=== PATIENT | male | born 1950 | race Caucasian/White ===

== ENCOUNTER 2019-09-07 10:42 | Emergency (ER) | payer OTHER, MEDICARE ==
[~2019-09-07] VITALS: Ht 175.3 cm; Wt 77.1 kg
--- OUTSIDE RECORDS SUMMARY | ~2019-09-07 | XMS | Encounter Summary ---
Demographics + + + | Address | [address] | | | [place] [address] | + + + | Home Phone | | + + + | Preferred Language | Unknown | + + + | Marital Status | Single | + + + | Bahai Affiliation | Unknown | + + + | Race | Unknown | + + + | Ethnic Group | Unknown | + + + Author + + + | Author | [facility] | | | and [facility] | + + + | Organization | [facility] | | | and [place] | + + + | Address | Unknown | + + + | Phone | Unavailable | + + + Support + + +---------+ + | Name | Relationship | Address | Phone | + + +---------+ + | Angela Austin | ECON | Unknown | | + + +---------+ + | Linda Mayberry | ECON | Unknown | | + + +---------+ + Care Team Providers + +------+ + | Care Curing Supervisor Name | Role | Phone | + +------+ + | Love Prabhakar DO | PCP | | + +------+ + Reason for Referral Diagnostic/Screening (Routine) +--------+--------+ + + + + | Status | Reason | Specialty | Diagnoses / | Referred By | Referred To | | | | | Procedures | Contact | Contact | +--------+--------+ + + + + | Closed | | Radiology | Diagnoses | Brandy | [facility] Echo | | | | | | Zaida M, | [facility] [place] | | | | | Palpitations | PA-C [address] | | | | | SOB | [address] | [address] | | | | | (shortness | [address] | [place] | | | | | of breath) | [place] | [address] | | | | | Procedures | [address] | Phone: | | | | | ECHO | Phone: | [phone] | | | | | Complete | [phone] | Fax: | | | | | | Fax: | [phone] | | | | | | [phone] | | +--------+--------+ + + + + Reason for Visit Diagnostic/Screening (Routine) +--------+--------+ + + + + | Status | Reason | Specialty | Diagnoses / | Referred By | Referred To | | | | | Procedures | Contact | Contact | +--------+--------+ + + + + | Closed | | Radiology | Diagnoses | Brandy, | [facility] | | | | | | Zaida M, | [facility] [place] | | | | | Palpitations | PA[address]C [address] | | | | | SOB | [address] | [address] | | | | | (shortness | [address] | [place] | | | | | of breath) | [place], [place] | [address] | | | | | Procedures | [id number] | Phone: | | | | | ECHO | Phone: | [phone] | | | | | Complete | [phone] | Fax: | | | | | | Fax: | [phone] | | | | | | [phone] | | +--------+--------+ + + + + Encounter Details +--------+ + + + + | Date | Type | Department | Care Team | Description | +--------+ + + + + | 08/09/ | Hospital | [facility] | Zaida Nava, | Palpitations; SOB | | 2017 | Encounter | [facility] | PA-C [address] | (shortness of | | | | [facility] | [address] | breath) | | | [facility] | [place] [address] | | | | | [address] | [phone] | | | | | [place] | | | | | | [address] | | | | | | [phone] | | | +--------+ + + + + Social History + + + +--------+------+ | Tobacco Use | Types | Packs/Day | Years | Date | | | | | Used | | + + + +--------+------+ | Current Every Day | Cigarettes | 0.5 | 40 | | | Smoker | | | | | + + + +--------+------+ + +---+---+---+ | Smokeless Tobacco: | | | | | Never Used | | | | + +---+---+---+ + + | Comments: smokes anywhere from a half to a full pack a day | + + + + +---------+ + | Alcohol Use | Drinks/Week | oz/Week | Comments | + + +---------+ + | Yes | 0 Standard drinks | 0.0 | 1 glass of white | | | or equivalent | | wine after work | + + +---------+ + + + + | Sex Assigned at | Date Recorded | | | | + + + | Not on file | | + + + + + + + | Job Start Date | Occupation | Industry | + + + + | Not on file | Not on file | Not on file | + + + + + + + + | Travel History | Travel Start | Travel End | + + + + + + | No recent travel history available. | + + documented as of this encounter Medications at Time of Discharge + + + +---------+ + + | Medication | Sig | Dispensed | Refills | Start | End Date | | | | | | Date | | + + + +---------+ + + | aspirin 81 mg EC | Take 81 mg by mouth | | 0 | | | | tablet | Daily. | | | | | + + + +---------+ + + | atorvaSTATin | Take 1 tablet by | 90 | 3 | 07/22/20 | | | (LIPITOR) 80 MG | mouth nightly. | tablet | | 16 | | | tablet | | | | | | + + + +---------+ + + | nitroglycerin | Place 1 tablet under | 25 | 1 | 07/22/20 | | | (NITROSTAT) 0.4 mg | the tongue every 5 | tablet | | 16 | | | SL | minutes as needed | | | | | | tabletIndications: | for Chest pain. | | | | | | Chest pain, | | | | | | | unspecified type, | | | | | | | CAD in [place] artery | | | | | | + + + +---------+ + + | | Take 1 tablet by | | 0 | | | | oxyCODONE-acetaminop | mouth every 4 hours | | | | | | hen (PERCOCET) 5-325 | as needed for Pain. | | | | | | mg per tablet | | | | | | + + + +---------+ + + | metoprolol | Take 1 tablet by | 30 | 11 | 07/31/20 | | | succinate (TOPROL | mouth nightly. | tablet | | 17 | 8 | | XL) 25 mg 24 hr | | | | | | | tablet | | | | | | + + + +---------+ + + documented as of this encounter Plan of Treatment Not on filedocumented as of this encounter Procedures + +--------+ + + + | Procedure Name | Priori | Date/Time | Associated Diagnosis | Comments | | | ty | | | | + +--------+ + + + | ECHO COMPLETE | Routin | 08/09/2017 | Palpitations SOB | Results for this | | | e | 12:14 PM | (shortness of | procedure are in the | | | | PST | breath) | results section. | + +--------+ + + + | LVEF VALUE | Routin | 08/09/2017 | | Results for this | | | e | | | procedure are in the | | | | | | results section. | + +--------+ + + + documented in this encounter Results ECHO Complete (08/09/2017 12:14 PM PST) + + | Specimen | + + | | + + + +--------- ------+ | Narrative | Performe d At | + +--------- ------+ | | [facility] | | | | | Adult | | | Echo | | | | | | Report Name: RODRIGO MAYBERRY Study | | | Date: 08/09/2017MRN: [id number] Patient Location: | | | [place]OB[place] 1950 Age: 66 yrs | | | Gender: MaleHeight: 68 in Weight: 176 lb | | | BSA: 1.9 m2BP: 120/78 mmHg HR: 61 | | | Rhythm: Sinus rhythmHistory: Hypertension, | | | HyperlipidemiaReason For Study: Palpitations, Shortness of Breath; AUC | | | - 1 INTERPRETATION SUMMARY:A complete two-dimensional transthoracic | | | echocardiogram was performed (2D,M-mode, Doppler and color flow | | | Doppler). Image quality was fair. 1. Normal LV cavity size and | | | borderline concentric hypertrophy. Normalsystolic function with EF | | | 70%.2. Minimal diastolic dysfunction.3. Normal RV. Normal atria, small | | | IVC. Normal aorta and pericardium.4. Normal valves. Mild tricuspid | | | regurgitation. Upper normal PA pressureestimated peak 31 mmHg. No | | | obvious cardiac issue for the shortness of breath. Consider | | | pulmonaryissues. The diastolic dysfunction is only very mild.No | | | structural issues to explain palpitations. Left Ventricle:The left | | | ventricle is normal in size. There is borderline concentric | | | leftventricular hypertrophy. Left ventricular systolic function is | | | normal. Thevisually estimated LV ejection fraction is 70%. The | | | transmitral Dopplerflow pattern is suggestive of age-appropriate, | | | impaired LV relaxation -Stage I. No regional wall motion abnormalities | | | are noted. Right Ventricle:The right ventricle is normal size. The | | | right ventricular systolicfunction is normal. TAPSE was measured at | | | 2.57 cm. (Normal value >1.8 cm). Atria:The left atrial size is normal. | | | The Left atrial index is 25.3 ml/m2.(normal 16-34; mild = 35-41; mod | | | = 42-48; severe >48). Right atrial sizeis normal. The IVC dimension is | | | 0.83 cm. No obvious septal defect is seenwith color Doppler. Mitral | | | Valve:The mitral valve appears normal in structure and function. There | | | is nomitral regurgitation noted. Tricuspid Valve:The tricuspid valve | | | appears normal in structure and function. There ismild tricuspid | | | regurgitation. Estimated PA pressure is 31 mmHg. Aortic Valve:The | | | aortic valve is trileaflet. The aortic valve opens well. No | | | aorticinsufficiency is present. Pulmonic Valve:The pulmonic valve is | | | not well visualized. There is no pulmonic valvularinsufficiency. Great | | | Vessels:The aortic root is normal size. Visualized portions of the | | | aorta appeargrossly normal. The pulmonary artery is grossly normal in | | | appearance. Pericardium/Pleural:There is no pericardial effusion. No | | | pleural effusions are seen. MMode/2D Measurements & CalculationsIVSd: | | | 1.2 cm LVIDd: 4.2 cmIVSs: 1.6 cm | | | LVPWd: 1.1 cm | | | LVPWs: 1.5 cm Ao root diam: 3.0 cm | | | asc Aorta Diam: 3.3 cmACS: 2.3 cmLA dimension: 3.2 | | | cmLVOT diam: 2.0 cm EDV(MOD-sp4): 75.0 ml | | | ESV(MOD-sp4): | | | 24.0 ml | | | EF(MOD-sp4): 68.0 %EDV(MOD-sp2): 71.0 ml | | | SV(MOD-sp4): 51.0 ml Doppler Measurements & CalculationsMV A dur: 0.15 | | | sec MV dec time: 0.28 secMV E max | | | south: 57.9 cm/secMV A max south: 69.9 cm/secMV E/A: 0.83LV IVRT: 0.08 | | | secAo V2 max: 180.7 cm/sec LV V1 max P.2 | | | mmHgAo max P.1 mmHg LV V1 mean PG: | | | 3.8 mmHgAo mean P.8 mmHg LV V1 max: | | | 143.1 cm/secAo V2 VTI: 33.0 cm LV V1 | | | VTI: 27.1 cmAVA(I,D): 2.5 cm2 CRISS(V,D): 2.4 cm2SV(LVOT): 83.0 ml | | | TR max south: 258.0 cm/sec | | | TR max P.6 mmHgPulm Sys | | | South: 74.4 cm/secPulm Portillo South: 45.2 cm/secPulm A Revs South: 38.1 | | | cm/secPulm A Revs Dur: 0.12 sec Interpreting Physician: Elbert Olmos | | | MD Adeleelectronically signed on 08/10/2017 08:57 AMOrdering | | | Physician: ZAIDA NAVAReferring Physician: BRANDY | | | ZAIDAEchocardiographer: Yaneth [id number]: | | | | | |MMode/2D Measurements & Calculations | | |IVSd: 1.2 cm LVIDd: 4.2 cm | | |IVSs: 1.6 cm LVPWd: 1.1 cm | | | LVPWs: 1.5 cm | | | | | |Ao root diam: 3.0 cm asc Aorta Diam: 3.3 cm | | |ACS: 2.3 cm | | |LA dimension: 3.2 cm | | |LVOT diam: 2.0 cm EDV(MOD-sp4): 75.0 ml | | | ESV(MOD-sp4): 24.0 ml | | | EF(MOD-sp4): 68.0 % | | |EDV(MOD-sp2): 71.0 ml SV(MOD-sp4): 51.0 ml | | | | | |Doppler Measurements & Calculations | | |MV A dur: 0.15 sec MV dec time: 0.28 sec | | |MV E max south: 57.9 cm/sec | | |MV A max south: 69.9 cm/sec | | |MV E/A: 0.83 | | |LV IVRT: 0.08 sec | | |Ao V2 max: 180.7 cm/sec LV V1 max P.2 mmHg | | |Ao max P.1 mmHg LV V1 mean P.8 mmHg | | |Ao mean P.8 mmHg LV V1 max: 143.1 cm/sec | | |Ao V2 VTI: 33.0 cm LV V1 VTI: 27.1 cm | | |CRISS(I,D): 2.5 cm2 | | | | | |CRISS(V,D): 2.4 cm2 | | |SV(LVOT): 83.0 ml TR max south: 258.0 cm/sec | | | TR max P.6 mmHg | | |Pulm Sys South: 74.4 cm/sec | | |Pulm Portillo South: 45.2 cm/sec | | |Pulm A Revs South: 38.1 cm/sec | | |Pulm A Revs Dur: 0.12 sec | | | | | |Interpreting Physician: Elbert Angulo MD | | |electronically signed on 08/10/2017 08:57 AM | | |Ordering Physician: ZAIDA NAVA | | |Referring Physician: ZAIDA NAVA | | |Experimental Mechanic Spacecraft: Yaneth Sepulveda | | |[id number]: | | | | | + +--------- ------+ + + | Procedure Note | + + | Gaurav, Rad Results In - 08/10/2017 8:58 AM PST | | Adult | | Echo | | Report | | | | Name: RODRIGO MAYBERRY Study Date: 08/09/2017 | | Patient Location: [facility] | | : 1950 Age: 66 yrs Gender: Male | | Height: 68 in Weight: 176 lb BSA: 1.9 m2 | | BP: 120/78 mmHg HR: 61 Rhythm: Sinus rhythm | | History: Hypertension, Hyperlipidemia | | Reason For Study: Palpitations, Shortness of Breath; AUC - 1 | | | | INTERPRETATION SUMMARY: | | A complete two-dimensional transthoracic echocardiogram was performed (2D, | | M-mode, Doppler and color flow Doppler). Image quality was fair. | | | | 1. Normal LV cavity size and borderline concentric hypertrophy. Normal | | systolic function with EF 70%. | | 2. Minimal diastolic dysfunction. | | 3. Normal RV. Normal atria, small IVC. Normal aorta and pericardium. | | 4. Normal valves. Mild tricuspid regurgitation. Upper normal PA pressure | | estimated peak 31 mmHg. | | | | No obvious cardiac issue for the shortness of breath. Consider pulmonary | | issues. The diastolic dysfunction is only very mild. | | No structural issues to explain palpitations. | | | | Left Ventricle: | | The left ventricle is normal in size. There is borderline concentric left | | ventricular hypertrophy. Left ventricular systolic function is normal. The | | visually estimated LV ejection fraction is 70%. The transmitral Doppler | | flow pattern is suggestive of age-appropriate, impaired LV relaxation - | | Stage I. No regional wall motion abnormalities are noted. | | | | Right Ventricle: | | The right ventricle is normal size. The right ventricular systolic | | function is normal. TAPSE was measured at 2.57 cm. (Normal value >1.8 cm). | | | | Atria: | | The left atrial size is normal. The Left atrial index is 25.3 ml/m2. | | (normal 16-34; mild = 35-41; mod = 42-48; severe >48). Right atrial size | | is normal. The IVC dimension is 0.83 cm. No obvious septal defect is seen | | with color Doppler. | | | | Mitral Valve: | | The mitral valve appears normal in structure and function. There is no | | mitral regurgitation noted. | | | | Tricuspid Valve: | | The tricuspid valve appears normal in structure and function. There is | | mild tricuspid regurgitation. Estimated PA pressure is 31 mmHg. | | | | Aortic Valve: | | The aortic valve is trileaflet. The aortic valve opens well. No aortic | | insufficiency is present. | | | | Pulmonic Valve: | | The pulmonic valve is not well visualized. There is no pulmonic valvular | | insufficiency. | | | | Great Vessels: | | The aortic root is normal size. Visualized portions of the aorta appear | | grossly normal. The pulmonary artery is grossly normal in appearance. | | | | Pericardium/Pleural: | | There is no pericardial effusion. No pleural effusions are seen. | | | | MMode/2D Measurements & Calculations | | IVSd: 1.2 cm LVIDd: 4.2 cm | | IVSs: 1.6 cm LVPWd: 1.1 cm | | LVPWs: 1.5 cm | | | | Ao root diam: 3.0 cm asc Aorta Diam: 3.3 cm | | ACS: 2.3 cm | | LA dimension: 3.2 cm | | LVOT diam: 2.0 cm EDV(MOD-sp4): 75.0 ml | | ESV(MOD-sp4): 24.0 ml | | EF(MOD-sp4): 68.0 % | | EDV(MOD-sp2): 71.0 ml SV(MOD-sp4): 51.0 ml | | | | Doppler Measurements & Calculations | | MV A dur: 0.15 sec MV dec time: 0.28 sec | | MV E max south: 57.9 cm/sec | | MV A max south: 69.9 cm/sec | | MV E/A: 0.83 | | LV IVRT: 0.08 sec | | Ao V2 max: 180.7 cm/sec LV V1 max P.2 mmHg | | Ao max P.1 mmHg LV V1 mean P.8 mmHg | | Ao mean P.8 mmHg LV V1 max: 143.1 cm/sec | | Ao V2 VTI: 33.0 cm LV V1 VTI: 27.1 cm | | CRISS(I,D): 2.5 cm2 | | | | CRISS(V,D): 2.4 cm2 | | SV(LVOT): 83.0 ml TR max south: 258.0 cm/sec | | TR max P.6 mmHg | | Pulm Sys South: 74.4 cm/sec | | Pulm Portillo South: 45.2 cm/sec | | Pulm A Revs South: 38.1 cm/sec | | Pulm A Revs Dur: 0.12 sec | | | | Interpreting Physician: Elbert Angulo MD | | electronically signed on 08/10/2017 08:57 AM | | Ordering Physician: ZAIDA NAVA | | Referring Physician: ZAIDA NAVA | | Experimental Mechanic Spacecraft: Yaneth Sepulveda | | [id number]: | + + + +---------+ + + | Performing | Address | City/State/Zipcode | Phone Number | | Organization | | | | + +---------+ + + | [facility] | | | | + +---------+ + + LVEF VALUE (08/09/2017) + +-------+ + + + | Component | Value | Ref Range | Performed | Pathologist | | | | | At | Signature | + +-------+ + + + | LVEF-TTE | 70 | % | | | | TRANSTHORAC | | | | | | IC ECHO | | | | | + +-------+ + + + documented in this encounter Visit Diagnoses + + | Diagnosis | + + | Palpitations | + + | SOB (shortness of breath) Shortness of breath | + + documented in this encounter"
--- OUTSIDE RECORDS SUMMARY | ~2019-09-07 | XMS | Encounter Summary ---
Demographics + + + | Address | [address] | | | [place] [address] | + + + | Home Phone | | + + + | Preferred Language | Unknown | + + + | Marital Status | Single | + + + | Holiness Affiliation | Unknown | + + + | Race | Unknown | + + + | Ethnic Group | Unknown | + + + Author + + + | Author | [facility] | | [facility] and [facility] | + + + | Organization | [facility] | | | and [...] Team Providers + +------+ + | Care Machine Accountant Name | Role | Phone | + +------+ + PCP | Unavailable | + +------+ + Encounter Details +--------+ + + + + | Date | Type | Department | Care Team | Description | +--------+ + + + + | 10/17/ | Hospital | [facility] | Daljit Bro | | | 2013 | Encounter | HOSPITAL RESPIRATORY | [address] | | | | [address] | [address] | [place], [place] | | | | | [place], [place] | [address] | | | | | [address] | [phone] | | | | | [phone] | | | +--------+ + + + [...]
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
--- OUTSIDE RECORDS SUMMARY | ~2019-09-07 | XMS | Encounter Summary ---
Demographics + + + | Address | [address] | | | [place] [address] | + + + | Home Phone | | + + + | Preferred Language | Unknown | + + + | Marital Status | Single | + + + | Judaism Affiliation | Unknown | + + + | Race | Unknown | + + + | Ethnic Group | Unknown | + + + Author + + + | Author | [facility] | | | and [facility] | + + + | Organization | [facility] | | | and [place] | + + + | Address | Unknown | + + + | Phone | Unavailable | + + + Support + + +---------+ + | Name | Relationship | Address | Phone | + + +---------+ + | Angela Autsin | ECON | Unknown | | + + +---------+ + | Linda [place] | ECON | Unknown | | + + +---------+ + Care Team Providers + +------+ + | Care Tread Booker Name | Role | Phone | + +------+ + PCP | Unavailable | + +------+ + Encounter Details +--------+ + + + + | Date | Type | Department | Care Team | Description | +--------+ + + + + | 04/19/ | Orders Only | [facility] GENERIC IP | de Daljit Schwarz | | | 2013 | | CONVERSION | [address] | | | | | [address] | [address] | [place], [place] | | | | | [place], [place] | [address] | | | | | [address] | [phone] | | | | | [phone] | | | +--------+ + + + [...] | + +--------+ + + + | TISSUE EXAM | Routin | 04/19/2014 | | Results for this | | | e | 2:11 PM | | procedure are in the | | | | PDT | | results section. | + +--------+ + + + | CULTURE, STOOL | Routin | 04/19/2014 | | Results for this | | | e | 11:07 AM | | procedure are in the | | | | PDT | | results section. | + +--------+ + + + documented in this encounter Results TISSUE EXAM (04/19/2014 2:11 PM PDT) + + + + + + | Component | Value | Ref Range | Performed | Pathologist | | | | | At | Signature | + + + + + + | Previous | See Scanned Path Report | | EXTERNAL | | | Biopsy | | | LAB | | + + + + + + + + | Specimen | + + | | + + + +---------+ + + | Performing | Address | City/State/Zipcode | Phone Number | | Organization | | | | + +---------+ + + | EXTERNAL LAB | | | | + +---------+ + + Culture, Stool (04/19/2014 11:07 AM PDT) + + + + + + | Component | Value | Ref Range | Performed | Pathologist | | | | | At | Signature | + + + + + + | CLOTEST | NegativeComment: Narcisa | Negative - | EXTERNAL | | | | Test 3hr | | LAB | | + + + + + + | CLOTEST | NegativeComment: Narcisa | Negative - | EXTERNAL | | | | Test 24 hr | | LAB | | + + + + + + + + | Specimen | + + | | + + + +---------+ + + | Performing | Address | City/State/Zipcode | Phone Number | | Organization | | | | + +---------+ + + | EXTERNAL LAB | | | | + +---------+ + + documented in this encounter Visit Diagnoses Not on filedocumented in this encounter"
--- OUTSIDE RECORDS SUMMARY | ~2019-09-07 | XMS | Encounter Summary ---
Demographics + + + | Address | [address] | | | [place] [address] | + + + | Home Phone | | + + + | Preferred Language | Unknown | + + + | Marital Status | Single | + + + | Religion Affiliation | Unknown | + + + | Race | Unknown | + + + | Ethnic Group | Unknown | + + + Author + + + | Author | [facility] | | | and [facility] | + + + | Organization | [facility] | | | [...] Team Providers + +------+ + | Care Turf Grower Name | Role | Phone | + +------+ + PCP | Unavailable | + +------+ + Encounter Details +--------+ + + + + | Date | Type | Department | Care Team | Description | +--------+ + + + + | 01/06/ | Orders Only | [facility] GENERIC IP | de Daljit Schwarz | | | 2013 | | CONVERSION | [address] | | | | | [address] | | | | [address] | [place], [place] | | | | | [place], [place] | [address] | | | | | [address] | [phone] | | | | | [phone] | | | +--------+ + + + [...] | + +--------+ + + + | LIPID PANEL | Routin | 01/06/2014 | | Results for this | | | e | 8:25 AM | | procedure are in the | | | | PDT | | results section. | + +--------+ + + + | CBC W/AUTO | Routin | 01/06/2014 | | Results for this | | DIFFERENTIAL | e | 8:25 AM | | procedure are in the | | | | PDT | | results section. | + +--------+ + + + | COMPREHENSIVE | Routin | 01/06/2014 | | Results for this | | METABOLIC PANEL | e | 8:25 AM | | procedure are in the | | | | PDT | | results section. | + +--------+ + + + documented in this encounter Results Lipid Panel (01/06/2014 8:25 AM PDT) + + + + + + | Component | Value | Ref Range | Performed | Pathologist | | | | | At | Signature | + + + + + + | Cholesterol | 103 | 0 - 200 mg/dL | EXTERNAL | | | | | | LAB | | + + + + + + | HDL | 41 | 40 - 60 mg/dL | EXTERNAL | | | | | | LAB | | + + + + + + | LDL, | 55Comment: "LDL | 0 - 130 mg/dL | EXTERNAL | | | Calculated | reference range | | LAB | | + + + + + + | VLDL | 7 | - | EXTERNAL | | | | | | LAB | | + + + + + + | Triglycerid | 37 | 30 - 200 mg/dL | EXTERNAL | | | es | | | LAB | | + + + + + + | Chol/HDL | 2.5Comment: According to | - | EXTERNAL | | | Ratio | the [place] [employer] | | LAB | | | | Association, the goal is | | | | | | to keep your | | | | | | cholesterol ratio 5-to-1 | | | | | | or lower. An optimum | | | | | | ratio is 3.5-to-1. A | | | | | | higher ratio indicates a | | | | | | higher risk of heart | | | | | | disease; a lower ratio | | | | | | indicates a lower risk. | | | | + + + + + + + + | Specimen | + + | | + + + + + | Narrative | Performed At | + + + | Optimal <100 mg/dL Near optimal 100-129 mg/dL Borderline 130 - 159 | EXTERNAL LAB | | mg/dL High 160-189 mg/dL Very high >190 mg/dL" | | + + + + +---------+ + + | Performing | Address | City/State/Zipcode | Phone Number | | Organization | | | | + +---------+ + + | EXTERNAL LAB | | | | + +---------+ + + Comprehensive Metabolic Panel (01/06/2014 8:25 AM PDT) + + + + + + | Component | Value | Ref Range | Performed | Pathologist | | | | | At | Signature | + + + + + + | Albumin | 3.7 | 3.0 - 4.5 g/dL | EXTERNAL | | | | | | LAB | | + + + + + + | Creatinine | 0.82 | 0.70 - 1.40 | EXTERNAL | | | | | mg/dL | LAB | | + + + + + + | Total | 7.5 | 6.6 - 8.5 g/dL | EXTERNAL | | | Protein | | | LAB | | + + + + + + | Calcium | 9.0 | 8.3 - 10.0 | EXTERNAL | | | | | mg/dL | LAB | | + + + + + + | K | 4.0 | 3.3 - 4.9 | EXTERNAL | | | | | mmol/L | LAB | | + + + + + + | Na | 135 | 134 - 144 | EXTERNAL | | | | | mmol/L | LAB | | + + + + + + | Cl | 102 | 95 - 108 mmol/L | EXTERNAL | | | | | | LAB | | + + + + + + | CO2 | 25.6 | 23.0 - 34.0 | EXTERNAL | | | | | mmol/L | LAB | | + + + + + + | BUN | 25 | 5 - 26 mg/dL | EXTERNAL | | | | | | LAB | | + + + + + + | ALT | 28 | 18 - 63 U/L | EXTERNAL | | | | | | LAB | | + + + + + + | AST | 12 (L) | 16 - 38 U/L | EXTERNAL | | | | | | LAB | | + + + + + + | Bilirubin | 0.50 | 0.00 - 1.00 | EXTERNAL | | | Total | | mg/dL | LAB | | + + + + + + | Alkaline | 82 | 50 - 136 U/L | EXTERNAL | | | Phosphatase | | | LAB | | + + + + + + | Glucose | 103 | 70 - 110 mg/dL | EXTERNAL | | | | | | LAB | | + + + + + + | Albumin/Kaylah | 1.0 | 1.0 - 2.5 - | EXTERNAL | | | bulin Ratio | | | LAB | | + + + + + + | Anion Gap | 7.4 | 7.0 - 16.0 | EXTERNAL | | | | | mmol/L | LAB | | + + + + + + | BUN/Creatin | 30.5 (H) | 7.0 - 24.0 | EXTERNAL | | | ine Ratio | | mg/dL | LAB | | + + + + + + | Globulin | 3.8 (H) | 1.5 - 3.5 g/dL | EXTERNAL | | | | | | LAB | | + + + + + + | GFR | 70.64 | - | EXTERNAL | | | ESTIMATE | Comment: | | LAB | | | (REF) | GFR Female | | | | | | "Units = mL/min/1.73m2 | | | | | | | | | | + + + + + + | GFR | 95.20 | - | EXTERNAL | | | ESTIMATE | Comment: | | LAB | | | (REF) | GFR Male | | | | | | "Units = mL/min/1.73m2 | | | | | | | | | | + + + + + + | Osmolality, | 275 | 275 - 295 - | EXTERNAL | | | Serum | | | LAB | | + + + + + + + + | Specimen | + + | | + + + + + | Narrative | Performed At | + + + | To estimate the GFR for Americans, multiply the result | EXTERNAL LAB | | provided by 1.21 Normal: Equal | | | to or greater than 60 mL/min/1.73m2. Chronic Kidney | | | Disease: Less than 60 mL/min/1.73m2, if found over a 3 month period. | | | Kidney Failure: Less than 15 mL/min/1.73m2. GFR | | | calculation is not valid for patients under age 18 years. For | | | patients over age 70 years please interpret results with caution as | | | results have not been validated for this calculation method." To | | | estimate the GFR for Americans, multiply the result provided | | | by 1.21 Normal: Equal to or | | | greater than 60 mL/min/1.73m2. Chronic Kidney Disease: Less | | | than 60 mL/min/1.73m2, if found over a 3 month period. | | | Kidney Failure: Less than 15 mL/min/1.73 m2. GFR | | | calculation is not valid for patients under age 18 years. For | | | patients over age 70 years please interpret results with caution as | | | results have not been validated for this calculation method." | | + + + + +---------+ + + | Performing | Address | City/State/Zipcode | Phone Number | | Organization | | | | + +---------+ + + | EXTERNAL LAB | | | | + +---------+ + + CBC w/ Auto Differential (01/06/2014 8:25 AM PDT) + + + + + + | Component | Value | Ref Range | Performed | Pathologist | | | | | At | Signature | + + + + + + | RBC | 4.98 | 4.50 - 6.00 | EXTERNAL | | | | | MIL/uL | LAB | | + + + + + + | WBC | 8.7 | 4.5 - 11.0 K/uL | EXTERNAL | | | | | | LAB | | + + + + + + | Hematocrit | 43.9 | 39.0 - 51.9 % | EXTERNAL | | | | | | LAB | | + + + + + + | Hemoglobin | 15.2 | 13.1 - 17.4 | EXTERNAL | | | | | g/dL | LAB | | + + + + + + | Platelet | 216 | 140 - 440 K/uL | EXTERNAL | | | Count | | | LAB | | + + + + + + | Absolute | 0.09 | 0.00 - 0.20 | EXTERNAL | | | Basophils | | K/uL | LAB | | + + + + + + | % Basophils | 1.1 | 0 - 3 % | EXTERNAL | | | | | | LAB | | + + + + + + | % | 3.6 | 0.0 - 7.0 % | EXTERNAL | | | Eosinophils | | | LAB | | + + + + + + | Absolute | 0.31 | 0.00 - 2.50 | EXTERNAL | | | Eosinophils | | K/uL | LAB | | + + + + + + | Absolute | 2.31 | 0.60 - 3.40 | EXTERNAL | | | Lymphocytes | | K/uL | LAB | | + + + + + + | % | 26.6 | 10.0 - 50.0 % | EXTERNAL | | | Lymphocytes | | | LAB | | + + + + + + | Absolute | 0.66 | 0.00 - 4.00 | EXTERNAL | | | Monocytes | | K/uL | LAB | | + + + + + + | % Monocytes | 7.6 | 0.0 - 12.0 % | EXTERNAL | | | | | | LAB | | + + + + + + | Absolute | 5.32 | 1.67 - 8.80 | EXTERNAL | | | Neutrophils | | K/uL | LAB | | + + + + + + | % | 61.2 | 37 - 80 % | EXTERNAL | | | Neutrophils | | | LAB | | + + + + + + | MCH | 30.5 | 26.0 - 32.0 pg | EXTERNAL | | | | | | LAB | | + + + + + + | MCHC | 34.6 | 31.0 - 36.0 | EXTERNAL | | | | | g/dL | LAB | | + + + + + + | MCV | 88 | 75 - 95 fL | EXTERNAL | | | | | | LAB | | + + + + + + | RDW-CV | 11.9 (L) | 11.6 - 14.8 % | EXTERNAL | | | | | | LAB | | + + + + + + | SLIDE | No | | EXTERNAL | | | REVIEWED | | | LAB | | + + + + + + | Manual | No | | EXTERNAL | | | Diff? | | | LAB | | + [...] Visit Diagnoses Not on filedocumented in this encounter
--- OUTSIDE RECORDS SUMMARY | ~2019-09-07 | XMS | Encounter Summary ---
Demographics + + + | Address | [address] | | | [place] [address] | + + + | Home Phone | | + + + | Preferred Language | Unknown | + + + | Marital Status | Single | + + + | Mandaen Affiliation | Unknown | + + + | Race | Unknown | + + + | Ethnic Group | Unknown | + + + Author + + + | Author | [facility] | | | and [facility] | + + + | Organization | [facility] | | | and [...] Team Providers + +------+ + | Care Athletics Director Name | Role | Phone | + +------+ + | Love Prabhakar DO | PCP | | + +------+ + Reason for Visit +---------+ + | Reason | Comments | +---------+ + | Results | Echocardiogram | +---------+ + Encounter Details +--------+ + + + + | Date | Type | Department | Care Team | Description | +--------+ + + + + | 08/13/ | Telephone | [facility] [place] | Tiny Anand | Results | | 2017 | | Cardiology [facility] | [place] | [place] | | | | [address] | | | | | | [address] [place] | | | | | | [address] | | | | | | [phone] | | | +--------+ + + + [...] as of this encounter Plan of Treatment + +------+--------+ + + | Name | Type | Priori | Associated Diagnoses | Order Schedule | | | | ty | | | + +------+--------+ + + | Pulmonary function | PFT | CHRISTIANE | Shortness of | Expected: 08/13/2017 | | test | | | breath | (Approximate), | | | | | | Expires: 08/13/2018 | + +------+--------+ + + documented as of this encounter Visit Diagnoses + + | Diagnosis | + + | Shortness of breath - Primary | + + documented in this encounter"
--- OUTSIDE RECORDS SUMMARY | ~2019-09-07 | XMS | Encounter Summary ---
Demographics + + + | Address | [address] | | | [place] [address] | + + + | Home Phone | | + + + | Preferred Language | Unknown | + + + | Marital Status | Single | + + + | Caodaism Affiliation | Unknown | + + + | Race | Unknown | + + + | Ethnic Group | Unknown | + + + Author + + + | Author | [facility] | | | and [facility] | + + + | Organization [...] Team Providers + +------+ + | Care Solar Design Engineer Name | Role | Phone | + +------+ + PCP | Unavailable | + +------+ + Encounter Details +--------+ + + + + | Date | Type | Department | Care Team | Description | +--------+ + + + + | 10/20/ | Orders Only | [facility] GENERIC IP | de Daljit Schwarz | | | 2013 | | CONVERSION | [address] | | | | | [address] | | | | | [address] | [place], [place] | | | | | [place], [place] | [address] | | | | | [address] | [phone] | | | | | [phone] | | | +--------+ + + + [...] | + +--------+ + + + | BASIC METABOLIC | Routin | 10/20/2013 | | Results for this | | PANEL | e | 8:46 AM | | procedure are in the | | | | PST | | results section. | + +--------+ + + + documented in this encounter Results Basic Metabolic Panel (10/20/2013 8:46 AM PST) + + + + + + | Component | Value | Ref Range | Performed | Pathologist | | | | | At | Signature | + + + + + + | GFR | 77.11 | - | EXTERNAL | | | ESTIMATE | Comment: | | LAB | | | (REF) | GFR Female | | | | | | "Units = mL/min/1.73m2 | | | | | | | | | | + + + + + + | GFR | 103.93 | - | EXTERNAL | | | ESTIMATE | Comment: | | LAB | | | (REF) | GFR Male | | | | | | "Units = mL/min/1.73m2 | | | | | | | | | | + + + + + + | Osmolality, | 282 | 275 - 295 - | EXTERNAL | | | Serum | | | LAB | | + + + + + + | Creatinine | 0.76 | 0.70 - 1.40 | EXTERNAL | | | | | mg/dL | LAB | | + + + + + + | Calcium | 9.2 | 8.3 - 10.0 | EXTERNAL | | | | | mg/dL | LAB | | + + + + + + | BUN | 25 | 5 - 26 mg/dL | EXTERNAL | | | | | | LAB | | + + + + + + | Glucose | 96 | 70 - 110 mg/dL | EXTERNAL | | | | | | LAB | | + + + + + + | BUN/Creatin | 32.9 (H) | 7.0 - 24.0 | EXTERNAL | | | ine Ratio | | mg/dL | LAB | | + + + + + + | K | 4.1 | 3.3 - 4.9 | EXTERNAL | | | | | mmol/L | LAB | | + + + + + + | Na | 139 | 134 - 144 | EXTERNAL | | | | | mmol/L | LAB | | + + + + + + | Cl | 104 | 95 - 108 mmol/L | EXTERNAL | | | | | | LAB | | + + + + + + | CO2 | 26.0 | 23.0 - 34.0 | EXTERNAL | | | | | mmol/L | LAB | | + + + + + + | Anion Gap | 9.0 | 7.0 - 16.0 | EXTERNAL | [...]
--- OUTSIDE RECORDS SUMMARY | ~2019-09-07 | XMS | Clinical Summary ---
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 | | | | | | [...] we did obtain records | | from [facility] and his coronary angiogram there showed only [...] + + + + | 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 | + + + + + | Overview: Coronary angiogram 2013 in [facility] - mild to | | moderate diffuse [...] | + + + + + | Hepatitis C | | | | | Screening | 2 | | | + + + + + | Colorectal Cancer | | | | | Screening | 2 | | | | (Colonoscopy) | | | | + + + + + | Vaccine: Zoster (1 | | | | | of 2) | 2 | | | + + + + + | Adult Annual | | | | | Wellness Visit | 6 | | | + + + + + | AAA Screening | | | | | | 7 | | | + + + + + | Vaccine: | | | | | Pneumococcal 65+ (1 | 7 | | | | of 2 - PCV13) | | | | + + + + + | Vaccine: Influenza | | | | | (#1) | 9 | | | + + + + [...] +--------+ +---------+--------+ | MEDICARE | MEDICA | [id number] | 09/09/19 | [phone] | | Medica | | | RE | | 17-Pre | 5 | | re | | | PART A | | sent | | | | | | AND B | | | | | | + +--------+ +--------+ +---------+--------+ | [employer] | [employer] | [id number] | | | | Indemn | | [...] Person | Self | [birth year] | [address] | | | al/Fam | | [phone] | [phone] | [place] [address] | | | yessica | | | 1 (Home) | | + +--------+ +--------+ + + Advance Directives + + + + + | Type | Date Recorded | Patient | Explanation | | | | Creative Writing English Professor | | + + + + + | Power of | | | | | Angiography Technologist | | | | + + + [...]
--- OUTSIDE RECORDS SUMMARY | ~2019-09-07 | XMS | Encounter Summary ---
Demographics + + + | Address | [address] | | | [place] [address] | + + + | Home Phone | | + + + | Preferred Language | Unknown | + + + | Marital Status | Single | + + + | Pentecostal Affiliation | Unknown | + + + | Race | Unknown | + + + | Ethnic Group | Unknown | + + + Author + + + | Author | [facility] | | | and [facility] | + + + | Organization | [facility] | | | and [...] Team Providers + +------+ + | Care Wood Flooring Specialist Name | Role | Phone | + +------+ + PCP | Unavailable | + +------+ + Encounter Details +--------+ + + + + | Date | Type | Department | Care Team | Description | +--------+ + + + + | 04/03/ | Hospital | [facility] | Obdulia Bucio | | | 2013 | Encounter | HOSPITAL EMERGENCY | [address] | | | | | [place] [address] | | | [address] [place], [place] | [place] [address] | | | | | [address] | [phone] | | | | | [phone] | | | +--------+ + + + [...]
--- OUTSIDE RECORDS SUMMARY | ~2019-09-07 | XMS | Encounter Summary ---
Demographics + + + | Address | [address] | | | [place] [address] | + + + | Home Phone | | + + + | Preferred Language | Unknown | + + + | Marital Status | Single | + + + | Quaker Affiliation | Unknown | + + + | Race | Unknown | + + + | Ethnic Group | Unknown | + + + Author + + + | Author | [facility] | | | and [facility] | + + + | Organization | [...] Team Providers + +------+ + | Care Outside Cutter Name | Role | Phone | + +------+ + PCP | Unavailable | + +------+ + Encounter Details +--------+ + + + + | Date | Type | Department | Care Team | Description | +--------+ + + + + | 05/13/ | Hospital | [facility] | Daljit Bro | | | 2012 | Encounter | HOSPITAL EMERGENCY | [address] | | | | | [place] [address] | | | | | [address] [place], [place] | [place], [place] | | | | | [address] | [address] | | | | | [phone] | [phone] | | | | | | | [...]
--- OUTSIDE RECORDS SUMMARY | ~2019-09-07 | XMS | Encounter Summary ---
Demographics + + + | Address | [address] | | | [place] [address] | + + + | Home Phone | | + + + | Preferred Language | Unknown | + + + | Marital Status | Single | + + + | Roman Catholic Affiliation | Unknown | + + + | Race | Unknown | + + + | Ethnic Group | Unknown | + + + Author + + + | Author | [facility] | | | and [facility] | + + + | Organization [...] Team Providers + +------+ + | Care Supervisor Plastering Name | Role | Phone | + +------+ + PCP | Unavailable | + +------+ + Encounter Details +--------+ + + + + | Date | Type | Department | Care Team | Description | +--------+ + + + + | 04/19/ | Hospital | [facility] | Daljit Bro | | | 2013 | Encounter | [facility] [place] | [address] | | | | | [address] | [address] | | | | | [place], [place] | [place], [place] | | | | | [address] | [address] | | | | | [phone] | | | | | | | [...]
--- OUTSIDE RECORDS SUMMARY | ~2019-09-07 | XMS | Encounter Summary ---
Demographics + + + | Address | [address] | | | [place] [address] | + + + | Home Phone | | + + + | Preferred Language | Unknown | + + + | Marital Status | Single | + + + | Pentecostalism Affiliation | Unknown | + + + | Race | Unknown | + + + | Ethnic Group | Unknown | + + + Author + + + | Author | [facility] | | | and [facility] | + + + | Organization | [facility] | | [...] Team Providers + +------+ + | Care Ampoule Sealer Name | Role | Phone | + +------+ + PCP | Unavailable | + +------+ + Encounter Details +--------+ + + + + | Date | Type | Department | Care Team | Description | +--------+ + + + + | 10/20/ | Hospital | [facility] | Daljit Bro | | | 2013 | Encounter | HOSPITAL LABORATORY | [address] | | | | | [address] | [address] | | | | | [place], [place] | [place], [place] | | | | | [address] | [address] | | | | | [phone] | [phone] | | | | | | | [...]
--- OUTSIDE RECORDS SUMMARY | ~2019-09-07 | XMS | Encounter Summary ---
Demographics + + + | Address | [address] | | | [place] [address] | + + + | Home Phone | | + + + | Preferred Language | Unknown | + + + | Marital Status | Single | + + + | Buddhism Affiliation | Unknown | + + + | Race | Unknown | + + + | Ethnic Group | Unknown | + + + Author + + + | Author | [facility] | | | and [facility] | + + + | Organization | [facility] | | | and [...] Team Providers + +------+ + | Care Textile Designs Sales Representative Name | Role | Phone | + +------+ + PCP | Unavailable | + +------+ + Encounter Details +--------+ + + + + | Date | Type | Department | Care Team | Description | +--------+ + + + + | 12/06/ | Hospital | [facility] | Shana Colon | | | 2013 | Encounter | HOSPITAL EMERGENCY | [address] | | | | | [place] [address] [place] | | | | | [address] [place], [place] | [place] [address] | | | | | [address] | [phone] | | | | | [phone] | | | +--------+ + + + [...]
--- OUTSIDE RECORDS SUMMARY | ~2019-09-07 | XMS | Encounter Summary ---
Demographics + + + | Address | [address] | | | [place] [address] | + + + | Home Phone | | + + + | Preferred Language | Unknown | + + + | Marital Status | Single | + + + | Restoration Affiliation | Unknown | + + + | Race | Unknown | + + + | Ethnic Group | Unknown | + + + Author + + + | Author | [facility] | | | and [facility] | + + + | Organization | [facility] | | | [...] Team Providers + +------+ + | Care Manager Branch Name | Role | Phone | + +------+ + | Unknown, Doctor | PCP | | + +------+ + Reason for Visit Auth/Cert +--------+--------+ + + + + | Status | Reason | Specialty | Diagnoses / | Referred By | Referred To | | | | | Procedures | Contact | Contact | +--------+--------+ + + + + | | | | Diagnoses | | | | | | | Chest pain, | | [facility] | | | | | unspecified | | Gail Cordero MD | | | | | type | | [address] | | | | | Procedures | | [address] | | | | | [address] | | [address], | | | | | PLACE/CORON | | [place] | | | | | ANGIO, IMG | | Phone: | | | | | SUPER/INTERP | | [phone] | | | | | ,W LEFT | | Fax: | | | | | HEART | | [phone] | | | | | VENTRICULOGR | | | | | | | APHY | | | +--------+--------+ + + + + Encounter Details +--------+ + + + + | Date | Type | Department | Care Team | Description | +--------+ + + + + | 07/20/ | Hospital | [facility] | Vlad Vasquez, | ACS (acute coronary | | 2016 - | Encounter | [facility] | [address] | syndrome) (HCC) | | | | CARDIAC TELEMETRY | [address] [place], | (Primary Dx); Chest | | 07/22/ | | [address] | [place] [address] | pain, unspecified | | 2016 | | [place] | [phone] | type; Bradycardia; | | | | [address] | | CAD in enterprise | | | | [phone] | Gail Suazo | artery; Essential | | | | | MD [address] | hypertension; | | | | | [address] | Hyperlipidemia LDL | | | | | [place] [address] | goal <70; Tobacco | | | | | [phone] | use; Apical variant | | | | | | hypertrophic | | | | | | cardiomyopathy (HCC) | +--------+ + + + + Social [...] | | | + +---+---+---+ + + +---------+ + | Alcohol Use | Drinks/Week | oz/Week | Comments | + + +---------+ + | Yes | 0 Standard drinks | 0.0 | 1 glass of white | | | or equivalent | | wine a week - or | | | | | less | + + +---------+ + + + [...] + + + | Blood Pressure | 122/76 | 07/22/2016 11:45 AM | | | | | PST | | + + + + + | Pulse | 58 | 07/22/2016 11:45 AM | | | [...] + + + + | Weight | 77.4 kg (170 lb 10.2 | 07/20/2016 5:27 PM | | | | oz) | PST | | + + + + + | Height | 172.7 cm (5' 8") | 07/20/2016 4:00 PM | | | | | PST | | + + + + + | Body Mass Index | 25.95 | 07/20/2016 4:00 PM | | | | | PST | | + + + + + documented in this encounter Discharge Summaries Gail Suazo MD - 07/22/2016 11:44 AM PSTFormatting of this note might be differe nt from the original. PATIENT NAME: Rodrigo Mayberry : 1950: AGE: 65 y.o. ADMISSION DATE: 07/20/2016 DISCHARGE DATE: 07/22/2016 DATE OF SERVICE: 07/22/2016 PRIMARY CARE: Doctor Sheree Suazo MD DISCHARGE SUMMARY Principal Hospital Problem/Admission Diagnoses: ACS (acute coronary syndrome) Discharge Diagnoses: * ACS (acute coronary syndrome) Assessment & Plan Presumptive diagnosis of CAD and acute coronary syndrome. Patient gave history of plain bal loon angioplasty of vessel in the past. However we did obtain records from [facility] and his c oronary angiogram there showed only mild atherosclerotic plaque. Coronary angiogram done here from right radial approach showed minimal (20%) luminal irregu larities and normal LV EDP of 10 mm Hg and normal EF. Risk reduction for his minor CAD is recommended including tobacco cessation, statin, regula r exercise and good blood pressure control. Would boost statin to 80 mg a day of atorvastat in if tolerated. Abnormal EKG Assessment & Plan Reported T inversion with CP but all EKG here are benign. He specifically has not had the giant anterolateral T inversions usually seen at baseline in apical hypertrophic cardiomyopa thy. Tobacco use Assessment & Plan Ongoing tobacco abuse which is a major risk factor for not only cardiovascular events but l nitin disease and cancer. Smoking cessation is recommended. Today (07/21) he states that he was successful quitting for 14 years in the past and is now ready to "go cold turkey" - decl ined nicotine patch. Hyperlipidemia LDL goal <70 Assessment & Plan The patient was previously on atorvastatin-at 20 mg a day. We will place on high-dose ator vastatin since he does appear to be having an acute coronary syndrome. Fasting lipids are p ending. I have ordered them twice - reordered them today. Essential hypertension Assessment & Plan The patient is reportedly on metoprolol with initial blood pressure and pulmonary 160/100. Added JAYESH-I as bradycardia limits further titration of BB. 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 Bradycardia Assessment & Plan Asymptomatic but is limiting titration of BB. Will monitor. Apical variant hypertrophic cardiomyopathy Assessment & Plan Both his echo and coronary angiogram suggest apical HCM. The EKG does not meet criteria how ever and he has no CHF or VT. Discussed possible familial syndrome with patient and follow up recommended. Hospital Course: The patient was admitted pain free on NTG and heparin drips from outside hospital, ruled ou t for CO, had normal EKG and only occasional symptomatic PVCs on the monitor. He had coronary angiography by Dr. Vlad Vasquez that showed minor 20% luminal irregularitie s, apical cavity obliteration , norrmal LV EF and EDP of 10 mm Hg. Echo also was suggestive of mild concentric LVH that was more pronounce in the apex. Possible apical HCM was discussed with patient. Follow up and phenotypic screening of sibl ings with echo was also recommended. We think that his chest pain may be due to some endocar dial compression from LVH. Would not repeat coronary angiogram or admit for chest pain alvin lar to this again if low risk EKG and enzymes are noted. Follow-Up: Gail Suazo MD [address] [place] [id number] In 2 months Mild CAD and thickened heart muscle - follow up in our [facility]. Disposition: Home/Self Care Condition at Discharge: Stable Discharge Medications New Medications Details lisinopril 5 mg tablet Take 1 tablet by mouth Daily. aka: PRINIVIL, ZESTRIL nitroglycerin 0.[address] 1 tablet under the tongue every 5 minutes as needed for Chest pain. aka: NITROSTAT Changed Medications Details atorvaSTATin 80 MG tablet Take 1 tablet by mouth nightly. What changed: - medication strength - how much to take aka: LIPITOR Unchanged Medications Details aspirin 81 mg EC tablet Take 81 mg by mouth Daily. metoprolol tartrate 50 mg tablet Take 25 mg by mouth 2 times daily. aka: LOPRESSOR Procedures In Hospital: Transthoracic Echocardiogram: INTERPRETATION SUMMARY: A complete two-dimensional transthoracic echocardiogram was performed (2D, M-mode, Doppler and color flow Doppler). 1. No regional wall motion abnormalities. There is apical hypertrophy that is concentric bu t relatively spares the basal segments. Question apical variant hypertrophic cardiomyopathy versus mildly atypical hypertensive remodeling. No apical crypts seen. LV EF is at least 65% . 2. Preserved right ventricular systolic function. 3. No significant valve dysfunction. 4. No pericardial effusion 5. No findings of pulmonary hypertension. 6. Normal proximal great vessels. Coronary angiogram: CONCLUSIONS: 1. Hyperdynamic LV systolic function with near cavity obliteration of the distal two thirds of the left ventricle. (*LVEDP was only 10 mm Hg - no CHF) 2. Relatively minimal coronary artery disease present with minor luminal irregularities of less than 20% CLINICAL IMPRESSION AND RECOMMENDATIONS Continued medical therapy advised. An echocardiogram will be obtained to better evaluate left ventricular function and exclude a hypertrophic cardiomyopathy. Discharge Exam: Vital Signs: Temp: 37.3 C (99.1 F) BP: 130/80 mmHg Pulse: 63 Resp: 16 SpO2: 96 % Last Wt. Before discharge: Weight: 77.4 kg (170 lb 10.2 oz) Wt. Admission: Weight: 77.4 kg (170 lb 10.2 oz) GENERAL: Pleasant, in no apparent distress NECK: Supple. No JVD CHEST: Good inspiratory effort with no crackles, rhonchi, or wheezes. CARDIAC: Normal S1 and S2. No murmur, rubs or gallops. ABDOMEN: Soft, non-tender, non distended with normal, active bowel sounds. EXTREMITIES: No clubbing, cyanosis, or edema. PULSES: Right: femoral 2+ DP 2+, PT 2+ Left: femoral 2+ DP 2+, PT 2+ NEUROLOGIC: Non-focal. SKIN: No rashes or skin breakdown. TELE: SR with occasional PVC Labs: Recent Labs 07/21/16 0026 07/20/16 1915 07/20/16 1602 WBC 8.8 -- -- HGB 13.4 -- -- HCT 39.8 -- -- NA 139 -- -- K 3.9 -- -- CL 106 -- -- CO2 23 -- -- BUN 15 -- -- CREA 0.80 -- -- GLU 88 -- -- CALCIUM 8.6 -- -- INR -- 1.1 -- CK -- -- 41* TROPONIN <0.01 -- 0.01 Lab Results Component Value Date CHOL 103 01/06/2014 LDL 55 01/06/2014 HDL 41 01/06/2014 TRIG 37 01/06/2014 AVS Discharge Instructions: Discharge Instructions Your diagnoses include: 1. Atherosclerosis (mild) of your coronary arteries. Recommend: Stop smoking, take your cholesterol medication and take a baby aspirin (enteric coated 81 mg a day). Regular exercise of about 150 minutes in a week does also decrease ri sk. 2. Possible apical hypertrophic cardiomyopathy. This diagnosis is suspected but not compl etely confirmed. You have mildly more thickening of heart muscle at the tip. This can be d ue to a genetic problem. Right now however your rhythm is stable, the heart pumping functio n is normal and you are not in any heart failure, so you have a good prognosis. Recommendation: Follow up with cardiology. Continue your beta stephie. Good blood pressur e control can slow the rate of heart muscle thickening. A cardiac MRI or follow up echocar diograms should be done as an outpatient. Our panel saw operator should call you in the next week to set up a 2 month follow up at our [place] outreach clinic. This clinic is held on the first floor of the [facility]. Please establish care with a primary care provider We require that you have a primary care physician. In order to optimize the time we have w ith you, we ask that you focus on your cardiovascular questions or concerns during your visi t with us. Our practice does not routinely prescribe non-cardiac medications. Please establish care with a primary care provider We require that you have a primary care physician. In order to optimize the time we have w ith you, we ask that you focus on your cardiovascular questions or concerns during your visi t with us. Our practice does not routinely prescribe non-cardiac medications nor are we abl e to address primary care concerns including referral to non-cardiac subspecialists. Resources you may find helpful for primary care: [facility] - [address], [place] [address] [facility] - [address] [place] [address] Thank you for allowing [facility] to participate in your health care. El ectronically signed by: Gail Suazo MD 07/22/2016 11:22 If patient has any further questions or concerns prior to above, instructed to call our off ice. Time spent on discharge planning:greater than 30 minutes because there was time in face to face counseling of patient about apical HCM and familial risks. Signed by: Gail Suazo MD 07/22/2016, 11:44 Portions of this chart were created with [employer] voice recognition software. Occasional wro ng-word or "sound-alike" substitutions may have occurred due to the inherent limitations of voice recognition software. Please read the chart carefully and recognize, using context, w here those substitutions have occurred. [facility] Main Office - [address], [address] [place], [place] [address] Office: Medical Records [facility] [place] [address] Main: Physician referral and transfer line: Physician referral fax line: Medical Records phone: Medical Records fax: documented in t his encounter Discharge Instructions Instructions Gail Suazo MD - 07/22/2016Your diagnoses include: 1. Atherosclerosis (mild) of your coronary arteries. Recommend: Stop smoking, take your cholesterol medication and take a baby aspirin (enteric coated 81 mg a day). Regular exercise of about 150 minutes in a week does also decrease ri sk. 2. Possible apical hypertrophic cardiomyopathy. This diagnosis is suspected but not compl etely confirmed. You have mildly more thickening of heart muscle at the tip. This can be d ue to a genetic problem. Right now however your rhythm is stable, the heart pumping functio n is normal and you are not in any heart failure, so you have a good prognosis. Recommendation: Follow up with cardiology. Continue your beta stephie. Good blood pressur e control can slow the rate of heart muscle thickening. A cardiac MRI or follow up echocar diograms should be done as an outpatient. Our panel saw operator should call you in the next week to set up a 2 month follow up at our [place] outreach clinic. This clinic is held on the first floor of the [facility]. Please establish care with a primary care provider We require that you have a primary care physician. In order to optimize the time we have w ith you, we ask that you focus on your cardiovascular questions or concerns during your visi t with us. Our practice does not routinely prescribe non-cardiac medications. Please establish care with a primary care provider We require that you have a primary care physician. In order to optimize the time we have w ith you, we ask that you focus on your cardiovascular questions or concerns during your visi t with us. Our practice does not routinely prescribe non-cardiac medications nor are we abl e to address primary care concerns including referral to non-cardiac subspecialists. Resources you may find helpful for primary care: [facility] - [address], [place] [address] [facility] - [address], [place] [address] Thank you for allowing [facility] to participate in your health care. 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 | tablet | | 16 | 7 | | 5 mg | | | | | | | tabletIndications: | | | | | | | Essential | | | | | | | hypertension, CAD in | | | | | | | enterprise artery | | | | | | + + + +---------+ + + | metoprolol | Take 25 mg by mouth | | 0 | | | | tartrate (LOPRESSOR) | 2 times daily. | | | | 7 | | 50 mg tablet | | | | | | + + + +---------+ + + documented as of this encounter Progress Notes Jazzy Middleton RN - 07/21/2016 2:53 PM PSTHC done through r wrist, minimal coronary arter y disease. No intervention necessary, continued med treatment. Start to release pressure wrist band. Advise not to use r hand. Elevate r hand on pillow.E lectronically signed by Jazzy Middleton RN at 07/21/2016 2:56 PM PSTGail Suazo M D - 07/21/2016 7:10 AM PST [facility] PATIENT NAME: Rodrigo Mayberry : 1950: AGE: 65 y.o. ADMISSION DATE: 07/20/2016 PRIMARY CARE: Doctor Unknown Gail Suazo MD DAILY CARDIOLOGY PROGRESS NOTE [facility] DATE OF SERVICE: 07/21/2016 LOCATION OF SERVICE TODAY: [facility] TIME SPENT INCLUDING DIRECT PATIENT CARE, DISCUSSION WITH OTHER PROVIDERS, COORDINATION OF CARE AND PATIENT EDUCATION: 20-25 MINUTES CURRENT ASSESSMENT AND PLAN * ACS (acute coronary syndrome) Assessment & Plan Dynamic T inversions reported in [place] in the setting of typical chest pain. I reviewed E KGS however and do not see any changes. Atherosclerotic risk factors noted include tobacco abuse, age, hypertension, male sex and dyslipidemia. His charlie-Nitin risk is extremely high. Workup options could include s tress perfusion study versus coronary angiography. Abnormal EKG Assessment & Plan T inversions with CP noted. No ST elevation. Tobacco use Assessment & Plan Ongoing tobacco abuse which is a major risk factor for not only cardiovascular events but l nitin disease and cancer. Smoking cessation is recommended. Today (07/21) he states that he was successful quitting for 14 years in the past and is now ready to "go cold turkey" - decl ined nicotine patch. Hyperlipidemia LDL goal <70 Assessment & Plan The patient was previously on atorvastatin-at 20 mg a day. We will place on high-dose ator vastatin since he does appear to be having an acute coronary syndrome. Fasting lipids are p ending. Essential hypertension Assessment & Plan The patient is reportedly on metoprolol with initial blood pressure and pulmonary 160/100. Added JAYESH-I as bradycardia limits further titration of BB. 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 Smoking cessation and medical therapy were recommended. He did not have a POBA despite his report to me of "a balloon but they couldn't put in a stent." Today he is asking about CABG versus PCI. Discussed indications for these. We discussed how important it is to consistently take the antiplatelet therapy after any st ent, including risks of fatal stent thrombosis. Patient is to contact our office before di scontinuing the antiplatelet therapy including prescription medication and aspirin. He indic ates that he will comply with DAPT if he gets a stent without interruption. Bradycardia Assessment & Plan Limiting titration of BB. Will monitor. OVERALL PLAN SUMMARY: 1. Coronary angiogram and PCI to be done from radial approach by Dr. Vasquez. I emphasized n eed to comply without interruption with DAPT if stent is done. 2. Nicotine patch to be offered. 3. I added JAYESH-I and increased statin. 4. Will check ambulatory HR before discharge. We are continuing what is reported to be his home BB dose so I suspect he will do fine with it. SUBJECTIVE: The patient reports no chest pain or dyspnea overnight. Has thought about it a nd now is ready to quit smoking - "cold turkey - like I did it before." No bleeding, GI or symptoms. Review of systems x 8 done today: ID: no fever or chlls. Constitutional: Weight change as below. No weakness. No diaphores is. PULMONARY: No dark sputum or hemoptysis. GI: no nausea. No emesis, melena or abdomin al pain. : Making urine ok NEUROLOGIC: No vision loss or or other focal deficits to s uggest TIA CARDIOVASCULAR: As noted above SKIN: No new rashes or ulcers. 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 Bradycardia SCHEDULED MEDS: aspirin 81 mg Oral Daily atorvaSTATin 80 mg Oral Nightly lisinopril 5 mg Oral Daily metoprolol tartrate 25 mg Oral BID nicotine 1 patch Transdermal Daily pantoprazole 40 mg Oral QAM AC IV INFUSIONS: heparin infusion 1,150 Units/hr (07/20/161948) TELEMETRY AND EKGS: SB - benign LAST ECHO: Pending this am MOST RECENT RADIOGRAPHIC STUDIES OF INTEREST: Had negative CXR in [place] prior to transfe r LABS Recent Results (from the past 24 hour(s)) Troponin I Collection Time: 07/20/16 16:02 Result Value Ref Range Troponin I 0.01 0.00 - 0.06 ng/mL CK Total Collection Time: 07/20/16 16:02 Result Value Ref Range CK TOTAL 41 (L) 55 - 400 U/L Hepatic Function Panel Collection Time: 07/20/16 16:02 Result Value Ref Range Total protein 6.5 6.1 - 7.8 g/dL ALBUMIN 3.6 3.3 - 4.8 g/dL BILIRUBIN TOTAL 0.7 0.2 - 1.1 mg/dL BILIRUBIN DIRECT 0.1 0.0 - 0.4 mg/dL ALK PHOS 49 35 - 115 U/L AST 20 10 - 45 U/L ALT 22 10 - 65 U/L PTT Collection Time: 07/20/16 19:15 Result Value Ref Range aPTT, Patient 55 (H) 26 - 36 sec aPTT, Pop Mean 31 sec Protime INR Collection Time: 07/20/16 19:15 Result Value Ref Range PROTIME 14.0 12.0 - 14.2 sec INR 1.1 0.9 - 1.1 Urinalysis with Microscopic with Culture if Indicated Collection Time: 07/20/16 22:33 Result Value Ref Range COLOR Light Yellow CLARITY Clear GLUCOSE UA Negative Negative mg/dL BILIRUBIN UA Negative Negative KETONES UA Negative Negative mg/dL Specific [place] 1.014 1.001 - 1.030 PH UA 6.0 5.0 - 7.5 PROTEIN UA Negative Negative mg/dL UROBILINOGEN UA 2.0 (H) <2.0 mg/dL NITRITE UA Negative Negative BLOOD UA Negative Negative LEUKOCYTES ESTERASE UA Negative Negative WBC UA <1 <6 /hpf RBC UA 1 <3 /hpf BACTERIA UA None seen /hpf SQUAMOUS EPITHELIAL UA Not clinically significant. /lpf MUCUS UA Present (A) None seen /lpf Culture Indicated Culture not indicated Culture not indicated Troponin I Collection Time: 07/21/16 0:26 Result Value Ref Range Troponin I <0.01 0.00 - 0.06 ng/mL PTT Collection Time: 07/21/16 0:26 Result Value Ref Range aPTT, Patient 84 (H) 26 - 36 sec aPTT, Pop Mean 31 sec Basic Metabolic Panel Collection Time: 07/21/16 0:26 Result Value Ref Range NA 139 135 - 145 mmol/L K 3.9 3.5 - 5.0 mmol/L CL 106 99 - 109 mmol/L CO2 23 21 - 28 mmol/L GLUCOSE 88 65 - 99 mg/dL BUN 15 8 - 25 mg/dL Creatinine, Serum/Plasma 0.80 0.70 - 1.30 mg/dL CALCIUM 8.6 8.5 - 10.2 mg/dL ANION GAP 10 5 - 16 mmol/L Estimated GFR >60 >60 ml/min/1.73m2 CBC no Differential Collection Time: 07/21/16 0:26 Result Value Ref Range WBC 8.8 3.8 - 11.0 K/uL RBC 4.45 4.20 - 5.70 M/uL Hgb 13.4 13.2 - 17.0 g/dL Hct 39.8 39.0 - 50.0 % MCV 89.4 80.0 - 100.0 fL MCH 30.2 27.0 - 34.0 pg MCHC 33.8 32.0 - 35.5 g/dL RDW-CV 13.2 11.0 - 15.5 % Platelet Count 192 150 - 400 K/uL OBJECTIVE LATEST VITALS: BP 111/69 mmHg | Pulse 53 | Temp(Src) 36.7 C (98 F) (Temporal) | Resp 1 4 | Ht 1.727 m (5' 8") | Wt 77.4 kg (170 lb 10.2 oz) | BMI 25.95 kg/m2 | SpO2 97% I/O s (this shift): Vital sign ranges for last 24hrs: Input and output for last 24hrs: Temp: [36.3 C (97.4 F)-37.2 C (98.9 F)] 36.7 C (98 F) Pulse: [53-57] 53 Resp: [14-18] 14 BP: (108-141)/(69-84) 111/69 mmHg SpO2 Av % Min: 96 % Max: 98 % 07/19 190 - 07/21 0700 In: 482 [P.O.:240; I.V.:242] Out: 300 [Urine:300] Body mass index is 25.95 kg/(m^2).; Body surface area is 1.93 meters squared. PHYSICAL EXAM Admit Weight: Weight: 77.4 kg (170 lb 10.2 oz) Current weight: Weight: 77.4 kg (170 lb 10.2 oz) GENERAL: alert and cheerful. HEENT: The oropharynx and conjunctivae are clear. Mucous membranes moist. EEOMI. NECK: Supple. Trachea on midline. No thyromegaly grossly. JVP is not visibly elevated CHEST: CTA No use of accessory muscles. CARDIAC: Rhythm is regular. No lifts/heaves. PMI is normal. Normal S1 and S2. Murmurs: No murmur noted ABDOMEN: Soft, non-tender, nondistended with normal, active bowel sounds. Normal abdominal pulsation without bruit. EXTREMITIES: No clubbing or cyanosis. There is no edema. no varicosities or cords noted . PULSES: 2+ radial and DP NEUROLOGIC: Non-focal. Alert, oriented with fluent speech, symmetric face, EOMI, [place]. SKIN: No rashes or skin breakdown. MUSCULOSKELETAL: No red or hot joints. Sternum is stable. Signed by: Gail Suazo MD 07/21/2016, 7:26 Thank you for allowing [facility] to participate in your patient's [place] care. Electronically signed by: Gail Suazo MD 07/21/2016 7:26 Patient Care Team: Doctor Unknown as PCP - General [facility] Main Office - [address], [address] [place], [place] [address] Office: Medical Records [facility] [place] [address] Main: Physician referral and transfer line: Physician referral fax line: Medical Records phone: Medical Records fax: Angela Toth RN - 07/20/2016 4:45 PM PSTHeparin IV bolus given @ [facility] & Heparin IV gtt initiated there also. PTT & INR not done; no results found in transfer paperwork or on the [place] site. documented in this encounter Plan of Treatment Not on filedocumented as of this encounter Procedures + +--------+ + + + | Procedure Name | Priori | Date/Time | Associated Diagnosis | Comments | | | ty | | | | + +--------+ + + + | CV LV | Routin | 07/21/2016 | Chest pain, | Results for this | | | e | 1:50 PM | unspecified type | procedure are in the | | | | PST | | results section. | + +--------+ + + + | CV COR ANGIO | Routin | 07/21/2016 | Chest pain, | Results for this | | | e | 1:50 PM | unspecified type | procedure are in the | | | | PST | | results section. | + +--------+ + + + | CV LHC | Routin | 07/21/2016 | Chest pain, | Results for this | | | e | 1:50 PM | unspecified type | procedure are in the | | | | PST | | results section. | + +--------+ + + + | LVEF VALUE | Routin | 07/21/2016 | | Results for this | | | e | 1:40 PM | | procedure are in the | | | | PST | | results section. | + +--------+ + + + | ECHO COMPLETE | Routin | 07/21/2016 | | Results for this | | | e | 10:00 AM | | procedure are in the | | | | PST | | results section. | + +--------+ + + + | PTT | Timed | 07/21/2016 | | Results for this | | | | 7:40 AM | | procedure are in the | | | | PST | | results section. | + +--------+ + + + | TROPONIN I | Routin | 07/21/2016 | | Results for this | | | e | 12:26 AM | | procedure are in the | | | | PST | | results section. | + +--------+ + + + | PTT | Timed | 07/21/2016 | | Results for this | | | | 12:26 AM | | procedure are in the | | | | PST | | results section. | + +--------+ + + + | CBC NO DIFFERENTIAL | Routin | 07/21/2016 | | Results for this | | | e | 12:26 AM | | procedure are in the | | | | PST | | results section. | + +--------+ + + + | BASIC METABOLIC | Routin | 07/21/2016 | | Results for this | | PANEL | e | 12:26 AM | | procedure are in the | | | | PST | | results section. | + +--------+ + + + | LVEF VALUE | Routin | 07/21/2016 | | Results for this | | | e | | | procedure are in the | | | | | | results section. | + +--------+ + + + | URINALYSIS WITH | Routin | 07/20/2016 | | Results for this | | MICROSCOPIC WITH | e | 10:33 PM | | procedure are in the | | CULTURE IF INDICATED | | PST | | results section. | + +--------+ + + + | PTT | Timed | 07/20/2016 | | Results for this | | | | 7:15 PM | | procedure are in the | | | | PST | | results section. | + +--------+ + + + | PROTIME INR | Timed | 07/20/2016 | | Results for this | | | | 7:15 PM | | procedure are in the | | | | PST | | results section. | + +--------+ + + + | ECG 12 LEAD | Routin | 07/20/2016 | | Results for this | | | e | 4:28 PM | | procedure are in the | | | | PST | | results section. | + +--------+ + + + | TROPONIN I | Routin | 07/20/2016 | | Results for this | | | e | 4:02 PM | | procedure are in the | | | | PST | | results section. | + +--------+ + + + | CK TOTAL | STAT | 07/20/2016 | | Results for this | | | | 4:02 PM | | procedure are in the | | | | PST | | results section. | + +--------+ + + + | HEPATIC FUNCTION | Routin | 07/20/2016 | | Results for this | | PANEL | e | 4:02 PM | | procedure are in the | | | | PST | | results section. | + +--------+ + + + | LABS - EXTERNAL SCAN | | 07/20/2016 | | Results for this | | | | 12:00 AM | | procedure are in the | | | | PST | | results section. | + +--------+ + + + | ECG - EXTERNAL SCAN | | 07/20/2016 | | Results for this | | | | 12:00 AM | | procedure are in the | | | | PST | | results section. | + +--------+ + + + documented in this encounter Results CV CARDIAC PROCEDURE (07/21/2016 1:50 PM PST) + + | Specimen | + + | | + + + + + | Narrative | Performed At | + + + | Vlad Vasquez MD 07/21/2016 14:00 [facility] | | | [facility] LEFT CARDIAC CATHETERIZATION REPORT | | | PATIENT NAME: Rodrigo Mayberry DATE OF : 1950 | | | DATE OF PROCEDURE: 07/21/2016 | | | | | | PRIMARY CARE | | | PROVIDER: Doctor Unknown ENGRAVED ROLLER INSPECTOR: Dr. Vlad Vasquez, | | | , [facility], [facility] PRE-PROCEDURE DIAGNOSIS: chest pain, known | | | coronary disease, suspected acute coronary syndrome POST-PROCEDURE | | | DIAGNOSIS: relatively mild coronary disease, hyperdynamic LV | | | function PROCEDURES PERFORMED: 1. Left Heart | | | Catheterization for pressures 2. Coronary Angiography 3. Left | | | Venticulography DESCRIPTION OF PROCEDURE: Informed consent was | | | obtained from the patient, and a time-out was performed to verify | | | the patient's identification and planned procedure. Please refer | | | to the computer log entry form for precise details. The patient's | | | right radial artery was sterilely prepped. Arterial access was | | | achieved with 6 Kosovan micropuncture kit. Note that the patient | | | had somewhat abnormal radial artery anatomy with a low bifurcation | | | of the brachial artery that required some finesse to negotiate. | | | Patient was then given intravenous heparin as well as | | | intra-arterial nitroglycerin through the sheath. A 5 Kosovan | | | multipurpose catheter was advanced to the descending aorta over a | | | Fall wire. This catheter was used to perform right coronary | | | angiography as well as a left ventriculogram. A pullback across | | | the valve was used to assess if there was a gradient across the | | | aortic valve. Left coronary angiography was performed with 5 Kosovan | | | JL 3.5 catheter. The wrist band occluder device was utilized | | | to achieve successful hemostasis of the radial artery. There were | | | no immediate complications. Estimated blood loss was less than 10 | | | cc. FINDINGS: Hemodynamics: Left ventricular end-diastolic | | | pressure (LVEDP) was approximately 10 mm Hg. There was no | | | gradient across the aortic valve. Left Ventriculography: | | | Demonstrated hyperdynamic LV systolic function with near cavity | | | obliteration of the distal two thirds of the left ventricle. | | | Estimated EF 75 | | | | | | 80 percent. Left main coronary artery: Normal Left anterior | | | descending coronary artery: Relatively mild luminal irregularities | | | of less than 20%. There was a relatively minor myocardial bridge | | | of the mid LAD. Circumflex coronary artery: Minimal luminal | | | regularities of less than 20% Right coronary artery: Moderate | | | size dominant vessel again with minor luminal regularities | | | CONCLUSIONS: 1. Hyperdynamic LV systolic function with near cavity | | | obliteration of the distal two thirds of the left ventricle. 2. | | | Relatively minimal coronary artery disease present with minor | | | luminal irregularities of less than 20% CLINICAL IMPRESSION AND | | | RECOMMENDATIONS Continued medical therapy advised. An | | | echocardiogram will be obtained to better evaluate left ventricular | | | function and exclude a hypertrophic cardiomyopathy. Vlad Gutierres | | | MD Pedro, [facility], [facility] | | | DATE/TIME: 07/21/2016 13:57 07/21/2016 13:57 Portions of this | | | chart were created with [employer] voice recognition software. | | | Occasional wrong-word or | | | | | | sound-alike | | | substitutions may have occurred due to the inherent limitations of | | | voice recognition software. Please read the chart carefully and | | | recognize, using context, where these substitutions have occurred | | + + + LVEF VALUE (07/21/2016 1:40 PM PST) + +-------+ + + + | Component | Value | Ref Range | Performed | Pathologist | | | | | At | Signature | + +-------+ + + + | LVEF-LVGRAM | 70 | | | | | CARDIAC | | | | | | CATH | | | | | + +-------+ + + + ECHO Complete (07/21/2016 10:00 AM PST) + + | Specimen | + + | | + + + +--------- -----+ | Narrative | Performe d At | + +--------- -----+ | | | | | | | Adult Echo | | | Report Name: | | | RODRIGO MAYBERRY Date: 07/21/2016MRN: [id number] | | | Patient Location: [facility]DOB: 1950 | | | Age: 65 yrs Gender: MaleHeight: 68 in | | | Weight: 170 lb BSA: 1.9 m2 | | | HR: 48 | | | Rhythm: Sinus bradycardicHistory: CAD, HTN, Tobacco | | | useReason For Study: acute coronary syndrome, auc 1 INTERPRETATION | | | SUMMARY:A complete two-dimensional transthoracic echocardiogram was | | | performed (2D,M-mode, Doppler and color flow Doppler).1. No regional | | | wall motion abnormalities. There is apical hypertrophy thatis | | | concentric but relatively spares the basal segments. Question | | | apicalvariant hypertrophic cardiomyopathy versus mildly atypical | | | hypertensiveremodeling. No apical crypts seen. LV EF is at least | | | 65%.2. Preserved right ventricular systolic function.3. No significant | | | valve dysfunction.4. No pericardial effusion5. No findings of | | | pulmonary hypertension.6. Normal proximal great vessels. Left | | | Ventricle:The left ventricle is normal in size. There is no thrombus. | | | There is mildconcentric left ventricular hypertrophy. Left ventricular | | | systolicfunction is normal. The estimated ejection fraction is 69%. | | | The visuallyestimated LV ejection fraction is 65-70%. The transmitral | | | Doppler flowpattern is suggestive of impaired LV relaxation. No | | | regional wall motionabnormalities are noted. Right Ventricle:The right | | | ventricle is moderately dilated. RVIDd = 4.9 cm. The rightventricular | | | systolic function is normal. TAPSE was measured at 3.1 cm.(Normal | | | value >1.8 cm). Atria:The left atrium is mildly dilated. The Left | | | atrial index is 40 ml/m2.(normal 16-34; mild = 35-41; mod = 42-48; | | | severe >48). The Left atrialarea is' 24' cm2. The right atrium is | | | mildly dilated. Right atrial area is' 18' cm2. No obvious septal | | | defect is seen with color Doppler. Mitral Valve:The mitral valve | | | appears normal in structure and function. No significantmitral valve | | | stenosis. There is trace mitral regurgitation. Tricuspid Valve:The | | | tricuspid valve appears normal in structure and function. There is | | | notricuspid stenosis. There is mild tricuspid regurgitation. Estimated | | | PApressure is 25 mmHg. Aortic Valve:The aortic valve appears normal | | | in structure and function. Nohemodynamically significant valvular | | | aortic stenosis. No aorticinsufficiency is present. Pulmonic Valve:The | | | pulmonic valve was partially visualized and appears grossly normal | | | instructure and function. There is no pulmonic valvular stenosis. | | | Tracepulmonic valvular regurgitation. Great Vessels:The aortic root is | | | normal size. Visualized portions of the aorta appeargrossly normal. | | | The aortic arch was not well visualized. The mainpulmonary artery is | | | not well visualized. Pericardium/Pleural:There is no pericardial | | | effusion. No pleural effusions are seen. MMode/2D Measurements & | | | CalculationsRVDd: 4.8 cm LVIDd: | | | 4.4 cmIVSd: 1.1 cm LVIDs: 2.7 | | | cmIVSs: 1.4 cm LVPWd: 1.0 cm | | | LVPWs: 1.5 cm | | | FS: 38.2 % Ao root diam: 3.8 | | | cm LA | | | dimension: 3.4 cmasc Aorta Diam: 3.5 cm LVOT | | | diam: 2.1 cm Doppler Measurements & CalculationsMV A dur: 0.13 sec | | | MV dec time: 0.18 secMV E max south: 67.1 | | | cm/secMV A max south: 72.9 cm/secMV E/A: 0.92Ao V2 max: 157.2 cm/sec | | | LV V1 max P.2 mmHgAo max P.9 mmHg | | | LV V1 mean P.6 mmHgAo mean P.3 mmHg | | | LV V1 max: 113.5 cm/secAo V2 VTI: 36.2 | | | cm LV V1 VTI: 25.4 cmAVA(I,D): 2.4 | | | cm2 CRISS(V,D): 2.5 cm2SV(LVOT): 86.6 ml | | | PA V2 max: 86.3 cm/sec | | | PA max P.0 mmHgTR max south: 225.6 cm/sec | | | RAP systole: 5.0 mmHgTR max P.4 mmHgRVSP(TR): | | | 25.4 mmHgPulm Sys South: 52.4 cm/secPulm Portillo South: 45.9 cm/secPulm A | | | Revs South: 22.8 cm/secPulm A Revs Dur: 0.14 sec Interpreting Physician: | | | Gail Suazo MDelectronically signed on 07/22/2016 09:12 | | | AMOrdering Physician: GAIL SUAZOEchocardiographer: Vikash | | | [id number]: | | |There is no pericardial effusion. No pleural effusions are seen. | | | | | |MMode/2D Measurements & Calculations | | |RVDd: 4.8 cm LVIDd: 4.4 cm | | |IVSd: 1.1 cm LVIDs: 2.7 cm | | |IVSs: 1.4 cm LVPWd: 1.0 cm | | | LVPWs: 1.5 cm | | | | | |FS: 38.2 % Ao root diam: 3.8 cm | | | LA dimension: 3.4 cm | | |asc Aorta Diam: 3.5 cm LVOT diam: 2.1 cm | | | | | |Doppler Measurements & Calculations | | |MV A dur: 0.13 sec MV dec time: 0.18 sec | | |MV E max south: 67.1 cm/sec | | |MV A max south: 72.9 cm/sec | | |MV E/A: 0.92 | | |Ao V2 max: 157.2 cm/sec LV V1 max P.2 mmHg | | |Ao max P.9 mmHg LV V1 mean P.6 mmHg | | |Ao mean P.3 mmHg LV V1 max: 113.5 cm/sec | | |Ao V2 VTI: 36.2 cm LV V1 VTI: 25.4 cm | | |CRISS(I,D): 2.4 cm2 | | | | | |CRISS(V,D): 2.5 cm2 | | |SV(LVOT): 86.6 ml PA V2 max: 86.3 cm/sec | | | PA max P.0 mmHg | | |TR max south: 225.6 cm/sec RAP systole: 5.0 mmHg | | |TR max P.4 mmHg | | |RVSP(TR): 25.4 mmHg | | |Pulm Sys South: 52.4 cm/sec | | |Pulm Portillo South: 45.9 cm/sec | | |Pulm A Revs South: 22.8 cm/sec | | |Pulm A Revs Dur: 0.14 sec | | | | | |Interpreting Physician: Gail Suazo MD | | |electronically signed on 07/22/2016 09:12 AM | | |Ordering Physician: GAIL SUAZO | | |Drawing Frame Tender: Vikash Perez | | |[id number]: | | | | | + +--------- -----+ + + | Procedure Note | + + | Danilo Nolasco Results In - 07/22/2016 9:13 AM PST | | Adult Echo | | Report | | | | Name: RODRIGO MAYBERRY Date: 07/21/2016 | | Patient Location: [place] [address] | | : 1950 Age: 65 yrs Gender: Male | | Height: 68 in Weight: 170 lb BSA: 1.9 m2 | | HR: 48 Rhythm: Sinus hedy | | cardic | | History: CAD, HTN, Tobacco use | | Reason For Study: acute coronary syndrome, auc 1 | | | | INTERPRETATION SUMMARY: | | A complete two-dimensional transthoracic echocardiogram was performed (2D, | | M-mode, Doppler and color flow Doppler). | | 1. No regional wall motion abnormalities. There is apical hypertrophy that | | is concentric but relatively spares the basal segments. Question apical | | variant hypertrophic cardiomyopathy versus mildly atypical hypertensive | | remodeling. No apical crypts seen. LV EF is at least 65%. | | 2. Preserved right ventricular systolic function. | | 3. No significant valve dysfunction. | | 4. No pericardial effusion | | 5. No findings of pulmonary hypertension. | | 6. Normal proximal great vessels. | | | | Left Ventricle: | | The left ventricle is normal in size. There is no thrombus. There is mild | | concentric left ventricular hypertrophy. Left ventricular systolic | | function is normal. The estimated ejection fraction is 69%. The visually | | estimated LV ejection fraction is 65-70%. The transmitral Doppler flow | | pattern is suggestive of impaired LV relaxation. No regional wall motion | | abnormalities are noted. | | | | Right Ventricle: | | The right ventricle is moderately dilated. RVIDd = 4.9 cm. The right | | ventricular systolic function is normal. TAPSE was measured at 3.1 cm. | | (Normal value >1.8 cm). | | | | Atria: | | The left atrium is mildly dilated. The Left atrial index is 40 ml/m2. | | (normal 16-34; mild = 35-41; mod = 42-48; severe >48). The Left atrial | | area is' 24' cm2. The right atrium is mildly dilated. Right atrial area is | | ' 18' cm2. No obvious septal defect is seen with color Doppler. | | | | Mitral Valve: | | The mitral valve appears normal in structure and function. No significant | | mitral valve stenosis. There is trace mitral regurgitation. | | | | Tricuspid Valve: | | The tricuspid valve appears normal in structure and function. There is no | | tricuspid stenosis. There is mild tricuspid regurgitation. Estimated PA | | pressure is 25 mmHg. | | | | Aortic Valve: | | The aortic valve appears normal in structure and function. No | | hemodynamically significant valvular aortic stenosis. No aortic | | insufficiency is present. | | | | Pulmonic Valve: | | The pulmonic valve was partially visualized and appears grossly normal in | | structure and function. There is no pulmonic valvular stenosis. Trace | | pulmonic valvular regurgitation. | | | | Great Vessels: | | The aortic root is normal size. Visualized portions of the aorta appear | | grossly normal. The aortic arch was not well visualized. The main | | pulmonary artery is not well visualized. | | | | Pericardium/Pleural: | | There is no pericardial effusion. No pleural effusions are seen. | | | | MMode/2D Measurements & Calculations | | RVDd: 4.8 cm LVIDd: 4.4 cm | | IVSd: 1.1 cm LVIDs: 2.7 cm | | IVSs: 1.4 cm LVPWd: 1.0 cm | | LVPWs: 1.5 cm | | | | FS: 38.2 % Ao root diam: 3.8 cm | | LA dimension: 3.4 cm | | asc Aorta Diam: 3.5 cm LVOT diam: 2.1 cm | | | | Doppler Measurements & Calculations | | MV A dur: 0.13 sec MV dec time: 0.18 sec | | MV E max south: 67.1 cm/sec | | MV A max south: 72.9 cm/sec | | MV E/A: 0.92 | | Ao V2 max: 157.2 cm/sec LV V1 max P.2 mmHg | | Ao max P.9 mmHg LV V1 mean P.6 mmHg | | Ao mean P.3 mmHg LV V1 max: 113.5 cm/sec | | Ao V2 VTI: 36.2 cm LV V1 VTI: 25.4 cm | | CRISS(I,D): 2.4 cm2 | | | | CRISS(V,D): 2.5 cm2 | | SV(LVOT): 86.6 ml PA V2 max: 86.3 cm/sec | | PA max P.0 mmHg | | TR max south: 225.6 cm/sec RAP systole: 5.0 mmHg | | TR max P.4 mmHg | | RVSP(TR): 25.4 mmHg | | Pulm Sys South: 52.4 cm/sec | | Pulm Portillo South: 45.9 cm/sec | | Pulm A Revs South: 22.8 cm/sec | | Pulm A Revs Dur: 0.14 sec | | | | Interpreting Physician: Gail Suazo MD | | electronically signed on 07/22/2016 09:12 AM | | Ordering Physician: GAIL SUAZO | | Drawing Frame Tender: Vikash Perez | | [id number]: | + + PTT (07/21/2016 7:40 AM PST) + + + + + + | Component | Value | Ref Range | Performed | Pathologist | | | | | At | Signature | + + + + + + | aPTT, | 83 (H)Comment: Deep | 26 - 36 sec | [facility] | | | Patient | venous thrombosis or | | [facility] | | | | pulmonary embolism | | HEART | | | | therapeutic heparin | | MEDICAL | | | | levels of 0.3 to 0.7 | | CENTER | | | | Units/mL anti FactorXa | | LABORATORY | | | | levels usually | | | | | | correspond to an aPTT of | | | | | | 65 to 99 seconds. Acute | | | | | | cardiac syndrom | | | | | | therapeutic range based | | | | | | on heparin levels of 0.2 | | | | | | to 0.5 usually | | | | | | correspond to an aPTT of | | | | | | 57 to 76 | | | | | | seconds.Pediatric | | | | | | guidelines suggested | | | | | | heparin levels of 0.35 | | | | | | to 0.7 usually | | | | | | correspond to an aPTT of | | | | | | 69 to 99 seconds. | | | | + + + + + + | aPTT, Pop | 31 | sec | [facility] | | | Mean | | | [facility] | | | | | | HEART | | | | | | MEDICAL | | | | | | CENTER | | | | | | LABORATORY | | + + + + + + + + | Specimen | + + | Blood specimen | | (specimen) | + + + + + + + | Performing | Address | City/State/Zipcode | Phone Number | | Organization | | | | + + + + + | [facility] | [address] | [place] [address] | | | [facility] | | | | | LABORATORY | | | | + + + + + CBC no Differential (07/21/2016 12:26 AM PST) + +-------+ + + + | Component | Value | Ref Range | Performed | Pathologist | | | | | At | Signature | + +-------+ + + + | WBC | 8.8 | 3.8 - 11.0 K/uL | [facility] | | | | | | [facility] | | | | | | [facility] | | | | | | MEDICAL | | | | | | CENTER | | | | | | LABORATORY | | + +-------+ + + + | RBC | 4.45 | 4.20 - 5.70 | [facility] | | | | | M/uL | [facility] | | | | | | HE[facility] | | | | | | MEDICAL | | | | | | CENTER | | | | | | LABORATORY | | + +-------+ + + + | Hemoglobin | 13.4 | 13.2 - 17.0 | [facility] | | | | | g/dL | [facility] | | | | | | HE[facility] | | | | | | MEDICAL | | | | | | CENTER | | | | | | LABORATORY | | + +-------+ + + + | Hematocrit | 39.8 | 39.0 - 50.0 % | [facility] | | | | | | [facility] | | | | | | [facility] | | | | | | MEDICAL | | | | | | CENTER | | | | | | LABORATORY | | + +-------+ + + + | MCV | 89.4 | 80.0 - 100.0 fL | [facility] | | | | | | [facility] | | | | | | [facility] | | | | | | MEDICAL | | | | | | CENTER | | | | | | LABORATORY | | + +-------+ + + + | MCH | 30.2 | 27.0 - 34.0 pg | [facility] | | | | | | [facility] | | | | | | [facility] | | | | | | MEDICAL | | | | | | CENTER | | | | | | LABORATORY | | + +-------+ + + + | MCHC | 33.8 | 32.0 - 35.5 | [facility] | | | | | g/dL | [facility] | | | | | | HE[facility] | | | | | | MEDICAL | | | | | | CENTER | | | | | | LABORATORY | | + +-------+ + + + | RDW-CV | 13.2 | 11.0 - 15.5 % | [facility] | | | | | | [facility] | | | | | | [facility] | | | | | | MEDICAL | | | | | | CENTER | | | | | | LABORATORY | | + +-------+ + + + | Platelet | 192 | 150 - 400 K/uL | [facility] | | | Count | | | [facility] | | | | | | HE[facility] | | | | | | MEDICAL | | | | | | CENTER | | | | | | LABORATORY | | + +-------+ + + + + + | Specimen | + + | Blood specimen | | (specimen) | + + + + + + + | Performing | Address | City/State/Zipcode | Phone Number | | Organization | | | | + + + + + | [facility] | [phone] | [place] [address] | | | [facility] | | | | | LABORATORY | | | | + + + + + Basic Metabolic Panel (07/21/2016 12:26 AM PST) + + + + + + | Component | Value | Ref Range | Performed | Pathologist | | | | | At | Signature | + + + + + + | Na | 139 | 135 - 145 | [facility] | | | | | mmol/L | [facility] | | | | | | HE[facility] | | | | | | MEDICAL | | | | | | CENTER | | | | | | LABORATORY | | + + + + + + | K | 3.9 | 3.5 - 5.0 | [facility] | | | | | mmol/L | [facility] | | | | | | HE[facility] | | | | | | MEDICAL | | | | | | CENTER | | | | | | LABORATORY | | + + + + + + | Cl | 106 | 99 - 109 mmol/L | [facility] | | | | | | [facility] | | | | | | HE[facility] | | | | | | MEDICAL | | | | | | CENTER | | | | | | LABORATORY | | + + + + + + | CO2 | 23 | 21 - 28 mmol/L | [facility] | | | | | | [facility] | | | | | | HE[facility] | | | | | | MEDICAL | | | | | | CENTER | | | | | | LABORATORY | | + + + + + + | Glucose | 88Comment: Swazi | 65 - 99 mg/dL | [facility] | | | | Diabetes Association | | [facility] | | | | diagnostic categories | | HEART | | | | for non adults: | | MEDICAL | | | | Impaired fasting | | CENTER | | | | glucose 100 to 125 | | LABORATORY | | | | mg/dL. A fasting | | | | | | glucose result of 126 | | | | | | mg/dL or greater | | | | | | indicates diabetes if | | | | | | the abnormality is | | | | | | confirmed on a | | | | | | subsequent day. A | | | | | | random glucose result of | | | | | | greater than 200 mg/dL | | | | | | indicates diabetes if | | | | | | the abnormality is | | | | | | confirmed on a | | | | | | subsequent day. | | | | + + + + + + | BUN | 15 | 8 - 25 mg/dL | [facility] | | | | | | [facility] | | | | | | HE[facility] | | | | | | MEDICAL | | | | | | CENTER | | | | | | LABORATORY | | + + + + + + | Creatinine | 0.80Comment: IDMS | 0.70 - 1.30 | [facility] | | | | traceable creatinine | mg/dL | [facility] | | | | | | HEART | | | | | | MEDICAL | | | | | | CENTER | | | | | | LABORATORY | | + + + + + + | Calcium | 8.6 | 8.5 - 10.2 | [facility] | | | | | mg/dL | [facility] | | | | | | HE[facility] | | | | | | MEDICAL | | | | | | CENTER | | | | | | LABORATORY | | + + + + + + | Anion Gap | 10 | 5 - 16 mmol/L | [facility] | | | | | | [facility] | | | | | | HE[facility] | | | | | | MEDICAL | | | | | | CENTER | | | | | | LABORATORY | | + + + + + + | Estimated | >60Comment: GFR <60: | >60 | [facility] | | | GFR | Chronic kidney disease, | ml/min/1.73m2 | [facility] | | | | if found over a 3 month | | HEART | | | | period.GFR <15: Kidney | | MEDICAL | | | | failure.For | | CENTER | | | | Americans, multiply the | | LABORATORY | | | | calculated GFR by 1.210 | | | | + + + + + + + + | Specimen | + + | Blood specimen | | (specimen) | + + + + + + + | Performing | Address | City/State/Zipcode | Phone Number | | Organization | | | | + + + + + | [facility] | [phone] | [place] [address] | | | [facility] | | | | | LABORATORY | | | | + + + + + PTT (07/21/2016 12:26 AM PST) + + + + + + | Component | Value | Ref Range | Performed | Pathologist | | | | | At | Signature | + + + + + + | aPTT, | 84 (H)Comment: Deep | 26 - 36 sec | [facility] | | | Patient | venous thrombosis or | | [facility] | | | | pulmonary embolism | | HEART | | | | therapeutic heparin | | MEDICAL | | | | levels of 0.3 to 0.7 | | CENTER | | | | Units/mL anti FactorXa | | LABORATORY | | | | levels usually | | | | | | correspond to an aPTT of | | | | | | 65 to 99 seconds. Acute | | | | | | cardiac syndrom | | | | | | therapeutic range based | | | | | | on heparin levels of 0.2 | | | | | | to 0.5 usually | | | | | | correspond to an aPTT of | | | | | | 57 to 76 | | | | | | seconds.Pediatric | | | | | | guidelines suggested | | | | | | heparin levels of 0.35 | | | | | | to 0.7 usually | | | | | | correspond to an aPTT of | | | | | | 69 to 99 seconds. | | | | + + + + + + | aPTT, Pop | 31 | sec | [facility] | | [facility] | | [facility] | [facility] | | [facility] | | | | | | [facility] | | | | | | [facility]ENTER | | | | | | LABORATORY | | + + + + + + + + | Specimen | + + | Blood specimen | | (specimen) | + + + + + + + | Performing | Address | City/State/Zipcode | Phone Number | | Organization | | | | + + + + + | [facility] | [address] | [place] [address] | | | [facility] | | | | | LAB[facility]ATORY | | | | + + + + + Troponin I (07/21/2016 12:26 AM PST) + +-------+ + + + | Component | Value | Ref Range | Performed | Pathologist | | | | | At | Signature | + +-------+ + + + | Troponin I | <0.01 | 0.00 - 0.06 | [facility] | | | | | ng/mL | [facility] | | | | | | [facility] | | | | | | [facility] | | | | | | [facility]ENTER | | | | | | LABORATORY | | + +-------+ + + + + + | Specimen | + + | Blood specimen | | (specimen) | + + + + + + + | Performing | Address | City/State/Zipcode | Phone Number | | Organization | | | | + + + + + | [facility] | [address] | [place] [address] | | | [facility] | | | | | LABORATORY | | | | + + + + + LVEF VALUE (07/21/2016) + +-------+ + + + | Component | Value | Ref Range | Performed | Pathologist | | | | | At | Signature | + +-------+ + + + | LVEF-TTE | 70 | | | | | TRANSTHORAC | | | | | | IC ECHO | | | | | + +-------+ + + + Urinalysis with Microscopic with Culture if Indicated (07/20/2016 10:33 PM PST) + + + + + + | Component | Value | Ref Range | Performed | Pathologist | | | | | At | Signature | + + + + + + | Color | Light Yellow | | [facility] | [facility] | [facility] | [facility] | | | | | | [facility] | | | | | | [facility]ENTER | | | | | | LABORATORY | | + + + + + + | Clarity | Clear | | [facility] | [facility] | | [facility] | [facility] | | | | | | [facility] | | | | | | [facility] | | | | | | LABORATORY | | + + + + + + | Glucose, | Negative | Negative mg/dL | [facility] | | | Urine | | | [facility] | | | | | | HE[facility] | | | | | | MEDICAL | | | | | | CENTER | | | | | | LABORATORY | | + + + + + + | Bilirubin, | Negative | Negative | [facility] | | | Urine | | | [facility] | | | | | | [facility] | | | | | | MED[facility] | | | | | | CENTER | | | | | | LABORATORY | | + + + + + + | Ketones, | Negative | Negative mg/dL | [facility] | | | Urine | | | [facility] | | | | | | [facility] | | | | | | MEDICAL | | | | | | CENTER | | | | | | LABORATORY | | + + + + + + | Specific | 1.014 | 1.001 - 1.030 | [facility] | | | [place] | | | [facility] | | | | | | [facility] | | | | | | MED[facility] | | | | | | CENTER | | | | | | LABORATORY | | + + + + + + | pH, Urine | 6.0 | 5.0 - 7.5 | [facility] | | | | | | [facility] | | | | | | [facility] | | | | | | MEDICAL | | | | | | CENTER | | | | | | LABORATORY | | + + + + + + | Protein, | Negative | Negative mg/dL | [facility] | | | Urine | | | [facility] | | | | | | HE[facility] | | | | | | MEDICAL | | | | | | CENTER | | | | | | LABORATORY | | + + + + + + | Urobilinoge | 2.0 (H) | <2.0 mg/dL | [facility] | | | n, Urine | | | [facility] | | | | | | HE[facility] | | | | | | MEDICAL | | | | | | CENTER | | | | | | LABORATORY | | + + + + + + | Nitrite, | Negative | Negative | [facility] | | | Urine | | | [facility] | | | | | | [facility] | | | | | | MEDICAL | | | | | | CENTER | | | | | | LABORATORY | | + + + + + + | Blood, | Negative | Negative | [facility] | | | Urine | | | [facility] | | | | | | [facility] | | | | | | MEDICAL | | | | | | CENTER | | | | | | LABORATORY | | + + + + + + | Leukocyte | Negative | Negative | [facility] | | | Esterase, | | | [facility] | | | Urine | | | HEART | | | | | | MEDICAL | | | | | | CENTER | | | | | | LABORATORY | | + + + + + + | WBC UA | <1 | <6 /hpf | [facility] | | | | | | [facility] | | | | | | [facility] | | | | | | [facility] | | | | | | CENTER | | | | | | LABORATORY | | + + + + + + | RBC UA | 1 | <3 /hpf | [facility] | | | | | | [facility] | | | | | | [facility] | | | | | | MEDICAL | | | | | | CENTER | | | | | | LABORATORY | | + + + + + + | BACTERIA UA | None seen | /hpf | [facility] | | | | | | [facility] | | | | | | [facility] | | | | | | MEDICAL | | | | | | CENTER | | | | | | LABORATORY | | + + + + + + | SQUAMOUS | Not clinically | /lpf | [facility] | | | EPITHELIAL | significant.Comment: | | [facility] | | | UA | Healthy individuals show | | HEART | | | | up to FEW squamous | | MEDICAL | | | | epithelial cells in the | | CENTER | | | | urine, depending on | | LABORATORY | | | | collection method. | | | | + + + + + + | MUCUS UA | Present (A) | None seen /lpf | [facility] | | | | | | [facility] | | | | | | [facility] | | | | | | MEDICAL | | | | | | CENTER | | | | | | LABORATORY | | + + + + + + | Culture | Culture not indicated | Culture not | [facility] | | | Indicated | | indicated | [facility] | | | | | | HEART | | | | | | MEDICAL | | | | | | CENTER | | | | | | LABORATORY | | + + + + + + + + | Specimen | + + | Urine specimen | | (specimen) | + + + + + + + | Performing | Address | City/State/Zipcode | Phone Number | | Organization | | | | + + + + + | [facility] | [address] | [place] [address] | | | [facility] | | | | | LABORATORY | | | | + + + + + Protime INR (07/20/2016 7:15 PM PST) + + + + + + | Component | Value | Ref Range | Performed | Pathologist | | | | | At | Signature | + + + + + + | Prothrombin | 14.0 | 12.0 - 14.2 sec | [facility] | | | Time | | | [facility] | | | | | | HEART | | | | | | MEDICAL | | | | | | CENTER | | | | | | LABORATORY | | + + + + + + | INR | 1.1Comment: Usual oral | 0.9 - 1.1 | [facility] | | | | anticoagulant range: 2.0 | | [facility] | | | | to 3.0 High level | | HEART | | | | oral anticoagulant | | MEDICAL | | | | range: 2.5 to 3.5 | | CENTER | | | | | | LABORATORY | | + + + + + + + + | Specimen | + + | Blood specimen | | (specimen) | + + + + + + + | Performing | Address | City/State/Zipcode | Phone Number | | Organization | | | | + + + + + | [facility] | [address] | [place] [address] | | | [facility] | | | | | LABORATORY | | | | + + + + + PTT (07/20/2016 7:15 PM PST) + + + + + + | Component | Value | Ref Range | Performed | Pathologist | | | | | At | Signature | + + + + + + | aPTT, | 55 (H)Comment: Deep | 26 - 36 sec | [facility] | | | Patient | venous thrombosis or | | [facility] | | | | pulmonary embolism | | HEART | | | | therapeutic heparin | | MEDICAL | | | | levels of 0.3 to 0.7 | | CENTER | | | | Units/mL anti FactorXa | | LABORATORY | | | | levels usually | | | | | | correspond to an aPTT of | | | | | | 65 to 99 seconds. Acute | | | | | | cardiac syndrom | | | | | | therapeutic range based | | | | | | on heparin levels of 0.2 | | | | | | to 0.5 usually | | | | | | correspond to an aPTT of | | | | | | 57 to 76 | | | | | | seconds.Pediatric | | | | | | guidelines suggested | | | | | | heparin levels of 0.35 | | | | | | to 0.7 usually | | | | | | correspond to an aPTT of | | | | | | 69 to 99 seconds. | | | | + + + + + + | aPTT, Pop | 31 | sec | [facility] | | | Mean | | | [facility] | | | | | | [facility] | | | | | | MEDICAL | | | | | | CENTER | | | | | | LABORATORY | | + + + + + + + + | Specimen | + + | Blood specimen | | (specimen) | + + + + + + + | Performing | Address | City/State/Zipcode | Phone Number | | Organization | | | | + + + + + | [facility] | [address] | [place] [address] | | | [facility] | | | | | LABORATORY | | | | + + + + + ECG 12 lead (07/20/2016 4:28 PM PST) + + | Specimen | + + | | + + + + + | Narrative | Performed At | + + + | HEART RATE:48 | [facility] | | bpmRR Interval:1250 msAtrial Rate:48 msP-R Interval:160 msP | [facility] | | Duration:164 msP Horizontal [place]:19 degP Front [place]:47 degQ Onset:512 | | | msQRSD Interval:94 msQT Interval:436 msQTcB:390 msQTcF:405 msQRS | | | Horizontal [place]:5 degQRS [place]:54 degI-40 Horizontal [place]:47 degI-40 | | | Front [place]:42 degT-40 Horizontal [place]:-24 degT-40 Front [place]:51 degT | | | Horizontal [place]:47 degT Wave [place]:54 degS-T Horizontal [place]:90 degS-T | | | Front [place]:-43 degSeverity:- OTHERWISE NORMAL ECG -INTERP:SINUS | | | BRADYCARDIAElectronically signed by: , 07-20-2016 21:27:53 | | |QT Interval:436 ms | | |QTcB:390 ms | | |QTcF:405 ms | | |QRS Horizontal [place]:5 deg | | |QRS [place]:54 deg | | |I-40 Horizontal [place]:47 deg | | |I-40 Front [place]:42 deg | | |T-40 Horizontal [place]:-24 deg | | |T-40 Front [place]:51 deg | | |T Horizontal [place]:47 deg | | |T Wave [place]:54 deg | | |S-T Horizontal [place]:90 deg | | |S-T Front [place]:-43 deg | | |Severity:- OTHERWISE NORMAL ECG - | | |INTERP:SINUS BRADYCARDIA | | |Electronically signed by: , 07-20-2016 21:27:53 | | + + + + + + + + | Performing | Address | City/State/Zipcode | Phone Number | | Organization | | | | + + + + + | [facility] | [address] | [place] [address] | [phone] | + + + + + Hepatic Function Panel (07/20/2016 4:02 PM PST) + +-------+ + + + | Component | Value | Ref Range | Performed | Pathologist | | | | | At | Signature | + +-------+ + + + | Total | 6.5 | 6.1 - 7.8 g/dL | [facility] | | | Protein | | | [facility] | | | | | | HE[facility] | | | | | | MEDICAL | | | | | | CENTER | | | | | | LABORATORY | | + +-------+ + + + | Albumin | 3.6 | 3.3 - 4.8 g/dL | [facility] | | | | | | [facility] | | | | | | [facility] | | | | | | MEDICAL | | | | | | CENTER | | | | | | LABORATORY | | + +-------+ + + + | Bilirubin | 0.7 | 0.2 - 1.1 mg/dL | [facility] | | | Total | | | [facility] | | | | | | HEART | | | | | | MEDICAL | | | | | | CENTER | | | | | | LABORATORY | | + +-------+ + + + | Bilirubin | 0.1 | 0.0 - 0.4 mg/dL | [facility] | | | Direct | | | [facility] | | | | | | HEART | | | | | | MEDICAL | | | | | | CENTER | | | | | | LABORATORY | | + +-------+ + + + | Alkaline | 49 | 35 - 115 U/L | [facility] | | | Phosphatase | | | [facility] | | | | | | HEART | | | | | | MEDICAL | | | | | | CENTER | | | | | | LABORATORY | | + +-------+ + + + | AST | 20 | 10 - 45 U/L | [facility] | | | | | | [facility] | | | | | | [facility] | | | | | | MEDICAL | | | | | | CENTER | | | | | | LABORATORY | | + +-------+ + + + | ALT | 22 | 10 - 65 U/L | [facility] | | | | | | [facility] | | | | | | [facility] | | | | | | MEDICAL | | | | | | CENTER | | | | | | LABORATORY | | + +-------+ + + + + + | Specimen | + + | Blood specimen | | (specimen) | + + + + + + + | Performing | Address | City/State/Zipcode | Phone Number | | Organization | | | | + + + + + | [facility] | [address] | [place] [address] | | | [facility] | | | | | LABORATORY | | | | + + + + + CK Total (07/20/2016 4:02 PM PST) + +--------+ + + + | Component | Value | Ref Range | Performed | Pathologist | | | | | At | Signature | + +--------+ + + + | CK TOTAL | 41 (L) | 55 - 400 U/L | [facility] | | | | [facility] | | | | | [facility] | | | | | | [facility] | | | | | | CENTER | | | | | | LABORATORY | | + +--------+ + + + + + | Specimen | + + | Blood specimen | | (specimen) | + + + + + + + | Performing | Address | City/State/Zipcode | Phone Number | | Organization | | | | + + + + + | [facility] | [address] | [place] [address] | | | [facility] | | | | | LABORATORY | | | | + + + + + Troponin I (07/20/2016 4:02 PM PST) + +-------+ + + + | Component | Value | Ref Range | Performed | Pathologist | | | | | At | Signature | + +-------+ + + + | Troponin I | 0.01 | 0.00 - 0.06 | [facility] | | | | | ng/mL | [facility] | | | | | | HE[facility] | | | | | | MEDICAL | | | | | | CENTER | | | | | | LABORATORY | | + +-------+ + + + + + | Specimen | + + | Blood specimen | | (specimen) | + + + + + + + | Performing | Address | City/State/Zipcode | Phone Number | | Organization | | | | + + + + + | [facility] | [address] | [place] [address] | | | [facility] | | | | | LABORATORY | | | | + + + + + LABS - EXTERNAL SCAN (07/20/2016 12:00 AM PST) + + + | Narrative | Performed At | + + + | Ordered by an | | | unspecified provider. | | + + + ECG - EXTERNAL SCAN (07/20/2016 12:00 AM PST) + + + | Narrative | Performed At | + + + | Ordered by an | | | unspecified provider. | | + + + documented in this encounter Visit Diagnoses + + | Diagnosis | + + | ACS (acute coronary syndrome) (HCC) - Primary Intermediate coronary syndrome | + + | Chest pain, unspecified type | + + | Bradycardia Other specified cardiac dysrhythmias | + + | CAD in enterprise artery Coronary atherosclerosis of enterprise coronary artery | + + | Essential hypertension Unspecified essential hypertension | + + | Hyperlipidemia LDL goal <70 Other and unspecified hyperlipidemia | + + | Tobacco use Tobacco use disorder | + + | Apical variant hypertrophic cardiomyopathy (HCC) Other primary cardiomyopathies | + + | Abnormal EKG Nonspecific abnormal electrocardiogram (ECG) (EKG) | + + | Tobacco abuse counseling Counseling on substance use and abuse | + + documented in this encounter Administered Medications + +--------+ +--------+------+------+ | Medication Order | MAR | Action | Dose | Rate | Site | | | Action | Date | | | | + +--------+ +--------+------+------+ | acetaminophen (TYLENOL) tablet | Given | 07/21/20 | 650 mg | | | | 650 mg 650 mg, Oral, EVERY 4 | | 16 2:34 | | | | | HOURS PRN, Pain, or fever >= 38.3 | | PM PST | | | | | C (101.5 F), Starting Fri | | | | | | | 07/20/16 at 1554 | | | | | | + +--------+ +--------+------+------+ +---+---+ | | | +---+---+ + +-------+ +-------+---+---+ | aspirin chewable tablet 81 mg | Given | 07/22/20 | 81 mg | | | | 81 mg, Oral, DAILY, First dose on | | 16 8:57 | | | | | 07/21/16 at 0900, Notify | | AM PST | | | | | provider if unable to tolerate, | | | | | | + +-------+ +-------+---+---+ +-------+ +-------+---+---+ | Given | 07/21/20 | 81 mg | | | | | 16 8:05 | | | | | | AM PST | | | | +-------+ +-------+---+---+ +---+---+ | | | +---+---+ + +-------+ +-------+---+---+ | atorvaSTATin (LIPITOR) tablet | Given | 07/20/20 | 80 mg | | | | 80 mg 80 mg, Oral, NIGHTLY, | | 16 8:59 | | | | | First dose on 07/20/16 at | | PM PST | | | | | 2100 | | | | | | + +-------+ +-------+---+---+ +---+---+ | | | +---+---+ + + + + + +---+ | heparin in half-normal saline | Rate/Dos | 07/21/20 | 950 | 19 mL/hr | | | 50 units/mL infusion 0-3,000 | e Change | 16 9:33 | Units/hr | | | | Units/hr (0-60 mL/hr), at 0-60 | | AM PST | | | | | mL/hr, Intravenous, TITRATED, | | | | | | | Starting 07/20/16 at 1615, | | | | | | | CARDIAC DOSE HEPARIN PROTOCOL | | | | | | | INITIAL heparin infusion dose | | | | | | | Patient actual weight not | | | | | | | available. (12 units/kg/hr, | | | | | | | initial rate max 1,000 units/hr). | | | | | | | Draw APTT from an IV site other | | | | | | | than heparin IV site 6 hours | | | | | | | after starting a heparin | | | | | | | infusion. Do not stop or adjust | | | | | | | heparin therapy during the first | | | | | | | 12 hours after thrombolytic | | | | | | | therapy. Call MD for aPTT > 130 | | | | | | | seconds. PTT Nomogram for | | | | | | | ADJUSTING heparin APTT < 45 | | | | | | | seconds: Bolus Patient actual | | | | | | | weight not available. (30 | | | | | | | units/kg. Max 2,000 units) & | | | | | | | increase rate by Patient actual | | | | | | | weight not available. (4 | | | | | | | units/kg/hr) Repeat APTT 6 hr | | | | | | | after change APTT 45-56 seconds: | | | | | | | Increase rate by Patient | | | | | | | actual weight not available. (2 | | | | | | | units/kg/hr) Repeat APTT 6 hr | | | | | | | after change APTT 57-76 seconds | | | | | | | (GOAL RANGE): No bolus or rate | | | | | | | change. Repeat APTT 6 hours | | | | | | | then QAM. APTT 77-86 seconds: | | | | | | | Decrease rate by Patient actual | | | | | | | weight not available. (1 | | | | | | | unit/kg/hr) Repeat APTT 6 hr | | | | | | | after change APTT 87-98 seconds: | | | | | | | Stop infusion 30 minutes & | | | | | | | decrease rate by Patient actual | | | | | | | weight not available. (2 | | | | | | | units/kg/hr) Repeat APTT 6 hr | | | | | | | from the time infusion | | | | | | | stopped. APTT > 98 seconds: | | | | | | | Stop infusion 60 minutes & | | | | | | | decrease rate by Patient actual | | | | | | | weight not available. (3 | | | | | | | units/kg/hr) Repeat APTT 6 hr | | | | | | | from the time infusion | | | | | | | stopped. Use actual body weight | | | | | | | to calculate dose Round infusion | | | | | | | dose to nearest 50 units/hr. | | | | | | | Round bolus dose to nearest 100 | | | | | | | units., | | | | | | + + + + + +---+ +---------+ + + +---+ | New Bag | 07/20/20 | 1,150 | 23 mL/hr | | | | 16 7:49 | Units/hr | | | | | PM PST | | | | +---------+ + + +---+ +---+---+ | | | +---+---+ + +-------+ +------+---+---+ | lisinopril (PRINIVIL, ZESTRIL) | Given | 07/22/20 | 5 mg | | | | tablet 5 mg 5 mg, Oral, DAILY, | | 16 8:58 | | | | | First dose on Sat07/20/16 at | | AM PST | | | | | 1745 | | | | | | + +-------+ +------+---+---+ +-------+ +------+---+---+ | Given | 07/21/20 | 5 mg | | | | | 16 9:41 | | | | | | AM PST | | | | +-------+ +------+---+---+ | Given | 07/20/20 | 5 mg | | | | | 16 6:41 | | | | | | PM PST | | | | +-------+ +------+---+---+ +---+---+ | | | +---+---+ + +-------+ +-------+---+---+ | metoprolol tartrate (LOPRESSOR) | Given | 07/22/20 | 25 mg | | | | tablet 25 mg 25 mg, Oral, 2 | | 16 8:57 | | | | | TIMES DAILY, First dose on Sat | | AM PST | | | | | 07/20/16 at 2100, Hold for | | | | | | | SBP<100 or HR<50, | | | | | | + +-------+ +-------+---+---+ +-------+ +-------+---+---+ | Given | 07/20/20 | 25 mg | | | | | 16 8:59 | | | | | | PM PST | | | | +-------+ +-------+---+---+ +---+---+ | | | +---+---+ + +---------+ +---------+---+ + | nicotine (NICODERM) 14 mg/24 hr | Patch | 07/22/20 | 1 patch | | Arm-Left | | 1 patch 1 patch, Transdermal, | Applied | 16 8:59 | | | Upper | | DAILY, First dose on 07/21/16 | | AM PST | | | | | at 0900 | | | | | | + +---------+ +---------+---+ + +---+---+ | | | +---+---+ + +-------+ +-------+---+---+ | pantoprazole (PROTONIX) DR | Given | 07/22/20 | 40 mg | | | | tablet 40 mg 40 mg, Oral, DAILY | | 16 8:57 | | | | | BEFORE BREAKFAST, First dose on | | AM PST | | | | | 07/20/16 at 1745, Do not cut | | | | | | | or crush., | | | | | | + +-------+ +-------+---+---+ +-------+ +-------+---+---+ | Given | 07/21/20 | 40 mg | | | | | 16 6:25 | | | | | | AM PST | | | | +-------+ +-------+---+---+ | Given | 07/20/20 | 40 mg | | | | | 16 6:41 | | | | | | PM PST | | | | +-------+ +-------+---+---+ +---+---+ | | | +---+---+ + +---------+ +---------+-------+---+ | sodium chloride 0.9% (NS) bolus | New Bag | 07/21/20 | 250 mLs | 125 | | | 250 mL 250 mL, Intravenous, | | 16 1:30 | | mL/hr | | | Administer over 2 Hours, ONCE, | | PM PST | | | | | 07/21/16 at 1430, For 1 dose, | | | | | | | Post-op/Phase II | | | | | | + +---------+ +---------+-------+---+ +---+---+ | | | +---+---+ documented in this encounter
--- OUTSIDE RECORDS SUMMARY | ~2019-09-07 | XMS | Encounter Summary ---
Demographics + + + | Address | [address] | | | [place] [address] | + + + | Home Phone [...] [facility] | + + + | Organization [...] Team Providers + +------+ + | Care Emt/Paramedic Name | Role | Phone | + [...] | | | [address] | [place], [place] | | | | | [place] | [address] | | | | | [address] | [phone] | | | | | [phone] | | | +--------+ + + + [...]
--- OUTSIDE RECORDS SUMMARY | ~2019-09-07 | XMS | Encounter Summary ---
Demographics + + + | Address | [address] | | | [place] [address] | + + + | Home Phone | | + + + | Preferred Language | Unknown | + + + | Marital Status | Single | + + + | Presybeterian Affiliation | Unknown | + + + | Race | Unknown | + + + | Ethnic Group | Unknown | + + + Author + + + | Author | [facility] | | | and [facility] | + + + | Organization | [facility] | | | [...] Team Providers + +------+ + | Care Pest Control Supervisor Name | Role | Phone | + +------+ + PCP | Unavailable | + +------+ + Encounter Details +--------+ + + + + | Date | Type | Department | Care Team | Description | +--------+ + + + + | 04/03/ | Orders Only | [facility] | Obdulia Bucio | | | 2013 | | [facility] | [address] | | | | | [place] [facility] [address] | | | | | [address] | [place] [address] | | | | | [address] [place], [place] | [phone] | | | | | [address] | | | | | | [phone] | | | +--------+ + + + [...] + + + | TROPONIN I | Timed | 04/03/2014 | | Results for this | | | | 7:49 PM | | procedure are in the | | | | PDT | | results section. | + +--------+ + + + | CBC W/AUTO | STAT | 04/03/2014 | | Results for this | | DIFFERENTIAL | | 3:08 PM | | procedure are in the | | | | PDT | | results section. | + +--------+ + + + | TROPONIN I | STAT | 04/03/2014 | | Results for this | | | | 3:08 PM | | procedure are in the | | | | PDT | | results section. | + +--------+ + + + | COMPREHENSIVE | STAT | 04/03/2014 | | Results for this | | METABOLIC PANEL | | 3:08 PM | | procedure are in the | | | | PDT | | results section. | + +--------+ + + + documented in this encounter Results Troponin I (04/03/2014 7:49 PM PDT) + + + + + + | Component | Value | Ref Range | Performed | Pathologist | | | | | At | Signature | + + + + + + | Troponin I | 0.00Comment: "0.1-0.5 | 0.00 - 0.09 | EXTERNAL | | | | Borderline - In patients | ng/mL | LAB | | | | with unstable angina or | | | | | | non-Q-wave myocardial | | | | | | infarction, troponin | | | | | | levels above 0.1 ng/mL | | | | | | within the first 24 | | | | | | hours are at higher risk | | | | | | of or SD at 48 | | | | | | hours and 14 days than | | | | | | patients whose cardiac | | | | | | troponin-I levels were | | | | | | below 0.1 ng/mL. | | | | | | Evaluate patient results | | | | | | by looking for a rise | | | | | | and fall in troponin-I | | | | | | levels over time. | | | | + + + + + + + + | Specimen | + + | | + + + + + | Narrative | Performed At | + + + | >0.5 Consistent with acute myocardial infarction (AMI)" | EXTERNAL LAB | + + + + +---------+ + + | Performing | Address | City/State/Zipcode | Phone Number | | Organization | | | | + +---------+ + + | EXTERNAL LAB | | | | + +---------+ + + Troponin I (04/03/2014 3:08 PM PDT) + + + + + + | Component | Value | Ref Range | Performed | Pathologist | | | | | At | Signature | + + + + + + | Troponin I | 0.00Comment: "0.1-0.5 | 0.00 - 0.09 | EXTERNAL | | | | Borderline - In patients | ng/mL | LAB | | | | with unstable angina or | | | | | | non-Q-wave myocardial | | | | | | infarction, troponin | | | | | | levels above 0.1 ng/mL | | | | | | within the first 24 | | | | | | hours are at higher risk | | | | | | of or SD at 48 | | | | | | hours and 14 days than | | | | | | patients whose cardiac | | | | | | troponin-I levels were | | | | | | below 0.1 ng/mL. | | | | | | Evaluate patient results | | | | | | by looking for a rise | | | | | | and fall in troponin-I | | | | | | levels over time. | | | | + + + + + + + + | Specimen | + + | | + + + + + | Narrative | Performed At | + + + | >0.5 Consistent with acute myocardial infarction (AMI)" | EXTERNAL LAB | + + + + +---------+ + + | Performing | Address | City/State/Zipcode | Phone Number | | Organization | | | | + +---------+ + + | EXTERNAL LAB | | | | + +---------+ + + Comprehensive Metabolic Panel (04/03/2014 3:08 PM PDT) + + + + + + | Component | Value | Ref Range | Performed | Pathologist | | | | | At | Signature | + + + + + + | Albumin | 3.9 | 3.0 - 4.5 g/dL | EXTERNAL | | | | | | LAB | | + + + + + + | Creatinine | 0.84 | 0.70 - 1.40 | EXTERNAL | | | | | mg/dL | LAB | | + + + + + + | Total | 7.7 | 6.6 - 8.5 g/dL | EXTERNAL | | | Protein | | | LAB | | + + + + + + | Calcium | 9.3 | 8.3 - 10.0 | EXTERNAL | | | | | mg/dL | LAB | | + + + + + + | K | 3.6 | 3.3 - 4.9 | EXTERNAL | [...] + + + + | CO2 | 25.1 | 23.0 - 34.0 | EXTERNAL | | | | | mmol/L | LAB | | + + + + + + | BUN | 17 | 5 - 26 mg/dL | EXTERNAL | | | | | | LAB | | + + + + + + | ALT | 19 | 18 - 63 U/L | EXTERNAL | | | | | | LAB | | + + + + + + | AST | 13 (L) | 16 - 38 U/L | EXTERNAL | | | | | | LAB | | + + + + + + | Bilirubin | 0.80 | 0.00 - 1.00 | EXTERNAL | | | Total | | mg/dL | LAB | | + + + + + + | Alkaline | 67 | 50 - 136 U/L | EXTERNAL | | | Phosphatase | | | LAB | | + + + + + + | Glucose | 86 | 70 - 110 mg/dL | EXTERNAL | | | | | | LAB | | + + + + + + | Albumin/Kaylah | 1.0 | 1.0 - 2.5 - | EXTERNAL | | | bulin Ratio | | | LAB | | + + + + + + | Anion Gap | 9.9 | 7.0 - 16.0 | EXTERNAL | | | | | mmol/L | LAB | | + + + + + + | BUN/Creatin | 20.2 | 7.0 - 24.0 | EXTERNAL | | | ine Ratio | | mg/dL | LAB | | + + + + + + | Globulin | 3.8 (H) | 1.5 - 3.5 g/dL | EXTERNAL | | | | | | LAB | | + + + + + + | GFR | 68.70 | - | EXTERNAL | | | ESTIMATE | Comment: | | LAB | | | (REF) | GFR Female | | | | | | "Units = mL/min/1.73m2 | | | | | | | | | | + + + + + + | GFR | 92.59 | - | EXTERNAL | | | ESTIMATE | Comment: | | LAB | | | (REF) | GFR Male | | | | | | "Units = mL/min/1.73m2 | | | | | | | | | | + + + + + + | Osmolality, | 278 | 275 - 295 - | EXTERNAL [...] + + | Performing | Address | City/State[facility] | Phone Number | | Organization | | | | + +---------+ + + | EXTERNAL LAB | | | | + +---------+ + + CBC w/ Auto Differential (04/03/2014 3:08 PM PDT) + + + + + + | Component | Value | Ref Range | Performed | Pathologist | | | | | At | Signature | + + + + + + | RBC | 5.25 | 4.50 - 6.00 | EXTERNAL | | | | | MIL/uL | LAB | | + + + + + + | WBC | 8.3 | 4.5 - 11.0 K/uL | EXTERNAL | | | | | | LAB | | + + + + + + | Hematocrit | 43.5 | 39.0 - 51.9 % | EXTERNAL | | | | | | LAB | | + + + + + + | Hemoglobin | 15.6 | 13.1 - 17.4 | EXTERNAL | | | | | g/dL | LAB | | + + + + + + | Platelet | 233 | 140 - 440 K/uL | EXTERNAL | | | Count | | | LAB | | + + + + + + | Absolute | 0.10 | 0.00 - 0.20 | EXTERNAL | | | Basophils | | K/uL | LAB | | + + + + + + | % Basophils | 1.2 | 0 - 3 % | EXTERNAL | | | | | | LAB | | + + + + + + | % | 2.4 | 0.0 - 7.0 % | EXTERNAL | | | Eosinophils | | | LAB | | + + + + + + | Absolute | 0.20 | 0.00 - 2.50 | EXTERNAL | | | Eosinophils | | K/uL | LAB | | + + + + + + | Absolute | 2.43 | 0.60 - 3.40 | EXTERNAL | | | Lymphocytes | | K/uL | LAB | | + + + + + + | % | 29.2 | 10.0 - 50.0 % | EXTERNAL | | | Lymphocytes | | | LAB | | + + + + + + | Absolute | 0.51 | 0.00 - 4.00 | EXTERNAL | | | Monocytes | | K/uL | LAB | | + + + + + + | % Monocytes | 6.1 | 0.0 - 12.0 % | EXTERNAL | | | | | | LAB | | + + + + + + | Absolute | 5.10 | 1.67 - 8.80 | EXTERNAL | | | Neutrophils | | K/uL | LAB | | + + + + + + | % | 61.1 | 37 - 80 % | EXTERNAL | | | Neutrophils | | | LAB | | + + + + + + | MCH | 29.8 | 26.0 - 32.0 pg | EXTERNAL | | | | | | LAB | | + + + + + + | MCHC | 35.9 | 31.0 - 36.0 | EXTERNAL | | | | | g/dL | LAB | | + + + + + + | MCV | 83 | 75 - 95 fL | EXTERNAL | | | | | | LAB | | + + + + + + | RDW-CV | 11.1 (L) | 11.6 - 14.8 % | [...]
--- OUTSIDE RECORDS SUMMARY | ~2019-09-07 | XMS | Clinical Summary ---
Demographics + + + | Address | [address] | | | [place] [address] | + + + | Home Phone | | + + + | Preferred Language | Unknown | + + + | Marital Status | Single | + + + | Yarsanism Affiliation | Unknown | + + + | Race | Unknown | + + + | Ethnic Group | Unknown | + + + Author + + + | Author | [facility] | | | and [facility] | + + + | Organization | [facility] | | | [...] Team Providers + +------+ + | Care Clinical Exercise Physiologist Name | Role | Phone | + [...] | | | | | CAD in tejon artery | | | | | | [...] we did obtain records | | from [facility] and his coronary angiogram there showed [...] + + + + | CAD in [place] artery | 07/20/2016 | + + + + + | Overview: Coronary angiogram 2013 in [facility] - mild to | | moderate [...] +--------+ +---------+--------+ | MEDICARE | MEDICA | [id number] | 09/09/19 | [phone] | | Medica | | | RE | | 17-Pre | 5 | | re | | | PART A | | sent | | | | | | AND B | | | | | | + +--------+ +--------+ +---------+--------+ | [employer] | [employer] | [id number] | | | | Indemn | | [...] | | al/Fam | | 1951 | [phone] | [place] [address] | | | yessica | | | 1 (Home) | | + +--------+ +--------+ + + Advance Directives + + + + + | Type | Date Recorded | Patient | Explanation | | | | Tractor Technician | | + + + + + | Power of | | | | | Magazine Feeder | | | | + + + [...]
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
--- OUTSIDE RECORDS SUMMARY | ~2019-09-07 | XMS | Encounter Summary ---
Demographics + + + | Address | [address] | | | [place] [address] | + + + | Home Phone [...] + + + | Author | [facility] | | | and [facility] | + + + | Organization | [facility] | | | and [place] | + + + | Address | Unknown | + + + | Phone | Unavailable | + + + Support + + +---------+ + | Name | Relationship | Address | Phone | + + +---------+ + | Angela Austin | ECON | Unknown | | + + +---------+ + | Linad Mayberry | ECON | Unknown | | + + +---------+ + Care Team Providers + +------+ + | Care Transformer Repairer Name | Role | Phone | + [...] Other; Testing | | 2017 | | [facility] | Gail Cordero MD [address] | | | | | [address] | [address] | | | | | [address] [place] | [address] [place] | | | | | [address] | [id number] | | | | | [phone] | | | +--------+ + + + [...]
--- OUTSIDE RECORDS SUMMARY | ~2019-09-07 | XMS | Encounter Summary ---
Demographics + + + | Address | [address] | | | [place] [address] | + + + | Home Phone [...] + + + | Author | [facility] | | | and [facility] | + + + | Organization | [facility] | | | [...] Team Providers + +------+ + | Care Brazer Furnace Name | Role | Phone | + [...] | | | [address] | [place], [place] | | | | | [place], [place] | [address] | | | | | [address] | [phone] | | | | | [phone] | | | +--------+ + + + [...]
--- OUTSIDE RECORDS SUMMARY | ~2019-09-07 | XMS | Encounter Summary ---
Demographics + + + | Address | [address] | | | [place] [address] | + + + | Home Phone | | + + + | Preferred Language | Unknown | + + + | Marital Status | Single | + + + | Zoroastrianism Affiliation | Unknown | + + + | Race | Unknown | + + + | Ethnic Group | Unknown | + + + Author + + + | Author | [facility] | | | and [facility] | + + + | Organization | [facility] | | | and [...] Team Providers + +------+ + | Care Scientific Publications Editor Name | Role | Phone | + +------+ + PCP | Unavailable | + +------+ + Encounter Details +--------+ + + + + | Date | Type | Department | Care Team | Description | +--------+ + + + + | 12/14/ | Hospital | [facility] | Conversion | Chest pain, | | 2013 - | Encounter | [facility]ENTER | Transaction, | unspecified | | | | CLINICAL DECISION | Provider Unknown | | | 12/15/ | | [address] [facility] | [phone] | | | 2013 | | [place], [place] | | | | | | [address] | Faheem Davila MD | | | | | [phone] | [address] | | | | | | [place] [address] | | | | | | [phone] | | | | | | | [...] 12/15/1315 Date of Service: 12/15/1311 Status: Signed Printing Film Stripper: Lilia Thomson RN (Registered Nurse) Discharge instructions given VSS pt left via ambulatory with nephew. Pt incision site is CD I TR band send home with instructions if site starts to ooze or bleed. No questions at this time [facility] [place] if any questions or concerns encouraged to call us and f/u with Dr. Davila. Thank you Cole JOEL onver barak Transaction, Provider Unknown - 12/14/2013 7:24 PM PDT Nurse Progress Note by Angelita Mjeia RN at 12/14/131923 Author: Angelita Mejia RN Service: (none) Author Type: Registered Nurse Filed: 12/14/131924 Date of Service: 12/14/131923 Status: Signed Printing Film Stripper: Angelita Mejia RN (Registered Nurse) Report given [...] | | | | by THADDEUS HAYES ([id number]) on | | | | | | 12/14/2013 7:38:31 PM | | | | + + + + + + + + | Specimen | + + | | + + + + + | Narrative | Performed At | + + + | Historically converted procedure from [facility] Epic environment | EXTERNAL LAB | [...] | | | Patient | performed at [facility];[address] | | LAB | | | | [address];[place] | | | | | | [address] | | | | + + + [...] | | | | | performed at [facility];[address] | | | | | | [address] [facility];[place], [place] | | | | | | [address] | | | | + + + [...] EXTERNAL | | | | performed at [facility];[address] | | LAB | | | | [address];[place] | | | | | | [address] | | | | + + + + + + | RED CELL | 4.39Comment: Testing | 4.20 - 5.70 | EXTERNAL | | | COUNT | performed at [facility];[address] | M/uL | LAB | | | | [address];[place] | | | | | | [address] | | | | + + + + + + | Hgb | 13.2Comment: Testing | 13.2 - 17.0 | EXTERNAL | | | | performed at [facility];888 | g/dL | LAB | | | | [address];[place] | | | | | | [address] | | | | + + + + + + | Hematocrit, | 39.2Comment: Testing | 39.0 - 50.0 % | EXTERNAL | | | POC | performed at [facility];[address] | | LAB | | | | [address];[place] | | | | | | [address] | | | | + + + + + + | MCV | 89.3Comment: Testing | 80.0 - 100.0 fl | EXTERNAL | | | | performed at [facility];[address] | | LAB | | | | [address];[place] | | | | | | [address] | | | | + + + + + + | MCH | 30.2Comment: Testing | 27.0 - 34.0 pg | EXTERNAL | | | | performed at [facility];[address] | | LAB | | | | [address];[place] | | | | | | [address] | | | | + + + + + + | MCHC | 33.8Comment: Testing | 32.0 - 35.5 | EXTERNAL | | | | performed at [facility];888 | g/dL | LAB | | | | [address];[place] | | | | | | [address] | | | | + + + + + + | RDW-CV | 40.3Comment: Testing | 37 - 53 fl | EXTERNAL | | | | performed at [facility];[address] | | LAB | | | | [address];[place] | | | | | | [address] | | | | + + + + + + | Platelet | 256Comment: Testing | 150 - 400 K/uL | EXTERNAL | | | Count | performed at [facility];[address] | | LAB | | | Plasma | [address];[place] | | | | | | [address] | | | | + + + + + + | MPV | 7.1Comment: Testing | fl | EXTERNAL | | | | performed at [facility];[address] | | LAB | | | | [address];[place] | | | | | | [address] | | | | + + + + + + | Differentia | AUTOMATEDComment: | | EXTERNAL | | | l Type | Testing performed at | | LAB | | | | [facility];[address];[place] [address] | | | | + + + + + + | % Segmented | 59.1Comment: Testing | % | EXTERNAL | | | | performed at [facility];[address] | | LAB | | | Neutrophils | [address];[place] | | | | | | [address] | | | | + + + + + + | % | 30.1Comment: Testing | % | EXTERNAL | | | Lymphocytes | performed at [facility];[address] | | LAB | | | | [address];[place] | | | | | | [address] | | | | + + + + + + | % Monocytes | 6.6Comment: Testing | % | EXTERNAL | | | | performed at [facility];[address] | | LAB | | | | [address];[place] | | | | | | [address] | | | | + + + + + + | % | 3.8Comment: Testing | % | EXTERNAL | | | Eosinophils | performed at [facility];[address] | | LAB | | | | [address];[place] | | | | | | [address] | | | | + + + + + + | % Basophils | 0.4Comment: Testing | % | EXTERNAL | | | | performed at [facility];[address] | | LAB | | | | [address];[place] | | | | | | [address] | | | | + + + + + + | Absolute | 5.4Comment: Testing | 1.9 - 7.4 K/uL | EXTERNAL | | | Segmented | performed at [facility];[address] | | LAB | | | Neutrophils | [address];[place] | | | | | | [address] | | | | + + + + + + | Absolute | 2.7Comment: Testing | 1.0 - 3.9 K/uL | EXTERNAL | | | Lymphocytes | performed at [facility];[address] | | LAB | | | | [address];[place] | | | | | | [address] | | | | + + + + + + | Absolute | 0.6Comment: Testing | 0 - 0.8 K/uL | EXTERNAL | | | Monocytes | performed at [facility];[address] | | LAB | | | | [address];[place] | | | | | | [address] | | | | + + + + + + | Absolute | 0.3Comment: Testing | 0 - 0.5 K/uL | EXTERNAL | | | Eosinophils | performed at [facility];[address] | | LAB | | | | [address];[place] | | | | | | [address] | | | | + + + + + + | Absolute | 0.0Comment: Testing | 0 - 0.1 K/uL | EXTERNAL | | | Basophils | performed at [facility];[address] | | LAB | | | | [address];[place], [place] | | | | | | [address] | | | | + + + [...] EXTERNAL | | | | performed at [facility];888 | mmol/L | LAB | | | | [address];[place] | | | | | | [address] | | | | + + + + + + | K | 4.3Comment: Testing | 3.5 - 4.9 | EXTERNAL | | | | performed at [facility];888 | mmol/L | LAB | | | | [address];[place] | | | | | | [address] | | | | + + + + + + | Cl | 107Comment: Testing | 99 - 109 mmol/L | EXTERNAL | | | | performed at [facility];[address] | | LAB | | | | [address];[place] | | | | | | [address] | | | | + + + + + + | CO2 | 26Comment: Testing | 23 - 32 mmol/L | EXTERNAL | | | | performed at [facility];[address] | | LAB | | | | [address];[place] | | | | | | [address] | | | | + + + + + + | Anion Gap | 11Comment: Testing | 5 - 20 mmol/L | EXTERNAL | | | | performed at [facility];[address] | | LAB | | | | [address];[place] | | | | | | [address] | | | | + + + + + + | Glucose, | 85Comment: Testing | 65 - 99 mg/dL | EXTERNAL | | | Fasting | performed at [facility];[address] | | LAB | | | | [address];[place] | | | | | | [address] | | | | + + + + + + | BUN | 16Comment: Testing | 8 - 25 mg/dL | EXTERNAL | | | | performed at [facility];[address] | | LAB | | | | [address];[place] | | | | | | [address] | | | | + + + + + + | Creatinine | 0.81Comment: Testing | 0.70 - 1.30 | EXTERNAL | | | | performed at [facility];888 | mg/dL | LAB | | | | [address];[place] | | | | | | [address] | | | | + + + + + + | BUN/Creatin | 20Comment: Testing | | EXTERNAL | | | ine Ratio | performed at [facility];[address] | | LAB | | | | [address];[place] | | | | | | [address] | | | | + + + + + + | Calcium | 9.1Comment: Testing | 8.5 - 10.2 | EXTERNAL | | | | performed at [facility];888 | mg/dL | LAB | | | | [address];[place], [place] | | | | | | [address] | | | | + + + [...] | | | | | | at [facility];[address] [facility] | | | | | | [address]vd;[place] [address] | | | | + + + [...]
--- OUTSIDE RECORDS SUMMARY | ~2019-09-07 | XMS | Encounter Summary ---
Demographics + + + | Address | [address] | | | [place] [address] | + + + | Home Phone | | + + + | Preferred Language | Unknown | + + + | Marital Status | Single | + + + | Mormonism Affiliation | Unknown | + + + | Race | Unknown | + + + | Ethnic Group | Unknown | + + + Author + + + | Author | [facility] | | | and [facility] | + + + | Organization | [facility] | | | [...] Team Providers + +------+ + | Care Corrections Nurse Name | Role | Phone | + +------+ + PCP | Unavailable | + +------+ + Encounter Details +--------+ + + + + | Date | Type | Department | Care Team | Description | +--------+ + + + + | 01/06/ | Hospital | [facility] | Daljit Bro | | | 2013 | Encounter | HOSPITAL LABORATORY | [address] | | | | | [address] | [address] | | | | | [place], [place] | [place], [place] | | | | | [address] | [address] | | | | | [phone] | [phone] | | | | | | | [...]
--- OUTSIDE RECORDS SUMMARY | ~2019-09-07 | XMS | Encounter Summary ---
Demographics + + + | Address | [address] | | | [place] [address] | + + + | Home Phone [...] [facility] | | | [facility] | + + + | Organization | [...] Team Providers + +------+ + | Care Electrical Lineman Name | Role | Phone | + +------+ + PCP | Unavailable | + +------+ + Encounter Details +--------+ + + + + | Date | Type | Department | Care Team | Description | +--------+ + + + + | 10/02/ | Hospital | [facility] | Leonel Arechiga MD | | | 2015 | Encounter | HOSPITAL EMERGENCY | | | | | | CENTER [address] [place] [address] | | | | | | [facility] [place], [place] | | | | | | [address] | | | | | | [phone] | | | +--------+ + + + [...]
--- OUTSIDE RECORDS SUMMARY | ~2019-09-07 | XMS | Encounter Summary ---
Demographics + + + | Address | [address] | | | [place] [address] | + + + | Home Phone | | + + + | Preferred Language | Unknown | + + + | Marital Status | Single | + + + | Taoism Affiliation | Unknown | + + + | Race | Unknown | + + + | Ethnic Group | Unknown | + + + Author + + + | Author | [facility] | | | and [facility] | + + + | Organization | [facility] | | | and [...] Team Providers + +------+ + | Care Bicycle Service Technician Name | Role | Phone | [...] | | | [address] | [place], [place] | | | | | [place], [place] | [address] | | | | | [address] | [phone] | | | | | [phone] | | | +--------+ + + + [...]
--- OUTSIDE RECORDS SUMMARY | ~2019-09-07 | XMS | Encounter Summary ---
Demographics + + + | Address | [address] | | | [place] [address] | + + + | Home Phone [...] Team Providers + +------+ + | Care Commissary Helper Name | Role | Phone | [...] | | | [address] | [place], [place] | | | | | [place], [place] | [address] | | | | | [address] | [phone] | | | | | [phone] | | | +--------+ + + + [...]
--- OUTSIDE RECORDS SUMMARY | ~2019-09-07 | XMS | Encounter Summary ---
Demographics + + + | Address | [address] | | | [place] [address] | + + + | Home Phone | | + + + | Preferred Language | Unknown | + + + | Marital Status | Single | + + + | Taoist Affiliation | Unknown | + + + | Race | Unknown | + + + | Ethnic Group | Unknown | + + + Author + + + | Author | [facility] | | | and [facility] | + + + | Organization | [facility] | | | and [...] Team Providers + +------+ + | Care Tubing Drier Name | Role | Phone | + +------+ + PCP | Unavailable | + +------+ + Encounter Details +--------+ + + + + | Date | Type | Department | Care Team | Description | +--------+ + + + + | 12/14/ | Hospital | [facility] | Conversion | Chest pain, | | 2013 - | Encounter | MEDICAL CENTER | Transaction, | unspecified | | | | CLINICAL DECISION | Provider Unknown | | | 12/15/ | | [address] [facility] | [phone] | | | 2013 | | [place], [place] | | | | | | [address] | Faheem Davila MD | | | | | [phone] | [address] | | | | | | [place] [address] | | | | | | [phone] | | | | | | | [...] 12/15/1315 Date of Service: 12/15/1311 Status: Signed Shear Helper: Lilia Thomson RN (Registered Nurse) Discharge instructions given VSS pt left via ambulatory with nephew. Pt incision site is CD I TR band send home with instructions if site starts to ooze or bleed. No questions at this time [facility] [place] if any questions or concerns encouraged to call us and f/u with Dr. Davila. Thank you Cole JOEL onver barak Transaction, Provider Unknown - 12/14/2013 7:24 PM PDT Nurse Progress Note by Angelita Mejia RN at 12/14/131923 Author: Angelita Mejia RN Service: (none) Author Type: Registered Nurse Filed: 12/14/131924 Date of Service: 12/14/131923 Status: Signed Shear Helper: Angelita Mejia RN (Registered Nurse) Report given [...] | | | | by THADDEUS HAYES ([id number]) on | | | | | | 12/14/2013 7:38:31 PM | | | | + + + + + + + + | Specimen | + + | | + + + + + | Narrative | Performed At | + + + | Historically converted procedure from [facility] Epic environment | EXTERNAL LAB | [...] | | | Patient | performed at [facility];[address] | | LAB | | | | [address];[place] | | | | | | [address] | | | | + + + [...] | | | | | performed at [facility];[address] | | | | | | [address] [facility];[place], [place] | | | | | | [address] | | | | + + + [...] EXTERNAL | | | | performed at [facility];[address] | | LAB | | | | [address];[place] | | | | | | [address] | | | | + + + + + + | RED CELL | 4.39Comment: Testing | 4.20 - 5.70 | EXTERNAL | | | COUNT | performed at [facility];[address] | M/uL | LAB | | | | [address];[place] | | | | | | [address] | | | | + + + + + + | Hgb | 13.2Comment: Testing | 13.2 - 17.0 | EXTERNAL | | | | performed at [facility];888 | g/dL | LAB | | | | [address];[place] | | | | | | [address] | | | | + + + + + + | Hematocrit, | 39.2Comment: Testing | 39.0 - 50.0 % | EXTERNAL | | | POC | performed at [facility];[address] | | LAB | | | | [address];[place] | | | | | | [address] | | | | + + + + + + | MCV | 89.3Comment: Testing | 80.0 - 100.0 fl | EXTERNAL | | | | performed at [facility];[address] | | LAB | | | | [address];[place] | | | | | | [address] | | | | + + + + + + | MCH | 30.2Comment: Testing | 27.0 - 34.0 pg | EXTERNAL | | | | performed at [facility];[address] | | LAB | | | | [address];[place] | | | | | | [address] | | | | + + + + + + | MCHC | 33.8Comment: Testing | 32.0 - 35.5 | EXTERNAL | | | | performed at [facility];888 | g/dL | LAB | | | | [address];[place] | | | | | | [address] | | | | + + + + + + | RDW-CV | 40.3Comment: Testing | 37 - 53 fl | EXTERNAL | | | | performed at [facility];[address] | | LAB | | | | [address];[place] | | | | | | [address] | | | | + + + + + + | Platelet | 256Comment: Testing | 150 - 400 K/uL | EXTERNAL | | | Count | performed at [facility];[address] | | LAB | | | Plasma | [address];[place] | | | | | | [address] | | | | + + + + + + | MPV | 7.1Comment: Testing | fl | EXTERNAL | | | | performed at [facility];[address] | | LAB | | | | [address];[place] | | | | | | [address] | | | | + + + + + + | Differentia | AUTOMATEDComment: | | EXTERNAL | | | l Type | Testing performed at | | LAB | | | | [facility];[address];[place] [address] | | | | + + + + + + | % Segmented | 59.1Comment: Testing | % | EXTERNAL | | | | performed at [facility];[address] | | LAB | | | Neutrophils | [address];[place] | | | | | | [address] | | | | + + + + + + | % | 30.1Comment: Testing | % | EXTERNAL | | | Lymphocytes | performed at [facility];[address] | | LAB | | | | [address];[place] | | | | | | [address] | | | | + + + + + + | % Monocytes | 6.6Comment: Testing | % | EXTERNAL | | | | performed at [facility];[address] | | LAB | | | | [address];[place] | | | | | | [address] | | | | + + + + + + | % | 3.8Comment: Testing | % | EXTERNAL | | | Eosinophils | performed at [facility];[address] | | LAB | | | | [address];[place] | | | | | | [address] | | | | + + + + + + | % Basophils | 0.4Comment: Testing | % | EXTERNAL | | | | performed at [facility];[address] | | LAB | | | | [address];[place] | | | | | | [address] | | | | + + + + + + | Absolute | 5.4Comment: Testing | 1.9 - 7.4 K/uL | EXTERNAL | | | Segmented | performed at [facility];[address] | | LAB | | | Neutrophils | [address];[place] | | | | | | [address] | | | | + + + + + + | Absolute | 2.7Comment: Testing | 1.0 - 3.9 K/uL | EXTERNAL | | | Lymphocytes | performed at [facility];[address] | | LAB | | | | [address];[place] | | | | | | [address] | | | | + + + + + + | Absolute | 0.6Comment: Testing | 0 - 0.8 K/uL | EXTERNAL | | | Monocytes | performed at [facility];[address] | | LAB | | | | [address];[place] | | | | | | [address] | | | | + + + + + + | Absolute | 0.3Comment: Testing | 0 - 0.5 K/uL | EXTERNAL | | | Eosinophils | performed at [facility];[address] | | LAB | | | | [address];[place] | | | | | | [address] | | | | + + + + + + | Absolute | 0.0Comment: Testing | 0 - 0.1 K/uL | EXTERNAL | | | Basophils | performed at [facility];[address] | | LAB | | | | [address];[place], [place] | | | | | | [address] | | | | + + + [...] EXTERNAL | | | | performed at [facility];888 | mmol/L | LAB | | | | [address];[place] | | | | | | [address] | | | | + + + + + + | K | 4.3Comment: Testing | 3.5 - 4.9 | EXTERNAL | | | | performed at [facility];[address] | mmol/L | LAB | | | | [address];[place] | | | | | | [address] | | | | + + + + + + | Cl | 107Comment: Testing | 99 - 109 mmol/L | EXTERNAL | | | | performed at [facility];[address] | | LAB | | | | [address];[place] | | | | | | [address] | | | | + + + + + + | CO2 | 26Comment: Testing | 23 - 32 mmol/L | EXTERNAL | | | | performed at [facility];[address] | | LAB | | | | [address];[place] | | | | | | [address] | | | | + + + + + + | Anion Gap | 11Comment: Testing | 5 - 20 mmol/L | EXTERNAL | | | | performed at [facility];[address] | | LAB | | | | [address];[place] | | | | | | [address] | | | | + + + + + + | Glucose, | 85Comment: Testing | 65 - 99 mg/dL | EXTERNAL | | | Fasting | performed at [facility];[address] | | LAB | | | | [address];[place] | | | | | | [address] | | | | + + + + + + | BUN | 16Comment: Testing | 8 - 25 mg/dL | EXTERNAL | | | | performed at [facility];[address] | | LAB | | | | [address];[place] | | | | | | [address] | | | | + + + + + + | Creatinine | 0.81Comment: Testing | 0.70 - 1.30 | EXTERNAL | | | | performed at [facility];888 | mg/dL | LAB | | | | [address];[place] | | | | | | [address] | | | | + + + + + + | BUN/Creatin | 20Comment: Testing | | EXTERNAL | | | ine Ratio | performed at [facility] | | LAB | | | | [address];[place] | | | | | | [address] | | | | + + + + + + | Calcium | 9.1Comment: Testing | 8.5 - 10.2 | EXTERNAL | | | | performed at [facility];[address] | mg/dL | LAB | | | | [address];[place], [place] | | | | | | [address] | | | | + + + [...] | | | | | | at [facility] [facility] | | | | | | [address]vd;[place] [address] | | | | + + + [...]
--- OUTSIDE RECORDS SUMMARY | ~2019-09-07 | XMS | Encounter Summary ---
Demographics + + + | Address | [address] | | | [place] [address] | + + + | Home Phone | | + + + | Preferred Language | Unknown | + + + | Marital Status | Single | + + + | Alevism Affiliation | Unknown | + + + | Race | Unknown | + + + | Ethnic Group | Unknown | + + + Author + + + | Author | [facility] | | | and [facility] | + + + | Organization | [facility] | | | [...] Team Providers + +------+ + | Care Nuclear Scientist Name | Role | Phone | + +------+ + PCP | Unavailable | + +------+ + Encounter Details +--------+ + + + + | Date | Type | Department | Care Team | Description | +--------+ + + + + | 10/02/ | Hospital | [facility] | Leonel Arechiga MD | | | 2015 | Encounter | [facility] | | | | | | CENTER [address] [place] [address] | | | | | | [facility] [place], [place] | | | | | | [address] | | | | | | [phone] | | | +--------+ + + + [...]
--- OUTSIDE RECORDS SUMMARY | ~2019-09-07 | XMS | Encounter Summary ---
Demographics + + + | Address | [address] | | | [place] [address] | + + + | Home Phone | | + + + | Preferred Language | Unknown | + + + | Marital Status | Single | + + + | Confucianist Affiliation | Unknown | + + + | Race | Unknown | + + + | Ethnic Group | Unknown | + + + Author + + + | Author | [facility] | | | and [facility] | + + + | Organization | [facility] | | | [...] Team Providers + +------+ + | Care Laboratory Assistant Name | Role | Phone | + +------+ + PCP | Unavailable | + +------+ + Encounter Details +--------+ + + + + | Date | Type | Department | Care Team | Description | +--------+ + + + + | 10/17/ | Hospital | [facility] | Daljit Bro | | | 2013 | Encounter | HOSPITAL RESPIRATORY | [address] | | | | | [address] | | | | | [address] | [place], [place] | | | | | [place], [place] | [address] | | | | | [address] | [phone] | | | | | [phone] | | | +--------+ + + + [...]
--- OUTSIDE RECORDS SUMMARY | ~2019-09-07 | XMS | Encounter Summary ---
Demographics + + + | Address | [address] | | | [place] [address] | + + + | Home Phone | | + + + | Preferred Language | Unknown | + + + | Marital Status | Single | + + + | Methodist Affiliation | Unknown | + + + | Race | Unknown | + + + | Ethnic Group | Unknown | + + + Author + + + | Author | [facility] | | | and [facility] | + + + | Organization | [facility] | | | [...] Team Providers + +------+ + | Care Framing Mill Operator Helper Name | Role | Phone | + +------+ + PCP | Unavailable | + +------+ + Encounter Details +--------+ + + + + | Date | Type | Department | Care Team | Description | +--------+ + + + + | 04/03/ | Orders Only | [facility] | Obdulia Bucio | | | 2013 | | HOSPITAL [facility] | [address] | | | | | [place] [facility] | [address] | | | | | [address] | [place] [address] | | | | | [address] [place], [place] | [phone] | | | | | [address] | | | | | | [phone] | | | +--------+ + + + [...] | | | | | of or ID at 48 | | | | | [...] | | | | | of or ID at 48 | | | | | [...] + + | Performing | Address | City/State[facility] | Phone Number | | Organization [...]
--- OUTSIDE RECORDS SUMMARY | ~2019-09-07 | XMS | Encounter Summary ---
Demographics + + + | Address | [address] | | | [place] [address] | + + + | Home Phone | | + + + | Preferred Language | Unknown | + + + | Marital Status | Single | + + + | Yazidism Affiliation | Unknown | + + + [...] Team Providers + +------+ + | Care Generator Rebuilder Name | Role | Phone | + +------+ + PCP | Unavailable | + +------+ + Encounter Details +--------+ + + + + | Date | Type | Department | Care Team | Description | +--------+ + + + + | 05/13/ | Hospital | [facility] | Daljit Bro | | | 2012 | Encounter | HOSPITAL EMERGENCY | [address] | | | | | [address] | | | | | [address] [place] | [place] | | | | | [address] | [address] | | | | | [phone] | [phone] | | | | | | | [...]
--- OUTSIDE RECORDS SUMMARY | ~2019-09-07 | XMS | Encounter Summary ---
Demographics + + + | Address | [address] | | | [place] [address] | + + + | Home Phone | | + + + | Preferred Language | Unknown | + + + | Marital Status | Single | + + + | Episcopalian Affiliation | Unknown | + + + | Race | Unknown | + + + | Ethnic Group | Unknown | + + + Author + + + | Author | [facility] | | | and [facility] | + + + | [...] Team Providers + +------+ + | Care Die Keeper Name | Role | Phone | + [...] | of breath) | [place] | [address] | | | | | Procedures | [address] | Phone: | | | | | ECHO | Phone: | [phone] | | | | | Complete | [phone] | Fax: | | | | | | Fax: | [phone] | | | | | | [phone] | | +--------+--------+ + + + + [...] | | | | of breath) | [place] | [address] | | | | | Procedures | [address] | Phone: | | | | | ECHO | Phone: | [phone] | | | | | Complete | [phone] | Fax: | | | | | | Fax: | [phone] | | | | | | [phone] | | +--------+--------+ + + + + Encounter Details +--------+ + + + + | Date | Type | Department | Care Team | Description | +--------+ + + + + | 08/09/ | Hospital | [facility] | Zaida Nava, | Palpitations; SOB | | 2017 | Encounter | HEART CARDIOVASCULAR | PA-C [address] | (shortness of | | | | IM[facility]ENTER | [address] | breath) | | | [facility] | [place] [address] | | | | | [address] | [phone] | | | | | [place] | | | | | | [address] | | | | | | [phone] | | | +--------+ + + + [...] | | | | | CAD in [place] artery | | | | | | [...] MAYBERRY Study | | | Date: 08/09/2017MRN: [id number] Patient Location: | | | DowntownDOB: 1950 [...] Physician: BRANDY | | | ZAIDAEchocardiographer: Yaneth [id number]: | | | | | |MMode/2D Measurements [...] | |Referring Physician: ZAIDA NAVA | | |Access Registrar: Yaneth Sepulveda | | |[id number]: | | | | | + +--------- ------+ + + | Procedure Note | + + | Gaurav, Rad Results In - 08/10/2017 8:58 AM PST | | Adult | | Echo | | Report | | | | Name: RODRIGO MAYBERRY Study Date: 08/09/2017 | | Patient Location: [facility] | | : 1950 Age: 66 yrs [...] | Referring Physician: ZAIDA NAVA | | Access Registrar: Yaneth Sepulveda | | [id number]: | + + + +---------+ + + [...]
--- OUTSIDE RECORDS SUMMARY | ~2019-09-07 | XMS | Encounter Summary ---
Demographics + + + | Address | [address] | | | [place] [address] | + + + | Home Phone [...] [facility] | | | and [facility] | + + + [...] Team Providers + +------+ + | Care Packager Hand Name | Role | Phone | + [...] [place] | | | | | | [address] | | | | | | [phone] | | | +--------+ + + + [...]
--- OUTSIDE RECORDS SUMMARY | ~2019-09-07 | XMS | Encounter Summary ---
Demographics + + + | Address | [address] | | | [place] [address] | + + + | Home Phone [...] [facility] | | [facility] and [facility] | + + + | Organization [...] Team Providers + +------+ + | Care Acoustical Tile Drill Press Operator Name | Role | Phone | [...] [address]VE [address] | | | | | [place] CATH | | [address] [place], | | | | | PLACE/CORON | | ID | | | | | ANGIO, IMG | | Phone: | | | | | SUPER/INTERP | | [phone] | | | | | ,W LEFT | | Fax: | | | | | HEART | | [phone] | | | | | VENTRICULOGR | [...] | | [address] | [place] [address] | pain, unspecified | | 2016 | | [place] | [phone] | type; Bradycardia; | | | | [address] | | CAD in tribe | | | | [phone] | Gail Suazo | artery; Essential | | | | | [address] | hypertension; | | | | | [address] | Hyperlipidemia LDL | | | | | [place] [address] | goal <70; Tobacco | | | | | [phone] | use; Apical variant | | | [...] we did obtain records from [facility] and his c oronary angiogram there [...] limits further titration of BB. 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 Disposition: Home/Self Care Condition at [...] should be done as an outpatient. Our production planner scheduler should call you in the next week to set up a 2 month follow up at our [place] outreach clinic. This clinic is held on the first floor of the [facility]. Please establish care with a primary [...] for primary care: [facility] - [address], [place] [address] [facility] - [address] [place] [address] Thank you for allowing [facility] to participate in your health care. [...] Portions of this chart were created with GITR voice recognition software. Occasional wro ng-word or "sound-alike" substitutions may have occurred due to the inherent limitations of voice recognition software. Please read the chart carefully and recognize, using context, w here those substitutions have occurred. [facility] Main Office - [address], [address] [place], [place] [address] Office: Medical Records [facility] [place] [address] Main: Physician referral and transfer line: Physician [...] should be done as an outpatient. Our production planner scheduler should call you in the next week to set up a 2 month follow up at our [place] outreach clinic. This clinic is held on the first floor of the [facility]. Please establish care with a primary [...] primary care: [facility] - [address], [place] [address] [facility] - [address], [place] [address] Thank you for allowing [facility] to participate in your health [...] | | | | | CAD in tribe artery | | | | | | [...] | | | | | | | tribe artery | | | | | | [...] M D - 07/21/2016 7:10 AM PST [facility] PATIENT NAME: Rodrigo Mayberry : 1950: AGE: 65 y.o. ADMISSION DATE: 07/20/2016 PRIMARY CARE: Doctor Unknown Gail Suazo MD DAILY CARDIOLOGY PROGRESS NOTE [facility] [place] CARDIOLOGY DATE OF SERVICE: 07/21/2016 LOCATION OF SERVICE TODAY: [facility] TIME SPENT INCLUDING DIRECT PATIENT CARE, [...] limits further titration of BB. CAD in tribe artery Assessment & Plan Coronary angiogram in [facility] in 2013 noted diffuse although nonocclusive [...] LDL goal <70 Essential hypertension CAD in tribe artery Bradycardia SCHEDULED MEDS: aspirin 81 mg [...] STUDIES OF INTEREST: Had negative CXR in [place] prior to transfe r LABS Recent Results [...] Negative KETONES UA Negative Negative mg/dL Specific [place] 1.014 1.001 - 1.030 PH UA 6.0 [...] MD 07/21/2016, 7:26 Thank you for allowing [facility]. Electronically signed by: Gail Suazo MD 07/21/2016 7:26 Patient Care Team: Doctor Unknown as PCP - General [facility] Main Office - [address], [address] [place], [place] [address] Office: Medical Records [facility] [place] [address] Main: Physician referral and transfer line: Physician referral fax line: Medical Records phone: Medical Records fax: Angela Toth RN - 07/20/2016 4:45 PM PSTHeparin IV bol[facility] gtt [facility] there also. PTT & INR not done; no results found in transfer paperwork or on the nitro site. documented in this encounter Plan of [...] + | Vlad Vasquez MD 07/21/2016 14:00 [facility] | | | [facility] LEFT CARDIAC CATHETERIZATION REPORT | | | PATIENT NAME: Rodrigo Mayberry DATE OF : 1950 | | | DATE OF PROCEDURE: 07/21/2016 | | | | | | PRIMARY CARE | | | PROVIDER: Doctor Unknown EAR NOSE THROAT PHYSICIAN: Dr. Vlad Vasquez, | | | , [facility], [facility] PRE-PROCEDURE DIAGNOSIS: chest pain, known | [...] was | | | achieved with 6 Guamanian micropuncture kit. Note that the patient | | | had somewhat abnormal radial artery anatomy with a low bifurcation | | | of the brachial artery that required some finesse to negotiate. | | | Patient was then given intravenous heparin as well as | | | intra-arterial nitroglycerin through the sheath. A 5 Guamanian | | | multipurpose catheter was advanced [...] Left coronary angiography was performed with 5 Guamanian | | | JL 3.5 catheter. The [...] Vlad Gutierres | | | MD Pedro, [facility], [facility] | | | DATE/TIME: 07/21/2016 13:57 07/21/2016 13:57 Portions of this | | | chart were created with GITR voice recognition software. | | | Occasional [...] | | | RODRIGO MAYBERRY Date: 07/21/2016MRN: [id number] | | | Patient Location: [facility]DOB: 1950 | | | Age: [...] Physician: GAIL SUAZOEchocardiographer: Vikash | | | [id number]: | | |There is no pericardial effusion. [...] | |Ordering Physician: GAIL SUAZO | | |Bath Mixer: Vikash Perez | | |[id number]: | | | | | + +--------- -----+ + + | Procedure Note | + + | Danilo Nolasco Results In - 07/22/2016 9:13 AM PST | | Adult Echo | | Report | | | | Name: RODRIGO MAYBERRY Date: 07/21/2016 | | Patient Location: [place] [address] | | : 1950 Age: 65 yrs [...] CRISS(I,D): 2.4 cm2 | | | | CIRSS(V,D): 2.5 cm2 | | SV(LVOT): 86.6 ml [...] | Ordering Physician: GAIL SUAZO | | Bath Mixer: Vikash Perez | | [id number]: | + + PTT (07/21/2016 7:40 AM [...] + + | [facility] | [address] | [place] [address] | | | [facility] | [...] + + | CHARLES AMEZQUITA | [address] | [place] [address] | | | [facility] | | | | | [...] + + + | Glucose | 88Comment: Guatemalan | 65 - 99 mg/dL | [facility] [...] + + | CHARLES AME[facility]QU[facility] | [address] | [place] [address] | | | [facility] | | | | | [...] + + | [facility] | [address] | [place] [address] | | | [facility] | [...] + + | CHARLES AMEZQUITA | [address] | [place] [address] | | | [facility] | | | | | [...] - 1.030 | [facility] | | | [place] | | | [facility] | | | [...] + + | [facility] | [address] | [place] [address] | | | HEART [facility] | | | | | [...] + + | [facility] | [address] | [place] [address] | | | [facility] | | | | | LABORATORY [...] + + | [facility] | [address] | [place] [address] | | | [facility] | [...] | TRACEMASTER | | Duration:164 msP Horizontal [place]:19 degP Front [place]:47 degQ Onset:512 | | | msQRSD Interval:94 msQT Interval:436 msQTcB:390 msQTcF:405 msQRS | | | Horizontal [place]:5 degQRS [place]:54 degI-40 Horizontal [place]:47 degI-40 | | | Front [place]:42 degT-40 Horizontal [place]:-24 degT-40 Front [place]:51 degT | | | Horizontal [place]:47 degT Wave [place]:54 degS-T Horizontal [place]:90 degS-T | | | Front [place]:-43 degSeverity:- OTHERWISE NORMAL ECG -INTERP:SINUS | | | BRADYCARDIAElectronically signed by: , 07-20-2016 21:27:53 | | |QT Interval:436 ms | | |QTcB:390 ms | | |QTcF:405 ms | | |QRS Horizontal [place]:5 deg | | |QRS [place]:54 deg | | |I-40 Horizontal [place]:47 deg | | |I-40 Front [place]:42 deg | | |T-40 Horizontal [place]:-24 deg | | |T-40 Front [place]:51 deg | | |T Horizontal [place]:47 deg | | |T Wave [place]:54 deg | | |S-T Horizontal [place]:90 deg | | |S-T Front [place]:-43 deg | | |Severity:- OTHERWISE NORMAL ECG - | | |INTERP:SINUS BRADYCARDIA | | |Electronically signed by: , 07-20-2016 21:27:53 | | + + + + + + + + | Performing | Address | City/State/Zipcode | Phone Number | | Organization | | | | + + + + + | [facility] | [address] | [place] [address] | [phone] | + + + + + Hepatic [...] + + | [facility] | [address] | [place] [address] | | | [facility] | [...] + | [facility] | [address] | [place] [address] | | | [facility] | | | | | LABORATORY [...] + + | CHARLES AMEZQUITA | [address] | [place] [address] | | | [facility] | | | | | [...] dysrhythmias | + + | CAD in tribe artery Coronary atherosclerosis of tribe coronary artery | + + | Essential [...]
--- OUTSIDE RECORDS SUMMARY | ~2019-09-07 | XMS | Encounter Summary ---
Demographics + + + | Address | [address] | | | [place] [address] | + + + | Home Phone | | + + + | Preferred Language | Unknown | + + + | Marital Status | Single | + + + | Rastafari Affiliation | Unknown | + + + | Race | Unknown | + + + | Ethnic Group | Unknown | + + + Author + + + | Author | [facility] | | | and [facility] | + + + | Organization | [facility] | | | and [...] Team Providers + +------+ + | Care Security Installer Name | Role | Phone | + +------+ + | Love Prabhakar DO | PCP | | + +------+ + Encounter Details +--------+ + + + + | Date | Type | Department | Care Team | Description | +--------+ + + + + | 12/14/ | Orders Only | [facility] | Faheem Davila, | | | 2014 | | CARDIOLOGY LUZ | [address] | | | | | [address] | [place] [address] | | | | | [place], [place] | [phone] | | | | | [address] | | | | | | [phone] | | | +--------+ + + + [...] seen by | | | his primary suction plate roller hand, Dr. Davila. The patient was referred for [...] accessed using | | | angiocatheter. A 6-Ivorian sheath was placed in the right radial [...] radial artery | | | occlusion. A 5-Ivorian JR-4 catheter was used for selective engagement | | | of the right coronary system and angiographic views were obtained. | | | Subsequently 5-Ivorian JL-4 catheter was used for selective engagement | | | of the left coronary system and angiographic views were obtained. A | | | 5-Ivorian angled pigtail catheter was used for ventriculogram [...] was seen by his primary | | suction plate roller hand, Dr. Davila. The patient was referred for [...] radial artery was accessed using angiocatheter. A 6-Ivorian sheath was | | placed in the [...] the radial | | artery occlusion. A 5-Ivorian JR-4 catheter was used for selective | | engagement of the right coronary system and angiographic views were | | obtained. Subsequently 5-Ivorian JL-4 catheter was used for selective | | engagement of the left coronary system and angiographic views were | | obtained. A 5-Ivorian angled pigtail catheter was used for ventriculogram [...]
--- OUTSIDE RECORDS SUMMARY | ~2019-09-07 | XMS | Encounter Summary ---
Demographics + + + | Address | [address] | | | [place] [address] | + + + | Home Phone | | + + + | Preferred Language | Unknown | + + + | Marital Status | Single | + + + | Protestant Affiliation | Unknown | + + + | Race | Unknown | + + + | Ethnic Group | Unknown | + + + Author + + + | Author | [facility] | | [facility] and [facility] | + + + | Organization | [facility] | | | [...] Team Providers + +------+ + | Care Car Park Attendant Name | Role | Phone | + [...] [place] | | | | | | [address] | | | | | | [phone] | | | +--------+ + + + [...]
--- OUTSIDE RECORDS SUMMARY | ~2019-09-07 | XMS | Encounter Summary ---
Demographics + + + | Address | [address] | | | [place] [address] | + + + | Home Phone | | + + + | Preferred Language | Unknown | + + + | Marital Status | Single | + + + | Zoroastrianism Affiliation | Unknown | + + + | Race | Unknown | + + + | Ethnic Group | Unknown | + + + Author + + + | Author | [facility] | | | and [facility] | + + + | Organization | [facility] | | | and [...] Team Providers + +------+ + | Care Health Care Liaison Name | Role | Phone | + +------+ + PCP | Unavailable | + +------+ + Encounter Details +--------+ + + + + | Date | Type | Department | Care Team | Description | +--------+ + + + + | 01/06/ | Hospital | [facility] | Daljit Bro | | | 2013 | Encounter | HOSPITAL LABORATORY | [address] | | | | | [address] | [address] | | | | | [place], [place] | [place], [place] | | | | | [address] | [address] | | | | | [phone] | [phone] | | | | | | | [...]
--- OUTSIDE RECORDS SUMMARY | ~2019-09-07 | XMS | Encounter Summary ---
Demographics + + + | Address | [address] | | | [place] [address] | + + + | Home Phone | | + + + | Preferred Language | Unknown | + + + | Marital Status | Single | + + + | Church Affiliation | Unknown | + + + | Race | Unknown | + + + | Ethnic Group | Unknown | + + + Author + + + | Author | [facility] | | | and [facility] | + + + | Organization | [facility] | | | [...] Team Providers + +------+ + | Care Hat Forming Machine Feeder Name | Role | Phone | + +------+ + PCP | Unavailable | + +------+ + Encounter Details +--------+ + + + + | Date | Type | Department | Care Team | Description | +--------+ + + + + | 10/02/ | Orders Only | [facility] | Leonel Arechiga MD | | | 2014 | | [facility] | | | | | | PRIMARY CARE [address] | | | | | [address] [place] [place] | | | | | | [address] | | | | | | [phone] | | | +--------+ + + + [...] | | | | | of or [place] at 48 | | | | | [...] | | | | | of or [place] at 48 | | | | | [...] + + + + | RBC | 5.22 | 4.50 - 6.00 | EXTERNAL | | | | | MIL/uL | LAB | | + + + + + + | WBC | 9.1 | 4.5 - 11.0 K/uL [...]
--- OUTSIDE RECORDS SUMMARY | ~2019-09-07 | XMS | Encounter Summary ---
Demographics + + + | Address | [address] | | | [place] [address] | + + + | Home Phone [...] [facility] | | | and [facility] | + + + | Organization | [...] Team Providers + +------+ + | Care Sole Leveler Name | Role | Phone | + [...] [address] | | | | | [place], [place] | [place] | | | | | [address] | [address] | | | | | [phone] | [phone] | | | | | | | [...]
--- OUTSIDE RECORDS SUMMARY | ~2019-09-07 | XMS | Encounter Summary ---
Demographics + + + | Address | [address] | | | [place] [address] | + + + | Home Phone [...] + + + | Author | [facility] | | | and [facility] | + + + | Organization | [facility] | | [...] Team Providers + +------+ + | Care Measuring Clerk Name | Role | Phone | [...] | | 2017 | | [facility] | Gail Cordero MD [address] | | | | | [address] | [address] | | | | | [address] [place] | [address] [place] | | | | | [address] | [id number] | | | | | [phone] | | | +--------+ + + + [...]
--- OUTSIDE RECORDS SUMMARY | ~2019-09-07 | XMS | Encounter Summary ---
Demographics + + + | Address | [address] | | | [place] [address] | + + + | Home Phone | | + + + | Preferred Language | Unknown | + + + | Marital Status | Single | + + + | Spiritism Affiliation | Unknown | + + + | Race | Unknown | + + + | Ethnic Group | Unknown | + + + Author + + + | Author | [facility] | | | and [facility] | + + + | [...] Team Providers + +------+ + | Care Residential Real Estate Appraiser Name | Role | Phone | + [...] [place] | | | | | | [address] | | | | | | [phone] | | | +--------+ + + + [...]
--- OUTSIDE RECORDS SUMMARY | ~2019-09-07 | XMS | Encounter Summary ---
Demographics + + + | Address | [address] | | | [place] [address] | + + + | Home Phone [...] [facility] | | [facility] and [facility] | + + + | Organization [...] Team Providers + +------+ + | Care Tourism Radio Presenter Name | Role | Phone | + +------+ + | Love Prabhakar DO | PCP | | + +------+ + Encounter Details +--------+ + + + + | Date | Type | Department | Care Team | Description | +--------+ + + + + | 12/14/ | Orders Only | [facility] | Faheem Davila, | | | 2014 | | CARDIOLOGY LUZ | [address] | | | | | [address] | [place] [address] | | | | | [place], [place] | [phone] | | | | | [address] | | | | | | [phone] | | | +--------+ + + + [...] seen by | | | his primary material requirements planning manager, Dr. Davila. The patient was referred for [...] accessed using | | | angiocatheter. A 6-Indian sheath was placed in the right radial [...] radial artery | | | occlusion. A 5-Indian JR-4 catheter was used for selective engagement | | | of the right coronary system and angiographic views were obtained. | | | Subsequently 5-Indian JL-4 catheter was used for selective engagement | | | of the left coronary system and angiographic views were obtained. A | | | 5-Indian angled pigtail catheter was used for ventriculogram [...] was seen by his primary | | material requirements planning manager, Dr. Davila. The patient was referred for [...] radial artery was accessed using angiocatheter. A 6-Indian sheath was | | placed in the [...] the radial | | artery occlusion. A 5-Indian JR-4 catheter was used for selective | | engagement of the right coronary system and angiographic views were | | obtained. Subsequently 5-Indian JL-4 catheter was used for selective | | engagement of the left coronary system and angiographic views were | | obtained. A 5-Indian angled pigtail catheter was used for ventriculogram [...]
--- OUTSIDE RECORDS SUMMARY | ~2019-09-07 | XMS | Encounter Summary ---
Demographics + + + | Address | [address] | | | [place] [address] | + + + | Home Phone | | + + + | Preferred Language | Unknown | + + + | Marital Status | Single | + + + | Cheondoism Affiliation | Unknown | + + + | Race | Unknown | + + + | Ethnic Group | Unknown | + + + Author + + + | Author | [facility] | | | and [facility] | + + + | Organization | [facility] | | | [...] Team Providers + +------+ + | Care Trainer Name | Role | Phone | + [...] Results | | 2017 | | Cardiology Ericrichie | MARYCRUZ Cordero | ([facility]) | | | | [address] | | | | | | [address] [place] | | | | | | [address] | | | | | | [phone] | | | +--------+ + + + [...]
--- OUTSIDE RECORDS SUMMARY | ~2019-09-07 | XMS | Encounter Summary ---
Demographics + + + | Address | [address] | | | [place] [address] | + + + | Home Phone | | + + + | Preferred Language | Unknown | + + + | Marital Status | Single | + + + | Jewish Affiliation | Unknown | + + + | Race | Unknown | + + + | Ethnic Group | Unknown | + + + Author + + + | Author | [facility] | | | and [facility] | + + + | Organization | [facility] | [...] Team Providers + +------+ + | Care Pizza Chef Name | Role | Phone | + [...] [place] | | | | | | [address] | | | | | | [phone] | | | +--------+ + + + [...]
--- OUTSIDE RECORDS SUMMARY | ~2019-09-07 | XMS | CONTINUITY OF CARE DOCUMENT ---
Demographics + + + | Address | [address] | | | [place] [address] | + + + | Home Phone | | + + + | Preferred Language | Unknown | + + + | Marital Status | Unknown | + + + | Rastafarian Affiliation | Unknown | + + + | Race | White | + + + | Ethnic Group | Unknown | + + + Author + + + | Organization | Unknown | + + + | Address | [address] | | | [place] [address] | + + + | Phone | Unavailable | + + + PROBLEMS + +--------+ + +-------+ | Condition | Status | Date | Provider | Notes | + +--------+ + +-------+ | CHEST PAIN | active | | Estela Shankar | | + +--------+ + +-------+ | Angina | active | | Estela Shankar | | + +--------+ + +-------+ | 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 | | | Brenc | | + +--------+ + +-------+ | Unspecified | active | | Balbina Phillip | | | injury of right | | | | | | elbow, initial | | | | | | encounter | | | | | + +--------+ + +-------+ ENCOUNTERS + + + + + + | Date | Type | Provider | Location | Encounter | | | | | | Diagnosis | + + + + + + | - | Ambulatory | Dafne Rosales | [facility] | [facility]AN[facility] | | | Encounter | Emerita Leos | Medicine | | | | | E Emerita | | | | | | [facility] | | | + + + + + + | - | Ambulatory | Gary Olmos | [facility] | UNK | | | Encounter | [facility] | Medicine | | | | | [facility] | | | + + + + + + | - | Ambulatory | Dafne Rosales | [facility] | UNK | | | Encounter | Emerita eLos | Medicine | | | | | E Emerita | | | | | | [facility] | | | + + + + + + | - | Ambulatory | Gary Olmos | [facility] | UNK | | | Encounter | [facility] | Medicine | | | | | [facility] | | | + + + + + + | - | Ambulatory | Bipin Carrero | [facility] | UNK | | | Encounter | [facility] | Center | | + + + + + + | - | Ambulatory | Bipin Carrero | [facility] | UNK | | | Encounter | [facility] | Center | | + + + + + + | - | Ambulatory | Bipin Carrero | [facility] | UNK | | | Encounter | Estela Shankar | Center | | | | | Estela Shankar | | | | | | Zohaib Laguerre, | | | | | | EMPLOYMENT SPECIALIST | | | + + + + + + | - | Ambulatory | Bipin Carrero | [facility] | AnginaCHEST | | | Encounter | Estela Shankar | Regional | PAIN | | | | Estela Shankar | Hospital OP | | | | | Zohaib Laguerre, | | | | | | EMPLOYMENT SPECIALIST | | | + + + + + + | - | Ambulatory | [facility] | UNK | | | Encounter | Emerita Leos | Medicine | | | | | E Emerita | | | | | | [facility] | | | + + + + + + | - | Ambulatory | Fax Status | [facility] | UNK | | | Encounter | [facility] | Medicine | | + + + + + + | - | Ambulatory | Fax Status | [facility] | UNK | | | Encounter | [facility] | Medicine | | + + + + + + | - | Ambulatory | Fax Status | [facility] | UNK | | | Encounter | [facility] | Medicine | | + + + + + + | - | Ambulatory | Dafne E | [facility] | UNK | | | Encounter | Emerita Leos | Medicine | | | | | Connie Omalley | | | | | | Lorna Meneses | | | | | | Solitario | | | + + + + + + | - | Ambulatory | Dafne E | [facility] | UNK | | | Encounter | Emerita Leos | Medicine | | | | | E Brenc | | | | | | [facility] | | | + + + + + + | - | Ambulatory | Dafne Rosales | [facility] | UNK | | | Encounter | Emerita Leos | Medicine | | | | | E Brenc | | | | | | [facility] | | | + + + + + + | - | Ambulatory | Sherry Moreau | [facility] | UNK | | | Encounter | | Medicine | | + + + + + + | - | Ambulatory | Dafne E | [facility] | UNK | | | Encounter | Emerita Leos | Medicine | | | | | E Emerita Olmos | | | | | | Martik | | | + + + + + + | - | Ambulatory | Gary J | [facility] | UNK | | | Encounter | Britton | Medicine | | | | | LinkLog[facility] | | | + + + + + + | - | Ambulatory | Dafne E | [facility] | UNK | | | Encounter | Emertia Leos | Medicine | | | | | E Emerita | | | + + + + + + | - | Ambulatory | Dafne E | [facility] | UNK | | | Encounter | Emerita Leos | Medicine | | | | | E Emerita Omalley | | | | | | Lorna Meneses | | | | | | Solitario | | | + + + + + + | - | Ambulatory | Hong | [facility] | UNK | | | Encounter | Dontrell | Medicine | | | | | LinkLogic | | | + + + + + + | - | Ambulatory | Dafne E | [facility] | UNK | | | Encounter | Emerita Leos | Medicine | | | | | E Emerita Omalley | | | | | | Lorna Olmos | | | | | | Martik | | | + + + + + + | - | Ambulatory | Dafne Rosales | [facility] | UNK | | | Encounter | Emerita Leos | Medicine | | | | | E Emerita | | | | | | LinkLogic | | | + + + + + + | - | Ambulatory | Dafne E | [facility] | UNK | | | Encounter | Emerita Lagunaistine | Medicine | | | | | E Emerita Clay | | | | | | Eric | | | + + + + + + | - | Ambulatory | Dafne E | [facility] | UNK | | | Encounter | Emerita Leos | Medicine | | | | | E Emerita | | | | | | LinkLogic | | | + + + + + + | - | Ambulatory | Lauren Krause | [facility] | UNK | | | Encounter | | Medicine | | + + + + + + | - | Ambulatory | Desktop | [facility] | UNK | | | Encounter | Referrals | Medicine | | | | | Lauren Krause | | | | | | Daxa | | | | | | Gino | | | + + + + + + | - | Ambulatory | Dafne E | [facility] | UNK | | | Encounter | Emerita Leos | Medicine | | | | | E Emerita | | | | | | LinkLogic | | | + + + + + + | - | Ambulatory | Antonio Coleman | [facility] | UNK | | | Encounter | Dontrell | Medicine | | | | | LinkLogic | | | + + + + + + | - | Ambulatory | Dafne E | [facility] | Ulnar nerve | | | Encounter | Emerita Leos | Medicine | syndrome | | | | E Emerita Mohan | | | | | | A Kalie Meneses | | | | | | Solitario | | | + + + + + + | - | Ambulatory | Hong | [facility] | UNK | | | Encounter | Horstkamp | Medicine | | | | | LinkLogic | | | + + + + + + | - | Ambulatory | Antonio Coleman | [facility] | Unspecified | | | Encounter | Dontrell Fajardomy | Medicine | injury of right | | | | Amarilis Freitas LPN | | elbow, initial | | | | Balbina Fisher | | encounter | | | | Balbina Fisher | | | + + + + + + | - | Ambulatory | Gary Olmos | [facility] | UNK | | | Encounter | Jarquin | Medicine | | | | | LinkLogic | | | + + + + + + | - | Ambulatory | Gary Olmos | [facility] | UNK | | | Encounter | Jarquin | Medicine | | | | | LinkLogic | | | + + + + + + VITAL SIGNS No Information Available Allergies No Known Allergy Information REASON FOR REFERRAL No Information Available RESULTS No Information Available HISTORY OF IMMUNIZATIONS No Information Available Medications No Known Medication Information SOCIAL HISTORY + + + + + | Date | Observation | Value | Provider | + + + + + | | social history | reviewed - no | Zaira Jerez | | | reviewed E&M | changes required | | + + + + + | | social history E&M | Used to work in a | Zaira Jerez | | | | [place] | | | | | is pending | | | | | following an injury | | + + + + + | " | social history | reviewed - no | Zaira Jerez | | | reviewed E&M | changes required | | + + + + + | | social history | reviewed - no | Zaira Jerez | | | reviewed E&M | changes required | | + + + + + | | social history E&M | 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 | Balbina Fisher | + + + + + FUNCTIONAL STATUS No Information Available MENTAL STATUS No Information Available MEDICAL EQUIPMENT No Information Available FAMILY HISTORY No Information Available INSURANCE PROVIDERS + + + + | Payer name | Policy type / Coverage type | Covered constitution party ID | + + + + | [place] | [id number] | + + + + ADVANCE DIRECTIVES No Information Available TREATMENT PLAN + + + | Date | Name | + + + | - | | + + + | - | ulnar nerve syndrome | + + + | | Interpretation Treadmill OR Stress Echo | + + + | | Supervision Treadmill OR Stress Echo | + + + | | Pharmacological Stress MPI | + + + | | Echo Complete Read | + + + | | Interpretation Treadmill OR Stress Echo | + + + | | Supervision Treadmill OR Stress Echo | + + + | | Pharmacological Stress MPI | + + + | | Echo Complete Read | + + + | | Misc service | + + + | | Ofc Vst, Est [address] | + + + | | Misc service | + + + | | Ofc Vst, *New* [id number] | + + + HISTORY OF PROCEDURES + + + + + + | Procedure Date | Procedure Name | Provider | Procedure Notes | Status | + + + + + + | | Interpretation | Bipin Carrero | | completed | | | Treadmill OR | | | | | | Stress Echo | | | | + + + + + + | | Supervision | Bipin Carrero | | completed | | | Treadmill OR | | | | | | Stress Echo | | | | + + + + + + | | Pharmacological | Bipin Carrero | | completed | | | Stress MPI | | | | + + + + + + | | Echo Complete | Bipin Carreor | | completed | | | Read | | | | + + + + + + GOALS No Information Available HEALTH CONCERNS No Information Available
--- OUTSIDE RECORDS SUMMARY | ~2019-09-07 | XMS | Encounter Summary ---
Demographics + + + | Address | [address] | | | [place] [address] | + + + | Home Phone | | + + + | Preferred Language | Unknown | + + + | Marital Status | Single | + + + | Evangelical Affiliation | Unknown | + + + | Race | Unknown | + + + | Ethnic Group | Unknown | + + + Author + + + | Author | [facility] | | [facility] | + + + | Organization | [facility] | | [...] Team Providers + +------+ + | Care Starch Treating Assistant Name | Role | Phone | + +------+ + PCP | Unavailable | + +------+ + Encounter Details +--------+ + + + + | Date | Type | Department | Care Team | Description | +--------+ + + + + | 12/06/ | Hospital | [facility] | Shana Colon | | | 2013 | Encounter | HOSPITAL EMERGENCY | MD [address] | | | | | [place] [address] | [address] [place], | | | | | [address] [place], [place] | [place] [address] | | | | | [address] | [phone] | | | | | [phone] | | | +--------+ + + + [...]
--- OUTSIDE RECORDS SUMMARY | ~2019-09-07 | XMS | Encounter Summary ---
Demographics + + + | Address | [address] | | | [place] [address] | + + + | Home Phone | | + + + | Preferred Language | Unknown | + + + | Marital Status | Single | + + + | Tenriism Affiliation | Unknown | + + + | Race | Unknown | + + + | Ethnic Group | Unknown | + + + Author + + + | Author | [facility] | | | and [facility] | + + + | Organization | [facility] | | | and [place] | + + + | Address | Unknown | + + + | Phone | Unavailable | + + + Support + + +---------+ + | Name | Relationship | Address | Phone | + + +---------+ + | Angela Austin | ECON | Unknown | | + + +---------+ + | Lnida Mayberry | ECON | Unknown | | + + +---------+ + Care Team Providers + +------+ + | Care Director Of Special Education Name | Role | Phone | + [...] [address] | | | | | [place] CATH | | [address] [place], | | | | | [address]ACE/CORON | | [place] | | | | | ANGIO, IMG | | Phone: | | | | | SUPER/INTERP | | [phone] | | | | | ,W LEFT | | Fax: | | | | | HEART | | [phone] | | | | | VENTRICULOGR | [...] | HEART MED CTR CV | [address] | | | | | INTRA OP [address] | [address] [place], | | | | | [place], [place] | [place] | | | | | [address] | [phone] | | | | | [phone] | | | +--------+---------+ + + + [...] past. However we did obtain records from [facility] and his c oronary angiogram [...] limits further titration of BB. CAD in elim ira artery Assessment & Plan Minor CAD as [...] coronary angiogram or admit for chest pain alvni lar to this again if low risk EKG and enzymes are noted. Follow-Up: Gail Suazo MD [address] [place] [address] [facility] [id number] In 2 months Mild CAD and thickened heart muscle - follow up in our [facility] clinic. Disposition: Home/Self Care Condition at Discharge: [...] should be done as an outpatient. Our machine marker should call you in the next week to set up a 2 month follow up at our [place] outreach clinic. This clinic is held on the first floor of the [facility]. Please establish care with a primary care [...] you may find helpful for primary care: [facility] - [address], [place] [address] [facility] - [address], [place] [address] Thank you for allowing [facility] to participate in your health care. [...] Portions of this chart were created with BrandBacker voice recognition software. Occasional wro ng-word or "sound-alike" substitutions may have occurred due to the inherent limitations of voice recognition software. Please read the chart carefully and recognize, using context, w here those substitutions have occurred. [facility] Main Office - [address], [address] [place], [place] [address] Office: Medical Records [facility] [place] [address] Main: Physician referral and transfer line: Physician [...] should be done as an outpatient. Our machine marker should call you in the next week to set up a 2 month follow up at our [place] outreach clinic. This clinic is held on the first floor of the [facility]. Please establish care with a primary care [...] you may find helpful for primary care: [facility] - [address], [place] [address] [facility] - [address], [place] [address] Thank you for allowing [facility] to participate in your [...] | | | | | CAD in elim ira artery | | | | | | [...] | | | | | | | elim ira artery | | | | | | [...] limits further titration of BB. 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 Electronically signed by: Gail Suazo MD 07/21/2016 7:26 Patient Care Team: Doctor Unknown as PCP - General [facility] Main Office - [address], [address] [place], [place] [address] Office: Medical Records [facility] [place] [address] Main: Physician referral and transfer line: Physician referral fax line: Medical Records phone: Medical Records fax: Angela Toth RN - 07/20/2016 4:45 PM PSTHeparin IV bolus given [facility] IV gtt initiated there also. PTT & INR not done; no results found in transfer paperwork or [place]. documented in this encounter Plan of [...] + | Vlad Vasquez MD 07/21/2016 14:00 [facility] | | | [facility] LEFT CARDIAC CATHETERIZATION REPORT | | | PATIENT NAME: Rodrigo Mayberry DATE OF : 1950 | | | DATE OF PROCEDURE: 07/21/2016 | | | | | | PRIMARY CARE | | | PROVIDER: Doctor Unknown ELECTRIC MOTOR REPAIRER: Dr. Vlad Vasquez, | | | , [facility] PRE-PROCEDURE DIAGNOSIS: chest pain, [...] was | | | achieved with 6 Honduran micropuncture kit. Note that the patient | | | had somewhat abnormal radial artery anatomy with a low bifurcation | | | of the brachial artery that required some finesse to negotiate. | | | Patient was then given intravenous heparin as well as | | | intra-arterial nitroglycerin through the sheath. A 5 Honduran | | | multipurpose catheter was advanced [...] Left coronary angiography was performed with 5 Honduran | | | JL 3.5 catheter. The [...] Gutierres | | | MD Pedro, FACC, [facility] | | | DATE/TIME: 07/21/2016 13:57 07/21/2016 13:57 Portions of this | | | chart were created with BrandBacker voice recognition software. | | | Occasional [...] | | | RODRIGO MAYBERRY Date: 07/21/2016MRN: [id number] | | | Patient Location[facility]DOB: 1950 | | | Age: 65 [...] Physician: GAIL SUAZOEchocardiographer: Vikash | | | [id number]: | | |There is no pericardial effusion. [...] | |Ordering Physician: GAIL SUAZO | | |Prosthodontist/Educator: Vikash Perez | | |[id number]: | | | | | + +--------- -----+ + + | Procedure Note | + + | Gaurav, Rad Results In - 07/22/2016 9:13 AM PST | | Adult Echo | | Report | | | | Name: RODRIGO MAYBERRY Date: 07/21/2016 | | Patient Location: [place] [address] | | : 1950 Age: 65 yrs [...] | Ordering Physician: GAIL SUAZO | | Prosthodontist/Educator: Vikash Perez | | [id number]: | + + PTT (07/21/2016 7:40 AM [...] | + + + + + | VINCECHERYL AMEZQU[facility] | [address] | [place] [address] | | | [facility] | | | | | LABORATORY | [...] + + + + + | OMAIRAE MARVINED | [address] | [place] [address] | | | [facility] | | | | | LABORATORY | [...] + + + | Glucose | 88Comment: Cape Verdean | 65 - 99 mg/dL | [facility] [...] + + | CHARLES AMEZQU[facility] | [address] | [place] [address] | | | [facility] | | | | | LABORATORY | [...] | + + + + + | VINCECHERYL AMEZQUITA | [address] | [place] [address] | | | [facility] | | | | | [...] + + | [facility] | [address] | [place] [address] | | | [facility] | [...] - 1.030 | [facility] | | | [place] | | | [facility] | | | [...] + + | CHARLES AMEZQUITA | [address] | [place] [address] | | | [facility] | | | | | LABORATORY | [...] | + + + + + | VINCECHERYL AMEZQUITA | [address] | [place] [address] | | | [facility] | | | | | LABORATORY | [...] + + | CHARLES AMEZQUITA | [address] | [place] [address] | | | [facility] | | | | | LABORATORY | [...] | TRACEMASTER | | Duration:164 msP Horizontal [place]:19 degP Front [place]:47 degQ Onset:512 | | | msQRSD Interval:94 msQT Interval:436 msQTcB:390 msQTcF:405 msQRS | | | Horizontal [place]:5 degQRS [place]:54 degI-40 Horizontal [place]:47 degI-40 | | | Front [place]:42 degT-40 Horizontal [place]:-24 degT-40 Front [place]:51 degT | | | Horizontal [place]:47 degT Wave [place]:54 degS-T Horizontal [place]:90 degS-T | | | Front [place]:-43 degSeverity:- OTHERWISE NORMAL ECG -INTERP:SINUS | | | BRADYCARDIAElectronically signed by: , 07-20-2016 21:27:53 | | |QT Interval:436 ms | | |QTcB:390 ms | | |QTcF:405 ms | | |QRS Horizontal [place]:5 deg | | |QRS [place]:54 deg | | |I-40 Horizontal [place]:47 deg | | |I-40 Front [place]:42 deg | | |T-40 Horizontal [place]:-24 deg | | |T-40 Front [place]:51 deg | | |T Horizontal [place]:47 deg | | |T Wave [place]:54 deg | | |S-T Horizontal [place]:90 deg | | |S-T Front [place]:-43 deg | | |Severity:- OTHERWISE NORMAL ECG - | | |INTERP:SINUS BRADYCARDIA | | |Electronically signed by: , 07-20-2016 21:27:53 | | + + + + + + + + | Performing | Address | City/State/Zipcode | Phone Number | | Organization | | | | + + + + + | ANASTASIYA VALLE | [address] | [place] [address] | [phone] | + + + + + Hepatic [...] + | CHARLES AMEZQUITA | [address] | [place] [address] | | | [facility] | | | | | LABORATORY | [...] + + | [facility] | [address] | [place] [address] | | | [facility] | [...] + + | CHARLES AMEZQUITA | [address] | [place] [address] | | | [facility] | | | | | LABORATORY | [...] mg | | | | injection ONCE BRIAN, Starting Sat | | 16 1:38 | [...]
--- OUTSIDE RECORDS SUMMARY | ~2019-09-07 | XMS | Encounter Summary ---
Demographics + + + | Address | [address] | | | [place] [address] | + + + | Home Phone | | + + + | Preferred Language | Unknown | + + + | Marital Status | Single | + + + | Hinduism Affiliation | Unknown | + + + | Race | Unknown | + + + | Ethnic Group | Unknown | + + + Author + + + | Author | [facility] | | | and [facility] | + + + | Organization | [facility] | | | [...] Team Providers + +------+ + | Care Helicopter Engineer Name | Role | Phone | + +------+ + PCP | Unavailable | + +------+ + Encounter Details +--------+ + + + + | Date | Type | Department | Care Team | Description | +--------+ + + + + | 10/02/ | Orders Only | [facility] | Leonel Arechiga MD | | | 2014 | | [facility] | | | | | | PRIMARY CARE [address] | | | | | [address] | | | | | | [address] | | | | | | [phone] | | | +--------+ + + + [...] | | | | | of or [place] at 48 | | | | | [...] | | | | | of [place] 49 | | | | | [...]
--- OUTSIDE RECORDS SUMMARY | ~2019-09-07 | XMS | Encounter Summary ---
Demographics + + + | Address | [address] | | | [place] [address] | + + + | Home Phone [...] [facility] | | | and [facility] | + + + | Organization [...] Team Providers + +------+ + | Care Custodian Name | Role | Phone | + +------+ + PCP | Unavailable | + +------+ + Encounter Details +--------+ + + + + | Date | Type | Department | Care Team | Description | +--------+ + + + + | 04/03/ | Hospital | [facility] | Obdulia Bucio | | | 2013 | Encounter | HOSPITAL EMERGENCY | [address] | | | | | [address] [place], [place] | [place] [address] | | | | | [address] | [phone] | | | | | [phone] | | | +--------+ + + + [...]
--- OUTSIDE RECORDS SUMMARY | ~2019-09-07 | XMS | Encounter Summary ---
Demographics + + + | Address | [address] | | | [place] [address] | + + + | Home Phone | | + + + | Preferred Language | Unknown | + + + | Marital Status | Single | + + + | Tenriism Affiliation | Unknown | + + + | Race | Unknown | + + + | Ethnic Group | Unknown | + + + Author + + + | Author | [facility] | | | and [facility] | + + + | Organization | [facility] | | [...] Team Providers + +------+ + | Care Retoucher Name | Role | Phone | + [...] | | | [address] | [place], [place] | | | | | [place], [place] | [address] | | | | | [address] | [phone] | | | | | [phone] | | | +--------+ + + + [...] EXTERNAL | | | Ratio | [facility] | | LAB | | | [...]
--- OUTSIDE RECORDS SUMMARY | ~2019-09-07 | XMS | Encounter Summary ---
Demographics + + + | Address | [address] | | | [place] [address] | + + + | Home Phone [...] [facility] | | | and [facility] | + + + | Organization | [...] Team Providers + +------+ + | Care Physiotherapist'S Assistant Name | Role | Phone | + +------+ + PCP | Unavailable | + +------+ + Encounter Details +--------+ + + + + | Date | Type | Department | Care Team | Description | +--------+ + + + + | 10/20/ | Hospital | [facility] | Daljit Bro | | | 2013 | Encounter | HOSPITAL LABORATORY | [address] | | | | | [address] | [address] | | | | | [place], [place] | [place], [place] | | | | | [address] | [address] | | | | | [phone] | [phone] | | | | | | | [...]
--- OUTSIDE RECORDS SUMMARY | ~2019-09-07 | XMS | Encounter Summary ---
Demographics + + + | Address | [address] | | | [place] [address] | + + + | Home Phone [...] | Author | [facility] | | | and [facility] | + + + | Organization | [facility] | | | and [...] Providers + +------+ + | Care Supervisor Winter Name | Role | Phone | + [...] | | [place] [facility] | | [address] [place], | | | | | PLACE/CORON | | [place] | | | | | ANGIO, IMG | | Phone: | | | | | SUPER/INTERP | | [phone] | | | | | ,W LEFT | | Fax: | | | | | HEART | | [phone] | | | | | VENTRICULOGR | [...] | [facility] CV | [address] | | | | | INTRA [address] | [address] [place], | | | | | [address] [place], [place] | [place] | | | | | [address] | [phone] | | | | | [phone] | | | +--------+---------+ + + + [...] past. However we did obtain records from [facility] and his c oronary angiogram there showed [...] limits further titration of BB. 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 clinic. Disposition: Home/Self Care Condition at [...] should be done as an outpatient. Our museum service scheduler should call you in the next week to set up a 2 month follow up at our [place] outreach clinic. This clinic is held on the first floor of the [facility]. Please establish care with a primary [...] you may find helpful for primary care: [facility] - [address], [place] [address] [facility] - [address], [place] [address] Thank you for allowing [facility] to participate in your health care. [...] Portions of this chart were created with [employer] voice recognition software. Occasional wro ng-word or "sound-alike" substitutions may have occurred due to the inherent limitations of voice recognition software. Please read the chart carefully and recognize, using context, w here those substitutions have occurred. [facility] Main Office - [address], [address] [place], [place] [address] Office: Medical Records [facility] [place] [address] Main: Physician referral and transfer line: Physician [...] should be done as an outpatient. Our museum service scheduler should call you in the next week to set up a 2 month follow up at our [place] outreach clinic. This clinic is held on the first floor of the [facility]. Please establish care with a primary [...] you may find helpful for primary care: [facility] - [address], [place] [address] [facility] - [address], [place] [address] Thank you for allowing 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 PATIENT NAME: Rodrigo Mayberry : 1950: AGE: 65 y.o. ADMISSION DATE: 07/20/2016 PRIMARY CARE: Doctor Unknown Gail Suazo MD DAILY CARDIOLOGY PROGRESS NOTE [facility] DATE OF SERVICE: 07/21/2016 LOCATION OF SERVICE TODAY: [facility] TIME SPENT INCLUDING DIRECT PATIENT CARE, [...] limits further titration of BB. 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 to participate [facility]. Electronically signed by: Gail Suazo MD 07/21/2016 7:26 Patient Care Team: Doctor Unknown as PCP - General [facility] Main Office - [address], [address] [place], [place] [address] Office: Medical Records [facility] [place] [address] Main: Physician referral and transfer line: Physician referral fax line: Medical Records phone: Medical Records fax: Angela Toth RN - 07/20/2016 4:45 PM PSTHeparin IV bolus given @ [facility] & Heparin IV gtt initiated there also. PTT & INR not done; no results found in transfer paperwork or on the [place] site. documented in this encounter Plan of [...] + | Vlad Vasquez MD 07/21/2016 14:00 [facility] | | | [facility] LEFT CARDIAC CATHETERIZATION REPORT | | | PATIENT NAME: Rodrigo Mayberry DATE OF : 1950 | | | DATE OF PROCEDURE: 07/21/2016 | | | | | | PRIMARY CARE | | | PROVIDER: Doctor Unknown [place] PILOT: Dr. Vlad Vasquez, | | | , [facility] PRE-PROCEDURE DIAGNOSIS: chest pain, known | [...] was | | | achieved with 6 Cymro micropuncture kit. Note that the patient | | | had somewhat abnormal radial artery anatomy with a low bifurcation | | | of the brachial artery that required some finesse to negotiate. | | | Patient was then given intravenous heparin as well as | | | intra-arterial nitroglycerin through the sheath. A 5 Cymro | | | multipurpose catheter was advanced [...] Left coronary angiography was performed with 5 Cymro | | | JL 3.5 catheter. The [...] Gutierres | | | MD Pedro, FACC, [facility] | | | DATE/TIME: 07/21/2016 13:57 07/21/2016 13:57 Portions of this | | | chart were created with [employer] voice recognition software. | | | Occasional [...] | | | RODRIGO MAYBERRY Date: 07/21/2016MRN: [id number] | | | Patient Location: [facility]DOB: 1950 | | | [...] Physician: GAIL SUAZOEchocardiographer: Vikash | | | [id number]: | | |There is no pericardial effusion. [...] | |Ordering Physician: GAIL SUAZO | | |[employer] Associate: Vikash Perez | | |[id number]: | | | | | + +--------- -----+ + + | Procedure Note | + + | Gaurav, Rad Results In - 07/22/2016 9:13 AM PST | | Adult Echo | | Report | | | | Name: RODRIGO MAYBERRY Date: 07/21/2016 | | Patient Location: [place] [address] | | : 1950 Age: 65 yrs [...] | Ordering Physician: GAIL SUAZO | | Prep[employer] Associate: Vikash Perez | | [id number]: | + + PTT (07/21/2016 7:40 AM [...] + + | [facility] | [address] | [place] [address] | | | [facility] | | | | | LABORATORY [...] [address] | [place] [address] | | | [facility] | | | | | LABORATORY [...] + + + | Glucose | 88Comment: Lao | 65 - 99 mg/dL | [facility] [...] + + | [facility] | [address] | [place] [address] | | | [facility] | | | | | LABORATORY [...] + | VINCE[facility]ERYL [facility] | [address] | [place] [address] | | | [facility] | | | | [...] + + | [facility] | [address] | [place] [address] | | | [facility] | [...] - 1.030 | [facility] | | | [place] | | | [facility] | | | [...] + + | [facility] | [address] | [place] [address] | | | [facility] | | | | | LABORATORY [...] + | V[facility]ERY[facility] AME[facility] | [address] | [place] [address] | | | [facility] | | | | | LABORATORY [...] + + | CHARLES AMEZQU[facility] | [address] | [place] [address] | | | [facility] | | | | | LABORATORY [...] | TRACEMASTER | | Duration:164 msP Horizontal [place]:19 degP Front [place]:47 degQ Onset:512 | | | msQRSD Interval:94 msQT Interval:436 msQTcB:390 msQTcF:405 msQRS | | | Horizontal [place]:5 degQRS [place]:54 degI-40 Horizontal [place]:47 degI-40 | | | Front [place]:42 degT-40 Horizontal [place]:-24 degT-40 Front [place]:51 degT | | | Horizontal [place]:47 degT Wave [place]:54 degS-T Horizontal [place]:90 degS-T | | | Front [place]:-43 degSeverity:- OTHERWISE NORMAL ECG -INTERP:SINUS | | | BRADYCARDIAElectronically signed by: , 07-20-2016 21:27:53 | | |QT Interval:436 ms | | |QTcB:390 ms | | |QTcF:405 ms | | |QRS Horizontal [place]:5 deg | | |QRS [place]:54 deg | | |I-40 Horizontal [place]:47 deg | | |I-40 Front [place]:42 deg | | |T-40 Horizontal [place]:-24 deg | | |T-40 Front [place]:51 deg | | |T Horizontal [place]:47 deg | | |T Wave [place]:54 deg | | |S-T Horizontal [place]:90 deg | | |S-T Front [place]:-43 deg | | |Severity:- OTHERWISE NORMAL ECG - | | |INTERP:SINUS BRADYCARDIA | | |Electronically signed by: , 07-20-2016 21:27:53 | | + + + + + + + + | Performing | Address | City/State/Zipcode | Phone Number | | Organization | | | | + + + + + | [facility] | [address] | [place] [address] | [phone] | + + + + + Hepatic [...] | [facility]LES [facility] | [address] | [place] [address] | | | [facility] | | | | | LABORATORY [...] + + | [facility] | [address] | [place] [address] | | | [facility] | [...] + + | CHARLES AMEZQU[facility] | [address] | [place] [address] | | | [facility] | | | | | LABORATORY [...]
[2019-09-07] MEDS ORDERED: NITROGLYCERIN0.4 MG SL (10:54)
[2019-09-07] MEDS ORDERED: VENTOLIN HFA18 GM INH ×2 (10:55→11:15)
== END 2019-09-07 11:21 | disposition home or self-care (01) ==
LOC: ED 10:42
DX: M54.5 Low back pain (principal); J44.9 Chronic obstructive pulmonary disease, unspecified; Z76.0 Encounter for issue of repeat prescription; F17.200 Nicotine dependence, unspecified, uncomplicated; Z79.899 Other long term (current) drug therapy; Z79.51 Long term (current) use of inhaled steroids
CPT/HCPCS: 99283

== ENCOUNTER 2020-01-18 13:54 | Emergency (ER) | payer MEDICARE, OTHER ==
[~2020-01-18] VITALS: Ht 175.3 cm; Wt 77.1 kg
--- OUTSIDE RECORDS SUMMARY | ~2020-01-18 | XMS | Encounter Summary ---
Demographics + + + | Address | [address] | | | [place] [address] | + + + | Home Phone | | + + + | Preferred Language | Unknown | + + + | Marital Status | Single | + + + | Orthodox Affiliation | Unknown | + + + | Race | Unknown | + + + | Ethnic Group | Unknown | + + + Author + + + | Author | [facility] | | | and [facility] | + + + | Organization | [facility] | | | and [...] Team Providers + +------+ + | Care Museum Curator Name | Role | Phone | + +------+ + PCP | Unavailable | + +------+ + Encounter Details +--------+ + + + + | Date | Type | Department | Care Team | Description | +--------+ + + + + | 10/17/ | Hospital | [facility] | Daljit Bro | | | 2013 | Encounter | HOSPITAL RESPIRATORY | [address] | | | | | [address] | | | [address] | [place], [place] | | | | | [place], [place] | [address] | | | | | [address] | [phone] | | | | | [phone] | | | +--------+ + + + + Social History + +-------+ +--------+------+ | Tobacco Use | Types | Packs/Day | Years | Date | | | | | Used | | + +-------+ +--------+------+ | Never Assessed | | | | | + +-------+ +--------+------+ + + + | Sex Assigned at [...] Not on filedocumented as of this encounter Visit Diagnoses Not on filedocumented in this encounter"
--- OUTSIDE RECORDS SUMMARY | ~2020-01-18 | XMS | Clinical Summary ---
Demographics + + + | Address | [address] | | | [place] [address] | + + + | Home Phone | | + + + | Preferred Language | Unknown | + + + | Marital Status | Single | + + + | Scientologist Affiliation | Unknown | + + + | Race | Unknown | + + + | Ethnic Group | Unknown | + + + Author + + + | Author | [facility] | | | and [facility] | + + + | Organization | [facility] | | | [...] Team Providers + +------+ + | Care Pantograph Machine Set Up Operator Name | Role | Phone | + +------+ + | Love Prabhakar DO | PCP | | + +------+ + Allergies No Known Allergies Medications + + + +---------+------+------+-------+ | Medication | Sig | Dispensed | Refills | Star | End | Statu | | | | | | t | Date | s | | | | | | Date | | | + + + +---------+------+------+-------+ | aspirin 81 mg EC | Take 81 mg by mouth | | 0 | | | Activ | | tablet | Daily. | | | | | e | + + + +---------+------+------+-------+ | atorvaSTATin | Take 1 tablet by | 90 | 3 | 07/10 | | Activ | | (LIPITOR) 80 MG | mouth nightly. | tablet | | 3/20 | | e | | tablet | | | | 16 | | | + + + +---------+------+------+-------+ | nitroglycerin | Place 1 tablet under | 25 | 1 | 11/1 | | Activ | | (NITROSTAT) 0.4 mg | the tongue every 5 | tablet | | 3/20 | | e | | SL | minutes as needed | | | 16 | | | | tabletIndications: | for Chest pain. | | | | | | | Chest pain, | | | | | | | | unspecified type, | | | | | | | | CAD in [place] artery | | | | | | | + + + +---------+------+------+-------+ | | Take 1 tablet by | | 0 | | | Activ | | oxyCODONE-acetaminop | mouth every 4 hours | | | | | e | | hen (PERCOCET) 5-325 | as needed for Pain. | | | | | | | mg per tablet | | | | | | | + + + +---------+------+------+-------+ Active Problems + + + | Problem | Noted Date | + + + | Palpitations | 07/31/2017 | + + + + + | Last Assessment & Plan: Patient has been having episodic | | palpitations.He feels like his heart is beating hard but not | | rapidly.We discussed taking his beta stephie therapy on a regular | | basis which would help with his palpitations.We'll change the | | metoprolol tartrate to metoprolol XL, this may help with his | | compliance.He also has complaints of shortness of breath, plan to | | repeat echocardiogram. | + + + + + | Apical variant hypertrophic cardiomyopathy | 07/22/2016 | + + + + + | Last Assessment & Plan: Both his echo and coronary angiogram | | suggest apical HCM. The EKG does not meet criteria however and he | | has no CHF or VT. Discussed possible familial syndrome with | | patient and follow up recommended. | + + + + + | Tobacco abuse counseling | 07/22/2016 | + + + | ACS (acute coronary syndrome) | 07/20/2016 | + + + + + | Last Assessment & Plan: Presumptive diagnosis of CAD and | | acute coronary syndrome. Patient gave history of plain balloon | | angioplasty of vessel in the past. However we did obtain records | | from [facility] and his coronary angiogram there showed only mild | | atherosclerotic plaque. Coronary angiogram done here from right | | radial approach showed minimal (20%) luminal irregularities and | | normal LV EDP of 10 mm Hg and normal EF. Risk reduction for his | | minor CAD is recommended including tobacco cessation, statin, | | regular exercise and good blood pressure control. Would boost | | statin to 80 mg a day of atorvastatin if tolerated. | + + + + + | Abnormal EKG | 07/20/2016 | + + + + + | Last Assessment & Plan: Reported T inversion with CP but all | | EKG here are benign. He specifically has not had the giant | | anterolateral T inversions usually seen at baseline in apical | | hypertrophic cardiomyopathy. | + + + + + | CAD in [place] artery | 07/20/2016 | + + + + + | Overview: Coronary angiogram 2013 in [facility] - mild to | | moderate diffuse CAD . Medically treated. Last Assessment & | | Plan: Coronary angiogram on 07/21/16: Showed minimal (20%) | | luminal irregularities and normal LVEDP of 10 mmHg and normal | | EFWe had a lengthy discussion regarding risk reduction for his | | minor coronary artery disease which includes tobacco cessation, | | medication compliance with his statin, good blood pressure | | control and regular exercise.Twelve-lead EKG obtained a shows | | patient be in normal sinus rhythm with a heart rate of 66 bpm, | | normal axis.Patient has been compliant on taking his aspirin | | daily.He occasionally takes his metoprolol tartrate, and that's | | usually at bedtime. He is not take his statin on a regular | | basis.He agrees to taking his beta stephie therapy which will | | help with his palpitations and blood pressures. I am changing | | his metoprolol tartrate to extended release for hopefully | | improved medication compliance.Smoking cessation strongly | | recommendedObtain a new echocardiogram for palpitations and | | shortness of breath | + + + + + | Bradycardia | 07/20/2016 | + + + + + | Last Assessment & Plan: Asymptomatic but is limiting | | titration of BB. Will monitor. | + + + + + | Gastroesophageal reflux disease | 04/19/2014 | + + + + + | Overview: Overview: Noted on 04/19/2014 EGD. PPI started. | | Path show reflux esophagitis. Also mild, chronic, inactive | | gastritis. | + + + + + | Degeneration of intervertebral disc of cervical region | 06/05/2013 | + + + + + | Overview: Overview: 04/2013 MRI showed C3-4 with mild, L>R | | neuroforaminal narrowing secondary to an esteophyte/disc complex, | | C4-5 posterior osteophyte indenting the ventral thecal sac L>R, | | C5-6 disc/osteophyte complex mildly narrowing the spinal canal | | bilaterally, C6-7 disc/osteophyte complex moderately narrowing | | the canal R>L | + + + + + | Dysthymia | 06/05/2013 | + + + + + | Overview: Overview: He has been on sertraline, bupropion, | | venlafaxine, mirtazapine, and citalopram in the past, all with | | little benefit. | + + + + + | Liver mass | 06/05/2013 | + + + + + | Overview: Overview: 07/2012 CT showed a nonenhancing lesion | | that was likely a calcified hematoma. | + + + + + | Polysubstance abuse | 06/05/2013 | + + + + + | Overview: Overview: History of heroin, meth, alcohol, and | | marijuana abuse. Marijuana use is current and others are past. | + + + + + | Posttraumatic stress disorder | 06/05/2013 | + + + | Disorder of rotator cuff | 05/29/2013 | + + + + + | Overview: Overview: Focal tear of supraspinatus and a | | possible SLAP tear on MRI from 11/24/2012 | + + + + + | Injury of ulnar nerve | 05/29/2013 | + + + | Tobacco use | | + + + + + | Last Assessment & Plan: He has decreased his smoking to | | approximately one half pack per dayStrongly encouraged to stop | | smoking completely | + + + +---+ | Hyperlipidemia LDL goal <70 | | + +---+ + + | Last Assessment & Plan: The patient was previously on | | atorvastatin-at 20 mg a day. We will place on high-dose | | atorvastatin since he does appear to be having an acute coronary | | syndrome. Fasting lipids are pending. I have ordered them twice | | - reordered them today. | + + + +---+ | Essential hypertension | | + +---+ + + | Last Assessment & Plan: Encouraged to keep his blood | | pressures under good controlChange metoprolol to tartrate to | | metoprolol extended release | + + Family History + + +------+ + | Medical History | Relation | Name | Comments | + + +------+ + | Coronary artery | Father | | Multiple relatives on father's side have | | disease | | | CAD | + + +------+ + | Diabetes | Sister | | | + + +------+ + | Aneurysm | Neg Hx | | | + + +------+ + + +------+ + + | Relation | Name | Status | Comments | + +------+ + + | Brother | | Alive | | + +------+ + + | Brother | | Alive | | + +------+ + + | Father | | | | + +------+ + + | Mother | | | | + +------+ + + | Sister | | Alive | | + +------+ + + | Sister | | Alive | | + +------+ + + | Sister | | Alive | | + +------+ + + | Sister | | Alive | | + +------+ + + Social History + + + [...] recent travel history available. | + + Last Filed Vital Signs + + + [...] + + + + | Temperature | 37.2 C (99 F) | 07/22/2016 11:45 AM | | | | | PST | | + + + + + | Respiratory Rate | 16 | 07/22/2016 11:45 AM | | | | | PST | | + + + + + | Oxygen Saturation | 96% | 07/22/2016 11:45 AM | | | | | PST [...] | | + + + + + Plan of Treatment + + + + + | Health Maintenance | Due Date | Last Done | Comments | + + + + + | Vaccine: Zoster (1 | | | | | of 2) | 2 | | | + + + + + | Vaccine: | | | | | Pneumococcal 65+ (1 | 7 | | | | of 2 - PCV13) | | | | + + + + + | Vaccine: Influenza | | | | | (Season Ended) | 0 | | | + + + + + | Vaccine: | | 12/31/2013 | | | Dtap/Tdap/Td (2 - | 4 | | | | Td) | | | | + + + + + Results Not on filefrom Last 3 Months Insurance + +--------+ +--------+ +---------+--------+ | Payer | Benefi | Subscriber | Effect | Phone | Address | Type | | | t Plan | ID | sukhwinder | | | | | | / | | Dates | | | | | | Group | | | | | | + +--------+ +--------+ +---------+--------+ | MEDICARE | MEDICA | [id number] | 09/09/19 | [phone] | | Medica | | | RE | | 17-Pre | 5 | | re | | | PART A | | sent | | | | | | AND B | | | | | | + +--------+ +--------+ +---------+--------+ | [employer] | [employer] | [id number] | | | | Indemn | | | NS | | 016-Pr | | | ity | | | ADMIN | | esent | | | | | | SPOKAN | | | | | | | | E | | | | | | + +--------+ +--------+ +---------+--------+ + +--------+ +--------+ + + | Guarantor Name | Accoun | Relation to | Date | Phone | Billing Address | | | t Type | Patient | of | | | | | | | | | | + +--------+ +--------+ + + | Rodrigo Mayberry | Person | Self | [birth year] | [address] | | | al/Fam | | 1951 | [phone] | [place] [address] | | | yessica | | | 1 (Home) | | + +--------+ +--------+ + + Advance Directives + + + + + | Type | Date Recorded | Patient | Explanation | | | | Smudger | | + + + + + | Power of | | | | | Wine Sales Representative | | | | + + + + + | Advance | 07/22/2016 | | | | Directive | 10:33 AM | | | + + + + + + + + + + | Code Status | Date | Date | Comments | | | Activated | Inactivated | | + + + + + | Full Code | 07/20/2016 | 07/22/2016 | | | | 3:54 PM | 4:37 PM | | + + + + +
--- OUTSIDE RECORDS SUMMARY | ~2020-01-18 | XMS | Encounter Summary ---
Demographics + + + | Address | [address] | | | [place] [address] | + + + | Home Phone | | + + + | Preferred Language | Unknown | + + + | Marital Status | Single | + + + | Oriental Orthodox Affiliation | Unknown | + + + | Race | Unknown | + + + | Ethnic Group | Unknown | + + + Author + + + | Author | [facility] | | | and [facility] | + + + | Organization | [facility] | | | and [...] Team Providers + +------+ + | Care Aluminum Siding Mechanic Name | Role | Phone | + +------+ + | Love Prabhakar DO | PCP | | + +------+ + Encounter Details +--------+ + + + + | Date | Type | Department | Care Team | Description | +--------+ + + + + | 12/14/ | Orders Only | [facility] | Faheem Davila, | | | 2014 | | CARDIOLOGY [facility] | [address] | | | | | [address] | [place] [address] | | | | | [place], [place] | [phone] | | | | | [address] | | | | | | [phone] | | | +--------+ + + + [...] | + +--------+ + + + | CV CARDIAC PROCEDURE | Routin | 12/14/2013 | | Results for this | | | e | 4:14 PM | | procedure are in the | | | | PDT | | results section. | + +--------+ + + + documented in this encounter Results CV CARDIAC PROCEDURE (12/14/2013 4:14 PM PDT) + + | Specimen | + + | | + + + + + | Narrative | Performed At | + + + | | | | | | | PROCEDURES PERFORMED 1. Conscious sedation. 2. Right radial artery | | | access. 3. Left heart catheterization. 4. Selective left and right | | | coronary artery angiogram. 5. Left ventriculogram. INDICATIONS | | | Exertional chest pain and shortness of breath. Positive stress test. | | | This is a 63-year-old male with long history of smoking and history | | | of arrhythmia, who had been having exertional shortness of breath | | | and chest pain. The patient was evaluated with treadmill exercise | | | stress test which as positive for ischemia. The patient was seen by | | | his primary stereoptic projection topographer, Dr. Davila. The patient was referred for left | | | heart catheterization, coronary angiogram with the possibly of | | | percutaneous intervention. The procedure, risks, benefits and | | | alternatives were discussed with the patient. He agreed to proceed. | | | TECHNIQUE The patient was brought to the cardiac catheterization | | | lab in nonsedated, fasting state. After informed consent was | | | obtained, the patient was prepped and draped in the usual sterile | | | condition. Lidocaine 2% was used for anesthesia of the skin overlying | | | the right radial artery. The right radial artery was accessed using | | | angiocatheter. A 6-Puerto Rican sheath was placed in the right radial | | | artery without difficulty. The patient was noted to have severe spasm | | | in his radial artery with a bunch in the wire and catheters. The | | | patient received multiple doses of intraarterial cocktail containing | | | verapamil and nitroglycerin. The patient was given 5000 units of | | | heparin following sheath placement to prevent the radial artery | | | occlusion. A 5-[place]ican JR-4 catheter was used for selective engagement | | | of the right coronary system and angiographic views were obtained. | | | Subsequently 5-[place] JL-4 catheter was used for selective engagement | | | of the left coronary system and angiographic views were obtained. A | | | 5-[place] angled pigtail catheter was used for ventriculogram that | | | shows imaging in the right anterior oblique view. All catheters and | | | wires were removed. TR band was applied and the right radial sheath | | | was removed. Hemostasis was obtained. The patient tolerated the | | | procedure without complications. TOTAL CONTRAST 56 mL Isovue | | | ESTIMATED BLOOD LOSS Less than 50 mL RESULTS HEMODYNAMICS 1. | | | Left ventricular systolic pressure 115. 2. Left ventricular end | | | diastolic pressure 23. 3. On pullback, aortic pressure 109/57. 4. | | | There was no significant gradient on pullback. 5. There is elevated | | | left ventricular end diastolic pressure suggesting diastolic | | | dysfunction. CORONARY ANATOMY 1. Left main coronary artery | | | bifurcates and gives rise to left anterior descending artery and left | | | circumflex artery. The left main coronary artery is free of disease. | | | 2. Left anterior descending artery is a type 3 vessel that gives | | | rise to a small first diagonal branch and then a larger second | | | diagonal branch. The left anterior descending artery, mid portion, | | | immediately after the take off the second diagonal branch had mild | | | disease in the range of 30%. The large second diagonal branch itself | | | has a moderate disease in the range of 50% at the ostium. Also noted | | | in the left anterior descending there are areas of tortuosity and | | | possible myocardial bridging in the mid portion. There is also | | | somewhat sluggish flow in the left anterior descending artery that | | | suggests endothelial dysfunction. 3. Left circumflex artery is a | | | small nondominant vessel. It gives rise to large marginal branch and | | | then becomes a small vessel. The large marginal branch has focal 20% | | | to 30% lesion in the mid portion. 4. The right coronary artery is | | | the dominant vessel, giving rise to the posterior descending and | | | posterolateral arteries distally. There is a long segment in the mid | | | right coronary artery of moderate disease in the range of 30% to 40%. | | | LEFT VENTRICULOGRAM Hyperdynamic systolic function with | | | estimated ejection fraction 70%. Normal wall motion. IMPRESSION | | | 1. Multivessel mild to moderate coronary artery disease. 2. Normal | | | left ventricular ejection fraction. 3. Possible endothelial | | | dysfunction. 4. Elevated left ventricular end diastolic pressure, | | | possible diastolic dysfunction. PLAN 1. Medical therapy for | | | coronary artery disease, aspirin, beta stephie, statin. 2. Risk | | | factor modification. 3. Discussed with the patient the importance of | | | quitting smoking. The patient states he is determined to quit. 4. | | | The patient is anticipating rotator cuff surgery. It will be okay to | | | proceed as anticipated surgery without the cardiac workup and with | | | continuation of beta stephie and statin projecting a heart rate of | | | around 60 perioperatively. Read by NEGRITO STREET MD | | | 12/14/2013 04:26 P | | + + + + + | Procedure Note | + + | Danilo Nolasco Conversion - 05/01/2019 10:12 AM PDT | | | | PROCEDURES PERFORMED | | 1. Conscious sedation. | | 2. Right radial artery access. | | 3. Left heart catheterization. | | 4. Selective left and right coronary artery angiogram. | | 5. Left ventriculogram. | | | | INDICATIONS | | Exertional chest pain and shortness of breath. Positive stress test. | | | | This is a 63-year-old male with long history of smoking and history of | | arrhythmia, who had been having exertional shortness of breath and chest | | pain. The patient was evaluated with treadmill exercise stress test which | | as positive for ischemia. The patient was seen by his primary | | stereoptic projection topographer, Dr. Davila. The patient was referred for left heart | | catheterization, coronary angiogram with the possibly of percutaneous | | intervention. | | | | The procedure, risks, benefits and alternatives were discussed with the | | patient. He agreed to proceed. | | | | TECHNIQUE | | The patient was brought to the cardiac catheterization lab in nonsedated, | | fasting state. After informed consent was obtained, the patient was | | prepped and draped in the usual sterile condition. Lidocaine 2% was used | | for anesthesia of the skin overlying the right radial artery. The right | | radial artery was accessed using angiocatheter. A 6-Puerto Rican sheath was | | placed in the right radial artery without difficulty. The patient was | | noted to have severe spasm in his radial artery with a bunch in the wire | | and catheters. The patient received multiple doses of intraarterial | | cocktail containing verapamil and nitroglycerin. The patient was given | | 5000 units of heparin following sheath placement to prevent the radial | | artery occlusion. A 5-Pu[place] Rican JR-4 catheter was used for selective | | engagement of the right coronary system and angiographic views were | | obtained. Subsequently 5-[place] JL-4 catheter was used for selective | | engagement of the left coronary system and angiographic views were | | obtained. A 5-[place] Rican angled pigtail catheter was used for ventriculogram | | that shows imaging in the right anterior oblique view. All catheters and | | wires were removed. TR band was applied and the right radial sheath was | | removed. Hemostasis was obtained. The patient tolerated the procedure | | without complications. | | | | TOTAL CONTRAST | | 56 mL Isovue | | | | ESTIMATED BLOOD LOSS | | Less than 50 mL | | | | RESULTS | | HEMODYNAMICS | | 1. Left ventricular systolic pressure 115. | | 2. Left ventricular end diastolic pressure 23. | | 3. On pullback, aortic pressure 109/57. | | 4. There was no significant gradient on pullback. | | 5. There is elevated left ventricular end diastolic pressure suggesting | | diastolic dysfunction. | | | | CORONARY ANATOMY | | 1. Left main coronary artery bifurcates and gives rise to left anterior | | descending artery and left circumflex artery. The left main coronary | | artery is free of disease. | | 2. Left anterior descending artery is a type 3 vessel that gives rise to a | | small first diagonal branch and then a larger second diagonal branch. | | The left anterior descending artery, mid portion, immediately after the | | take off the second diagonal branch had mild disease in the range of | | 30%. The large second diagonal branch itself has a moderate disease in | | the range of 50% at the ostium. Also noted in the left anterior | | descending there are areas of tortuosity and possible myocardial | | bridging in the mid portion. There is also somewhat sluggish flow in | | the left anterior descending artery that suggests endothelial | | dysfunction. | | 3. Left circumflex artery is a small nondominant vessel. It gives rise to | | large marginal branch and then becomes a small vessel. The | | large marginal branch has focal 20% to 30% lesion in the mid | | portion. | | 4. The right coronary artery is the dominant vessel, giving rise to the | | posterior descending and posterolateral arteries distally. There is a | | long segment in the mid right coronary artery of moderate disease in | | the range of 30% to 40%. | | | | LEFT VENTRICULOGRAM | | Hyperdynamic systolic function with estimated ejection fraction 70%. | | Normal wall motion. | | | | IMPRESSION | | 1. Multivessel mild to moderate coronary artery disease. | | 2. Normal left ventricular ejection fraction. | | 3. Possible endothelial dysfunction. | | 4. Elevated left ventricular end diastolic pressure, possible diastolic | | dysfunction. | | | | PLAN | | 1. Medical therapy for coronary artery disease, aspirin, beta stephie, | | statin. | | 2. Risk factor modification. | | 3. Discussed with the patient the importance of quitting smoking. The | | patient states he is determined to quit. | | 4. The patient is anticipating rotator cuff surgery. It will be okay to | | proceed as anticipated surgery without the cardiac workup and with | | continuation of beta stephie and statin projecting a heart rate of | | around 60 perioperatively. | | | | | | Read by NEGRITO STREET MD 12/14/2013 04:26 P | | | | | + + documented in this encounter Visit Diagnoses Not on filedocumented in this encounter"
--- OUTSIDE RECORDS SUMMARY | ~2020-01-18 | XMS | Encounter Summary ---
Demographics + + + | Address | [address] | | | [place] [address] | + + + | Home Phone | | + + + | Preferred Language | Unknown | + + + | Marital Status | Single | + + + | Pentecostal Affiliation | Unknown | + + + | Race | Unknown | + + + | Ethnic Group | Unknown | + + + Author + + + | Author | [facility] | | | and [facility] | + + + | Organization | [facility] | | | [...] Team Providers + +------+ + | Care Managed Care Nurse Name | Role | Phone | + +------+ + PCP | Unavailable | + +------+ + Encounter Details +--------+ + + + + | Date | Type | Department | Care Team | Description | +--------+ + + + + | 05/13/ | Hospital | [facility] | Daljit Bro | | | 2012 | Encounter | H[facility] | [address] | | | | | [place] [address] [place], [place] | [place], [place] | | | | | [address] | [phone] | | | | | [phone] | [phone] | | | | | | | | +--------+ + + + [...]
--- OUTSIDE RECORDS SUMMARY | ~2020-01-18 | XMS | Clinical Summary ---
Demographics + + + | Address | [address] | | | [place] [address] | + + + | Home Phone | | + + + | Preferred Language | Unknown | + + + | Marital Status | Single | + + + | Jew Affiliation | Unknown | + + + | Race | Unknown | + + + | Ethnic Group | Unknown | + + + Author + + + | Author | [facility] | | | and [facility] | + + + | Organization | [facility] | | | [...] Team Providers + +------+ + | Care Information And Data Architect Analyst Name | Role | Phone | + [...] | | | | | CAD in quinault artery | | | | | | [...] we did obtain records | | from [facility] and his coronary angiogram there showed only [...] + + + + | CAD in quinault artery | 07/20/2016 | + + + + + | Overview: Coronary angiogram 2013 in [facility] - mild to | | moderate diffuse [...] +--------+ +---------+--------+ | MEDICARE | MEDICA | [id number] | 09/09/19 | [phone] | | Medica | | | RE | | 17-Pre | 5 | | re | | | PART A | | sent | | | | | | AND B | | | | | | + +--------+ +--------+ +---------+--------+ | [employer] | VETER[place] | [id number] | | | | Indemn | | [...] | 1951 | [id number] | [place] [address] | | | yessica | | | 1 (Home) | | + +--------+ +--------+ + + Advance Directives + + + + + | Type | Date Recorded | Patient | Explanation | | | | Electrical Designer Drafter | | + + + + + | Power of | | | | | Body Recall Instructor | | | | + + + [...]
--- OUTSIDE RECORDS SUMMARY | ~2020-01-18 | XMS | Encounter Summary ---
Demographics + + + | Address | [address] | | | [place] [address] | + + + | Home Phone | | + + + | Preferred Language | Unknown | + + + | Marital Status | Single | + + + | Mormonism Affiliation | Unknown | + + + | Race | Unknown | + + + | Ethnic Group | Unknown | + + + Author + + + | Author | [facility] | | | and [facility] | + + + | Organization | [facility] | | | [...] Team Providers + +------+ + | Care Business Unit Director Name | Role | Phone | + +------+ + | Love Prabhakar DO | PCP | | + +------+ + Reason for Visit +---------+ + | Reason | Comments | +---------+ + | Results | echo | +---------+ + Encounter Details +--------+ + + + + | Date | Type | Department | Care Team | Description | +--------+ + + + + | 08/12/ | Telephone | [facility] [place] | MarizaShellyaruna Mendez, | Results (echo) | | 2017 | | [facility] [place] | RN | | | | | [address] | | | | | | [address] [place] | | | | | | [address] | | | | | | [phone] | | | +--------+ + + + [...]
--- OUTSIDE RECORDS SUMMARY | ~2020-01-18 | XMS | Encounter Summary ---
Demographics + + + | Address | [address] | | | [place] [address] | + + + | Home Phone | | + + + | Preferred Language | Unknown | + + + | Marital Status | Single | + + + | Advent Affiliation | Unknown | + + + | Race | Unknown | + + + | Ethnic Group | Unknown | + + + Author + + + | Author | [facility] | | | and [facility] | + + + | Organization | [facility] | | [...] Team Providers + +------+ + | Care Asphalt Spreader Name | Role | Phone | + [...] [place] | | | | | | [address] | | | | | | [phone] | | | +--------+ + + + [...]
--- OUTSIDE RECORDS SUMMARY | ~2020-01-18 | XMS | Encounter Summary ---
Demographics + + + | Address | [address] | | | [place] [address] | + + + | Home Phone | | + + + | Preferred Language | Unknown | + + + | Marital Status | Single | + + + | Moravian Affiliation | Unknown | + + + | Race | Unknown | + + + | Ethnic Group | Unknown | + + + Author + + + | Author | [facility] | | | and [facility] | + + + | Organization | [...] Team Providers + +------+ + | Care Registered Associate Name | Role | Phone | + +------+ + | Love Prabhakar DO | PCP | | + +------+ + Reason for Visit +---------+ + | Reason | Comments | +---------+ + | Other | | +---------+ + | Testing | | +---------+ + Encounter Details +--------+ + + + + | Date | Type | Department | Care Team | Description | +--------+ + + + + | 08/29/ | Telephone | [facility] | Magalys, | Other; Testing | | 2017 | | [facility] | Gail Cordero MD [address] | | | | | [address] | [address] | | | | | [address] [place] | [address] [place] | | | | | [address] | [id number] | | | | | [phone] | | | +--------+ + + + [...]
--- OUTSIDE RECORDS SUMMARY | ~2020-01-18 | XMS | Encounter Summary ---
Demographics + + + | Address | [address] | | | [place] [address] | + + + | Home Phone | | + + + | Preferred Language | Unknown | + + + | Marital Status | Single | + + + | Adventism Affiliation | Unknown | + + + | Race | Unknown | + + + | Ethnic Group | Unknown | + + + Author + + + | Author | [facility] | | | and [facility] | + + + | Organization | [facility] | | | [...] Team Providers + +------+ + | Care Black Mill Operator Name | Role | Phone | + +------+ + PCP | Unavailable | + +------+ + Encounter Details +--------+ + + + + | Date | Type | Department | Care Team | Description | +--------+ + + + + | 10/20/ | Hospital | [facility] | Daljit Bro | | | 2013 | Encounter | H[facility]PITAL [facility] | [address] | | | | | [address] | [address] | | | | | [place], [place] | [place] | | | | | [address] | [address] | | | | | [phone] | [phone] | | | | | | | [...]
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
--- OUTSIDE RECORDS SUMMARY | ~2020-01-18 | XMS | Encounter Summary ---
Demographics + + + | Address | [address] | | | [place] [address] | + + + | Home Phone [...] [facility] | | | and [facility] | + + + | Organization [...] Team Providers + +------+ + | Care Tube And Rod Straightener Name | Role | Phone | + +------+ + PCP | Unavailable | + +------+ + Encounter Details +--------+ + + + + | Date | Type | Department | Care Team | Description | +--------+ + + + + | 04/19/ | Hospital | [facility] | Conversion | | | 2013 | Encounter | HOSPITAL PATHOLOGY | Transaction, | | | | | [address] | Provider Unknown | | | | | [place] | | | | | | [address] | | | | | | [phone] | | | +--------+ + + + [...]
--- OUTSIDE RECORDS SUMMARY | ~2020-01-18 | XMS | Encounter Summary ---
Demographics + + + | Address | [address] | | | [place] [address] | + + + | Home Phone | | + + + | Preferred Language | Unknown | + + + | Marital Status | Single | + + + | Buddhist Affiliation | Unknown | + + + | Race | Unknown | + + + | Ethnic Group | Unknown | + + + Author + + + | Author | [facility] | | | and [facility] | + + + | Organization | [facility] | | | [...] Team Providers + +------+ + | Care Furniture Sander Name | Role | Phone | + [...] Other; Testing | | 2017 | | [facility] | Gail Cordero MD [address] | | | | | [address] | [address] | | | | | [address] [place] | [address] [place] | | | | | [address] | [id number] | | | | | [phone] | | | +--------+ + + + [...]
--- OUTSIDE RECORDS SUMMARY | ~2020-01-18 | XMS | Encounter Summary ---
Demographics + + + | Address | [address] | | | [place] [address] | + + + | Home Phone | | + + + | Preferred Language | Unknown | + + + | Marital Status | Single | + + + | Jainism Affiliation | Unknown | + + + | Race | Unknown | + + + | Ethnic Group | Unknown | + + + Author + + + | Author | [facility] | | | [facility] | + + + | Organization [...] Team Providers + +------+ + | Care Bargeman Name | Role | Phone | + +------+ + PCP | Unavailable | + +------+ + Encounter Details +--------+ + + + + | Date | Type | Department | Care Team | Description | +--------+ + + + + | 12/14/ | Hospital | [facility] | Conversion | Chest pain, | | 2013 - | Encounter | [facility] | Transaction, | unspecified | | | | CLINICAL DECISION | Provider Unknown | | | 12/15/ | | [address] [facility] | [phone] | | | 2013 | | [place], [place] | | | | | | [address] | Faheem Davila MD | | | | | [phone] | [address] | | | | | | [place] [address] | | | | | | [phone] | | | | | | | [...] documented as of this encounter Progress Notes Conversion Transaction, Provider Unknown - 12/15/2013 12:12 AM PDTFormatting of this note m ight be different from the original. Progress Notes by Lilia Thomson RN at 12/15/1311 Author: Lilia Thomson RN Service: (none) Author Type: Registered Nurse Filed: 12/15/1315 Date of Service: 12/15/1311 Status: Signed Hand Reamer: Lilia Thomson RN (Registered Nurse) Discharge instructions given VSS pt left via ambulatory with nephew. Pt incision site is CD I TR band send home with instructions if site starts to ooze or bleed. No questions at this time [facility] [place] if any questions or concerns encouraged to call us and f/u with Dr. Davila. Thank you Cole JOEL onver barak Transaction, Provider Unknown - 12/14/2013 7:24 PM PDT Nurse Progress Note by Angelita Mejia RN at 12/14/131923 Author: Angelita Mejia RN Service: (none) Author Type: Registered Nurse Filed: 12/14/131924 Date of Service: 12/14/131923 Status: Signed Hand Reamer: Angelita Mejia RN (Registered Nurse) Report given to Stephanie JOEL docume nted in this encounter Plan of Treatment Not on filedocumented as of this encounter Procedures + +--------+ + + + | Procedure Name | Priori | Date/Time | Associated Diagnosis | Comments | | | ty | | | | + +--------+ + + + | ECG 12 LEAD | Routin | 12/14/2013 | | Results for this | | | e | 4:36 PM | | procedure are in the | | | | PDT | | results section. | + +--------+ + + + | EXTERNAL LAB: CBC | Routin | 12/14/2013 | | Results for this | | | e | 11:50 AM | | procedure are in the | | | | PDT | | results section. | + +--------+ + + + | PTT | Routin | 12/14/2013 | | Results for this | | | e | 11:50 AM | | procedure are in the | | | | PDT | | results section. | + +--------+ + + + | PROTIME INR | Routin | 12/14/2013 | | Results for this | | | e | 11:50 AM | | procedure are in the | | | | PDT | | results section. | + +--------+ + + + | BASIC METABOLIC | Routin | 12/14/2013 | | Results for this | | PANEL | e | 11:50 AM | | procedure are in the | | | | PDT | | results section. | + +--------+ + + + documented in this encounter Results ECG 12 lead (12/14/2013 4:36 PM PDT) + + + + + + | Component | Value | Ref Range | Performed | Pathologist | | | | | At | Signature | + + + + + + | DIAGNOSIS: | Sinus | | EXTERNAL | | | | bradycardiaOtherwise | | LAB | | | | normal ECGNo previous | | | | | | ECGs availableConfirmed | | | | | | by THADDEUS HAYES ([id number]) on | | | | | | 12/14/2013 7:38:31 PM | | | | + + + + + + + + | Specimen | + + | | + + + + + | Narrative | Performed At | + + + | Historically converted procedure from [facility] Epic environment | EXTERNAL LAB | + + + + +---------+ + + | Performing | Address | City/State/Zipcode | Phone Number | | Organization | | | | + +---------+ + + | EXTERNAL LAB | | | | + +---------+ + + PTT (12/14/2013 11:50 AM PDT) + + + + + + | Component | Value | Ref Range | Performed | Pathologist | | | | | At | Signature | + + + + + + | aPTT, | 24Comment: Testing | 23 - 32 seconds | EXTERNAL | | | Patient | performed at [facility];[address] | | LAB | | | | [address];[place] | | | | | | [address] | | | | + + + + + + + + | Specimen | + + | Blood specimen | | (specimen) | + + + +---------+ + + | Performing | Address | City/State/Zipcode | Phone Number | | Organization | | | | + +---------+ + + | EXTERNAL LAB | | | | + +---------+ + + Protime INR (12/14/2013 11:50 AM PDT) + + + + + + | Component | Value | Ref Range | Performed | Pathologist | | | | | At | Signature | + + + + + + | INR | 1.0Comment: REFERENCE | | EXTERNAL | | | | RANGE:0.9 - 1.2 | | LAB | | | | NON-ANTICOAGULATED2.0 | | | | | | - 3.0 ALL OTHER | | | | | | THERAPEUTIC | | | | | | INDICATIONS2.5 - 3.5 | | | | | | MECHANICAL HEART VALVES, | | | | | | RECURRENT OR SYSTEMIC | | | | | | EMBOLISMTesting | | | | | | performed at [facility];[address] | | | | | | [facility];[place], [place] | | | | | | [address] | | | | + + + + + + + + | Specimen | + + | Blood specimen | | (specimen) | + + + +---------+ + + | Performing | Address | City/State/Zipcode | Phone Number | | Organization | | | | + +---------+ + + | EXTERNAL LAB | | | | + +---------+ + + External Lab: CBC (12/14/2013 11:50 AM PDT) + + + + + + | Component | Value | Ref Range | Performed | Pathologist | | | | | At | Signature | + + + + + + | WBC | 9.1Comment: Testing | 3.8 - 11.0 K/uL | EXTERNAL | | | | performed at [facility];[address] | | LAB | | | | [address];[place] | | | | | | [address] | | | | + + + + + + | Red Blood | 4.39Comment: Testing | 4.20 - 5.70 | EXTERNAL | | | Cells | performed at [facility];[address] | M/uL | LAB | | | Counted | [address];[place] | | | | | | [address] | | | | + + + + + + | Hemoglobin | 13.2Comment: Testing | 13.2 - 17.0 | EXTERNAL | | | | performed at [facility];[address] | g/dL | LAB | | | | [address];[place] | | | | | | [address] | | | | + + + + + + | Hematocrit, | 39.2Comment: Testing | 39.0 - 50.0 % | EXTERNAL | | | POC | performed at [facility];[address] | | LAB | | | | [address];[place] | | | | | | [address] | | | | + + + + + + | MCV | 89.3Comment: Testing | 80.0 - 100.0 fl | EXTERNAL | | | | performed at [facility];[address] | | LAB | | | | [address];[place] | | | | | | [address] | | | | + + + + + + | MCH | 30.2Comment: Testing | 27.0 - 34.0 pg | EXTERNAL | | | | performed at [facility];[address] | | LAB | | | | [address];[place] | | | | | | [address] | | | | + + + + + + | MCHC | 33.8Comment: Testing | 32.0 - 35.5 | EXTERNAL | | | | performed at [facility];[address] | g/dL | LAB | | | | [address];[place] | | | | | | [address] | | | | + + + + + + | RDW-CV | 40.3Comment: Testing | 37 - 53 fl | EXTERNAL | | | | performed at [facility];[address] | | LAB | | | | [address];[place] | | | | | | [address] | | | | + + + + + + | Platelet | 256Comment: Testing | 150 - 400 K/uL | EXTERNAL | | | Count | performed at [facility];[address] | | LAB | | | Plasma | [address];[place] | | | | | | [address] | | | | + + + + + + | MPV | 7.1Comment: Testing | fl | EXTERNAL | | | | performed at [facility];[address] | | LAB | | | | [address];[place] | | | | | | [address] | | | | + + + + + + | Differentia | AUTOMATEDComment: | | EXTERNAL | | | l Type | Testing performed at | | LAB | | | | [facility];[address];[place] [address] | | | | + + + + + + | % Segmented | 59.1Comment: Testing | % | EXTERNAL | | | | performed at [facility];[address] | | LAB | | | Neutrophils | [address];[place] | | | | | | [address] | | | | + + + + + + | % | 30.1Comment: Testing | % | EXTERNAL | | | Lymphocytes | performed at [facility];[address] | | LAB | | | | [address];[place] | | | | | | [address] | | | | + + + + + + | % Monocytes | 6.6Comment: Testing | % | EXTERNAL | | | | performed at [facility];[address] | | LAB | | | | [address];[place] | | | | | | [address] | | | | + + + + + + | % | 3.8Comment: Testing | % | EXTERNAL | | | Eosinophils | performed at [facility];[address] | | LAB | | | | [address];[place] | | | | | | [address] | | | | + + + + + + | % Basophils | 0.4Comment: Testing | % | EXTERNAL | | | | performed at [facility];[address] | | LAB | | | | [address];[place] | | | | | | [address] | | | | + + + + + + | Absolute | 5.4Comment: Testing | 1.9 - 7.4 K/uL | EXTERNAL | | | Segmented | performed at [facility];[address] | | LAB | | | Neutrophils | [address];[place] | | | | | | [address] | | | | + + + + + + | Absolute | 2.7Comment: Testing | 1.0 - 3.9 K/uL | EXTERNAL | | | Lymphocytes | performed at [facility];[address] | | LAB | | | | [address];[place] | | | | | | [address] | | | | + + + + + + | Absolute | 0.6Comment: Testing | 0 - 0.8 K/uL | EXTERNAL | | | Monocytes | performed at [facility];[address] | | LAB | | | | [address];[place] | | | | | | [address] | | | | + + + + + + | Absolute | 0.3Comment: Testing | 0 - 0.5 K/uL | EXTERNAL | | | Eosinophils | performed at [facility];[address] | | LAB | | | | [address];[place] | | | | | | [address] | | | | + + + + + + | Absolute | 0.0Comment: Testing | 0 - 0.1 K/uL | EXTERNAL | | | Basophils | performed at [facility];[address] | | LAB | | | | [address];[place], [place] | | | | | | [address] | | | | + + + + + + + + | Specimen | + + | Blood specimen | | (specimen) | + + + +---------+ + + | Performing | Address | City/State/Zipcode | Phone Number | | Organization | | | | + +---------+ + + | EXTERNAL LAB | | | | + +---------+ + + Basic Metabolic Panel (12/14/2013 11:50 AM PDT) + + + + + + | Component | Value | Ref Range | Performed | Pathologist | | | | | At | Signature | + + + + + + | Na | 139Comment: Testing | 135 - 143 | EXTERNAL | | | | performed at [facility];[address] | mmol/L | LAB | | | | [address];[place] | | | | | | [address] | | | | + + + + + + | K | 4.3Comment: Testing | 3.5 - 4.9 | EXTERNAL | | | | performed at [facility];[address] | mmol/L | LAB | | | | [address];[place] | | | | | | [address] | | | | + + + + + + | Cl | 107Comment: Testing | 99 - 109 mmol/L | EXTERNAL | | | | performed at [facility];[address] | | LAB | | | | [address];[place] | | | | | | [address] | | | | + + + + + + | CO2 | 26Comment: Testing | 23 - 32 mmol/L | EXTERNAL | | | | performed at [facility];[address] | | LAB | | | | [address];[place] | | | | | | [address] | | | | + + + + + + | Anion Gap | 11Comment: Testing | 5 - 20 mmol/L | EXTERNAL | | | | performed at [facility];[address] | | LAB | | | | [address];[place] | | | | | | [address] | | | | + + + + + + | Glucose, | 85Comment: Testing | 65 - 99 mg/dL | EXTERNAL | | | Fasting | performed at [facility];[address] | | LAB | | | | [address];[place] | | | | | | [address] | | | | + + + + + + | BUN | 16Comment: Testing | 8 - 25 mg/dL | EXTERNAL | | | | performed at [facility];[address] | | LAB | | | | [address];[place] | | | | | | [address] | | | | + + + + + + | Creatinine | 0.81Comment: Testing | 0.70 - 1.30 | EXTERNAL | | | | performed at [facility];[address] | mg/dL | LAB | | | | [address];[place] | | | | | | [address] | | | | + + + + + + | BUN/Creatin | 20Comment: Testing | | EXTERNAL | | | ine Ratio | performed at [facility];[address] | | LAB | | | | [address];[place] | | | | | | [address] | | | | + + + + + + | Calcium | 9.1Comment: Testing | 8.5 - 10.2 | EXTERNAL | | | | performed at [facility];[address] | mg/dL | LAB | | | | [address];[place], [place] | | | | | | [address] | | | | + + + + + + | Estimated | >60Comment: GFR <60: | mL/min/1.73m2 | EXTERNAL | | | GFR | CHRONIC KIDNEY DISEASE, | | LAB | | | | IF FOUND OVER A 3 MONTH | | | | | | PERIOD.GFR <15: KIDNEY | | | | | | FAILURE.FOR | | | | | | AMERICANS, MULTIPLY THE | | | | | | CALCULATED GFR BY | | | | | | 1.210.Testing performed | | | | | | at [facility];[address] [facility] | | | | | [address];[place] [address] | | | | + + + + + + + + | Specimen | + + | Blood specimen | | (specimen) | + + + +---------+ + + | Performing | Address | City/State/Zipcode | Phone Number | | Organization | | | | + +---------+ + + | EXTERNAL LAB | | | | + +---------+ + + documented in this encounter Visit Diagnoses + + | Diagnosis | + + | Chest pain, unspecified | + + documented in this encounter"
--- OUTSIDE RECORDS SUMMARY | ~2020-01-18 | XMS | Encounter Summary ---
Demographics + + + | Address | [address] | | | [place] [address] | + + + | Home Phone [...] + + + | Author | [facility] | | [facility] | + + + | Organization | [facility] | | [...] Team Providers + +------+ + | Care Last Repairer Helper Name | Role | Phone | + +------+ + PCP | Unavailable | + +------+ + Encounter Details +--------+ + + + + | Date | Type | Department | Care Team | Description | +--------+ + + + + | 10/17/ | Hospital | [facility] | Daljit Bro | | | 2013 | Encounter | HOSPITAL RESPIRATORY | [address] | | | [address] | | | | [address] | [place], [place] | | | | | [place], [place] | [address] | | | | | [address] | [phone] | | | | | [phone] | | | +--------+ + + + [...]
--- OUTSIDE RECORDS SUMMARY | ~2020-01-18 | XMS | Encounter Summary ---
Demographics + + + | Address | [address] | | | [place] [address] | + + + | Home Phone | | + + + | Preferred Language | Unknown | + + + | Marital Status | Single | + + + | Mormonism Affiliation | Unknown | + + + | Race | Unknown | + + + | Ethnic Group | Unknown | + + + Author + + + | Author | [facility] | | | and [facility] | + + + | Organization | [facility] | | | and [place] | + + + | Address | Unknown | + + + | Phone | Unavailable | + + + Support + + +---------+ + | Name | Relationship | Address | Phone | + + +---------+ + | Anglea Austin | ECON | Unknown | | + + +---------+ + | Linda Mayberry | ECON | Unknown | | + + +---------+ + Care Team Providers + +------+ + | Care Auriculotherapist Name | Role | Phone | + [...] | | | [address] | [place], [place] | | | | | [place], [place] | [address] | | | | | [address] | [phone] | | | | | [phone] | | | +--------+ + + + [...] + + + + + + | Clotest | NegativeComment: Narcisa | Negative - | EXTERNAL | | | ([facility]), | Test 3hr | | LAB | | | Qualitative | | | | | + + + + + + | Clotest | NegativeComment: Narcisa | Negative - | EXTERNAL | | | ([facility]), | Test 24 hr | | LAB | | | Qualitative | | | | | + + [...]
--- OUTSIDE RECORDS SUMMARY | ~2020-01-18 | XMS | Encounter Summary ---
Demographics + + + | Address | [address] | | | [place] [address] | + + + | Home Phone [...] Author | [facility] | | | and [facility] | + + + | Organization [...] Team Providers + +------+ + | Care Executive Marketing Assistant Name | Role | Phone | + [...] [address] | | | | | [place] | | [address] [place], | | | | | PLACE/CORON | | [place] | | | | | ANGIO, IMG | | Phone: | | | | | SUPER/INTERP | | [phone] | | | | | ,W LEFT | | Fax: | | | | | HEART | | [phone] | | | | | VENTRICULOGR | [...] | | [address] | [place] [address] | pain, unspecified | | 2016 | | [place] | [phone] | type; Bradycardia; | | | | [address] | | CAD in [place] | | | | [phone] | Gail Suazo | artery; Essential | | | | | MD [address] | hypertension; | | | | | [address] | Hyperlipidemia LDL | | | | | [place] [address] | goal <70; Tobacco | | | | | [phone] | use; Apical variant | | | [...] past. However we did obtain records from [facility] and his c oronary angiogram there showed [...] limits further titration of BB. CAD in [place] artery Assessment & Plan Minor CAD as [...] from outside hospital, ruled ou t for PA, had normal EKG and only occasional symptomatic [...] MD [address] [place] [address] [place] [id number] In 2 months Mild CAD and thickened heart muscle - follow up in our [facility] clinic. Disposition: Home/Self Care Condition at Discharge: [...] should be done as an outpatient. Our trim sawyer should call you in the next week to set up a 2 month follow up at our [place] outreach clinic. This clinic is held on the first floor of the [facility]. Please establish care with a primary care [...] you may find helpful for primary care: [facility] - [address], [place] [address] [facility] - [address] [place] [address] Thank you for allowing [facility] to participate in your health care. El [...] Portions of this chart were created with [employer] voice recognition software. Occasional wro ng-word or "sound-alike" substitutions may have occurred due to the inherent limitations of voice recognition software. Please read the chart carefully and recognize, using context, w here those substitutions have occurred. [facility] Main Office - [address], [address] [place], [place] [address] Office: Medical Records [facility] [place] [address] Main: Physician referral and transfer line: Physician [...] should be done as an outpatient. Our trim sawyer should call you in the next week to set up a 2 month follow up at our [place] outreach clinic. This clinic is held on the first floor of the [facility]. Please establish care with a primary care [...] you may find helpful for primary care: [facility] - [address], [place] [address] [facility] - [address], [place] [address] Thank you for allowing [facility] to participate in your health [...] | | | | | CAD in [place] artery | | | | | | [...] | | | | | | | [place] artery | | | | | | [...] M D - 07/21/2016 7:10 AM PST [facility] PATIENT NAME: Rodrigo Mayberry : 1950: AGE: 65 y.o. ADMISSION DATE: 07/20/2016 PRIMARY CARE: Doctor Unknown Gail Suazo MD DAILY CARDIOLOGY PROGRESS NOTE [facility] CARDIOLOGY DATE OF SERVICE: 07/21/2016 LOCATION OF SERVICE TODAY: [facility] TIME SPENT INCLUDING DIRECT PATIENT CARE, DISCUSSION [...] limits further titration of BB. CAD in [place] artery Assessment & Plan Coronary angiogram in [facility] in 2013 noted diffuse although nonocclusive CAD [...] LDL goal <70 Essential hypertension CAD in [place] artery Bradycardia SCHEDULED MEDS: aspirin 81 mg [...] STUDIES OF INTEREST: Had negative CXR in [place] prior to transfe r LABS Recent Results [...] Negative KETONES UA Negative Negative mg/dL Specific [place] 1.014 1.001 - 1.030 PH UA 6.0 [...] MD 07/21/2016, 7:26 Thank you for allowing [facility] to participate in your [facility]'s [facility] care. Electronically signed by: Gail Suazo MD 07/21/2016 7:26 Patient Care Team: Doctor Unknown as PCP - General [facility] Main Office - [address], [address] [place], [place] [address] Office: Medical Records [facility] [place] [address] Main: Physician referral and transfer line: Physician referral fax line: Medical Records phone: Medical Records fax: Angela Toth RN - 07/20/2016 4:45 PM PSTHeparin IV bolus given @ [facility] & Heparin IV gtt initiated there also. PTT & INR not done; no results found in transfer paperwork or on the [facility] site. documented in this encounter Plan of [...] + | Vlad Vasquez MD 07/21/2016 14:00 [facility] | | | [facility] LEFT CARDIAC CATHETERIZATION REPORT | | | PATIENT NAME: Rodrigo Mayberry DATE OF : 1950 | | | DATE OF PROCEDURE: 07/21/2016 | | | | | | PRIMARY CARE | | | PROVIDER: Doctor Unknown SUPERVISOR CIGAR MAKING MACHINE: Dr. Vlad Vasquez, | | | , [facility], [facility] PRE-PROCEDURE DIAGNOSIS: chest pain, known [...] was | | | achieved with 6 Prydeinig micropuncture kit. Note that the patient | | | had somewhat abnormal radial artery anatomy with a low bifurcation | | | of the brachial artery that required some finesse to negotiate. | | | Patient was then given intravenous heparin as well as | | | intra-arterial nitroglycerin through the sheath. A 5 Prydeinig | | | multipurpose catheter was advanced [...] Left coronary angiography was performed with 5 Prydeinig | | | JL 3.5 catheter. The [...] Vlad Gutierres | | | MD Pedro, [facility], [facility] | | | DATE/TIME: 07/21/2016 13:57 07/21/2016 13:57 Portions of this | | | chart were created with [employer] voice recognition software. | | | Occasional [...] | | | RODRIGO MAYBERRY Date: 07/21/2016MRN: [id number] | | | Patient [facility]DOB: 1950 | | | Age: 65 [...] Physician: GAIL SUAZOEchocardiographer: Vikash | | | [id number]: | | |There is no pericardial effusion. [...] | |Ordering Physician: GAIL SUAZO | | |Director Data Processing: Vikash Perez | | |[id number]: | | | | | + +--------- -----+ + + | Procedure Note | + + | Danilo Nolasco Results In - 07/22/2016 9:13 AM PST | | Adult Echo | | Report | | | | Name: RODRIGO MAYBERRY Date: 07/21/2016 | | Patient Location: [place] [address] | | : 1950 Age: 65 yrs [...] | Ordering Physician: GAIL SUAZO | | Director Data Processing: Vikash Perez | | [id number]: | + + PTT (07/21/2016 7:40 AM [...] + + | [facility] | [address] | [place] [address] | | | [facility] | [...] + + + + + | [facility] | [address] | [place] [address] | | | [facility] | [...] + + + | Glucose | 88Comment: Mozambican | 65 - 99 mg/dL | [facility] [...] + + | [facility] | [address] | [place] [address] | | | [facility] | | | | [...] + | [facility] | [address] | [place] [address] | | | [facility] | [...] + + | [facility] | [address] | [place] [address] | | | [facility] | [...] - 1.030 | [facility] | | | [place] | | | [facility] | | | [...] + + | [facility] | [address] | [place] [address] | | | [facility] | [...] + | [facility] | [address] | [place] [address] | | | [facility] | | | | [...] + | [facility] | [address] | [place] [address] | | | [facility] | [...] | TRACEMASTER | | Duration:164 msP Horizontal [place]:19 degP Front [place]:47 degQ Onset:512 | | | msQRSD Interval:94 msQT Interval:436 msQTcB:390 msQTcF:405 msQRS | | | Horizontal [place]:5 degQRS [place]:54 degI-40 Horizontal [place]:47 degI-40 | | | Front [place]:42 degT-40 Horizontal [place]:-24 degT-40 Front [place]:51 degT | | | Horizontal [place]:47 degT Wave [place]:54 degS-T Horizontal [place]:90 degS-T | | | Front [place]:-43 degSeverity:- OTHERWISE NORMAL ECG -INTERP:SINUS | | | BRADYCARDIAElectronically signed by: , 07-20-2016 21:27:53 | | |QT Interval:436 ms | | |QTcB:390 ms | | |QTcF:405 ms | | |QRS Horizontal [place]:5 deg | | |QRS [place]:54 deg | | |I-40 Horizontal [place]:47 deg | | |I-40 Front [place]:42 deg | | |T-40 Horizontal [place]:-24 deg | | |T-40 Front [place]:51 deg | | |T Horizontal [place]:47 deg | | |T Wave [place]:54 deg | | |S-T Horizontal [place]:90 deg | | |S-T Front [place]:-43 deg | | |Severity:- OTHERWISE NORMAL ECG - | | |INTERP:SINUS BRADYCARDIA | | |Electronically signed by: , 07-20-2016 21:27:53 | | + + + + + + + + | Performing | Address | City/State/Zipcode | Phone Number | | Organization | | | | + + + + + | [facility] | [address] | [place] [address] | [phone] | + + + + + Hepatic [...] + | [facility] | [address] | [place] [address] | | | [facility] | [...] + + + + + | [facility] | [address] | [place] [address] | | | [facility] | | | | [...] + + | [facility] | [address] | [place] [address] | | | [facility] | [...] dysrhythmias | + + | CAD in [place] artery Coronary atherosclerosis of [place] coronary artery | + + | Essential [...] First dose on Sat07/20/16 at | | PM PST | | [...] | | TIMES DAILY, First dose on Fri | | AM PST | | | [...]
--- OUTSIDE RECORDS SUMMARY | ~2020-01-18 | XMS | Encounter Summary ---
Demographics + + + | Address | [address] | | | [place] [address] | + + + | Home Phone | | + + + | Preferred Language | Unknown | + + + | Marital Status | Single | + + + | Synagogue Affiliation | Unknown | + + + | Race | Unknown | + + + | Ethnic Group | Unknown | + + + Author + + + | Author | [facility] | | | and [facility] | + + + | Organization | [facility] | | | [...] Team Providers + +------+ + | Care Merchandise Handler Name | Role | Phone | + +------+ + | Love Prabhakar DO | PCP | | + +------+ + Encounter Details +--------+ + + + + | Date | Type | Department | Care Team | Description | +--------+ + + + + | 12/14/ | Orders Only | [facility] | Faheem Davila, | | | 2014 | | CARDIOLOGY [facility] | [address] | | | | | [address] | [place] [address] | | | | | [place], [place] | [phone] | | | | | [address] | | | | | | [phone] | | | +--------+ + + + [...] seen by | | | his primary camera engineer, Dr. Davila. The patient was referred for [...] accessed using | | | angiocatheter. 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 A 5-British JR-4 catheter was used for selective engagement | | | of the right coronary system and angiographic views were obtained. | | | Subsequently 5-British JL-4 catheter was used for selective engagement | | | of the left coronary system and angiographic views were obtained. A | | | 5-British angled pigtail catheter was used for ventriculogram [...] was seen by his primary | | camera engineer, Dr. Davila. The patient was referred for [...] radial artery was accessed using angiocatheter. A 6-British sheath was | | placed in the [...] the radial | | artery occlusion. A 5-British JR-4 catheter was used for selective | | engagement of the right coronary system and angiographic views were | | obtained. Subsequently 5-British JL-4 catheter was used for selective | | engagement of the left coronary system and angiographic views were | | obtained. A 5-British angled pigtail catheter was used for ventriculogram [...]
--- OUTSIDE RECORDS SUMMARY | ~2020-01-18 | XMS | Encounter Summary ---
Demographics + + + | Address | [address] | | | [place] [address] | + + + | Home Phone | | + + + | Preferred Language | Unknown | + + + | Marital Status | Single | + + + | Hoahaoism Affiliation | Unknown | + + + | Race | Unknown | + + + | Ethnic Group | Unknown | + + + Author + + + | Author | [facility] | | | [facility] | + + + | Organization | [facility] | | [...] Team Providers + +------+ + | Care Grinder Operator Surface Tool Name | Role | Phone | + [...] | | | type | | [address] | | | | | Procedures | | AVE [address] | | | | | [place] CATH | | [address] [place], | | | | | PLACE/CORON | | [place] | | | | | ANGIO, IMG | | Phone: | | | | | SUPER/INTERP | | [phone] | | | | | ,W LEFT | | Fax: | | | | | HEART | | [phone] | | | | | VENTRICULOGR | | | | | | | APHY | | | +--------+--------+ + + + + Encounter Details +--------+---------+ + + + | Date | Type | Department | Care Team | Description | +--------+---------+ + + + | 07/21/ | Surgery | [facility] | Vlad Vasquez, | CV LHC | | 2016 | | HEART MED CTR CV | [address] | | | | | INTRA OP [address] | [address] [place], | | | | | Ave [place], [place] | [place] | | | | | [address] | [phone] | | | | | [phone] | | | +--------+---------+ + + + Social History [...] However we did obtain records from [facility] and his c oronary angiogram there showed [...] limits further titration of BB. CAD in [place] artery Assessment & Plan Minor CAD as [...] from outside hospital, ruled ou t for MD, had normal EKG and only occasional symptomatic [...] MD [address] [place] [address] [facility] [id number] In 2 months Mild CAD and thickened heart muscle - [facility]. Disposition: Home/Self Care Condition at Discharge: [...] should be done as an outpatient. Our senior scheduler should call you in the next week to set up a 2 month follow up at our [place] outreach clinic. This clinic is held on the first floor of the [facility]. Please establish care with a [...] you may find helpful for primary care: [facility] - [address], [place] [address] [facility] - [address], [place] [address] Thank you for allowing [facility] to participate in your health care. El [...] Portions of this chart were created with [email or web address] voice recognition software. Occasional wro ng-word or "sound-alike" substitutions may have occurred due to the inherent limitations of voice recognition software. Please read the chart carefully and recognize, using context, w here those substitutions have occurred. [facility] Clinic Main Office - [address], [address] [place], [place] [address] Office: Medical Records [facility] [place] [address] Main: Physician referral and transfer line: Physician [...] should be done as an outpatient. Our senior scheduler should call you in the next week to set up a 2 month follow up at our [place] outreach clinic. This clinic is held on the first floor of the [facility]. Please establish care with a [...] you may find helpful for primary care: [facility] - [address] [facility] [address], [place] [address] [facility] - [address] [facility], [place] [address] Thank you for allowing [facility] to participate in your health [...] | | | | | CAD in [place] artery | | | | | | [...] | | | | | | | [place] artery | | | | | | [...] M D - 07/21/2016 7:[address] [facility] PATIENT NAME: Rodrigo Mayberry : 1950: AGE: 65 y.o. ADMISSION DATE: 07/20/2016 PRIMARY CARE: Doctor Unknown Gail Suazo MD DAILY CARDIOLOGY PROGRESS NOTE [facility] CARDIOLOGY DATE OF SERVICE: 07/21/2016 LOCATION OF SERVICE TODAY: [facility] TIME SPENT INCLUDING DIRECT PATIENT CARE, [...] limits further titration of BB. CAD in [place] artery Assessment & Plan Coronary angiogram in [facility] in 2013 noted diffuse although nonocclusive CAD [...] LDL goal <70 Essential hypertension CAD in [place] artery Bradycardia SCHEDULED MEDS: aspirin 81 mg [...] STUDIES OF INTEREST: Had negative CXR in [place] prior to transfe r LABS Recent Results [...] Negative KETONES UA Negative Negative mg/dL Specific [place] 1.014 1.001 - 1.030 PH UA 6.0 [...] MD 07/21/2016, 7:26 Thank you for allowing [facility] to participate in your patient's [facility] care. Electronically signed by: Gail Suazo MD 07/21/2016 7:26 Patient Care Team: Doctor Unknown as PCP - General [facility]iology [facility] Main Office - [address], [address] [place], [place] [address] Office: Medical Records [facility] [place] [address] Main: Physician referral and transfer line: Physician referral fax line: Medical Records phone: Medical Records fax: Angela Toth RN - 07/20/2016 4:45 PM PSTHeparin [facility]. PTT & INR not done; no results found in transfer paperwork or on the [place] site. documented in this encounter Plan of [...] + | Vlad Vasquez MD 07/21/2016 14:00 [facility] | | | [facility] LEFT CARDIAC CATHETERIZATION REPORT | | | PATIENT NAME: Rodrigo Mayberry DATE OF : 1950 | | | DATE OF PROCEDURE: 07/21/2016 | | | | | | PRIMARY CARE | | | PROVIDER: Doctor Unknown HEAD OF HOUSEKEEPING: Dr. Vlad Vasquez, | | | , [facility] PRE-PROCEDURE DIAGNOSIS: chest pain, known [...] was | | | achieved with 6 Puerto Rican micropuncture kit. Note that the patient | | | had somewhat abnormal radial artery anatomy with a low bifurcation | | | of the brachial artery that required some finesse to negotiate. | | | Patient was then given intravenous heparin as well as | | | intra-arterial nitroglycerin through the sheath. A 5 Puerto Rican | | | multipurpose catheter was advanced [...] Left coronary angiography was performed with 5 Puerto [place]ican | | | JL 3.5 catheter. The [...] Vlad Gutierres | | | MD Pedro, FACC, [facility] | | | DATE/TIME: 07/21/2016 13:57 07/21/2016 13:57 Portions of this | | | chart were created with [email or web address] voice recognition software. | | | Occasional [...] | | | RODRIGO MAYBERRY Date: 07/21/2016MRN: [id number] | | | Patient Location: [facility] 602DOB: 1950 | | | Age: 65 [...] Physician: GAIL SUAZOEchocardiographer: Vikash | | | [id number]: | | |There is no pericardial effusion. [...] | |Ordering Physician: GAIL SUAZO | | |Preventative Maintenance Technician: Vikash Perez | | |[id number]: | | | | | + +--------- -----+ + + | Procedure Note | + + | Gaurav, Rad Results In - 07/22/2016 9:13 AM PST | | Adult Echo | | Report | | | | Name: RODRIGO MAYBERRY Date: 07/21/2016 | | Patient Location: [place] [address] | | : 1950 Age: 65 yrs [...] | Ordering Physician: GAIL SUAZO | | Preventative Maintenance Technician: Vikash Perez | | [id number]: | + + PTT (07/21/2016 7:40 AM [...] + + | CHARLES AMEZQUITA | [address] | [place] [address] | | | [facility] | | | | | LABORATORY | [...] + | [facility] | [address] | [place] [address] | | | [facility] | | | | | LABORATORY | [...] + + + | Glucose | 88Comment: Palauan | 65 - 99 mg/dL | [facility] [...] + + + + + | VINCESANAZConnie BIA | [address] | [place] [address] | | | [facility] | | | | | LABORATORY | [...] + + | CHARLES AMEZQUITA | [address] | [place] [address] | | | [facility] | | | | | LABORATORY | [...] + + | [facility] | [address] | [place] [address] | | | [facility] | [...] - 1.030 | [facility] | | | [place] | | | [facility] | | | [...] + + | CHARLES AMEZQU[facility] | [address] | [place] [address] | | | [facility] | [...] + + | CHARLES AMEZQUITA | [address] | [place] [address] | | | [facility] | | | | | LABORATORY | [...] + | CHARLES AMEZQUITA | [address] | [place] [address] | | | [facility] | | | | [...] | TRACEMASTER | | Duration:164 msP Horizontal [place]:19 degP Front [place]:47 degQ Onset:512 | | | msQRSD Interval:94 msQT Interval:436 msQTcB:390 msQTcF:405 msQRS | | | Horizontal [place]:5 degQRS [place]:54 degI-40 Horizontal [place]:47 degI-40 | | | Front [place]:42 degT-40 Horizontal [place]:-24 degT-40 Front [place]:51 degT | | | Horizontal [place]:47 degT Wave [place]:54 degS-T Horizontal [place]:90 degS-T | | | Front [place]:-43 degSeverity:- OTHERWISE NORMAL ECG -INTERP:SINUS | | | BRADYCARDIAElectronically signed by: , 07-20-2016 21:27:53 | | |QT Interval:436 ms | | |QTcB:390 ms | | |QTcF:405 ms | | |QRS Horizontal [place]:5 deg | | |QRS [place]:54 deg | | |I-40 Horizontal [place]:47 deg | | |I-40 Front [place]:42 deg | | |T-40 Horizontal [place]:-24 deg | | |T-40 Front [place]:51 deg | | |T Horizontal [place]:47 deg | | |T Wave [place]:54 deg | | |S-T Horizontal [place]:90 deg | | |S-T Front [place]:-43 deg | | |Severity:- OTHERWISE NORMAL ECG - | | |INTERP:SINUS BRADYCARDIA | | |Electronically signed by: , 07-20-2016 21:27:53 | | + + + + + + + + | Performing | Address | City/State/Zipcode | Phone Number | | Organization | | | | + + + + + | A[facility]STASI[facility] TR[facility] | [address] | [place] [address] | [phone] | + + + + + Hepatic [...] + + + + + | CHARLES AMZEQUITA | [address] | [place] [address] | | | [facility] | | | | | LABORATORY | [...] + | [facility] | [address] | [place] [address] | | | [facility] | [...] + + | CHARLES AMEZQUITA | [address] | [place] [address] | | | [facility] | | | | | LABORATORY | [...] Chest pain, unspecified type | + + documented in this encounter Administered Medications + +--------+ +--------+------+------+ | Medication Order | MAR | Action | Dose | Rate | Site | | | Action | Date | | | | + +--------+ +--------+------+------+ | fentaNYL (PF) injection ONCE | Given | 07/21/20 | 50 mcg | | | | PRN, Starting 07/21/16 at | | 16 1:37 | | | | | 1258, Intra-op | | PM PST | | | | + +--------+ +--------+------+------+ +-------+ +--------+---+---+ | Given | 07/21/20 | 25 mcg | | | | | 16 1:09 | | | | | | PM PST | | | | +-------+ +--------+---+---+ | Given | 07/21/20 | 25 mcg | | | | | 16 1:06 | | | | | | PM PST | | | | +-------+ +--------+---+---+ +---+---+ | | | +---+---+ + +-------+ +--------+---+---+ | heparin 1,000 units/mL | Given | 07/21/20 | 5,000 | | | | injection ONCE PRN, Starting Sat | | 16 1:22 | Units | | | | 07/21/16 at 1322, Intra-op | | PM PST | | | | + +-------+ +--------+---+---+ +---+---+ | | | +---+---+ + +-------+ +--------+---+---+ | iohexol (OMNIPAQUE 350) 350 | Given | 07/21/20 | 90 mLs | | | | mg/mL injection ONCE PRN, | | 16 1:41 | | | | | Starting 07/21/16 at 1341, | | PM PST | | | | | Intra-op | | | | | | + +-------+ +--------+---+---+ +---+---+ | | | +---+---+ + +-------+ +------+---+---+ | lidocaine 1% injection ONCE | Given | 07/21/20 | 1 mL | | | | PRN, Starting 07/21/16 at | | 16 1:08 | | | | | 1308, Intra-op | | PM PST | | | | + +-------+ +------+---+---+ +---+---+ | | | +---+---+ + +-------+ +------+---+---+ | midazolam (VERSED) 1 mg/mL | Given | 07/21/20 | 1 mg | | | | injection ONCE PRN, Starting Sat | | 16 1:38 | | | | | 07/21/16 at 1258, Intra-op | | PM PST | | | | + +-------+ +------+---+---+ +-------+ +------+---+---+ | Given | 07/21/20 | 1 mg | | | | | 16 1:25 | | | | | | PM PST | | | | +-------+ +------+---+---+ | Given | 07/21/20 | 1 mg | | | | | 16 1:06 | | | | | | PM PST | | | | +-------+ +------+---+---+ +---+---+ | | | +---+---+ + +-------+ +---------+---+---+ | nitroglycerin 100 mcg/mL | Given | 07/21/20 | 200 mcg | | | | syringe ONCE PRN, Starting Sat | | 16 1:22 | | | | | 07/21/16 at 1322, Intra-op | | PM PST | | | | + +-------+ +---------+---+---+ +---+---+ | | | +---+---+ + +---------+ + + +---+ | sodium chloride 0.9% (NS) | New Bag | 07/21/20 | 50 mL/hr | 50 mL/hr | | | infusion CONTINUOUS PRN, | | 16 12:55 | | | | | Starting 07/21/16 at 1255, | | PM PST | | | | | Intra-op | | | | | | + +---------+ + + +---+ +---+---+ | | | +---+---+ documented in this encounter
--- OUTSIDE RECORDS SUMMARY | ~2020-01-18 | XMS | Encounter Summary ---
Demographics + + + | Address | [address] | | | [place] [address] | + + + | Home Phone | | + + + | Preferred Language | Unknown | + + + | Marital Status | Single | + + + | Gnosticism Affiliation | Unknown | + + + | Race | Unknown | + + + | Ethnic Group | Unknown | + + + Author + + + | Author | [facility] | | | and [facility] | + + + | Organization | [...] Team Providers + +------+ + | Care Molded Frames Assembler Name | Role | Phone | + [...] AVE SU[address] | | | | | [place] CATH | | [address] [place], | | | | | PLACE/CORON | | [place] | | | | | ANGIO, IMG | | Phone: | | | | | SUPER/INTERP | | [phone] | | | | | ,W LEFT | | Fax: | | | | | HEART | | [phone] | | | | | VENTRICULOGR | [...] | HEART MED CTR CV | [address] | | | | | INTRA OP [address] | [address] [place], | | | | | Ave [place], [place] | [place] | | | | | [address] | [phone] | | | | | [phone] | | | +--------+---------+ + + + [...] past. However we did obtain records from [facility] and his c oronary angiogram [...] limits further titration of BB. CAD in [place] artery Assessment & Plan Minor CAD as [...] from outside hospital, ruled ou t for ID, had normal EKG and only occasional symptomatic [...] MD [address] [place] [address] [facility] [id number] In 2 months Mild CAD and thickened heart muscle - follow up in our [facility] clinic. Disposition: Home/Self Care Condition at Discharge: [...] should be done as an outpatient. Our software tools engineer should call you in the next week to set up a 2 month follow up at our [place] outreach clinic. This clinic is held on the first floor of the [facility]. Please establish care with a primary [...] you may find helpful for primary care: [facility] - [address], [place] [address] [facility] - [address], [place] [address] Thank you for allowing [facility] to participate in your health [...] Portions of this chart were created with Solidagex voice recognition software. Occasional wro ng-word or "sound-alike" substitutions may have occurred due to the inherent limitations of voice recognition software. Please read the chart carefully and recognize, using context, w here those substitutions have occurred. [facility] Cardiology Clinic Main Office - [address], [address] [place], [place] [address] Office: Medical Records [facility] [place] [address] Main: Physician referral and transfer line: Physician [...] should be done as an outpatient. Our software tools engineer should call you in the next week to set up a 2 month follow up at our [place] outreach clinic. This clinic is held on the first floor of the [facility]. Please establish care with a primary [...] you may find helpful for primary care: [facility] - [address], [place] [address] [facility] - [address], [place] [address] Thank you for allowing [facility] to participate in your health [...] | | | | | CAD in [place] artery | | | | | | [...] | | | | | | | [place] artery | | | | | | [...] M D - 07/21/2016 7:10 AM PST [facility] PATIENT NAME: Rodrigo Mayberry : 1950: AGE: 65 y.o. ADMISSION DATE: 07/20/2016 PRIMARY CARE: Doctor Unknown Gail Suazo MD DAILY CARDIOLOGY PROGRESS NOTE [facility] CARDIOLOGY DATE OF SERVICE: 07/21/2016 LOCATION OF SERVICE TODAY: [facility] TIME SPENT INCLUDING DIRECT PATIENT CARE, DISCUSSION [...] limits further titration of BB. CAD in [place] artery Assessment & Plan Coronary angiogram in [facility] in 2013 noted diffuse although [...] LDL goal <70 Essential hypertension CAD in [place] artery Bradycardia SCHEDULED MEDS: aspirin 81 mg [...] STUDIES OF INTEREST: Had negative CXR in [place] prior to transfe r LABS Recent Results [...] Negative KETONES UA Negative Negative mg/dL Specific [place] 1.014 1.001 - 1.030 PH UA 6.0 [...] MD 07/21/2016, 7:26 Thank you for allowing [facility] to participate [facility]. Electronically signed by: Gail Suazo MD 07/21/2016 7:26 Patient Care Team: Doctor Unknown as PCP - General [facility] Main Office - [address], [address] [place], [place] [address] Office: Medical Records [facility] [place] [address] Main: Physician referral and transfer line: Physician referral fax line: Medical Records phone: Medical Records fax: Angela Toth RN - 07/20/2016 4:45 PM PSTHeparin IV bolus given @ [facility] & Heparin IV gtt initiated there also. PTT & INR not done; no results found in transfer paperwork or on the [place] site. documented in this encounter Plan of [...] + | Vlad Vasquez MD 07/21/2016 14:00 [facility] | | | [facility] LEFT CARDIAC CATHETERIZATION REPORT | | | PATIENT NAME: Rodrigo Mayberry DATE OF : 1950 | | | DATE OF PROCEDURE: 07/21/2016 | | | | | | PRIMARY CARE | | | PROVIDER: Doctor Unknown FIELD MARKETING REPRESENTATIVE: Dr. Vlad Vasquez, | | | , [facility], [facility] PRE-PROCEDURE DIAGNOSIS: chest pain, known | [...] was | | | achieved with 6 Maldivian micropuncture kit. Note that the patient | | | had somewhat abnormal radial artery anatomy with a low bifurcation | | | of the brachial artery that required some finesse to negotiate. | | | Patient was then given intravenous heparin as well as | | | intra-arterial nitroglycerin through the sheath. A 5 Maldivian | | | multipurpose catheter was advanced [...] Left coronary angiography was performed with 5 Maldivian | | | JL 3.5 catheter. The [...] | | | MD Pedro, FACC, [facility] | | | DATE/TIME: 07/21/2016 13:57 07/21/2016 13:57 Portions of this | | | chart were created with Solid[employer]x voice recognition software. | | | Occasional [...] | | | RODRIGO MAYBERRY Date: 07/21/2016MRN: [id number] | | | Patient Location: [facility] 602DOB: 1950 | | | Age: [...] Physician: GAIL SUAZOEchocardiographer: Vikash | | | [id number]: | | |There is no pericardial effusion. [...] | |Ordering Physician: GAIL SUAZO | | |Supervisor Electronics Testing: Vikash Perez | | |[id number]: | | | | | + +--------- -----+ + + | Procedure Note | + + | Gaurav, Rad Results In - 07/22/2016 9:13 AM PST | | Adult Echo | | Report | | | | Name: RODRIGO MAYBERRY Date: 07/21/2016 | | Patient Location: [place] [address] | | : 1950 Age: 65 yrs [...] | Ordering Physician: GAIL SUAZO | | Supervisor Electronics Testing: Vikash Perze | | [id number]: | + + PTT (07/21/2016 7:40 AM [...] + + | CHARLES AMEZQUITA | [address] | [place] [address] | | | [facility] | | | | | [...] [address] | [place] [address] | | | [facility] | | | | | [...] + + + | Glucose | 88Comment: Syrian | 65 - 99 mg/dL | [facility] [...] + + | VINCESANAZConnie BIA | [address] | [place] [address] | | | [facility] | | | | | [...] + + | CHARLES AMEZQUITA | [address] | [place] [address] | | | [facility] | | | | | [...] + + | [facility] | [address] | [place] [address] | | | [facility] | [...] - 1.030 | [facility] | | | [place] | | | SACRED | | | [...] + + | CHARLES AMEZQUITA | [address] | [place] [address] | | | [facility] | [...] + + | CHARLES AMEZQUITA | [address] | [place] [address] | | | [facility] | | | | | [...] + | CHARLES AMEZQUITA | [address] | [place] [address] | | | [facility] | | | | [...] | TRACEMASTER | | Duration:164 msP Horizontal [place]:19 degP Front [place]:47 degQ Onset:512 | | | msQRSD Interval:94 msQT Interval:436 msQTcB:390 msQTcF:405 msQRS | | | Horizontal [place]:5 degQRS [place]:54 degI-40 Horizontal [place]:47 degI-40 | | | Front [place]:42 degT-40 Horizontal [place]:-24 degT-40 Front [place]:51 degT | | | Horizontal [place]:47 degT Wave [place]:54 degS-T Horizontal [place]:90 degS-T | | | Front [place]:-43 degSeverity:- OTHERWISE NORMAL ECG -INTERP:SINUS | | | BRADYCARDIAElectronically signed by: , 07-20-2016 21:27:53 | | |QT Interval:436 ms | | |QTcB:390 ms | | |QTcF:405 ms | | |QRS Horizontal [place]:5 deg | | |QRS [place]:54 deg | | |I-40 Horizontal [place]:47 deg | | |I-40 Front [place]:42 deg | | |T-40 Horizontal [place]:-24 deg | | |T-40 Front [place]:51 deg | | |T Horizontal [place]:47 deg | | |T Wave [place]:54 deg | | |S-T Horizontal [place]:90 deg | | |S-T Front [place]:-43 deg | | |Severity:- OTHERWISE NORMAL ECG - | | |INTERP:SINUS BRADYCARDIA | | |Electronically signed by: , 07-20-2016 21:27:53 | | + + + + + + + + | Performing | Address | City/State/Zipcode | Phone Number | | Organization | | | | + + + + + | [facility]STASI[facility] TR[facility] | [address] | [place] [address] | [phone] | + + + + + Hepatic [...] + | CHARLES AMEZQUITA | [address] | [place] [address] | | | [facility] | | | | | [...] + | [facility] | [address] | [place] [address] | | | [facility] | [...] + + | CHARLES AMEZQUITA | [address] | [place] [address] | | | [facility] | | | | | [...]
--- OUTSIDE RECORDS SUMMARY | ~2020-01-18 | XMS | Encounter Summary ---
Demographics + + + | Address | [address] | | | [place] [address] | + + + | Home Phone [...] Team Providers + +------+ + | Care Telephone Quotation Clerk Name | Role | Phone | + +------+ + PCP | Unavailable | + +------+ + Encounter Details +--------+ + + + + | Date | Type | Department | Care Team | Description | +--------+ + + + + | 10/02/ | Hospital | [facility] | Leonel Arechiga MD | | | 2015 | Encounter | HOSPITAL EMERGENCY | | | | | | CENTER [address] [place] [address] | | | | | | [facility] [place], [place] | | | | | | [address] | | | | | | [phone] | | | +--------+ + + + [...]
--- OUTSIDE RECORDS SUMMARY | ~2020-01-18 | XMS | Encounter Summary ---
Demographics + + + | Address | [address] | | | [place] [address] | + + + | Home Phone | | + + + | Preferred Language | Unknown | + + + | Marital Status | Single | + + + | Rastafarian Affiliation | Unknown | + + + | Race | Unknown | + + + | Ethnic Group | Unknown | + + + Author + + + | Author | [facility] | | | and [facility] | + + + | [...] Team Providers + +------+ + | Care Animal Handler Name | Role | Phone | + +------+ + PCP | Unavailable | + +------+ + Encounter Details +--------+ + + + + | Date | Type | Department | Care Team | Description | +--------+ + + + + | 04/03/ | Hospital | [facility] | Obdulia Bucio | | | 2013 | Encounter | HOSPITAL EMERGENCY | [address] | | | | | [place] [address] | | | | [address] [place], [place] | [place] [address] | | | | | [address] | [phone] | | | | | [phone] | | | +--------+ + + + [...]
--- OUTSIDE RECORDS SUMMARY | ~2020-01-18 | XMS | Encounter Summary ---
Demographics + + + | Address | [address] | | | [place] [address] | + + + | Home Phone | | + + + | Preferred Language | Unknown | + + + | Marital Status | Single | + + + | Temple Affiliation | Unknown | + + + | Race | Unknown | + + + | Ethnic Group | Unknown | + + + Author + + + | Author | [facility] | | | and [facility] | + + + | Organization | [facility] | [...] Team Providers + +------+ + | Care Casing In Line Setter Name | Role | Phone | + [...] | | [place] CATH | | [address] [place], | | | | | PLACE/CORON | | [place] | | | | | ANGIO, IMG | | Phone: | | | | | SUPER/INTERP | | [phone] | | | | | ,W LEFT | | Fax: | | | | | HEART | | [phone] | | | | | VENTRICULOGR | [...] | | [address] | [place] [address] | pain, unspecified | | 2016 | | [place] | [phone] | type; Bradycardia; | | | | [address] | | CAD in [place] | | | | [phone] | Gail Suazo | artery; Essential | | | | | MD [address] | hypertension; | | | | | [address] | Hyperlipidemia LDL | | | | | [place] [address] | goal <70; Tobacco | | | | | [phone] | use; Apical variant | | | [...] past. However we did obtain records from [facility] and his c oronary angiogram there [...] limits further titration of BB. CAD in [place] artery Assessment & Plan Minor CAD as [...] from outside hospital, ruled ou t for [place], had normal EKG and only occasional symptomatic [...] MD [address] [place] [id number] In 2 months Mild CAD and thickened heart muscle - follow up in our [facility] clinic. Disposition: Home/Self Care Condition at [...] should be done as an outpatient. Our form maker should call you in the next week to set up a 2 month follow up at our [place] outreach clinic. This clinic is held on the first floor of the [facility]. Please establish care with a primary care [...] you may find helpful for primary care: [facility] - [address], [place] [address] [facility] - [address] [place] [address] Thank you for allowing [facility] to participate in your health care. El [...] Portions of this chart were created with [employer] voice recognition software. Occasional wro ng-word or "sound-alike" substitutions may have occurred due to the inherent limitations of voice recognition software. Please read the chart carefully and recognize, using context, w here those substitutions have occurred. [facility] Cardiology Clinic Main Office - [address], [address] [place], [place] [address] Office: Medical Records [facility] [place] [address] Main: Physician referral and transfer line: Physician [...] should be done as an outpatient. Our form maker should call you in the next week to set up a 2 month follow up at our [place] outreach clinic. This clinic is held on the first floor of the [facility]. Please establish care with a primary care [...] you may find helpful for primary care: [facility] - [address], [place] [address] [facility] - [address], [place] [address] Thank you for allowing [facility] | | | | | CAD in [place] artery | | | | | | [...] | | | | | | | [place] artery | | | | | | [...] M D - 07/21/2016 7:10 AM PST [facility] PATIENT NAME: Rodrigo Mayberry : 1950: AGE: 65 y.o. ADMISSION DATE: 07/20/2016 PRIMARY CARE: Doctor Unknown Gail Suazo MD DAILY CARDIOLOGY PROGRESS NOTE [facility] CARDIOLOGY DATE OF SERVICE: 07/21/2016 LOCATION OF SERVICE TODAY: [facility] TIME SPENT INCLUDING DIRECT PATIENT CARE, [...] limits further titration of BB. CAD in [place] artery Assessment & Plan Coronary angiogram in [facility] in 2013 noted diffuse although nonocclusive [...] LDL goal <70 Essential hypertension CAD in [place] artery Bradycardia SCHEDULED MEDS: aspirin 81 mg [...] STUDIES OF INTEREST: Had negative CXR in [place] prior to transfe r LABS Recent Results [...] Negative KETONES UA Negative Negative mg/dL Specific Ozan 1.014 1.001 - 1.030 PH UA 6.0 [...] Hospital Card[facility] Electronically signed by: Gail Suazo MD 07/21/2016 7:26 Patient Care Team: Doctor Unknown as PCP - General [facility] Cardiology Clinic Main Office - [address], [address] [place], [place] [address] Office: Medical Records [facility] [place] [address] Main: Physician referral and transfer line: Physician referral fax line: Medical Records phone: Medical Records fax: Angela Toth RN - 07/20/2016 4:45 PM PSTHeparin IV bol[facility] also. PTT & INR not done; no results found in transfer paperwork or on the [place] site. documented in this encounter Plan of [...] + | Vlad Vasquez MD 07/21/2016 14:00 [facility] | | | [facility] LEFT CARDIAC CATHETERIZATION REPORT | | | PATIENT NAME: Rodrigo Mayberry DATE OF : 1950 | | | DATE OF PROCEDURE: 07/21/2016 | | | | | | PRIMARY CARE | | | PROVIDER: Doctor Unknown ORGAN TEACHER: Dr. Vlad Vasquez, | | | , [facility], [facility] PRE-PROCEDURE DIAGNOSIS: chest pain, known | [...] was | | | achieved with 6 Mauritian micropuncture kit. Note that the patient | | | had somewhat abnormal radial artery anatomy with a low bifurcation | | | of the brachial artery that required some finesse to negotiate. | | | Patient was then given intravenous heparin as well as | | | intra-arterial nitroglycerin through the sheath. A 5 Mauritian | | | multipurpose catheter was advanced [...] Left coronary angiography was performed with 5 Mauritian | | | JL 3.5 catheter. The [...] Vlad Gutierres | | | MD Pedro, [facility], [facility] | | | DATE/TIME: 07/21/2016 13:57 07/21/2016 13:57 Portions of this | | | chart were created with [employer] voice recognition software. | | | Occasional [...] | | | RODRIGO MAYBERRY Date: 07/21/2016MRN: [id number] | | | Patient Location: [facility] 602DOB: 1950 | | | [...] Physician: GAIL SUAZOEchocardiographer: Vikash | | | [id number]: | | |There is no pericardial effusion. [...] | |Ordering Physician: GAIL SUAZO | | |Help Desk Analyst: Vikash Perez | | |[id number]: | | | | | + +--------- -----+ + + | Procedure Note | + + | Danilo Nolasco Results In - 07/22/2016 9:13 AM PST | | Adult Echo | | Report | | | | Name: RODRIGO MAYBERRY Date: 07/21/2016 | | Patient Location: [place] [address] | | : 1950 Age: 65 yrs [...] | Ordering Physician: GAIL SUAZO | | Help Desk Analyst: Vikash Perez | | [id number]: | + + PTT (07/21/2016 7:40 AM [...] + + | [facility] | [address] | [place] [address] | | | [facility] | [...] + | [facility] | [address] | [place] [address] | | | [facility] | [...] + + + | Glucose | 88Comment: Portuguese | 65 - 99 mg/dL | [facility] [...] + + | [facility] | [address] | [place] [address] | | | [facility] | | | | | LABORATORY [...] + | [facility] | [address] | [place] [address] | | | [facility] | [...] + + | [facility] | [address] | [place] [address] | | | [facility] | [...] - 1.030 | [facility] | | | Ozan | | | [facility] | | | [...] + + | [facility] | [address] | [place] [address] | | | [facility] | [...] + | [facility] | [address] | [place] [address] | | | [facility] | | | | | LABORATORY [...] + | [facility] | [address] | [place] [address] | | | [facility] | [...] | TRACEMASTER | | Duration:164 msP Horizontal [place]:19 degP Front [place]:47 degQ Onset:512 | | | msQRSD Interval:94 msQT Interval:436 msQTcB:390 msQTcF:405 msQRS | | | Horizontal [place]:5 degQRS [place]:54 degI-40 Horizontal [place]:47 degI-40 | | | Front [place]:42 degT-40 Horizontal [place]:-24 degT-40 Front [place]:51 degT | | | Horizontal [place]:47 degT Wave [place]:54 degS-T Horizontal [place]:90 degS-T | | | Front [place]:-43 degSeverity:- OTHERWISE NORMAL ECG -INTERP:SINUS | | | BRADYCARDIAElectronically signed by: , 07-20-2016 21:27:53 | | |QT Interval:436 ms | | |QTcB:390 ms | | |QTcF:405 ms | | |QRS Horizontal [place]:5 deg | | |QRS [place]:54 deg | | |I-40 Horizontal [place]:47 deg | | |I-40 Front [place]:42 deg | | |T-40 Horizontal [place]:-24 deg | | |T-40 Front [place]:51 deg | | |T Horizontal [place]:47 deg | | |T Wave [place]:54 deg | | |S-T Horizontal [place]:90 deg | | |S-T Front [place]:-43 deg | | |Severity:- OTHERWISE NORMAL ECG - | | |INTERP:SINUS BRADYCARDIA | | |Electronically signed by: , 07-20-2016 21:27:53 | | + + + + + + + + | Performing | Address | City/State/Zipcode | Phone Number | | Organization | | | | + + + + + | [facility] | [address] | [place] [address] | [phone] | + + + + + Hepatic [...] + | [facility] | [address] | [place] [address] | | | [facility] | [...] + + | [facility] | [address] | [place] [address] | | | [facility] | | | | | [...] + | [facility] | [address] | [place] [address] | | | [facility] | [...] dysrhythmias | + + | CAD in [place] artery Coronary atherosclerosis of [place] coronary artery | + + | Essential [...]
--- OUTSIDE RECORDS SUMMARY | ~2020-01-18 | XMS | Encounter Summary ---
Demographics + + + | Address | [address] | | | [place] [address] | + + + | Home Phone | | + + + | Preferred Language | Unknown | + + + | Marital Status | Single | + + + | Rastafarian Affiliation | Unknown | + + + | Race | Unknown | + + + | Ethnic Group | Unknown | + + + Author + + + | Author | [facility] | | | and [facility] | + + + | Organization | [facility] | | | [...] Team Providers + +------+ + | Care Computer Repair Engineer Name | Role | Phone | + +------+ + PCP | Unavailable | + +------+ + Encounter Details +--------+ + + + + | Date | Type | Department | Care Team | Description | +--------+ + + + + | 04/03/ | Hospital | [facility] | Obdulia Bucio | | | 2013 | Encounter | HOSPITAL EMERGENCY | [address] | | | | | [place] [address] | | | | [address] [place], [place] | [place] [address] | | | | | [address] | [phone] | | | | | [phone] | | | +--------+ + + + [...]
--- OUTSIDE RECORDS SUMMARY | ~2020-01-18 | XMS | Encounter Summary ---
Demographics + + + | Address | [address] | | | [place] [address] | + + + | Home Phone | | + + + | Preferred Language | Unknown | + + + | Marital Status | Single | + + + | Baptist Affiliation | Unknown | + + + | Race | Unknown | + + + | Ethnic Group | Unknown | + + + Author + + + | Author | [facility] | | | and [facility] | + + + | [...] Team Providers + +------+ + | Care Partridge Farmer Name | Role | Phone | + +------+ + PCP | Unavailable | + +------+ + Encounter Details +--------+ + + + + | Date | Type | Department | Care Team | Description | +--------+ + + + + | 04/19/ | Hospital | [facility] | Daljit Bro | | | 2013 | Encounter | HOSPITAL OR INTRA OP | [address] | | | | | [address] | [address] | | | | | [place], [place] | [place], [place] | | | | | [address] | [address] | | | | | [phone] | [phone] | | | | | | | [...]
--- OUTSIDE RECORDS SUMMARY | ~2020-01-18 | XMS | Encounter Summary ---
Demographics + + + | Address | [address] | | | [place] [address] | + + + | Home Phone | | + + + | Preferred Language | Unknown | + + + | Marital Status | Single | + + + | Shinto Affiliation | Unknown | + + + | Race | Unknown | + + + | Ethnic Group | Unknown | + + + Author + + + | Author | [facility] | | | and [facility] | + + + | Organization | [facility] | | [...] Team Providers + +------+ + | Care Athletic Scout Name | Role | Phone | + [...] | | | [address] | [place], [place] | | | | | [place], [place] | [address] | | | | | [address] | [phone] | | | | | [phone] | | | +--------+ + + + [...]
--- OUTSIDE RECORDS SUMMARY | ~2020-01-18 | XMS | Encounter Summary ---
Demographics + + + | Address | [address] | | | [place] [address] | + + + | Home Phone [...] [facility] | | | and [facility] | + + + | Organization | [...] Team Providers + +------+ + | Care Power System Dispatcher Name | Role | Phone | + [...] | | | [address] | [place], [place] | | | | | [place], [place] | [address] | | | | | [address] | [phone] | | | | | [phone] | | | +--------+ + + + [...]
--- OUTSIDE RECORDS SUMMARY | ~2020-01-18 | XMS | Encounter Summary ---
Demographics + + + | Address | [address] | | | [place] [address] | + + + | Home Phone | | + + + | Preferred Language | Unknown | + + + | Marital Status | Single | + + + | Alevism Affiliation | Unknown | + + + | Race | Unknown | + + + | Ethnic Group | Unknown | + + + Author + + + | Author | [facility] | | | and [facility] | + + + | Organization | [facility] | | | [...] Team Providers + +------+ + | Care State Historical Society Director Name | Role | Phone | [...] [place] | | | | | | [address] | | | | | | [phone] | | | +--------+ + + + [...]
--- OUTSIDE RECORDS SUMMARY | ~2020-01-18 | XMS | Encounter Summary ---
Demographics + + + | Address | [address] | | | [place] [address] | + + + | Home Phone [...] + + + | Author | [facility] | | | and [facility] | + + + | Organization | [facility] | | [...] Team Providers + +------+ + | Care Field Nurse Case Manager Name | Role | Phone | + +------+ + PCP | Unavailable | + +------+ + Encounter Details +--------+ + + + + | Date | Type | Department | Care Team | Description | +--------+ + + + + | 01/06/ | Hospital | [facility] | Daljit Bro | | | 2013 | Encounter | HOSPITAL LABORATORY | [address] | | | | | [address] | [address] | | | | | [place], [place] | [place], [place] | | | | | [address] | [address] | | | | | [phone] | [phone] | | | | | | | [...]
--- OUTSIDE RECORDS SUMMARY | ~2020-01-18 | XMS | Encounter Summary ---
Demographics + + + | Address | [address] | | | [place] [address] | + + + | Home Phone | | + + + | Preferred Language | Unknown | + + + | Marital Status | Single | + + + | Christianity Affiliation | Unknown | + + + | Race | Unknown | + + + | Ethnic Group | Unknown | + + + Author + + + | Author | [facility] | | | and [facility] | + + + | Organization | [facility] | | [...] Team Providers + +------+ + | Care Coal Digger Name | Role | Phone | + [...] | of breath) | [place] | [address] | | | | | Procedures | [address] | Phone: | | | | | ECHO | Phone: | [phone] | | | | | Complete | [phone] | Fax: | | | | | | Fax: | [phone] | | | | | | [phone] | | +--------+--------+ + + + + [...] | | | | of breath) | [place], [place] | [address] | | | | | Procedures | [address] | Phone: | | | | | ECHO | Phone: | [phone] | | | | | Complete | [phone] | Fax: | | | | | | Fax: | [phone] | | | | | | [phone] | | +--------+--------+ + + + + Encounter Details +--------+ + + + + | Date | Type | Department | Care Team | Description | +--------+ + + + + | 08/09/ | Hospital | [facility] | Zaida Nava, | Palpitations; SOB | | 2017 | Encounter | HEART CARDIOVASCULAR | PA-C [address] | (shortness of | | | | IM[facility]ENTER | [address] | breath) | | | [facility] | [place] [address] | | | | | [address] | [phone] | | | | | [place] | | | | | | [address] | | | | | | [phone] | | | +--------+ + + + [...] | | | | | CAD in [place] artery | | | | | | [...] MAYBERRY Study | | | Date: 08/09/2017MRN: [id number] Patient Location: | | | Downtown[place]OB: 1950 [...] Physician: BRANDY | | | ZAIDAEchocardiographer: Yaneth [id number]: | | | | | |MMode/2D Measurements [...] | |Referring Physician: ZAIDA NAVA | | |Brick Setter: Yaneth Sepulveda | | |[id number]: | | | | | + +--------- ------+ + + | Procedure Note | + + | Gaurav, Rad Results In - 08/10/2017 8:58 AM PST | | Adult | | Echo | | Report | | | | Name: RODRIGO MAYBERRY Study Date: 08/09/2017 | | Patient Location: [facility] | | : 1950 Age: 66 [...] | | SV(LVOT): 83.0 ml TR max sotuh: 258.0 cm/sec | | TR max P.6 [...] | Referring Physician: ZAIDA NAVA | | Brick Setter: Yaneth Sepulveda | | [id number]: | + + + +---------+ + + [...]
--- OUTSIDE RECORDS SUMMARY | ~2020-01-18 | XMS | Encounter Summary ---
Demographics + + + | Address | [address] | | | [place] [address] | + + + | Home Phone [...] + + + | Author | [facility] | | | and [facility] | + + + | Organization | [facility] | | | [...] Team Providers + +------+ + | Care Funeral Home Manager Name | Role | Phone | [...] | | | | [address] | [place], [place] | | | | | [place] | [address] | | | | | [address] | [phone] | | | | | [phone] | | | +--------+ + + + [...]
--- OUTSIDE RECORDS SUMMARY | ~2020-01-18 | XMS | Encounter Summary ---
Demographics + + + | Address | [address] | | | [place] [address] | + + + | Home Phone [...] and Services [facility] | | | and [facility] | + + + | Organization [...] Team Providers + +------+ + | Care Intake Counselor Name | Role | Phone | + +------+ + PCP | Unavailable | + +------+ + Encounter Details +--------+ + + + + | Date | Type | Department | Care Team | Description | +--------+ + + + + | 10/02/ | Hospital | [facility] | Leonel Arechiga MD | | | 2015 | Encounter | HOSPITAL EMERGENCY | | | | | | CENTER [address] [place] [address] | | | | | | [facility] [place], [place] | | | | | | [address] | | | | | | [phone] | | | +--------+ + + + [...]
--- OUTSIDE RECORDS SUMMARY | ~2020-01-18 | XMS | Encounter Summary ---
Demographics + + + | Address | [address] | | | [place] [address] | + + + | Home Phone [...] [facility] | | | and [facility] | + + + | Organization | [...] Team Providers + +------+ + | Care Architectural Superintendent Name | Role | Phone | + +------+ + PCP | Unavailable | + +------+ + Encounter Details +--------+ + + + + | Date | Type | Department | Care Team | Description | +--------+ + + + + | 10/02/ | Orders Only | [facility] | Leonel Arechiga MD | | | 2014 | | [facility] | | | | | | PRIMARY CARE [address] | | | | | | [address] [place] [place] | | | | | | [address] | | | | | | [phone] | | | +--------+ + + + [...] | | | | | of or [place] at 48 | | | | | [...] | | | | | of or [place] at 48 | | | | | [...]
--- OUTSIDE RECORDS SUMMARY | ~2020-01-18 | XMS | Encounter Summary ---
Demographics + + + | Address | [address] | | | [place] [address] | + + + | Home Phone | | + + + | Preferred Language | Unknown | + + + | Marital Status | Single | + + + | Faith Affiliation | Unknown | + + + | Race | Unknown | + + + | Ethnic Group | Unknown | + + + Author + + + | Author | [facility] | | | and [facility] | + + + | Organization | [facility] | | | [...] Team Providers + +------+ + | Care Police Lieutenant Name | Role | Phone | + +------+ + PCP | Unavailable | + +------+ + Encounter Details +--------+ + + + + | Date | Type | Department | Care Team | Description | +--------+ + + + + | 12/14/ | Hospital | [facility] | Conversion | Chest pain, | | 2013 - | Encounter | [facility] | Transaction, | unspecified | | | | CLINICAL DECISION | Provider Unknown | | | 12/15/ | | [address] [facility] | [phone] | | | 2013 | | [place], [place] | | | | | | [address] | Faheem Davila MD | | | | | [phone] | [address] | | | | | | [place] [address] | | | | | | [phone] | | | | | | | [...] 12/15/1315 Date of Service: 12/15/1311 Status: Signed Underground Electrician: Lilia Thomson RN (Registered Nurse) Discharge instructions given VSS pt left via ambulatory with nephew. Pt incision site is CD I TR band send home with instructions if site starts to ooze or bleed. No questions at this time pt [facility] [place] if any questions or concerns encouraged to call us and f/u with Dr. Davila. Thank you Cole JOEL onver barak Transaction, Provider Unknown - 12/14/2013 7:24 PM PDT Nurse Progress Note by Angelita Mejia RN at 12/14/131923 Author: Angelita Mejia RN Service: (none) Author Type: Registered Nurse Filed: 12/14/131924 Date of Service: 12/14/131923 Status: Signed Underground Electrician: Angelita Mejia RN (Registered Nurse) Report given [...] | | | | by THADDEUS HAYES ([id number]) on | | | | | | 12/14/2013 7:38:31 PM | | | | + + + + + + + + | Specimen | + + | | + + + + + | Narrative | Performed At | + + + | Historically converted procedure from [facility] Epic environment | EXTERNAL LAB | + [...] | | | Patient | performed at [facility];[address] | | LAB | | | | [address];[place] | | | | | | [address] | | | | + + + [...] | | | | | performed at [facility];[address] | | | | | | [facility];[place], [place] | | | | | | [address] | | | | + + + [...] EXTERNAL | | | | performed at [facility];[address] | | LAB | | | | [address];[place] | | | | | | [address] | | | | + + + + + + | Red Blood | 4.39Comment: Testing | 4.20 - 5.70 | EXTERNAL | | | Cells | performed at [facility];888 | M/uL | LAB | | | Counted | [address];[place] | | | | | | [address] | | | | + + + + + + | Hemoglobin | 13.2Comment: Testing | 13.2 - 17.0 | EXTERNAL | | | | performed at [facility];888 | g/dL | LAB | | | | [address];[place] | | | | | | [address] | | | | + + + + + + | Hematocrit, | 39.2Comment: Testing | 39.0 - 50.0 % | EXTERNAL | | | POC | performed at [facility];[address] | | LAB | | | | [address];[place] | | | | | | [address] | | | | + + + + + + | MCV | 89.3Comment: Testing | 80.0 - 100.0 fl | EXTERNAL | | | | performed at [facility];[address] | | LAB | | | | [address];[place] | | | | | | [address] | | | | + + + + + + | MCH | 30.2Comment: Testing | 27.0 - 34.0 pg | EXTERNAL | | | | performed at [facility];[address] | | LAB | | | | [address];[place] | | | | | | [address] | | | | + + + + + + | MCHC | 33.8Comment: Testing | 32.0 - 35.5 | EXTERNAL | | | | performed at [facility];888 | g/dL | LAB | | | | [address];[place] | | | | | | [address] | | | | + + + + + + | RDW-CV | 40.3Comment: Testing | 37 - 53 fl | EXTERNAL | | | | performed at [facility];[address] | | LAB | | | | [address];[place] | | | | | | [address] | | | | + + + + + + | Platelet | 256Comment: Testing | 150 - 400 K/uL | EXTERNAL | | | Count | performed at [facility];[address] | | LAB | | | Plasma | [address];[place] | | | | | | [address] | | | | + + + + + + | MPV | 7.1Comment: Testing | fl | EXTERNAL | | | | performed at [facility];[address] | | LAB | | | | [address];[place] | | | | | | [address] | | | | + + + + + + | Differentia | AUTOMATEDComment: | | EXTERNAL | | | l Type | Testing performed at | | LAB | | | | [facility];[address];[place] [address] | | | | + + + + + + | % Segmented | 59.1Comment: Testing | % | EXTERNAL | | | | performed at [facility];[address] | | LAB | | | Neutrophils | [address];[place] | | | | | | [address] | | | | + + + + + + | % | 30.1Comment: Testing | % | EXTERNAL | | | Lymphocytes | performed at [facility];[address] | | LAB | | | | [address];[place] | | | | | | [address] | | | | + + + + + + | % Monocytes | 6.6Comment: Testing | % | EXTERNAL | | | | performed at [facility];[address] | | LAB | | | | [address];[place] | | | | | | [address] | | | | + + + + + + | % | 3.8Comment: Testing | % | EXTERNAL | | | Eosinophils | performed at [facility];[address] | | LAB | | | | [address];[place] | | | | | | [address] | | | | + + + + + + | % Basophils | 0.4Comment: Testing | % | EXTERNAL | | | | performed at [facility];[address] | | LAB | | | | [address];[place] | | | | | | [address] | | | | + + + + + + | Absolute | 5.4Comment: Testing | 1.9 - 7.4 K/uL | EXTERNAL | | | Segmented | performed at [facility];[address] | | LAB | | | Neutrophils | [address];[place] | | | | | | [address] | | | | + + + + + + | Absolute | 2.7Comment: Testing | 1.0 - 3.9 K/uL | EXTERNAL | | | Lymphocytes | performed at [facility];[address] | | LAB | | | | [address];[place] | | | | | | [address] | | | | + + + + + + | Absolute | 0.6Comment: Testing | 0 - 0.8 K/uL | EXTERNAL | | | Monocytes | performed at [facility];[address] | | LAB | | | | [address];[place] | | | | | | [address] | | | | + + + + + + | Absolute | 0.3Comment: Testing | 0 - 0.5 K/uL | EXTERNAL | | | Eosinophils | performed at [facility];[address] | | LAB | | | | [address];[place] | | | | | | [address] | | | | + + + + + + | Absolute | 0.0Comment: Testing | 0 - 0.1 K/uL | EXTERNAL | | | Basophils | performed at [facility];[address] | | LAB | | | | [address];[place], [place] | | | | | | [address] | | | | + + + [...] EXTERNAL | | | | performed at [facility];888 | mmol/L | LAB | | | | [address];[place] | | | | | | [address] | | | | + + + + + + | K | 4.3Comment: Testing | 3.5 - 4.9 | EXTERNAL | | | | performed at [facility];888 | mmol/L | LAB | | | | [address];[place] | | | | | | [address] | | | | + + + + + + | Cl | 107Comment: Testing | 99 - 109 mmol/L | EXTERNAL | | | | performed at [facility];[address] | | LAB | | | | [address];[place] | | | | | | [address] | | | | + + + + + + | CO2 | 26Comment: Testing | 23 - 32 mmol/L | EXTERNAL | | | | performed at [facility];[address] | | LAB | | | | [address];[place] | | | | | | [address] | | | | + + + + + + | Anion Gap | 11Comment: Testing | 5 - 20 mmol/L | EXTERNAL | | | | performed at [facility];[address] | | LAB | | | | [address];[place] | | | | | | [address] | | | | + + + + + + | Glucose, | 85Comment: Testing | 65 - 99 mg/dL | EXTERNAL | | | Fasting | performed at [facility];[address] | | LAB | | | | [address];[place] | | | | | | [address] | | | | + + + + + + | BUN | 16Comment: Testing | 8 - 25 mg/dL | EXTERNAL | | | | performed at [facility];[address] | | LAB | | | | [address];[place] | | | | | | [address] | | | | + + + + + + | Creatinine | 0.81Comment: Testing | 0.70 - 1.30 | EXTERNAL | | | | performed at [facility];888 | mg/dL | LAB | | | | [address];[place] | | | | | | [address] | | | | + + + + + + | BUN/Creatin | 20Comment: Testing | | EXTERNAL | | | ine Ratio | performed at [facility];[address] | | LAB | | | | [address];[place] | | | | | | [address] | | | | + + + + + + | Calcium | 9.1Comment: Testing | 8.5 - 10.2 | EXTERNAL | | | | performed at [facility];888 | mg/dL | LAB | | | | [address];[place], [place] | | | | | | [address] | | | | + + + [...] | | | | | | at [facility];[address] [facility] | | | | | | [address]vd;[place] [address] | | | | + + + [...]
--- OUTSIDE RECORDS SUMMARY | ~2020-01-18 | XMS | Encounter Summary ---
Demographics + + + | Address | [address] | | | [place] [address] | + + + | Home Phone [...] [facility] | | | and [facility] | + + + | Organization | [facility] | | | and [place] | + [...] Team Providers + +------+ + | Care Welder Fabricator Name | Role | Phone | + [...] | | | [address] | [place], [place] | | | | | [place], [place] | [address] | | | | | [address] | [phone] | | | | | [phone] | | | +--------+ + + + [...] EXTERNAL | | | Ratio | [facility] | | LAB | | | [...]
[~2020-01-18 13:54] MED LIST: NITROGLYCERIN0.4 MG SL; VENTOLIN HFA18 GM INH
[2020-01-18] MEDS ORDERED: NITROGLYCERIN0.4 MG SL (17:35)
--- NOTE | 2020-01-19 13:10 | EKG ---
[facility] [address] [facility] [place], [place] [address] Signed Normal sinus rhythm Nonspecific ST abnormality Abnormal ECG No previous ECGs available Confirmed by DEEJAY MARIA MD ([id number]) on 01/19/2020 1:09:55 PM Electronically Signed By: DEEJAY MARIA MD 01/19/20 1310 PATIENT NAME: JASPER INFANTE Electrocardiogram DATE OF : 52 PHYSICIAN: DEEJAY MARIA MD REPORT #: [id number] REPORT IS CONFIDENTIAL AND NOT TO BE RELEASED WITHOUT AUTHORIZATION
== END 2020-01-18 17:47 | disposition home or self-care (01) ==
LOC: ED 13:54
DX: R07.9 Chest pain, unspecified (principal); J44.9 Chronic obstructive pulmonary disease, unspecified; F17.200 Nicotine dependence, unspecified, uncomplicated; Z79.51 Long term (current) use of inhaled steroids; Z71.6 Tobacco abuse counseling
CPT/HCPCS: 71045; 80053; 83735; 84484; 85025; 85610; 93005; 93010; 99285-25; 99406

== ENCOUNTER 2020-04-01 11:01 | Emergency (ER) | payer MEDICARE ==
[~2020-04-01] VITALS: Ht 175.3 cm; Wt 77.1 kg
--- OUTSIDE RECORDS SUMMARY | ~2020-04-01 | XMS | Encounter Summary ---
Demographics + + + | Address | [address] | | | [place] [address] | + + + | Home Phone | | + + + | Preferred Language | Unknown | + + + | Marital Status | Single | + + + | Presybeterian Affiliation | Unknown | + + + | Race | Unknown | + + + | Ethnic Group | Unknown | + + + Author + + + | Author | [facility] | | | and [facility] | + + + | Organization | [facility] | | | and [...] Team Providers + +------+ + | Care Dust Collector Treater Name | Role | Phone | + +------+ + | Love Prabhakar DO | PCP | | + +------+ + Reason for Visit +---------+--------+ + | Reason | Onset | Comments | | | Date | | +---------+--------+ + | Results | 08/12/ | echo | | | 2017 | | +---------+--------+ + Encounter Details +--------+ + + + + | Date | Type | Department | Care Team | Description | +--------+ + + + + | 08/12/ | Telephone | [facility] [place] | Michelle Dawkins, | Results (echo) | | 2017 | | Cardiology [facility] | RN | | | | | [address] | | | | | | [address] [place] | | | | | | [address] | | | | | | [phone] | | | +--------+ + + + [...] on file | | + + + documented as of this encounter Miscellaneous Notes Telephone Encounter - Tiny Anand RN - 08/13/2017 9:25 AM PSTReviewed echo result note from EYAD Escobar, with patient. See additional result recommendation in teleph one encounter dated 08/13/17. 9 :26 AM PSTTelephone Encounter - Michelle Dawkins RN - 08/12/2017 4:43 PM PSTFormatting of t his note might be different from the original. Called pt to let patient know Echo results as listed below. Pt not home. Left message. Echo f/u Received: Today Message Contents EYAD Cha RN Please let this patient know that his echocardiogram shows no obvious cardiac issue for his shortness of breath. He also has no structural issues to explain his palpitations. Consider following up with primary to look into pulmonary causes of his SOB. Thanks, Galdino documented in this en counter Plan of Treatment Not on filedocumented as of this encounter Visit Diagnoses Not on filedocumented in this encounter"
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
--- OUTSIDE RECORDS SUMMARY | ~2020-04-01 | XMS | Encounter Summary ---
Demographics + + + | Address | [address] | | | [place] [address] | + + + | Home Phone | | + + + | Preferred Language | Unknown | + + + | Marital Status | Single | + + + | Anabaptism Affiliation | Unknown | + + + | Race | Unknown | + + + | Ethnic Group | Unknown | + + + Author + + + | Author | [facility] | | | and [facility] | + + + | Organization | [facility] | | | [...] Team Providers + +------+ + | Care Horticultural Farmer Name | Role | Phone | + +------+ + PCP | Unavailable | + +------+ + Encounter Details +--------+ + + + + | Date | Type | Department | Care Team | Description | +--------+ + + + + | 10/17/ | Hospital | [facility] | Daljit Bro | | | 2013 | Encounter | HOSPITAL RESPIRATORY | [address] | | | | [address] | | | | | [address] | [place], [place] | | | | | [place], [place] | [address] | | | | | [address] | [phone] | | | | | [phone] | | | +--------+ + + + [...]
--- OUTSIDE RECORDS SUMMARY | ~2020-04-01 | XMS | Encounter Summary ---
Demographics + + + | Address | [address] | | | [place] [address] | + + + | Home Phone | | + + + | Preferred Language | Unknown | + + + | Marital Status | Single | + + + | Hindu Affiliation | Unknown | + + + | Race | Unknown | + + + | Ethnic Group | Unknown | + + + Author + + + | Author | [facility] | | | and [facility] | + + + | Organization | [facility] | | | [...] Team Providers + +------+ + | Care Steaming Machine Operator Name | Role | Phone | + +------+ + PCP | Unavailable | + +------+ + Encounter Details +--------+ + + + + | Date | Type | Department | Care Team | Description | +--------+ + + + + | 04/19/ | Hospital | [facility] | Daljit Bro | | | 2013 | Encounter | HOSPITAL OR INTRA OP | [address] | | | | | [address] | [address] | | | | | [place], [place] | [place], [place] | | | | | [address] | [address] | | | | | [phone] | [phone] | | | | | | | [...]
--- OUTSIDE RECORDS SUMMARY | ~2020-04-01 | XMS | Encounter Summary ---
Demographics + + + | Address | [address] | | | [place] [address] | + + + | Home Phone [...] Team Providers + +------+ + | Care Contracts Advisor Name | Role | Phone | + [...] | | | [address] | [place], [place] | | | | | [place], [place] | [address] | | | | | [address] | [phone] | | | | | [phone] | | | +--------+ + + + [...]
--- OUTSIDE RECORDS SUMMARY | ~2020-04-01 | XMS | Encounter Summary ---
Demographics + + + | Address | [address] | | | [place] [address] | + + + | Home Phone | | + + + | Preferred Language | Unknown | + + + | Marital Status | Single | + + + | Sikhism Affiliation | Unknown | + + + | Race | Unknown | + + + | Ethnic Group | Unknown | + + + Author + + + | Author | [facility] | | | and [facility] | + + + | Organization | [facility] | | [...] Team Providers + +------+ + | Care Drier Tender Name | Role | Phone | + +------+ + PCP | Unavailable | + +------+ + Encounter Details +--------+ + + + + | Date | Type | Department | Care Team | Description | +--------+ + + + + | 10/20/ | Hospital | [facility] | Daljit Bro | | | 2013 | Encounter | CONVERSION | [address] | | | | | [address] | | | | | [address] | [place], [place] | | | | | [place], [place] | [address] | | | | | [address] | [phone] | | | | | [phone] | | | +--------+ + + + [...]
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
--- OUTSIDE RECORDS SUMMARY | ~2020-04-01 | XMS | Encounter Summary ---
Demographics + + + | Address | [address] | | | [place] [address] | + + + | Home Phone | | + + + | Preferred Language | Unknown | + + + | Marital Status | Single | + + + | Nondenominational Affiliation | Unknown | + + + | Race | Unknown | + + + | Ethnic Group | Unknown | + + + Author + + + | Author | [facility] | | | and [facility] | + + + | Organization | [facility] | | | [...] Providers + +------+ + | Care Last Greaser Name | Role | Phone | + [...] AVE SU[address] | | | | | MS CATH | | [address], | | | | | PLACE/CORON | | [place] | | | | | ANGIO, IMG | | Phone: | | | | | SUPER/INTERP | | [phone] | | | | | ,W LEFT | | Fax: | | | | | HEART | | [phone] | | | | | VENTRICULOGR | [...] | | [address] | [place] [address] | pain, unspecified | | 2016 | | [place] | [phone] | type; Bradycardia; | | | | [address] | | CAD in wainwright | | | | [phone] | Gail Suazo | artery; Essential | | | | | MD [address] | hypertension; | | | | | [address] | Hyperlipidemia LDL | | | | | [place] [address] | goal <70; Tobacco | | | | | [phone] | use; Apical variant | | | [...] DATE OF SERVICE: 07/22/2016 PRIMARY CARE: Doctor Unknown Gail Suazo MD DISCHARGE SUMMARY Principal Hospital Problem/Admission Diagnoses: ACS (acute coronary syndrome) Discharge Diagnoses: * ACS (acute coronary syndrome) Assessment & Plan Presumptive diagnosis of CAD and acute coronary syndrome. Patient gave history of plain bal loon angioplasty of vessel in the past. However we did obtain records from [facility] and his c oronary angiogram there showed [...] limits further titration of BB. 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 Disposition: Home/Self Care Condition at Discharge: [...] should be done as an outpatient. Our trademark paralegal should call you in the next week to set up a 2 month follow up at our [place] outreach clinic. This clinic is held on the first floor of the [facility]. Please establish care with a primary [...] you may find helpful for primary care: [facility] - [address], [place] [address] [facility] - [address], [place] [address] Thank you for allowing [facility] to participate in your health care. [...] Portions of this chart were created with Blackboard voice recognition software. Occasional wro ng-word or "sound-alike" substitutions may have occurred due to the inherent limitations of voice recognition software. Please read the chart carefully and recognize, using context, w here those substitutions have occurred. [facility] Main Office - [facility] [address], [address] [place], [place] [address] Office: Medical Records [facility] [place], [place] [address] Main: Physician referral and transfer line: Physician [...] should be done as an outpatient. Our trademark paralegal should call you in the next week to set up a 2 month follow up at our [place] outreach clinic. This clinic is held on the first floor of the [facility]. Please establish care with a primary [...] you may find helpful for primary care: [facility] - [address], [place] [address] [facility] - [address], [place] [address] Thank you for allowing [facility] to participate in your health care. 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 ADMISSION DATE: 07/20/2016 PRIMARY CARE: Doctor Unknown Gail Suazo MD DAILY CARDIOLOGY PROGRESS NOTE CHARLES VALENTIN CARDIOLOGY DATE OF SERVICE: 07/21/2016 LOCATION OF SERVICE TODAY: [facility] TIME SPENT INCLUDING DIRECT PATIENT CARE, DISCUSSION [...] limits further titration of BB. 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 Electronically signed by: Gail Suazo MD 07/21/2016 7:26 Patient Care Team: Doctor Unknown as PCP - General [facility] Main Office - [facility] [address], [address] [place], [place] [address] Office: Medical Records [facility] [place], [place] [address] Main: Physician referral and transfer line: Physician referral fax line: Medical Records phone: Medical Records fax: Angela Toth RN - 07/20/2016 4:45 PM PSTHeparin IV bol[facility] there also. PTT & INR not done; no results found in transfer paperwork or on the old [place] site. documented in this encounter H&P Notes Gail Suazo MD - 07/20/2016 3:50 PM PSTFormatting of this note might be differe nt from the original. [facility] PATIENT NAME: Rodrigo Mayberry : 1950: AGE: 65 y.o. ADMISSION DATE: 07/20/2016 PRIMARY CARE: Doctor Unknown PRIOR LOGISTIC SPECIALIST: At [facility] Medical - unknown doctor Gail Suazo MD ADMISSION HISTORY AND PHYSICAL DATE OF SERVICE: 07/20/2016 LOCATION OF SERVICE: [facility] CHIEF COMPLAINT: Chest pain CURRENT ASSESSMENT AND PLAN * ACS (acute coronary syndrome) Assessment & Plan Dynamic T inversions noted in the setting of typical chest pain. Atherosclerotic risk fact ors noted include tobacco abuse, age, hypertension, male sex and dyslipidemia. His charlie- Nitin risk is extremely high. Workup options could include stress perfusion study versu s coronary angiography. Abnormal EKG Assessment & Plan T inversions with CP noted. No ST elevation. Tobacco use Assessment & Plan Ongoing tobacco abuse which is a major risk factor for not only cardiovascular events but l nitin disease and cancer. Smoking cessation is recommended. He indicates that he has already "cut down" and does not otherwise seem to have a plan to quit. Notes in [facility] allude to polysubstance abuse but he is not requesting narcotics here and I do not get that history from him. Hyperlipidemia LDL goal <70 Assessment & Plan The patient was previously on atorvastatin-at 20 mg a day. We will place on high-dose ator vastatin since he does appear to be having an acute coronary syndrome. Fasting lipids are p ending. Essential hypertension Assessment & Plan The patient is reportedly on metoprolol with initial blood pressure and pulmonary 160/100. Consider adding JAYESH inhibitor and or titrating beta stephie as needed. 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 Smoking cessation and medical therapy were recommended. He did not have a POBA despite his report to me of "a balloon but they couldn't put in a stent." Bradycardia Assessment & Plan Limiting titration of BB. Will monitor. Large V-waves noted on JVP exam. Question TR. He had negative d-dimer and normal saturati ons making PE less likely. OVERALL PLAN SUMMARY: 1. Trend cardiac enzymes, hall monitor, consider coronary angiography. 2. Continue aspirin, statin, NTG, heparin and BB. 3. Consider adding JAYESH-I or ARB 4. Echo in the am. Question TV disease, SWMA etc. 5. Smoking cessation advised. States that he is "cutting down." HISTORY OF PRESENT ILLNESS 65 y.o. year old male with Problem List and Overview as noted below transferred from [facility] where he presented to the ED with chest pain. The patient reports an ill-defined history of prior coronary artery disease and possible POBA in January of 2014. He apparently h as not had stents or bypass. (*Addendum - I subsequently obtained records from [facility]. He had a coronary angiogram in 2013 showing diffuse mild to moderate disease. No PCI or POBA was done). He presented today via ambulance complaining of chest discomfort th at seemed to get some relief from nitroglycerin. He was quite hypertensive on arrival at 16 0/100. He does have risk factors including tobacco abuse, hypertension treated normally wit h metoprolol, hyperlipidemia treated with atorvastatin. He gets most of his care from the A. The chest pain is described as central diffuse non-radiating nonpleurtic CP not associated with GI symptoms, comes on at rest but is relieved with NTG. He has angina class 2 and takes NTG at baseline about 2-3 times a week. At this time he notes no chest pain, dyspnea or dizziness. He had loose stools a few days ago but has not had melena, abdominal pain, weight change or hematemesis. He does not have prior history of aneurysm, DVT or pulmonary embolism. He does have substa ntial orthopedic history with multiple prior broken bones. He has not had recent trauma. ROS 14 point ROS was completed and is negative except as noted in HPI and positive noted below: Positives noted: Chronic angina about 2-3 times a week. Loose stools a week ago. Chronic left arm pain due to ulnar neuropathy and chronic left shoulder pain - rotator cuff injury on the left. Pertinent negatives noted: Our typical ROS asks about the following - ID and General: chills, fever, malaise, weight gain or weight loss Hematological and Lymphatic: major bleeding problems, blood clots, recent blood transfusio ns,truly unusual bruising, fatigue or swollen lymph nodes Cardiovascular: as described above in HPI Our form asks about syncope, orthopnea, PND, ch est pain, palpitations, claudication Respiratory: as described above in HPI. Asked about pleurisy, hemoptysis, wheeze, new dysp chitra on exertion, purulent sputum. Dermatological: nail changes, pruritus,ulcers, rash and skin lesion changes or ulcers Neurological: Seizure, dizziness, TIA or stroke symptoms Gastrointestinal: abdominal pain, change in bowel habits, or black or bloody stools Genito-Urinary : dysuria, trouble voiding, or hematuria, incontinence If male: BPH or prostate cancer history, nocturia Eye and HENT: visual field loss, double vision, vertigo or new sinus or ear symptoms Allergic, Rheumatologic, Immune: history of urticaria, HIV, vasculitis, autoimmune disease . 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 Medically treated. Bradycardia 07/20/2016 Tobacco use Hyperlipidemia LDL goal <70 Essential hypertension Gastroesophageal reflux disease 04/19/2014 Note Last Updated: 07/20/2016 Overview: Noted on 04/19/2014 EGD. PPI started. Path show reflux esophagitis. Also mild, chronic, i nactive gastritis. Degeneration of intervertebral disc of cervical region 06/05/2013 Note Last Updated: 07/20/2016 Overview: 04/2013 MRI showed C3-4 with mild, L>R neuroforaminal narrowing secondary to an esteophyte/d isc complex, C4-5 posterior osteophyte indenting the ventral thecal sac L>R, C5-6 disc/osteo phyte complex mildly narrowing the spinal canal bilaterally, C6-7 disc/osteophyte complex mo derately narrowing the canal R>L Dysthymia 06/05/2013 Note Last Updated: 07/20/2016 Overview: He has been on sertraline, bupropion, venlafaxine, mirtazapine, and citalopram in the past, all with little benefit. Liver mass 06/05/2013 Note Last Updated: 07/20/2016 Overview: 07/2012 CT showed a nonenhancing lesion that was likely a calcified hematoma. Polysubstance abuse 06/05/2013 Note Last Updated: 07/20/2016 Overview: History of heroin, meth, alcohol, and marijuana abuse. Marijuana use is current and others are past. 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 SOCIAL HISTORY Social History Social History Marital Status: Single Spouse Name: N/A Number of Children: N/A Years of Education: N/A Occupational History Not on file. Social History Main Topics Smoking status: Current Every Day Smoker -- 0.50 packs/day for 40 years Types: Cigarettes Smokeless tobacco: Never Used Alcohol Use: 0.0 oz/week 0 Standard drinks or equivalent per week Comment: 1 glass of white wine a week - or less Drug Use: No Sexual Activity: Not on file Other Topics Concern Not on file Social History Narrative Single. 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 Lives in [place]. Gets his care from the [facility] usually. Is a smoker. *He denies drug use but chart from [facility] says "polysubstance abuse." TOBACCO HISTORY History Smoking status Current Every Day Smoker -- 0.50 packs/day for 40 years Types: Cigarettes Smokeless tobacco Never Used OUTPATIENT MEDICATIONS Prescriptions prior to admission Medication Sig Dispense Refill aspirin 81 mg EC tablet Take 81 mg by mouth Daily. atorvaSTATin (LIPITOR) 40 mg tablet Take 20 mg by mouth nightly. metoprolol tartrate (LOPRESSOR) 50 mg tablet Take 25 mg by mouth 2 times daily. CURRENT HOSPITAL MEDS Scheduled The patient arrived on aspirin, IV heparin, prn nitroglycerin. PRN Nitroglycerin 0.4 sublingual, morphine 1-2 mg when necessary PRIOR CARDIOVASCULAR DATA: EKG: EKG at [facility] reportedlyshowed sinus rhythm with some new T-wave inversions -no Q waves. Repeat EKG here shows SB - normal EKG. I must say that the EKG from [facility] ooks normal to me. TELEMETRY: SR/SB ECHOCARDIOGRAM: None done in our system PRIOR STRESS TEST OR CATH: Reportedly had work up in the past demonstrating nonobstructiv e coronary disease. Those studies are not available for review. At [facility] today he had a portable chest x-ray which showed no acute disease, no m ediastinal widening or cardiomegaly. Addendum: Records from [facility] obtained. Coronary angiogram report is as follows: IMPRESSION 1. Multivessel mild to moderate coronary artery disease. 2. Normal left ventricular ejection fraction. 3. Possible endothelial dysfunction. 4. Elevated left ventricular end diastolic pressure, possible diastolic dysfunction. PLAN 1. Medical therapy for coronary artery disease, aspirin, beta stephie, statin. 2. Risk factor modification. 3. Discussed with the patient the importance of quitting smoking. The patient states he is determined to quit. 4. The patient is anticipating rotator cuff surgery. It will be okay to proceed as anticipated surgery without the cardiac workup and with continuation of beta blo cker and statin projecting a heart rate of around 60 perioperatively. Read by RUBEN STREET MD 12/14/2013 04:26 P LABS Labs done at [facility] today includes normal CBC including hemoglobin of 15.3, hem atocrit 44.4, platelet count 251 and white count of 10.3. Differential was normal. CMP was normal including sodium 138, potassium 3.9, chloride 102, CO2 28, anion gap of 8, creatinin e of 0.8 and BUN of 17 with glucose of 84. Calcium was 10. D-dimer was negative. Troponin was negative at less than 0.03. BNP was normal at 29. Magnesium was 1.9. Repeat labs are ordered and pending here including repeat troponin/CK, LFTs and a.m. lipids . IMAGING No results found. LATEST VS: BP 141/84 mmHg | Pulse 55 | Temp(Src) 37.2 C (98.9 F) (Temporal) | Resp 18 | Ht 1.727 m (5' 8") | Wt 77.4 kg (170 lb 10.2 oz) | BMI 25.95 kg/m2 | SpO2 97% Vital sign ranges for last 24hrs: Input and output for last 24hrs: Temp: [37.2 C (98.9 F)] 37.2 C (98.9 F) Pulse: [55] 55 Resp: [18] 18 BP: (141)/(84) 141/84 mmHg SpO2 Av % Min: 97 % Max: 97 % Body mass index is 25.95 kg/(m^2).; Body surface area is 1.93 meters squared. ALLERGIES No Known Allergies PHYSICAL EXAM BP 141/84 mmHg | Pulse 55 | Temp(Src) 37.2 C (98.9 F) (Temporal) | Resp 18 | Ht 1.727 m (5' 8") | Wt 77.4 kg (170 lb 10.2 oz) | BMI 25.95 kg/m2 | SpO2 97% Body mass index is 25.95 kg/(m^2).; Body surface area is 1.93 meters squared. Vitals with Comments 07/20/2016 07/20/2016 SYSTOLIC 141 - DIASTOLIC 84 - Pulse 55 - Temp 98.9 - Resp 18 - Weight 170 lbs 10 oz 170 lbs 10 oz Height 5' 8" - SPO2 97 - BMI 26 kg/m2 - GENERAL: thin gentleman in no distress. Unaccompanied. HEENT: Anicteric sclera. Hearing apparently normal. The oropharynx and conjunctivae are clear. Mucous membranes moist. Extraocular movements grossly intact with symmetric equal p upils.Normal dentition. NECK: Supple. Carotids are 2+ and brisk bilaterally without bruits. No thyromegaly. Jugu lar venous pulsations are 8 with ? Prominent V wave - question TR. Negative abdominal jugula r test. No adenopathy. CHEST: Clear to auscultation With no use of accessory muscles. Not short of breath at r est. CARDIAC: Rhythm is regular. PMI is normal. Heart sounds: normal S1 and S2 - no murmurs (including no TR murmur heard). No right ventricular heave. ABDOMEN: Soft, non-tender, nondistended with normal, active bowel sounds. Normal abdominal pulsation without bruit. Abdominal aorta not palpably enlarged. No masses. EXTREMITIES: No clubbing, cyanosis or ulcers. There is no edema and no varicosities. PULSES: 2+ PT, DP, radial and 1+ femoral NEUROLOGIC: Non-focal. Patient is alert, oriented x 3, with unremarkable mood and affect. Symmetric face. Fluent Speech. SKIN: No rashes or skin breakdown. No xanthelasma or embolic lesions noted. No stigmata of endocarditis or of vasculitis. Normal digits and nails. MUSCULOSKELETAL: Symmetric musculature. No kyphosis. No red joints. RHEUMATOLOGIC: No livedo reticularis or evidence of Reynaud's phenomena. I expect this patient will be hospitalized for greater than 2-midnights and expect the post -hospital plan to be discharge to home or to an adult foster home. Signed by: Gail Suazo MD 07/20/2016, 17:30 Patient Care Team: Doctor Unknown as PCP - General Thank you for allowing [facility]. Electronically signed by: Gail Suazo MD 07/20/2016 17:30 [facility] Main Office - [address], [address] [place] [address] Office: Medical Records [facility] [place] [address] Main: Physician referral and transfer line: Physician referral fax line: Medical Records phone: Medical Records fax: documented in t his encounter Procedure Notes Vlad Vasquez MD - 07/21/2016 1:56 PM PSTAssociated Order(s): CV CARDIAC PROCEDUREProvi [facility] LEFT CARDIAC CATHETERIZATION REPORT PATIENT NAME: Rodrigo Mayberry DATE OF : 1950 DATE OF PROCEDURE: 07/21/2016 PRIMARY CARE PROVIDER: Doctor Unknown TALENT MANAGER: Dr. Vlad Vasquez MD, [facility], [facility] PRE-PROCEDURE DIAGNOSIS: chest pain, known coronary disease, suspected acute coronary syn drome POST-PROCEDURE DIAGNOSIS: relatively mild coronary disease, hyperdynamic LV function PROCEDURES PERFORMED: 1. Left Heart Catheterization for pressures 2. Coronary Angiography 3. Left Venticulography DESCRIPTION OF PROCEDURE: Informed consent was obtained from the patient, and a time-out was performed to verify the patient's identification and planned procedure. Please refer to the computer log entry form for precise details. The patient's right radial artery was sterilely prepped. Arterial ac cess was achieved with 6 Danish micropuncture kit. Note that the patient had somewhat abnor mal radial artery anatomy with a low bifurcation of the brachial artery that required some f inesse to negotiate. Patient was then given intravenous heparin as well as intra-arterial n itroglycerin through the sheath. A 5 Danish multipurpose catheter was advanced to the desce nding aorta over a Fall wire. This catheter was used to perform right coronary angiography as well as a left ventriculogram. A pullback across the valve was used to assess if there was a gradient across the aortic valve. Left coronary angiography was performed with 5 Frenc h JL 3.5 catheter. The wrist band occluder device was utilized to achieve successful hemostasis of the radial artery. There were no immediate complications. Estimated blood loss was less than 10 cc. FINDINGS: Hemodynamics: Left ventricular end-diastolic pressure (LVEDP) was approximately 10 mm Hg. There was no gradient across the aortic valve. Left Ventriculography: Demonstrated hyperdynamic LV systolic function with near cavity obl iteration of the distal two thirds of the left ventricle. Estimated EF 75 80 percent. Left main coronary artery: Normal Left anterior descending coronary artery: Relatively mild luminal irregularities of less t miller 20%. There was a relatively minor myocardial bridge of the mid LAD. Circumflex coronary artery: Minimal luminal regularities of less than 20% Right coronary artery: Moderate size dominant vessel again with minor luminal regularities CONCLUSIONS: 1. Hyperdynamic LV systolic function with near cavity obliteration of the distal two thirds of the left ventricle. 2. Relatively minimal coronary artery disease present with minor luminal irregularities of less than 20% CLINICAL IMPRESSION AND RECOMMENDATIONS Continued medical therapy advised. An echocardiogram will be obtained to better evaluate l eft ventricular function and exclude a hypertrophic cardiomyopathy. Vlad Vasquez MD, [facility], [facility] DATE/TIME: 07/21/2016 13:57 07/21/2016 13:57 Portions of this chart were created with Blackboard voice recognition software. Occasional wron g-word or sound-alike substitutions may have occurred due to the inherent limitations of voice recognition software. Please read the chart carefully and recognize, using context, where these substitutions have occurred documented in this en counter Miscellaneous Notes Plan of Care - Jazzy Middleton, MARYCRUZ - 07/22/2016 12:01 PM PST Problem: Patient Care Overview (Adult) Goal: Care Team Goals & Evaluation PROBLEM-RELATED GOALS: Patient will become therapeutic on Heparin drip within 24hrs/ by 07/23 Patient will remain free of HIT or bleed through 07/23 STRATEGY TO ACHIEVE GOALS: Heparin drip will be adjusted within one hour of PTT results The initial heparin dose will be based off the pt s actual (no stated) weight The following PTT draw time will be posted in the eMAR If obtaining the PTT from a CVC the nurse will: Stop the heparin infusion, flush the red po rt with 20ml NS, wait 2 minutes, draw & waste 10ml blood, obtain the labdraw, flush with 20m l NS, reconnect the drip. Discontinue the 0400 PTT, as this interferes with the "timed" PTT draw A baseline PTT, INR, & CBC will be drawn within 24hrs prior to initiating the heparin drip. Platelet counts will be monitored closely for a significant drop Each new bag of heparin will be doubled checked by another RN when started. RESTRAINT-RELATED GOALS: STRATEGIES TO ACHIEVE RESTRAINT GOALS: Outcome: Adequate for Discharge Date Met: 07/22/16 Goal Evaluation: 6N / 6S Shift Summary Note Room # 602/602-01 Name: Rodrigo Mayberry [id number] Code Status: Full Code Isolation: None Dx/Tx: Surgery/ Procedure: Filed Vitals: 07/21/16 1609 07/21/16 1700 07/22/16 0656 07/22/16 0801 BP: 123/82 135/85 130/80 Pulse: 46 87 63 Temp: 37.2 C (99 F) 37.3 C (99.1 F) TempSrc: Temporal Temporal Resp: 16 Height: Weight: SpO2: 98% 97% 96% Shift Summary Information: HC done yesterday, minimal Cad. Continued med treatment. r wri st puncture site wnl. No chest pain since admit. Dc home today. SW consult for riding to pul lman. Given dc instruction with meds and f/up. Neuro: o/a Resp: wnl LDAs Iv removed Cardiac: sr/sb Sinus Rhythm: normal sinus rhythm (07/22/16 0801) Active Gtts: heparin infusion Stopped (07/21/16 1245) sodium chloride 0.9% 50 mL/hr (07/21/16 1255) Abnormal Labs/ Treatment: GI: wnl Active Orders Diet Diet fat and cholesterol modified; Effective Now Last Bowel Movement: 07/22/16 (07/22/16 0801) : wnl Skin: (Incisions/ Wounds/ Edema) wnl Pain: denied Activity: independent Therapy involved?: ssessment & Plan No lucia - Gail Suazo MD - 07/22/2016 11:42 AM PSTAssociated Problem(s): Apical varian t hypertrophic cardiomyopathy (HCC)Both his echo and coronary angiogram suggest apical HCM. The EKG does not meet criteria however and he has no CHF or VT. Discussed possible prashanth l syndrome with patient and follow up recommended. lan of Care - Alon Colin RN - 07/22/2016 3:1 8 AM PST Problem: Patient Care Overview (Adult) Goal: Care Team Goals & Evaluation PROBLEM-RELATED GOALS: Patient will become therapeutic on Heparin drip within 24hrs/ by 07/23 Patient will remain free of HIT or bleed through 07/23 STRATEGY TO ACHIEVE GOALS: Heparin drip will be adjusted within one hour of PTT results The initial heparin dose will be based off the pt s actual (no stated) weight The following PTT draw time will be posted in the eMAR If obtaining the PTT from a CVC the nurse will: Stop the heparin infusion, flush the red po rt with 20ml NS, wait 2 minutes, draw & waste 10ml blood, obtain the labdraw, flush with 20m l NS, reconnect the drip. Discontinue the 0400 PTT, as this interferes with the "timed" PTT draw A baseline PTT, INR, & CBC will be drawn within 24hrs prior to initiating the heparin drip. Platelet counts will be monitored closely for a significant drop Each new bag of heparin will be doubled checked by another RN when started. RESTRAINT-RELATED GOALS: STRATEGIES TO ACHIEVE RESTRAINT GOALS: Outcome: Improving Goal Evaluation: 6N / 6S Shift Summary Note Room # 602/602-01 Name: Rodrigo Mayberry [id number] Code Status: Full Code Isolation: None Dx/Tx: Chest Pain Surgery/ Procedure: S/P HC on 07/21 Filed Vitals: 07/21/16 1605 07/21/16 1608 07/21/16 1609 07/21/16 1700 BP: 136/73 123/82 Pulse: 45 46 Temp: 36.3 C (97.4 F) TempSrc: Temporal Resp: 12 Height: Weight: SpO2: 96% 99% 98% Shift Summary Information: Pt admitted on 07/20 with chest pain. Enzymes were negative x 2. HC done yesterday via rt radial site, Minimal diffuse CAD, med tx. Rt radial site stab le. Pt upset at dietary services, mad about not getting a cheeseburger. Refusing care, no VS done, pt refused HS meds. Pt states he wants to be left alone. Neuro: Alert and oriented Resp: Unable to assess LDAs PIV Cardiac: NSR/SB on the monitor Sinus Rhythm: sinus bradycardia (07/22/16 0000) Active Gtts: heparin infusion Stopped (07/21/16 1245) sodium chloride 0.9% 50 mL/hr (07/21/16 1255) Abnormal Labs/ Treatment: GI: WNL Active Orders Diet Diet fat and cholesterol modified; Effective Now Last Bowel Movement: 07/21/16 (07/21/16 0753) : Voiding without difficulty Skin: (Incisions/ Wounds/ Edema) Rt radial site intact Pain: Pt denies Activity: Up independently Therapy involved?: lan of Care - Sindhu Hinds RN - 07/21/2016 8:42 PM PSTFormatting of this note might be different from t dustin original. Problem: Patient Care Overview (Adult) Goal: Care Team Goals & Evaluation PROBLEM-RELATED GOALS: Patient will become therapeutic on Heparin drip within 24hrs/ by 07/23 Patient will remain free of HIT or bleed through 07/23 STRATEGY TO ACHIEVE GOALS: Heparin drip will be adjusted within one hour of PTT results The initial heparin dose will be based off the pt s actual (no stated) weight The following PTT draw time will be posted in the eMAR If obtaining the PTT from a CVC the nurse will: Stop the heparin infusion, flush the red po rt with 20ml NS, wait 2 minutes, draw & waste 10ml blood, obtain the labdraw, flush with 20m l NS, reconnect the drip. Discontinue the 0400 PTT, as this interferes with the "timed" PTT draw A baseline PTT, INR, & CBC will be drawn within 24hrs prior to initiating the heparin drip. Platelet counts will be monitored closely for a significant drop Each new bag of heparin will be doubled checked by another RN when started. RESTRAINT-RELATED GOALS: STRATEGIES TO ACHIEVE RESTRAINT GOALS: Outcome: Unchanged Goal Evaluation: 6N / 6S Shift Summary Note Room # 602/602-01 Name: Rodrigo Mayberry [id number] Code Status: Full Code Isolation: None Dx/Tx: CP Surgery/ Procedure: HC Filed Vitals: 07/21/16 1605 07/21/16 1608 07/21/16 1609 07/21/16 1700 BP: 136/73 123/82 Pulse: 45 46 Temp: 36.3 C (97.4 F) TempSrc: Temporal Resp: 12 Height: Weight: SpO2: 96% 99% 98% Shift Summary Information: HC done today. R radial site c/d/i. No interventions done. Pt up set at dietary services, mad about not getting a cheeseburger. Refused almost all care. No 1 900 vitals, 2100 meds, weight, refused any other food. States he does not want to be touched Neuro: A&Ox4 Resp: RA LDAs PIV x1 Cardiac: SB Sinus Rhythm: sinus bradycardia (07/21/16 1605) Active Gtts: heparin infusion Stopped (07/21/16 1245) sodium chloride 0.9% 50 mL/hr (07/21/16 1255) Abnormal Labs/ Treatment: GI: No bm this shift Active Orders Diet Diet fat and cholesterol modified; Effective Now Last Bowel Movement: 07/21/16 (07/21/16 7273) : Voiding, in urinal Skin: (Incisions/ Wounds/ Edema) R radial site c/d/i Pain: No complaints Activity: Independent Therapy involved?: lan of Care - Ra demetrius Middleton RN - 07/21/2016 1:03 PM PSTFormatting of this note might be different from the kourtney abigail. Problem: Patient Care Overview (Adult) Goal: Care Team Goals & Evaluation PROBLEM-RELATED GOALS: Patient will become therapeutic on Heparin drip within 24hrs/ by 07/23 Patient will remain free of HIT or bleed through 07/23 STRATEGY TO ACHIEVE GOALS: Heparin drip will be adjusted within one hour of PTT results The initial heparin dose will be based off the pt s actual (no stated) weight The following PTT draw time will be posted in the eMAR If obtaining the PTT from a CVC the nurse will: Stop the heparin infusion, flush the red po rt with 20ml NS, wait 2 minutes, draw & waste 10ml blood, obtain the labdraw, flush with 20m l NS, reconnect the drip. Discontinue the 0400 PTT, as this interferes with the "timed" PTT draw A baseline PTT, INR, & CBC will be drawn within 24hrs prior to initiating the heparin drip. Platelet counts will be monitored closely for a significant drop Each new bag of heparin will be doubled checked by another RN when started. RESTRAINT-RELATED GOALS: STRATEGIES TO ACHIEVE RESTRAINT GOALS: Outcome: Unchanged Goal Evaluation: 6N / 6S Shift Summary Note Room # 602/602-01 Name: Rodrigo Mayberry [id number] Code Status: Full Code Isolation: None Dx/Tx: Surgery/ Procedure: Filed Vitals: 07/21/16 0431 07/21/16 0753 07/21/16 0940 07/21/16 1209 BP: 111/69 103/72 102/69 106/75 Pulse: 53 50 47 48 Temp: 36.7 C (98 F) 37.2 C (98.9 F) 37.1 C (98.7 F) TempSrc: Temporal Temporal Temporal Resp: Height: Weight: SpO2: 97% 96% Shift Summary Information: Admitted with chest pain. Troponin negative x2. Echo done this am. No chest pain today besides l shoulder pain which is chronic pain from injury. Refused p ain pill. Went to [facility] for heart cath. Neuro: o/a Resp: wnl LDAs Iv patent Cardiac: sr Sinus Rhythm: sinus bradycardia (07/21/16 1257) Active Gtts: heparin infusion 950 Units/hr (07/21/16 0933) Abnormal Labs/ Treatment: GI: wnl Active Orders Diet Diet fat and cholesterol modified; Effective Now Last Bowel Movement: 07/21/16 (07/21/16 0753) : wnl Skin: (Incisions/ Wounds/ Edema) wnl Pain: Denied. Activity: Independent Therapy involved?: lan of Care - Kaycee alfonso, Alon Panchal RN - 07/21/2016 4:29 AM PST Problem: Patient Care Overview (Adult) Goal: Care Team Goals & Evaluation PROBLEM-RELATED GOALS: Patient will become therapeutic on Heparin drip within 24hrs/ by 07/23 Patient will remain free of HIT or bleed through 07/23 STRATEGY TO ACHIEVE GOALS: Heparin drip will be adjusted within one hour of PTT results The initial heparin dose will be based off the pt s actual (no stated) weight The following PTT draw time will be posted in the eMAR If obtaining the PTT from a CVC the nurse will: Stop the heparin infusion, flush the red po rt with 20ml NS, wait 2 minutes, draw & waste 10ml blood, obtain the labdraw, flush with 20m l NS, reconnect the drip. Discontinue the 0400 PTT, as this interferes with the "timed" PTT draw A baseline PTT, INR, & CBC will be drawn within 24hrs prior to initiating the heparin drip. Platelet counts will be monitored closely for a significant drop Each new bag of heparin will be doubled checked by another RN when started. RESTRAINT-RELATED GOALS: STRATEGIES TO ACHIEVE RESTRAINT GOALS: Outcome: Improving Goal Evaluation: 6N / 6S Shift Summary Note Room # 602/602-01 Name: Rodrigo Mayberry [id number] Code Status: Full Code Isolation: None Dx/Tx: Chest Pain Surgery/ Procedure: Plan for HC today at 1330 Filed Vitals: 07/20/16 1600 07/20/16 1727 07/20/16 1945 07/20/16 2326 BP: 141/84 124/77 108/74 Pulse: 55 56 57 Temp: 37.2 C (98.9 F) 36.3 C (97.4 F) 36.5 C (97.7 F) TempSrc: Temporal Temporal Temporal Resp: Height: 1.727 m (5' 8") Weight: 77.4 kg (170 lb 10.2 oz) 77.4 kg (170 lb 10.2 oz) SpO2: 97% 98% 96% Shift Summary Information: Pt admitted on 07/20 with chest pain. Enzymes have been negativ e. Heparin at 1050 units/hr, next ptt at 0730. No C/O chest pain overnight. No NPO order, but pt was kept NPO for a scheduled HC at 1330. Neuro: Alert and oriented Resp: RA sats WNL LDAs PIV Cardiac: NSR/SB Sinus Rhythm: sinus bradycardia;normal sinus rhythm (07/21/1611) Active Gtts: heparin infusion 1,150 Units/hr (07/20/161948) Abnormal Labs/ Treatment: Troponin has been negative GI: Kept NPO for HC today Active Orders Diet Diet fat and cholesterol modified; Effective Now Last Bowel Movement: 07/19/16 (07/21/1611) : Voiding without difficulty Skin: (Incisions/ Wounds/ Edema) Intact Pain: Pt denies Activity: Up with minimal SBA (IV Pole) Therapy involved?: lan of Care - Jean Claude Delgado RN - 07/20/2016 9:48 PM PSTFormatting of this note might be different f rom the original. Problem: Patient Care Overview (Adult) Goal: Care Team Goals & Evaluation Heparin drip will be adjusted within one hour of PTT results The initial heparin dose will be based off the pt s actual (no stated) weight The following PTT draw time will be posted in the eMAR Platelet counts will be monitored closely for a significant drop Each new bag of heparin will be doubled checked by another RN when started. PROBLEM-RELATED GOALS: STRATEGY TO ACHIEVE GOALS: RESTRAINT-RELATED GOALS: STRATEGIES TO ACHIEVE RESTRAINT GOALS: Outcome: Improving Goal Evaluation: 6N / 6S Shift Summary Note Room # 602/602-01 Name: Rodrigo Mayberry [id number] Code Status: Full Code Isolation: None Dx/Tx: Surgery/ Procedure: Filed Vitals: 07/20/16 1600 07/20/16 1727 07/20/161944 BP: 141/84 124/77 Pulse: 55 56 Temp: 37.2 C (98.9 F) 36.3 C (97.4 F) TempSrc: Temporal Temporal Resp: 18 18 Height: 1.727 m (5' 8") Weight: 77.4 kg (170 lb 10.2 oz) 77.4 kg (170 lb 10.2 oz) SpO2: 97% 98% Shift Summary Information: pt admitted w/ chest pain, received nitro at [facility]. Denied chest pain during the shift.Trop negative. On hgtt , next PTT 0200. Sinus bra dy on tele. VSS. Independent. Neuro: A/ox4. Resp: RA sat in 90's. LDAs PIV Cardiac: Sinus Rhythm: sinus bradycardia;normal sinus rhythm (07/20/161599) Active Gtts: heparin infusion 1,150 Units/hr (07/20/161948) Abnormal Labs/ Treatment: GI: wdl Active Orders Diet Diet fat and cholesterol modified; Effective Now Last Bowel Movement: 07/19/16 (07/20/161599) : Voiding per urinal. Skin: (Incisions/ Wounds/ Edema) Pain: Denied pain. Activity: Independent Therapy involved?: ssessment & Plan Note - Gail Suazo MD - 07/20/2016 5:30 PM PSTAssociated Problem(s): Bradycardi aAsymptomatic but is limiting titration of BB. Will monitor. ssessment & Plan James - Gail Suazo MD - 07/20/2016 5:30 PM PSTAssociated Problem(s): 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Minor CAD as noted in coronary angiogram report during this admission. ssessment & Pl an Note - Gail Suazo MD - 07/20/2016 3:57 PM PSTAssociated Problem(s): Abnormal EKGReported T inversion with CP but all EKG here are benign. He specifically has not had t he giant anterolateral T inversions usually seen at baseline in apical hypertrophic cardiomy opathy. ssessme nt & Plan Note - Gail Suazo MD - 07/20/2016 3:57 PM PSTAssociated Problem(s): A CS (acute coronary syndrome) (HCC)Presumptive diagnosis of CAD and acute coronary syndrome. Patient gave history of plain balloon angioplasty of vessel in the past. However we did obt ain records from [facility] and his coronary angiogram there showed only mild atherosclerotic pl aque. Coronary angiogram done here from right radial approach showed minimal (20%) luminal irregu larities and normal LV EDP of 10 mm Hg and normal EF. Risk reduction for his minor CAD is recommended including tobacco cessation, statin, regula r exercise and good blood pressure control. Would boost statin to 80 mg a day of atorvastat in if tolerated. TAssessment & Plan Note - Gail Suazo MD - 07/20/2016 3:56 PM PSTAssociated Prob maury(s): Essential hypertensionThe patient is reportedly on metoprolol with initial blood pre ssure and pulmonary 160/100. Added JAYESH-I as bradycardia limits further titration of BB. Rachna ctronically signed by Gail Suazo MD at 07/21/2016 7:24 AM PSTAssessment & Plan N ote - Gail Suazo MD - 07/20/2016 3:55 PM PSTAssociated Problem(s): Hyperlipidem ia LDL goal <70The patient was previously on atorvastatin-at 20 mg a day. We will place on high-dose atorvastatin since he does appear to be having an acute coronary syndrome. Fastin g lipids are pending. I have ordered them twice - reordered them today. Electronically sign ed by Gail Suazo MD at 07/22/2016 11:40 AM PSTAssessment & Plan James - Gail Razo MD - 07/20/2016 3:55 PM PSTAssociated Problem(s): Tobacco useOngoing tobacco a buse which is a major risk factor for not only cardiovascular events but lung disease and ca ncer. Smoking cessation is recommended. 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 documented in this encounter Plan of Treatment [...] + | Vlad Vasquez MD 07/21/2016 14:00 [facility] | | | [facility] LEFT CARDIAC CATHETERIZATION REPORT | | | PATIENT NAME: Rodrigo Mayberry DATE OF : 1950 | | | DATE OF PROCEDURE: 07/21/2016 | | | | | | PRIMARY CARE | | | PROVIDER: Doctor Unknown TALENT MANAGER: Dr. Vlad Vasquez, | | | , [facility], [facility] PRE-PROCEDURE DIAGNOSIS: chest pain, known | | [...] was | | | achieved with 6 Danish micropuncture kit. Note that the patient | | | had somewhat abnormal radial artery anatomy with a low bifurcation | | | of the brachial artery that required some finesse to negotiate. | | | Patient was then given intravenous heparin as well as | | | intra-arterial nitroglycerin through the sheath. A 5 Danish | | | multipurpose catheter was advanced [...] Left coronary angiography was performed with 5 Danish | | | JL 3.5 catheter. The [...] Vlad Gutierres | | | MD Pedro, [facility], [facility] | | | DATE/TIME: 07/21/2016 13:57 07/21/2016 13:57 Portions of this | | | chart were created with Blackboard voice recognition software. | | | Occasional [...] | | | RODRIGO MAYBERRY Date: 07/21/2016MRN: [id number] | | | Patient Location: [facility]DOB: 1950 | | | Age: [...] Physician: GAIL SUAZOEchocardiographer: Vikash | | | [id number]: | | |There is no pericardial effusion. [...] | |Ordering Physician: GAIL SUAZO | | |Catalyst Impregnator: Vikash Perez | | |[id number]: | | | | | + +--------- -----+ + + | Procedure Note | + + | Gaurav, Rad Results In - 07/22/2016 9:13 AM PST | | Adult Echo | | Report | | | | Name: RODRIGO MAYBERRY Date: 07/21/2016 | | Patient Location: [place] [address] | | : 1950 Age: 65 yrs [...] | Ordering Physician: GAIL SUAZO | | Catalyst Impregnator: Vikash Perez | | [id number]: | + + PTT (07/21/2016 7:40 AM [...] + + + + + | [facility] | [address] | [place] [address] | | | [facility] | | | | | LABORATORY | | | | + + + + + CBC no Differential (07/21/2016 12:26 AM PST) + +-------+ + + + | Component | Value | Ref Range | Performed | Pathologist | | | | | At | Signature | + +-------+ + + + | White Blood | 8.8 | 3.8 - 11.0 K/uL | [facility] | | | Cells | | | [facility] | | | | | | [facility] | | | | | | MEDICAL | | | | | | CENTER | | | | | | LABORATORY | | + +-------+ + + + | Red Blood | 4.45 | 4.20 - 5.70 | [facility] | | | Cells | | M/uL | [facility] | | [...] + + | [facility] | [address] | [place] [address] | | | [facility] | | | | | [...] + + + | Glucose | 88Comment: Icelandic | 65 - 99 mg/dL | [facility] [...] | + + + + + | [facility] | [address] | [place] [address] | | | [facility] | | | | | LABORATORY [...] + + | [facility] | [address] | [place] [address] | | | [facility] | [...] + + | [facility] | [address] | [place] [address] | | | [facility] | | | | | [...] + + + + + + | Color, | Light Yellow | | [facility] | | | Urine | | | [facility] | | | | | | HEART | | | | | | MEDICAL | | | | | | CENTER | | | | | | LABORATORY | | + + + + + + | Clarity, | Clear | | [facility] | | | Urine | [...] - 1.030 | [facility] | | | [place] | | | [facility] | | | [...] + + + + + + | White Blood | <1 | <6 /hpf | [facility] | | | Cells, | | | [facility] | | | Urine | | | HEART | | | | | | MEDICAL | | | | | | CENTER | | | | | | LABORATORY | | + + + + + + | Red Blood | 1 | <3 /hpf | [facility] | | | Cells, | | | [facility] | | | Urine | | | HEART | | | | | | MEDICAL | | | | | | CENTER | | | | | | LABORATORY | | + + + + + + | Bacteria, | None seen | /hpf | [facility] | | | Urine | | | [facility] | | | | | | HEART | | | | | | MEDICAL | | | | | | CENTER | | | | | | LABORATORY | | + + + + + + | Squamous | Not clinically | /lpf | [facility] | | | Epithelial | significant.Comment: | | [facility] | | | Cells, | Healthy individuals show | | HEART | | | Urine | up to FEW squamous | | MEDICAL | | | | epithelial cells in the | | CENTER | | | | urine, depending on | | LABORATORY | | | | collection method. | | | | + + + + + + | Mucus, | Present (A) | None seen /lpf | [facility] | | | Urine | [...] + + | [facility] | [address] | [place] [address] | | | [facility] | | | | | [...] 14.0 | 12.0 - 14.2 sec | [facility] | | | Time | | | [...] + + | [facility] | [address] | [place] [address] | | | [facility] | | | | | LABORATORY [...] + + | [facility] | [address] | [place] [address] | | | [facility] | [...] | TRACEMASTER | | Duration:164 msP Horizontal Dime Box:19 degP Front Dime Box:47 degQ Onset:512 | | | msQRSD Interval:94 msQT Interval:436 msQTcB:390 msQTcF:405 msQRS | | | Horizontal Dime Box:5 degQRS Dime Box:54 degI-40 Horizontal Dime Box:47 degI-40 | | | Front Dime Box:42 degT-40 Horizontal Dime Box:-24 degT-40 Front Dime Box:51 degT | | | Horizontal Dime Box:47 degT Wave Dime Box:54 degS-T Horizontal Dime Box:90 degS-T | | | Front Dime Box:-43 degSeverity:- OTHERWISE NORMAL ECG -INTERP:SINUS | | | BRADYCARDIAElectronically signed by: , 07-20-2016 21:27:53 | | |QT Interval:436 ms | | |QTcB:390 ms | | |QTcF:405 ms | | |QRS Horizontal Dime Box:5 deg | | |QRS Dime Box:54 deg | | |I-40 Horizontal Dime Box:47 deg | | |I-40 Front Dime Box:42 deg | | |T-40 Horizontal Dime Box:-24 deg | | |T-40 Front Dime Box:51 deg | | |T Horizontal Dime Box:47 deg | | |T Wave Dime Box:54 deg | | |S-T Horizontal Dime Box:90 deg | | |S-T Front Dime Box:-43 deg | | |Severity:- OTHERWISE NORMAL ECG - | | |INTERP:SINUS BRADYCARDIA | | |Electronically signed by: , 07-20-2016 21:27:53 | | + + + + + + + + | Performing | Address | City/State/Zipcode | Phone Number | | Organization | | | | + + + + + | [facility] | [address] | [place] [address] | [phone] | + + + + + Hepatic [...] + + | [facility] | [address] | [place] [address] | | | [facility] | [...] + + + + + | [facility] | [address] | [place] [address] | | | [facility] | | | | | LABORATORY [...] | + + + + + | [facility] | [address] | [place] [address] | | | [facility] | | | | | LABORATORY [...] dysrhythmias | + + | 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 Coronary atherosclerosis of wainwright coronary artery | + + | Essential [...] | | | | | | Starting Sat07/20/16 at 1615, | | | | | [...]
--- OUTSIDE RECORDS SUMMARY | ~2020-04-01 | XMS | Encounter Summary ---
Demographics + + + | Address | [address] | | | [place] [address] | + + + | Home Phone | | + + + | Preferred Language | Unknown | + + + | Marital Status | Single | + + + | Sabianist Affiliation | Unknown | + + + | Race | Unknown | + + + | Ethnic Group | Unknown | + + + Author + + + | Author | [facility] | | | [facility] | + + + | Organization [...] Providers + +------+ + | Care Solar Energy Technician Name | Role | Phone | + +------+ + PCP | Unavailable | + +------+ + Encounter Details +--------+ + + + + | Date | Type | Department | Care Team | Description | +--------+ + + + + | 05/13/ | Hospital | [facility] | Daljit Bro | | | 2012 | Encounter | H[facility] | [address] | | | | | [address] | | [address] [place] | | | | | [id number] | [phone] | | | | | [phone] | [phone] | | | | | | | [...]
--- OUTSIDE RECORDS SUMMARY | ~2020-04-01 | XMS | Encounter Summary ---
Demographics + + + | Address | [address] | | | [place] [address] | + + + | Home Phone | | + + + | Preferred Language | Unknown | + + + | Marital Status | Single | + + + | Muslim Affiliation | Unknown | + + + | Race | Unknown | + + + | Ethnic Group | Unknown | + + + Author + + + | Author | [facility] | | | and [facility] | + + + | Organization | [facility] | | | [...] Providers + +------+ + | Care Assistant To The Ceo Name | Role | Phone | + +------+ + PCP | Unavailable | + +------+ + Encounter Details +--------+ + + + + | Date | Type | Department | Care Team | Description | +--------+ + + + + | 10/02/ | Orders Only | [facility] | Leonel Arechiga MD | | | 2014 | | [facility] | | | | | | PRIMARY CARE [address] | | | | | | [address] | | | | | | [address] | | | | | | [phone] | | | +--------+ + + + [...] + | TROPONIN I | Timed | 10/02/2014 | | Results for this | | | | 6:14 PM | | procedure are in the | | | | PST | | results section. | + +--------+ + + + | CBC W/AUTO | STAT | 10/02/2014 | | Results for this | | DIFFERENTIAL | | 12:40 PM | | procedure are in the | | | | PST | | results section. | + +--------+ + + + | TROPONIN I | STAT | 10/02/2014 | | Results for this | | | | 12:40 PM | | procedure are in the | | | | PST | | results section. | + +--------+ + + + | BASIC METABOLIC | STAT | 10/02/2014 | | Results for this | | PANEL | | 12:40 PM | | procedure are in the | | | | PST | | results section. | + +--------+ + + + documented in this encounter Results Troponin I (10/02/2014 6:14 PM PST) + + + + + [...] | | | | | of or [place] at 48 | | | | | [...] | + +---------+ + + Troponin I (10/02/2014 12:40 PM PST) + + + + + [...] | | | | | of or [place] at 48 | | | | | [...] +---------+ + + CBC w/ Auto Differential (10/02/2014 12:40 PM PST) + + + + + + | Component | Value | Ref Range | Performed | Pathologist | | | | | At | Signature | + + + + + + | Red Blood | 5.22 | 4.50 - 6.00 | EXTERNAL | | | Cells | | MIL/uL | LAB | | + + + + + + | White Blood | 9.1 | 4.5 - 11.0 K/uL | EXTERNAL | | | Cells | | | LAB | | + + + + + + | Hematocrit | 45.1 | 39.0 - 51.9 % | EXTERNAL | | | | | | LAB | | + + + + + + | Hemoglobin | 15.4 | 13.1 - 17.4 | EXTERNAL | | | | | g/dL | LAB | | + + + + + + | Platelet | 229 | 140 - 440 K/uL | EXTERNAL | | | Count | | | LAB | | + + + + + + | Absolute | 0.08 | 0.00 - 0.20 | EXTERNAL | | | Basophils | | K/uL | LAB | | + + + + + + | % Basophils | 0.9 | 0 - 3 % | EXTERNAL | | | | | | LAB | | + + + + + + | % | 1.0 | 0.0 - 7.0 % | EXTERNAL | | | Eosinophils | | | LAB | | + + + + + + | Absolute | 0.09 | 0.00 - 2.50 | EXTERNAL | | | Eosinophils | | K/uL | LAB | | + + + + + + | Absolute | 1.91 | 0.60 - 3.40 | EXTERNAL | | | Lymphocytes | | K/uL | LAB | | + + + + + + | % | 21.1 | 10.0 - 50.0 % | EXTERNAL | | | Lymphocytes | | | LAB | | + + + + + + | Absolute | 0.52 | 0.00 - 4.00 | EXTERNAL | | | Monocytes | | K/uL | LAB | | + + + + + + | % Monocytes | 5.7 | 0.0 - 12.0 % | EXTERNAL | | | | | | LAB | | + + + + + + | Absolute | 6.45 | 1.67 - 8.80 | EXTERNAL | | | Neutrophils | | K/uL | LAB | | + + + + + + | % | 71.3 | 37 - 80 % | EXTERNAL | | | Neutrophils | | | LAB | | + + + + + + | MCH | 29.6 | 26.0 - 32.0 pg | EXTERNAL | | | | | | LAB | | + + + + + + | MCHC | 34.2 | 31.0 - 36.0 | EXTERNAL | | | | | g/dL | LAB | | + + + + + + | MCV | 86 | 75 - 95 fL | EXTERNAL | | | | | | LAB | | + + + + + + | RDW-CV | 11.4 (L) | 11.6 - 14.8 % | [...] + +---------+ + + Basic Metabolic Panel (10/02/2014 12:40 PM PST) + + + + + + | Component | Value | Ref Range | Performed | Pathologist | | | | | At | Signature | + + + + + + | Creatinine | 1.02 | 0.70 - 1.40 | EXTERNAL | | | | | mg/dL | LAB | | + + + + + + | Calcium | 9.4 | 8.3 - 10.0 | EXTERNAL | | | | | mg/dL | LAB | | + + + + + + | K | 3.8 | 3.3 - 4.9 | EXTERNAL | | | | | mmol/L | LAB | | + + + + + + | Na | 138 | 134 - 144 | EXTERNAL | | | | | mmol/L | LAB | | + + + + + + | Cl | 104 | 95 - 108 mmol/L | EXTERNAL | | | | | | LAB | | + + + + + + | CO2 | 24.8 | 23.0 - 34.0 | EXTERNAL | | | | | mmol/L | LAB | | + + + + + + | BUN | 19 | 5 - 26 mg/dL | EXTERNAL | | | | | | LAB | | + + + + + + | Glucose | 96 | 70 - 110 mg/dL | EXTERNAL | | | | | | LAB | | + + + + + + | Anion Gap | 9.2 | 7.0 - 16.0 | EXTERNAL | | | | | mmol/L | LAB | | + + + + + + | BUN/Creatin | 18.6 | 7.0 - 24.0 | EXTERNAL | | | ine Ratio | | mg/dL | LAB | | + + + + + + | GFR | 73.76 | - | EXTERNAL | | | [...]
--- OUTSIDE RECORDS SUMMARY | ~2020-04-01 | XMS | Encounter Summary ---
Demographics + + + | Address | [address] | | | [place] [address] | + + + | Home Phone | | + + + | Preferred Language | Unknown | + + + | Marital Status | Single | + + + | Adventism Affiliation | Unknown | + + + | Race | Unknown | + + + | Ethnic Group | Unknown | + + + Author + + + | Author | [facility] | | | and [facility] | + + + | Organization | [facility] | | | [...] Team Providers + +------+ + | Care Market Gardener Name | Role | Phone | + [...] [place] | | | | | | [address] | | | | | | [phone] | | | +--------+ + + + [...]
--- OUTSIDE RECORDS SUMMARY | ~2020-04-01 | XMS | Encounter Summary ---
Demographics + + + | Address | [address] | | | [place] [address] | + + + | Home Phone | | + + + | Preferred Language | Unknown | + + + | Marital Status | Single | + + + | Protestant Affiliation | Unknown | + + + | Race | Unknown | + + + | Ethnic Group | Unknown | + + + Author + + + | Author | [facility] | | | and [facility] | + + + | Organization | [facility] | | | [...] Team Providers + +------+ + | Care Oil Pipeline Operator Name | Role | Phone | + +------+ + PCP | Unavailable | + +------+ + Encounter Details +--------+ + + + + | Date | Type | Department | Care Team | Description | +--------+ + + + + | 04/03/ | Hospital | [facility] | Obdulia Bucio | | | 2013 | Encounter | HOSPITAL EMERGENCY | [address] | | | | | [address] | [address] [place], [place] | [place] [address] | | | | | [address] | [phone] | | | | | [phone] | | | +--------+ + + + [...] + documented as of this encounter ED Obdulia Urbano MD - 04/05/2014 12:07 AM PDTER PROVIDER: Obdulia Bucio MD CHIEF COMPLAINT: Chest pain. HISTORY OF PRESENT ILLNESS: The patient is a 63 -year-old gentleman who came in with sudden onset of chest discomfort about an hour prior to his arrival in the Emergency Department. Susan avila says he was just sitting at home and he had sudden substernal chest discomfort This is s imilar to the chest pain that he has had off and on for months, now. He has actually been se en, evaluated and had a cardiac cath with angioplasty about [id number]-[id number] by a parts advisor i [facility]. He said that the pain that he has now is the same pain he had before this and the same pain that he has had after this. He has his nitro that he uses at home. He act ually used it and it helped his pain though did not cause it to completely resolve and that is why he came in to the hospital. He notes he has chest pain at least a couple of times a week, of this degree, and, then, at other times to a lesser degree. It usually happens when he bends-over or squats-down. He d enies any stomach pain or GERD. He says he has tried Prilosec in the past without any signif icant improvement, does not recall if he has had an EGD. CARDIAC RISK FACTORS: The patient has known cardiac disease via cardiac cath but, apparently, things are better a fter his angioplasty, per the patient. He does not have diabetes that he knows of. He does take a cholesterol medication. He does smoke. He has cut-down from over 1-zmlyp-nuv-day to -cohb-iym-wna. He does have family history of heart disease, as well. REVIEW OF SYSTEMS: He denies any shortness of breath or diaphoresis with the pain. The patient says he has been doing relatively well. He does have some exertional chest pain off and on, does not seem to always be related to w alking, however. He denies any headache or blurry vision. No cough. No significant shortness of breath. He does have left shoulder pain and, in fact, had an initial treadmill test, that he failed , after a pre-op visit to have his torn rotator cuff repaired and it has not been repaired as of yet. He denies any abdominal discomfort. No diarrhea. No dysuria. No hematuria. No lower extremity edema. The patient does have a cellulitis on his lower extremities that he is on Keflex for. PAST MEDICAL HISTORY: Past medical history includes: Cardiac disease with recent stent as noted above. Hyperlipidemia. He denies hypertension. Rhinitis. Rotator cuff tear and AC shoulder separation on the left. He has recurrent folliculitis. PAST SURGICAL HISTORY: The patient said he has had numerous surgeries for fractures. CURRENT MEDICATIONS: His current medications that we could tell from a list that we could obtain includes: Nitro as-needed. Lopressor 25 mg twice daily. Flonase as-needed. Aspirin 81 mg daily. Cossayuna as-needed. Keflex 500 mg 3 x daily. ALLERGIES: NO KNOWN DRUG ALLERGIES. PHYSICAL EXAMINATION: GENERAL/VITALS: The patient is afebrile with a temperature of 36.8, blood pressure 141/93, this did improve, heart rate 69, respirations 15, oxygen 95% on room air. In general: The patient is alert and oriented, does appear uncomfortable but in no significant distress. HEENT: Normocephalic, no sign of head trauma. Pupils are equally round. Mucous membranes ar e moist. He does have poor dentition. No JVD. Neck is supple. CHEST: Heart was regular rate without murmur, rub or gallop. Lungs were clear. ABDOMEN: Abdomen is soft. EXTREMITIES: Lower extremities showed no edema. He does have a red scattered papules with some excoriation, consistent with folliculitis, that is superficially infected. IMAGING: EKG shows suture removal without any acute abnormalities. STUDIES: CBC, CMP and troponin were all initially negative. ER COURSE: The patient received 1 Nitro sub lingually with complete resolution of his pain. I discussed that this does not sound cardiac, especially with a cardiac cath done recently and angioplasty, however I am not sure of the specific cause of his chest pain. I do think t hat it is worth keeping him here for a recheck troponin in 6 hours, just to make sure there is no change. He is agreeable with that. He is monitored for 5 more hours with no EKG abnor malities, no reoccurrence of his symptoms of chest pain. He did receive Pepcid 20 p.o. x 1. ASSESSMENT AND PLAN: He has had two negative troponins. I am a little suspicious it could be related to esophageal spasms or even antritis or esophagitis. I have offered a prescript ion for Prilosec, which he has declined. He would prefer to discuss things with Dr. Jefferson , which I think is very reasonable. I do think that a GI workup with an upper GI might be w arranted. The patient was discharged home in improved condition. dictation date: 04/03/2014 14 12:07 AM PDTdocumented in this encounter Plan of Treatment Not on filedocumented as of this encounter Visit Diagnoses Not on filedocumented in this encounter"
--- OUTSIDE RECORDS SUMMARY | ~2020-04-01 | XMS | Encounter Summary ---
Demographics + + + | Address | [address] | | | [place] [address] | + + + | Home Phone | | + + + | Preferred Language | Unknown | + + + | Marital Status | Single | + + + | Temple Affiliation | Unknown | + + + | Race | Unknown | + + + | Ethnic Group | Unknown | + + + Author + + + | Author | [facility] | | | and [facility] | + + + | [...] Team Providers + +------+ + | Care Eligibility Worker Name | Role | Phone | + +------+ + PCP | Unavailable | + +------+ + Encounter Details +--------+ + + + + | Date | Type | Department | Care Team | Description | +--------+ + + + + | 01/06/ | Hospital | [facility] | Daljit Bro | | | 2013 | Encounter | HOSPITAL LABORATORY | [address] | | | | | [address] | [address] | | | | | [place], [place] | [place] | | | | | [address] | [address] | | | | | [phone] | [phone] | | | | | | | [...]
--- OUTSIDE RECORDS SUMMARY | ~2020-04-01 | XMS | Encounter Summary ---
Demographics + + + | Address | [address] | | | [place] [address] | + + + | Home Phone | | + + + | Preferred Language | Unknown | + + + | Marital Status | Single | + + + | Rastafarian Affiliation | Unknown | + + + | Race | Unknown | + + + | Ethnic Group | Unknown | + + + Author + + + | Author | [facility] | | | and [facility] | + + + | Organization | [facility] | | | [...] Team Providers + +------+ + | Care Knife Cutter Name | Role | Phone | + +------+ + | Love Prabhakar DO | PCP | | + +------+ + Encounter Details +--------+ + + + + | Date | Type | Department | Care Team | Description | +--------+ + + + + | 12/14/ | Orders Only | [facility] | Faheem Davila, | | | 2014 | | CARDIOLOGY [place] | [address] | | | | | [address] | [place] [address] | | | | | [place], [place] | [phone] | | | | | [address] | | | | | | [phone] | | | +--------+ + + + [...] seen by | | | his primary labor economics teacher, Dr. Davila. The patient was referred for [...] accessed using | | | angiocatheter. A 6-Nicaraguan sheath was placed in the right radial [...] radial artery | | | occlusion. A 5-Nicaraguan JR-4 catheter was used for selective engagement | | | of the right coronary system and angiographic views were obtained. | | | Subsequently 5-Nicaraguan JL-4 catheter was used for selective engagement | | | of the left coronary system and angiographic views were obtained. A | | | 5-Nicaraguan angled pigtail catheter was used for ventriculogram [...] Note | + + | Danilo Nolasco - 05/01/2019 10:12 AM PDT | | [...] was seen by his primary | | labor economics teacher, Dr. Davila. The patient was referred for [...] radial artery was accessed using angiocatheter. A 6-Nicaraguan sheath was | | placed in the [...] the radial | | artery occlusion. A 5-Nicaraguan JR-4 catheter was used for selective | | engagement of the right coronary system and angiographic views were | | obtained. Subsequently 5-Nicaraguan JL-4 catheter was used for selective | | engagement of the left coronary system and angiographic views were | | obtained. A 5-Nicaraguan angled pigtail catheter was used for ventriculogram [...]
--- OUTSIDE RECORDS SUMMARY | ~2020-04-01 | XMS | Clinical Summary ---
Demographics + + + | Address | [address] | | | [place] [address] | + + + | Home Phone | | + + + | Preferred Language | Unknown | + + + | Marital Status | Single | + + + | Amish Affiliation | Unknown | + + + | Race | Unknown | + + + | Ethnic Group | Unknown | + + + Author + + + | Author | [facility] | | | and [facility] | + + + | Organization | [facility] | | [...] Providers + +------+ + | Care Computer Systems Analyst Name | Role | Phone | [...] | | | | | CAD in [place] artery | | | | | | [...] we did obtain records | | from [facility] and his coronary angiogram there showed [...] + + + + | CAD in [place] artery | 07/20/2016 | + + + + + | Overview: Coronary angiogram 2013 in [facility] - mild to | | moderate [...] on file | | + + + Last Filed Vital Signs + [...] Health Maintenance | Due Date | Last | Comments | | | | Done | | + + + + + | Vaccine: Zoster (1 | | | | | of 2) | 2 | | | + + + + + | Vaccine: | | | | | Pneumococcal 65+ (1 | 7 | | | | of 1 - PPSV23) | | | | + + + + + | Vaccine: Influenza | | | | | (#1) | 0 | | | + + + + + | Vaccine: | | 01/01/20 | | | Dtap/Tdap/Td (2 - | 4 | 14 | | | Td) | | | [...] +--------+ +---------+--------+ | MEDICARE | MEDICA | [id number] | 09/09/19 | [phone] | | Medica | | | RE | | 17-Pre | 5 | | re | | | PART A | | sent | | | | | | AND B | | | | | | + +--------+ +--------+ +---------+--------+ | [employer] | [employer] | [id number] | | | | Indemn | | [...] [address] | | | al/Fam | | 1950 | [phone] | [place] [address] | | | yessica | | | 1 (Home) | | + +--------+ +--------+ + + Advance Directives + + + + + | Type | Date Recorded | Patient | Explanation | | | | Airport Ramp Attendant | | + + + + + | Power of | | | | | Mechanical Maintenance Supervisor | | | | + + + [...]
--- OUTSIDE RECORDS SUMMARY | ~2020-04-01 | XMS | Encounter Summary ---
Demographics + + + | Address | [address] | | | [place] [address] | + + + | Home Phone | | + + + | Preferred Language | Unknown | + + + | Marital Status | Single | + + + | Zoroastrian Affiliation | Unknown | + + + | Race | Unknown | + + + | Ethnic Group | Unknown | + + + Author + + + | Author | [facility] | | | and [facility] | + + + | Organization | [facility] | | | and [place] | + + + | Address | Unknown | + + + | Phone | Unavailable | + + + Support + + +---------+ + | Name | Relationship | Address | Phone | + + +---------+ + | Angela uAstin | ECON | Unknown | | + + +---------+ + | Linda Mayberry | ECON | Unknown | | + + +---------+ + Care Team Providers + +------+ + | Care Vp Transportation Name | Role | Phone | + [...] | of breath) | [place] | [address] | | | | | Procedures | [address] | Phone: | | | | | ECHO | Phone: | [phone] | | | | | Complete | [phone] | Fax: | | | | | | Fax: | [phone] | | | | | | [phone] | | +--------+--------+ + + + + [...] | | | | of breath) | [place], [place] | [address] | | | | | Procedures | [address] | Phone: | | | | | ECHO | Phone: | [phone] | | | | | Complete | [phone] | Fax: | | | | | | Fax: | [phone] | | | | | | [phone] | | +--------+--------+ + + + + Encounter Details +--------+ + + + + | Date | Type | Department | Care Team | Description | +--------+ + + + + | 08/09/ | Hospital | [facility] | Zaida Nava, | Palpitations; SOB | | 2017 | Encounter | HEART CARDIOVASCULAR | PA-C [address] | (shortness of | | | | [facility] | [address] | breath) | | | [facility] | [place] [address] | | | | | [address] | [phone] | | | | | [place] | | | | | | [address] | | | | | | [phone] | | | +--------+ + + + [...] | | | | | CAD in [place] artery | | | | | | [...] MAYBERRY Study | | | Date: 08/09/2017MRN: [id number] Patient Location: | | | [place]OB[place] 1950 [...] 08/10/2017 08:57 AMOrdering | | | Physician: Benjamín NAVA Physician: BRANDY, | | | ZAIDAEchocardiographer: Yaneth [id number]: | | | | | [...] | |Referring Physician: ZAIDA NAVA | | |Program Director Group Work: Yaneth Sepulveda | | |[id number]: | | | | | + +--------- ------+ + + | Procedure Note | + + | Danilo Nolasco Results In - 08/10/2017 8:58 AM PST | | Adult | | Echo | | Report | | | | Name: RODRIGO MAYBERRY Study Date: 08/09/2017 | | Patient Location: [facility] | | : 1950 Age: [...] max P.6 mmHg | | Pulm Sys Sotuh: 74.4 cm/sec | | Pulm [place] South: 45.2 cm/sec | | Pulm A Revs South: 38.1 cm/sec | | Pulm A Revs Dur: 0.12 sec | | | | Interpreting Physician: Elbert Angulo MD | | electronically signed on 08/10/2017 08:57 AM | | Ordering Physician: ZAIDA NAVA | | Referring Physician: ZAIDA NAVA | | Program Director Group Work: Yaneth Sepulveda | | [id number]: | + + + +---------+ + + [...]
--- OUTSIDE RECORDS SUMMARY | ~2020-04-01 | XMS | Encounter Summary ---
Demographics + + + | Address | [address] | | | [place] [address] | + + + | Home Phone | | + + + | Preferred Language | Unknown | + + + | Marital Status | Single | + + + | Jehovah'S Witness Affiliation | Unknown | + + + | Race | Unknown | + + + | Ethnic Group | Unknown | + + + Author + + + | Author | [facility] | | | and [facility] | + + + | Organization | [facility] | | | [...] Providers + +------+ + | Care Electrical Designer Name | Role | Phone | + +------+ + PCP | Unavailable | + +------+ + Encounter Details +--------+ + + + + | Date | Type | Department | Care Team | Description | +--------+ + + + + | 12/14/ | Hospital | [facility] | Conversion | Chest pain, | | 2013 - | Encounter | [facility] | Transaction, | unspecified | | | | CLINICAL DECISION | Provider Unknown | | | 12/15/ | | [address] [facility] | [phone] | | | 2013 | | [place], [place] | | | | | | [address] | Faheem Davila MD | | | | | [phone] | [address] | | | | | | [place] [address] | | | | | | [phone] | | | | | | | [...] 12/15/1315 Date of Service: 12/15/1311 Status: Signed Housing Management Officer: Lilia Thomson RN (Registered Nurse) Discharge instructions given VSS pt left via ambulatory with nephew. Pt incision site is CD I TR band send home with instructions if site starts to ooze or bleed. No questions at this time pt and nephew staying at [facility] in [place] if any questions or concerns encouraged to call us and f/u with Dr. Davila. Thank you Cole JOEL onver barak Transaction, Provider Unknown - 12/14/2013 7:24 PM PDT Nurse Progress Note by Angelita Mejia RN at 12/14/131923 Author: Angelita Mejia RN Service: (none) Author Type: Registered Nurse Filed: 12/14/131924 Date of Service: 12/14/131923 Status: Signed Housing Management Officer: Angelita Mejia RN (Registered Nurse) Report given to Stephanie JOEL docume nted in this encounter H&P Notes Negrito Mckeon MD - 12/14/2013 4:23 PM PDT H&P by Negrito Mckeon MD at 12/14/131622 Author: Negrito Mckeon MD Service: Cardiology Author Type: Physician Filed: 12/14/131624 Date of Service: 12/14/131622 Status: Signed Housing Management Officer: Negrito Mckeon MD (Physician) [facility] Service: Cardiology Admission History & Physical Date of Admission: 12/14/2013 FAHEEM DAVILA MD 12/09/2013 11:41 AM Signed CARDIOVASCULAR CONSULTATION : 1950 DATE OF SERVICE: 12/09/2013 PROVIDER: FAHEEM DAVILA MD PRIMARY CARE: No primary provider on file. REASON FOR CONSULTATION: Chief Complaint Patient presents with Referral HPI: Dictation on: 12/09/2013 11:37 AM by: FAHEEM DAVILA [[id number]] PAST MEDICAL HISTORY: Past Medical History Diagnosis Date Arrhythmia Neuromuscular disorder Kidney stones Past Surgical History Procedure Date Left arm surgery Bone graft left arm FAMILY HISTORY: Family History Problem Relation Age of Onset Heart disease Mother Heart disease Paternal Uncle Heart Disease Paternal Uncle Heart Disease Paternal Aunt Heart Disease Paternal Uncle Heart disease Paternal Uncle Heart Disease Paternal Aunt Heart disease Paternal Aunt SOCIAL HISTORY: History Social History Marital Status: Other Spouse Name: N/A Number of Children: N/A Years of Education: N/A Occupational History Not on file. Social History Main Topics Smoking status: Current Every Day Smoker -- 0.5 packs/day for 45 years Smokeless tobacco: Not on file Comment: down from 2 packs a day uses [employer] cig Alcohol Use: Yes Comment: rarely Drug Use: Yes Special: Marijuana Sexually Active: Other Topics Concern Not on file Social History Narrative No narrative on file Diet: Moderately fatty Exercise: Sedentary CURRENT MEDICATIONS: Outpatient Encounter Prescriptions as of 12/09/2013 Medication Sig Dispense Refill amoxicillin-clavulanate (AUGMENTIN) 875-125 MG per tablet Take 1 tablet by mouth 2 (t wo) times daily. aspirin 81 MG EC tablet Take 81 mg by mouth daily with breakfast. atorvastatin (LIPITOR) 40 MG tablet Take 40 mg by mouth nightly. HYDROcodone-acetaminophen (NORCO) 7.5-325 MG per tablet Take 1 tablet by mouth every 4 (four) hours as needed. lidocaine (LIDODERM) 5 % Place 1 patch onto the skin every 12 (twelve) hours. metoprolol (LOPRESSOR) 25 MG tablet Take 25 mg by mouth 2 (two) times daily. nitroGLYCERIN (NITROSTAT) 0.[address] 0.4 mg under the tongue every 5 (fiv e) minutes as needed. ALLERGIES: Review of patient's allergies indicates no known allergies. REVIEW OF SYSTEMS: CONSTITUTIONAL - Weight loss: Yes, Fevers: No, Chills: Yes, Night Sweats: Yes, Fatigue: Yes RESPIRATORY - Cough: Yes, Hemoptysis: No,Wheezing: Yes, Pleurisy: No CARDIOVASCULAR - Chest pain: Yes, Shortness of Breath: Yes, PND: No, Palpitations: No, Soren a: No, Orthopnea: No, Syncope: No; Claudication: No GASTROINTESTINAL - Nausea: No, Vomiting: No, Diarrhea: Yes, Hematemesis: No, Melena: No GENITOURINARY - Hematuria: Yes, Dysuria: No, Hesitancy: No, Incontinence: No, UTI's: No SKIN - Rash: No, Pruritis: No, Sores: No, Nail changes: No, Skin thickening: No NEUROLOGICAL - TIA Symptpoms: No, Numbness: Yes, Ataxia: No, Tremors: No, Vertigo: Yes ENDOCRINE - Excessive Thirst: No, Polyuria: No, Cold intolerance: No, Heat intolerance: No HEM/LYMPHATIC - Easy bruising: No, Bleeding diathesis: No, Blood clots: No, Swollen glands: No, Lymphedema: No PHYSICAL EXAM: VITAL SIGNS: BP 118/60 | Pulse 61 | Ht 1.753 m (5' 9") | Wt 78.835 kg (173 lb 12.8 oz) | BM I 25.65 kg/m2 | SpO2 95% GENERAL - Well developed, well-nourished, appears stated age, in no acute distress. HEENT - Normocephalic, atraumatic. No arcus senillis, no scleral icterus. NECK - Supple. No thyromegaly. CARDIOVASCULAR - No JVD, no carotid bruit, no abdominal bruit. Carotid upstroke normal bila terally. Regular rate and rhythm. No rubs, murmurs or gallops. Normal S1 and S2. CHEST - Nontender. LUNGS - Clear to auscultation. No wheezing, no crackles, no rales, no rhonchi and normal re spiratory rate and rhythm. ABDOMEN - Soft, nontender, normal bowel sounds. No obvious masses, no bruits. EXTREMITIES - No edema, clubbing or cyanosis. No deformities, no tenderness, and no discolo ration or ulceration. NEURO/PSYCH - Alert and oriented x3, mood and affect appropriate. No obvious focal motor or sensory deficits. Cranial nerves are grossly intact. MUSCULOSKELETAL - No muscle spasms, no muscle atrophy and no joint deformities. SKIN - No pallor, no jaundice, no cyanosis. DATA: Dictation on: 12/09/2013 11:38 AM by: FAHEEM DAVILA [[id number]] Assessment: Dictation on: 12/09/2013 11:39 AM by: FAHEEM DAVILA [[id number]] Plan: Dictation on: 12/09/2013 11:39 AM by: FAHEEM DAVILA [[id number]] Faheem Davila MD FACC, FACP, FASNC Previous Version Dictation on 12/09/2013 11:39 AM by Faheem Davila MD Dictation on 12/09/2013 11:39 AM by Faheem Davila MD Dictation on 12/09/2013 11:38 AM by Faheem Davila MD Dictation on 12/09/2013 11:37 AM by Faheem Davila MD Spindle Setter Type ID Author Partial Dictation [id number] Faheem Davila MD This document has not been signed This is a partial document. See notes for the remainder of the document. Draft copy - this document is not available for patient care Document Text Will go forward with angiography and possible PCI. We discussed both procedures, includin g pros, cons, risks, benefits, and alternatives. Consents were signed. Orders were written. He is urged to completely discontinue smoking, continue current medicines including aspirin. Display only: Spindle Setter ([id number]) by Faheem Davila MD Spindle Setter Type ID Author Partial Dictation [id number] Faheem Davila MD This document has not been signed This is a partial document. See notes for the remainder of the document. Draft copy - this document is not available for patient care Document Text 1. Chest pain syndrome suggestive of angina with an abnormal exercise stress test. 2. Tobacco abuse. 3. History of poly drug abuse. 4. History of seizure disorder, currently untreated. Display only: Spindle Setter ([id number]) by Faheem Davila MD Spindle Setter Type ID Author Partial Dictation [id number] Faheem Davila MD This document has not been signed This is a partial document. See notes for the remainder of the document. Draft copy - this document is not available for patient care Document Text Treadmill study reviewed. ECG ordered and interpreted today, shows sinus rhythm, rate 78, somewhat early transition, essentially normal tracing however. Display only: Spindle Setter ([id number]) by Faheem Davila MD Spindle Setter Type ID Author Partial Dictation [id number] Faheem Davila MD This document has not been signed This is a partial document. See notes for the remainder of the document. Draft copy - this document is not available for patient care Document Text A 63-year-old male, referred from Dr. Brock at the clinic in [place], [place], for co nsultation regarding the abnormal stress test. The patient has had problems with chest pain and shortness of breath for 1-1/2 years. He was apparently evaluated at [facility], though he did not have angiography. He states that he was told his tests were abnormal. His chest p ain, shortness of breath, and fatigue have worsened over the last 1-1/2 years. He had a stre ss test done recently in [place] that was abnormal. Study showed chest pain at 5 minutes 10 seconds. He did not reach target heart rate and he did have ST-segment depression, sugges tive of ischemia. Pain resolved with rest. Display only: Spindle Setter ([id number]) by Faheem Daivla MD Please see office consultation note on 12/09/[address] Davila above. No interval change Primary Care Physician: Daljit Albarran MD 12/14/2013 documented in th is encounter Plan of Treatment Not on filedocumented [...] | | | | by THADDEUS HAYES ([id number]) on | | | | | | 12/14/2013 7:38:31 PM | | | | + + + + + + + + | Specimen | + + | | + + + + + | Narrative | Performed At | + + + | Historically converted procedure from [facility] Epic environment | EXTERNAL LAB | [...] | | | Patient | performed at [facility];[address] | | LAB | | | | [address];[place] | | | | | | [address] | | | | + + + [...] | | | | | performed at [facility];[address] | | | | | | [address] [facility];[place], [place] | | | | | | [address] | | | | + + + + + + + + | Specimen | + + | Blood specimen | | (specimen) | + + + +---------+ + + | Performing | Address | City/State/Zipcode | Phone Number | | Organization | | | | + +---------+ + + | EXTERNAL LAB | | | | + +---------+ + + External Lab: JOEY (12/14/2013 11:50 AM PDT) + + + + + + | Component | Value | Ref Range | Performed | Pathologist | | | | | At | Signature | + + + + + + | WBC | 9.1Comment: Testing | 3.8 - 11.0 K/uL | EXTERNAL | | | | performed at [facility];[address] | | LAB | | | | [address];[place] | | | | | | [address] | | | | + + + + + + | Non- | 4.39Comment: Testing | 4.20 - 5.70 | EXTERNAL | | | Red Blood | performed at [facility];[address] | M/uL | LAB | | | Cells | [address];[place] | | | | | Counted | [address] | | | | + + + + + + | Hemoglobin | 13.2Comment: Testing | 13.2 - 17.0 | EXTERNAL | | | | performed at [facility];[address] | g/dL | LAB | | | | [address];[place] | | | | | | [address] | | | | + + + + + + | Hematocrit, | 39.2Comment: Testing | 39.0 - 50.0 % | EXTERNAL | | | POC | performed at [facility];[address] | | LAB | | | | [address];[place] | | | | | | [address] | | | | + + + + + + | MCV | 89.3Comment: Testing | 80.0 - 100.0 fl | EXTERNAL | | | | performed at [facility];[address] | | LAB | | | | [address];[place] | | | | | | [address] | | | | + + + + + + | MCH | 30.2Comment: Testing | 27.0 - 34.0 pg | EXTERNAL | | | | performed at [facility];[address] | | LAB | | | | [address];[place] | | | | | | [address] | | | | + + + + + + | MCHC | 33.8Comment: Testing | 32.0 - 35.5 | EXTERNAL | | | | performed at [facility];888 | g/dL | LAB | | | | [address];[place] | | | | | | [address] | | | | + + + + + + | RDW-CV | 40.3Comment: Testing | 37 - 53 fl | EXTERNAL | | | | performed at [facility];[address] | | LAB | | | | [address];[place] | | | | | | [address] | | | | + + + + + + | Platelet | 256Comment: Testing | 150 - 400 K/uL | EXTERNAL | | | Count | performed at [facility];[address] | | LAB | | | Plasma | [address];[place] | | | | | | [address] | | | | + + + + + + | MPV | 7.1Comment: Testing | fl | EXTERNAL | | | | performed at [facility];[address] | | LAB | | | | [address];[place] | | | | | | [address] | | | | + + + + + + | Differentia | AUTOMATEDComment: | | EXTERNAL | | | l Type | Testing performed at | | LAB | | | | [facility];[address];[place] [address] | | | | + + + + + + | % Segmented | 59.1Comment: Testing | % | EXTERNAL | | | | performed at [facility];[address] | | LAB | | | Neutrophils | [address];[place] | | | | | | [address] | | | | + + + + + + | % | 30.1Comment: Testing | % | EXTERNAL | | | Lymphocytes | performed at [facility];[address] | | LAB | | | | [address];[place] | | | | | | [address] | | | | + + + + + + | % Monocytes | 6.6Comment: Testing | % | EXTERNAL | | | | performed at [facility];[address] | | LAB | | | | [address];[place] | | | | | | [address] | | | | + + + + + + | % | 3.8Comment: Testing | % | EXTERNAL | | | Eosinophils | performed at [facility];[address] | | LAB | | | | [address];[place] | | | | | | [address] | | | | + + + + + + | % Basophils | 0.4Comment: Testing | % | EXTERNAL | | | | performed at [facility];[address] | | LAB | | | | [address];[place] | | | | | | [address] | | | | + + + + + + | Absolute | 5.4Comment: Testing | 1.9 - 7.4 K/uL | EXTERNAL | | | Segmented | performed at [facility];[address] | | LAB | | | Neutrophils | [address];[place] | | | | | | [address] | | | | + + + + + + | Absolute | 2.7Comment: Testing | 1.0 - 3.9 K/uL | EXTERNAL | | | Lymphocytes | performed at [facility];[address] | | LAB | | | | [address];[place] | | | | | | [address] | | | | + + + + + + | Absolute | 0.6Comment: Testing | 0 - 0.8 K/uL | EXTERNAL | | | Monocytes | performed at [facility];[address] | | LAB | | | | [address];[place] | | | | | | [address] | | | | + + + + + + | Absolute | 0.3Comment: Testing | 0 - 0.5 K/uL | EXTERNAL | | | Eosinophils | performed at [facility];[address] | | LAB | | | | [address];[place] | | | | | | [address] | | | | + + + + + + | Absolute | 0.0Comment: Testing | 0 - 0.1 K/uL | EXTERNAL | | | Basophils | performed at [facility];[address] | | LAB | | | | [address];[place] | | | | | | [address] | | | | + + + [...] EXTERNAL | | | | performed at [facility];[address] | mmol/L | LAB | | | | [address];[place] | | | | | | [address] | | | | + + + + + + | K | 4.3Comment: Testing | 3.5 - 4.9 | EXTERNAL | | | | performed at [facility];[address] | mmol/L | LAB | | | | [address];[place] | | | | | | [address] | | | | + + + + + + | Cl | 107Comment: Testing | 99 - 109 mmol/L | EXTERNAL | | | | performed at [facility];[address] | | LAB | | | | [address];[place] | | | | | | [address] | | | | + + + + + + | CO2 | 26Comment: Testing | 23 - 32 mmol/L | EXTERNAL | | | | performed at [facility];[address] | | LAB | | | | [address];[place] | | | | | | [address] | | | | + + + + + + | Anion Gap | 11Comment: Testing | 5 - 20 mmol/L | EXTERNAL | | | | performed at [facility];[address] | | LAB | | | | [address];[place] | | | | | | [address] | | | | + + + + + + | Glucose, | 85Comment: Testing | 65 - 99 mg/dL | EXTERNAL | | | Fasting | performed at [facility];[address] | | LAB | | | | [address];[place] | | | | | | [address] | | | | + + + + + + | BUN | 16Comment: Testing | 8 - 25 mg/dL | EXTERNAL | | | | performed at [facility];[address] | | LAB | | | | [address];[place] | | | | | | [address] | | | | + + + + + + | Creatinine | 0.81Comment: Testing | 0.70 - 1.30 | EXTERNAL | | | | performed at [facility];[address] | mg/dL | LAB | | | | [address];[place] | | | | | | [address] | | | | + + + + + + | BUN/Creatin | 20Comment: Testing | | EXTERNAL | | | ine Ratio | performed at [facility];[address] | | LAB | | | | [address];[place] | | | | | | [address] | | | | + + + + + + | Calcium | 9.1Comment: Testing | 8.5 - 10.2 | EXTERNAL | | | | performed at [facility];[address] | mg/dL | LAB | | | | [address];[place], [place] | | | | | | [address] | | | | + + + [...] | | | | | | at [facility];[address];[place] [address] | | | | + + + [...] unspecified | + + documented in this encounter
--- OUTSIDE RECORDS SUMMARY | ~2020-04-01 | XMS | Encounter Summary ---
Demographics + + + | Address | [address] | | | [place] [address] | + + + | Home Phone | | + + + | Preferred Language | Unknown | + + + | Marital Status | Single | + + + | Yarsani Affiliation | Unknown | + + + [...] Team Providers + +------+ + | Care Government Sales Manager Name | Role | Phone | + +------+ + PCP | Unavailable | + +------+ + Encounter Details +--------+ + + + + | Date | Type | Department | Care Team | Description | +--------+ + + + + | 04/03/ | Orders Only | [facility] | Obdulia Bucio | | | 2013 | | [facility] | [address] | | | | | [place] [facility] | [address] | | | | | [address] | [place] [address] | | | | | [address] [place], [place] | [phone] | | | | | [address] | | | | | | [phone] | | | +--------+ + + + [...] | | | | | of or [place] at 48 | | | | | [...] | | | | | of or [place] at 48 | | | | | [...] + + + | Red Blood | 5.25 | 4.50 - 6.00 | EXTERNAL | | | Cells | | MIL/uL | LAB | | + + + + + + | White Blood | 8.3 | 4.5 - 11.0 K/uL [...]
--- OUTSIDE RECORDS SUMMARY | ~2020-04-01 | XMS | Encounter Summary ---
Demographics + + + | Address | [address] | | | [place] [address] | + + + | Home Phone [...] [facility] | | | and [facility] | + + + | Organization | [...] Team Providers + +------+ + | Care Milk Inspector Name | Role | Phone | + [...] | | | [place], [place] | [address] | | | | | [address] | [phone] | | | | | [phone] | | | +--------+ + + + [...]
--- OUTSIDE RECORDS SUMMARY | ~2020-04-01 | XMS | Encounter Summary ---
Demographics + + + | Address | [address] | | | [place] [address] | + + + | Home Phone | | + + + | Preferred Language | Unknown | + + + | Marital Status | Single | + + + | Congregation Affiliation | Unknown | + + + [...] Providers + +------+ + | Care Manager Sourcing Name | Role | Phone | + [...] AVE [address] | | | | | [place] CATH | | [address] [place], | | | | | PLACE/CORON | | [place] | | | | | ANGIO, IMG | | Phone: | | | | | SUPER/INTERP | | [phone] | | | | | ,W LEFT | | Fax: | | | | | HEART | | [phone] | | | | | VENTRICULOGR | [...] | [facility] CV | [address] | | | | | INTRA OP [address] | [address] [place], | | | | | [place], [place] | [place] | | | | | [address] | [phone] | | | | | [phone] | | | +--------+---------+ + + + [...] + + + | Blood Pressure | 110/74 | 07/21/2016 3:00 PM | | | | | PST | | + + + + + | Pulse | 50 | 07/21/2016 3:00 PM | | | | | PST | | + + + + + | Temperature | 37.1 C (98.7 F) | 07/21/2016 12:09 PM | | | | | PST | | + + + + + | Respiratory Rate | 12 | 07/21/2016 1:45 PM | | | | | PST | | + + + + + | Oxygen Saturation | 91% | 07/21/2016 1:45 PM | | | | | PST [...] However we did obtain records from [facility] and his c oronary angiogram there [...] limits further titration of BB. CAD in [place] artery Assessment & Plan Minor CAD as [...] MD [address] [place] [address] In 2 months Mild CAD and thickened heart muscle - follow up in our [facility] clinic. Disposition: Home/Self Care Condition at Discharge: [...] should be done as an outpatient. Our supervisor spinning should call you in the next week to set up a 2 month follow up at our [place] outreach clinic. This clinic is held on the first floor of the [facility]. Please establish care with a [...] you may find helpful for primary care: [facility] - [address], [place] [address] [facility] - [address], [place] [address] Thank you for allowing [facility] to participate in your health [...] Portions of this chart were created with CuPcAkE & other things you bake voice recognition software. Occasional wro ng-word or "sound-alike" substitutions may have occurred due to the inherent limitations of voice recognition software. Please read the chart carefully and recognize, using context, w here those substitutions have occurred. [facility] Main Office - [address], [address] [place], [place] [address] Office: Medical Records [facility] [place] [address] Main: Physician referral and transfer line: Physician [...] should be done as an outpatient. Our supervisor spinning should call you in the next week to set up a 2 month follow up at our [place] outreach clinic. This clinic is held on the first floor of the [facility]. Please establish care with a [...] you may find helpful for primary care: [facility] - [address], [place] [address] [facility] - [address], [place] [address] Thank you for allowing [facility] [place] [facility] to participate in your health care. [...] | | | | | CAD in confederated gosh[place] artery | | | | | | [...] | | | | | | | confederated g[place] artery | | | | | | [...] M D - 07/21/2016 7:10 AM PST [facility] PATIENT NAME: Rodrigo Mayberry : 1950: AGE: 65 y.o. ADMISSION DATE: 07/20/2016 PRIMARY CARE: Doctor Unknown Gail Suazo MD DAILY CARDIOLOGY PROGRESS [facility] DATE OF SERVICE: 07/21/2016 LOCATION OF SERVICE TODAY: [facility] TIME SPENT INCLUDING DIRECT PATIENT CARE, [...] limits further titration of BB. CAD in [place] artery Assessment & Plan Coronary angiogram in [facility] in 2013 noted diffuse although nonocclusive [...] LDL goal <70 Essential hypertension CAD in [place] artery Bradycardia SCHEDULED MEDS: aspirin 81 mg [...] STUDIES OF INTEREST: Had negative CXR in [place] prior to transfe r LABS Recent Results [...] Negative KETONES UA Negative Negative mg/dL Specific [place] 1.014 1.001 - 1.030 PH UA 6.0 [...] MD 07/21/2016, 7:26 Thank you for allowing [facility] to participate in your patient's doctors hospitalt care. Electronically signed by: Gail Suazo MD 07/21/2016 7:26 Patient Care Team: Doctor Unknown as PCP - General [facility] Main Office - [address], [address] [place], [place] [address] Office: Medical Records [facility] [place], [place] [address] Main: Physician referral and transfer line: Physician referral fax line: Medical Records phone: Medical Records fax: Angela Toth RN - 07/20/2016 4:45 PM PSTHeparin IV bolus given [facility] & [facility]arin IV gtt initiated there also. PTT & INR not done; no results found in transfer paperwork or on the [facility] site. documented in this encounter H&P Notes Gail Suazo MD - 07/20/2016 3:50 PM PSTFormatting of this note might be differe nt from the original. [facility] PATIENT NAME: Rodrigo Mayberry : 1950: AGE: 65 y.o. ADMISSION DATE: 07/20/2016 PRIMARY CARE: Doctor Unknown PRIOR OPERATOR WEAPON LOCATING RADAR: At [facility] Medical - unknown doctor Gail Suazo MD ADMISSION HISTORY AND PHYSICAL DATE OF SERVICE: 07/20/2016 LOCATION OF SERVICE: [facility] CHIEF COMPLAINT: Chest pain CURRENT ASSESSMENT AND [...] a plan to quit. Notes in [facility] allude to polysubstance abuse but he [...] titrating beta stephie as needed. CAD in [place] artery Assessment & Plan Coronary angiogram in [facility] in 2013 noted diffuse although nonocclusive [...] OVERALL PLAN SUMMARY: 1. Trend cardiac enzymes, case monitor, consider coronary angiography. 2. Continue aspirin, statin, NTG, heparin and BB. 3. Consider adding JAYESH-I or ARB 4. Echo in the am. Question TV disease, SWMA etc. 5. Smoking cessation advised. States that he is "cutting down." HISTORY OF PRESENT ILLNESS 65 y.o. year old male with Problem List and Overview as noted below transferred from [facility] where he presented to the ED with chest pain. The patient reports an ill-defined history of prior coronary artery disease and possible POBA in January of 2014. He apparently h as not had stents or bypass. (*Addendum - I subsequently obtained records from [facility] [place]. He had a coronary angiogram in 2013 [...] LDL goal <70 Essential hypertension CAD in [place] artery Bradycardia Patient Active Problem List Diagnosis Date Noted ACS (acute coronary syndrome) (HCC) 07/20/2016 Abnormal EKG 07/20/2016 CAD in [place] artery 07/20/2016 Note Last Updated: 07/20/2016 Coronary angiogram 2013 in [facility] - mild to moderate diffuse CAD [...] Past Medical History Diagnosis Date CAD in conf[place] artery Prior CAD medically managed Essential hypertension [...] Social History Narrative Single. 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 Lives in [place]. Gets his care from the [place] [facility]. Is a smoker. *He denies drug use but chart from [facility] says "polysubstance abuse." TOBACCO HISTORY History [...] necessary PRIOR CARDIOVASCULAR DATA: EKG: EKG at [facility] reportedlyshowed sinus rhythm with some new T-wave inversions -no Q waves. Repeat EKG here shows SB - normal EKG. I must say that the EKG from [facility] ooks normal to me. TELEMETRY: SR/SB ECHOCARDIOGRAM: None done in our system PRIOR STRESS TEST OR CATH: Reportedly had work up in the past demonstrating nonobstructiv e coronary disease. Those studies are not available for review. At [facility] today he had a portable chest x-ray which showed no acute disease, no m ediastinal widening or cardiomegaly. Addendum: Records from [facility] obtained. Coronary angiogram report is as [...] of around 61 perioperatively. Read by RUBEN STERET MD 12/14/2013 04:26 P LABS Labs done at [facility] today includes normal CBC including hemoglobin of [...] PCP - General Thank you for allowing [facility] to participate in your patient's doctors hospitalt care. Electronically signed by: Gail Suazo MD 07/20/2016 17:30 [facility] Main Office - [address], [address] [place], [place] [address] Office: Medical Records [facility] [place], [place] [address] Main: Physician referral and transfer line: Physician referral fax line: Medical Records phone: Medical Records fax: documented in t his encounter Procedure Notes Vlad Vasquez MD - 07/21/2016 1:56 PM PSTAssociated Order(s): CV CARDIAC PROCEDUREProvi pollo [facility] LEFT CARDIAC CATHETERIZATION REPORT PATIENT NAME: Rodrigo Mayberry DATE OF : 1950 DATE OF PROCEDURE: 07/21/2016 PRIMARY CARE PROVIDER: Doctor Unknown ENGRAVINGS POLISHER: Dr. Vlad Vasquez MD, [facility], [facility] PRE-PROCEDURE DIAGNOSIS: chest pain, known coronary disease, [...] Arterial ac cess was achieved with 6 Djiboutian micropuncture kit. Note that the patient had somewhat abnor mal radial artery anatomy with a low bifurcation of the brachial artery that required some f inesse to negotiate. Patient was then given intravenous heparin as well as intra-arterial n itroglycerin through the sheath. A 5 Djiboutian multipurpose catheter was advanced to the desce [...] exclude a hypertrophic cardiomyopathy. Vlad Vasquez MD, [facility], [facility] DATE/TIME: 07/21/2016 13:57 07/21/2016 13:57 Portions of this chart were created with CuPcAkE & other things you bake voice recognition software. Occasional wron g-word or sound-alike substitutions may have occurred due to the inherent limitations of voice recognition software. Please read the chart carefully and recognize, using context, where these substitutions have occurred documented in this en counter Miscellaneous Notes Plan of Care - Jazzy Middleton RN - 07/22/2016 12:01 PM PST Problem: Patient [...] Note Room # 602/602-01 Name: Rodrigo Mayberry [id number] Code Status: Full Code Isolation: None Dx/Tx: Surgery/ Procedure: Filed Vitals: 07/21/16 1609 07/21/16 1700 07/22/16 0656 07/22/16 0801 BP: 123/82 135/85 130/80 Pulse: 46 87 63 Temp: 37.2 C (99 F) 37.3 C (99.1 F) TempSrc: Temporal Temporal Resp: Height: Weight: SpO2: 98% 97% 96% Shift Summary Information: HC done yesterday, minimal Cad. Continued med treatment. r wri st puncture site wnl. No chest pain since admit. Dc home today. SW consult for riding to pul ULURUan. Given dc instruction with meds and f/up. [...] independent Therapy involved?: ssessment & Plan No Gail Mcfarlane MD - 07/22/2016 11:42 AM PSTAssociated Problem(s): [...] Note Room # 602/602-01 Name: Rodrigo Mayberry [id number] Code Status: Full Code Isolation: None Dx/Tx: [...] Activity: Up independently Therapy involved?: lan of Kimmy - Sindhu Hinds RN - 07/21/2016 8:42 [...] Note Room # 602/602-01 Name: Rodrigo Mayberry [id number] Code Status: Full Code Isolation: None Dx/Tx: [...] Last Bowel Movement: 07/21/16 (07/21/16 0753) : Voiding, in urinal Skin: (Incisions/ Wounds/ Edema) R radial site c/d/i Pain: No complaints Activity: Independent Therapy involved?: lan of Care - Ra demetrius Middleton RN - 07/21/2016 1:03 PM PSTFormatting of this note might be different from the kourtney ginal. Problem: Patient Care Overview (Adult) Goal: Care [...] Note Room # 602/602-01 Name: Rodrigo Mayberry [id number] Code Status: Full Code Isolation: None Dx/Tx: Surgery/ Procedure: Filed Vitals: 07/21/16 0431 07/21/16 0753 07/21/16 0940 07/21/16 1209 BP: 111/69 103/72 102/69 106/75 Pulse: 53 50 47 48 Temp: 36.7 C (98 F) 37.2 C (98.9 F) 37.1 C (98.7 F) TempSrc: Temporal Temporal Temporal Resp: 16 Height: Weight: SpO2: 97% 96% Shift Summary Information: Admitted with chest pain. Troponin negative x2. Echo done this am. No chest pain today besides l shoulder pain which is chronic pain from injury. Refused p ain pill. Went to [facility] for heart cath. Neuro: o/a Resp: wnl LDAs Iv patent Cardiac: sr Sinus Rhythm: sinus bradycardia (07/21/16 1257) Active Gtts: heparin infusion 950 Units/hr (07/21/16 0933) Abnormal Labs/ Treatment: GI: wnl Active Orders Diet Diet fat and cholesterol modified; Effective Now Last Bowel Movement: 07/21/16 (07/21/16 0753) : wnl Skin: (Incisions/ Wounds/ Edema) wnl Pain: Denied. Activity: Independent Therapy involved?: lan of [facility] - Alon Benoit pp, RN - 07/21/2016 4:29 AM PST Problem: [...] Note Room # 602/602-01 Name: Rodrigo Mayberry [id number] Code Status: Full Code Isolation: None Dx/Tx: Chest Pain Surgery/ Procedure: Plan for HC today at 1330 Filed Vitals: 07/20/16 1600 07/20/16 1727 07/20/16 1945 07/20/16 2326 BP: 141/84 124/77 108/74 Pulse: 55 56 57 Temp: 37.2 C (98.9 F) 36.3 C (97.4 F) 36.5 C (97.7 F) TempSrc: Temporal Temporal Temporal Resp: 18 18 14 Height: 1.727 m (5' 8") Weight: 77.4 [...] Note Room # 602/602-01 Name: Rodrigo Mayberry [id number] Code Status: Full Code Isolation: None Dx/Tx: [...] admitted w/ chest pain, received nitro at [facility]. Denied chest pain during the shift.Trop negative. On hgtt , next PTT 0200. Sinus bra dy on tele. VSS. Independent. Neuro: A/ox4. Resp: RA sat in 90's. LDAs PIV Cardiac: Sinus Rhythm: sinus bradycardia;normal sinus rhythm (07/20/16 1600) Active Gtts: heparin infusion 1,150 Units/hr (07/20/16 1949) Abnormal Labs/ Treatment: GI: wdl Active Orders Diet Diet fat and cholesterol modified; Effective Now Last Bowel Movement: 07/19/16 (07/20/16 1600) : Voiding per urinal. Skin: (Incisions/ Wounds/ Edema) Pain: Denied pain. Activity: Independent Therapy involved?: ssessment & Plan Note - Gail Suazo MD - 07/20/2016 5:30 PM PSTAssociated Problem(s): Bradycardi aAsymptomatic but is limiting titration of BB. Will monitor. ssessment & Plan Note - Gail Suazo MD - 07/20/2016 5:30 PM PSTAssociated Problem(s): CAD in [place]osh[place] arteryMinor CAD as noted in coronary angiogram report during this admission. ssessment & Pl an Note - Gail Suazo MD - 07/20/2016 3:57 PM PSTAssociated Problem(s): Abnormal EKGReported T inversion with CP but all EKG here are benign. He specifically has not had t he giant anterolateral T inversions usually seen at baseline in apical hypertrophic cardiomy opathy. ssessme nt & Plan James - Gail Suazo MD - 07/20/2016 3:57 PM PSTAssociated Problem(s): A CS (acute coronary syndrome) (HCC)Presumptive diagnosis of CAD and acute coronary syndrome. Patient gave history of plain balloon angioplasty of vessel in the past. However we did obt ain records from [facility] and his coronary angiogram there showed [...] 07/21/2016 7:24 AM PSTAssessment & Plan N cristinae - Gail Suazo MD - 07/20/2016 3:55 [...] at 07/22/2016 11:40 AM PSTAssessment & Plan Note - Gail Razo MD - 07/20/2016 3:55 [...] + | Vlad Vasquez MD 07/21/2016 14:00 [facility] | | | [facility] LEFT CARDIAC CATHETERIZATION REPORT | | | PATIENT NAME: Rodrigo Mayberry DATE OF : 1950 | | | DATE OF PROCEDURE: 07/21/2016 | | | | | | PRIMARY CARE | | | PROVIDER: Doctor Unknown ENGRAVINGS POLISHER: Dr. Vlad Vasquez, | | | , [facility], [facility] PRE-PROCEDURE DIAGNOSIS: chest pain, known | | [...] was | | | achieved with 6 Djiboutian micropuncture kit. Note that the patient | | | had somewhat abnormal radial artery anatomy with a low bifurcation | | | of the brachial artery that required some finesse to negotiate. | | | Patient was then given intravenous heparin as well as | | | intra-arterial nitroglycerin through the sheath. A 5 Djiboutian | | | multipurpose catheter was advanced [...] Left coronary angiography was performed with 5 Djiboutian | | | JL 3.5 catheter. The [...] Gutierres | | | MD Pedro, FACC, [facility] | | | DATE/TIME: 07/21/2016 13:57 07/21/2016 13:57 Portions of this | | | chart were created with CuPcAkE & other things you bake voice recognition software. | | | Occasional [...] | | | RODRIGO MAYBERRY Date: 07/21/2016MRN: [id number] | | | Patient Location: [facility] CRDTL 602DOB: 1950 | | | Age: 65 [...] Physician: GAIL SUAZOEchocardiographer: Vikash | | | [id number]: | | |There is no pericardial effusion. [...] | |Ordering Physician: GAIL SUAZO | | |Edge Beader: Vikash Perez | | |[id number]: | | | | | + +--------- -----+ + + | Procedure Note | + + | Gaurav, Rad Results In - 07/22/2016 9:13 AM PST | | Adult Echo | | Report | | | | Name: RODRIGO MAYBERRY Date: 07/21/2016 | | Patient Location: [place] [address] | | : 1950 Age: 65 yrs [...] | Ordering Physician: GAIL SUAZO | | Edge Beader: Vikash Perez | | [id number]: | + + PTT (07/21/2016 7:40 AM [...] + + | CHARLES AMEZQUITA | [address] | [place] [address] | | | [facility] | | | | | [...] + + | CHARLES AMEZQUITA | [address] | [place] [address] | | | [facility] | | | | | LABORATORY [...] + + + | Glucose | 88Comment: Czech | 65 - 99 mg/dL | [facility] | | | | Diabetes Association | [...] + | CHARLES AMEZQUITA | [address] | [place] [address] | | | [facility] | | | | | [...] + | VINCESANAZConnie AMEZQUITA | [address] | [place] [address] | | | [facility] | | | | | LABORATORY [...] + + | [facility] | [address] | [place] [address] | | | [facility] | [...] - 1.030 | [facility] | | | [place] | | | [facility] | | | [...] + + | CHARLES AMEZQUITA | [address] | [place] [address] | | | [facility] | | | | | [...] + + | VINCESANAZConnie BIA | [address] | [place] [address] | | | [facility] | | | | | LABORATORY [...] + + | CHARLES AMEZQUITA | [address] | [place] [address] | | | [facility] | | | | | [...] | TRACEMASTER | | Duration:164 msP Horizontal [place]:19 degP Front [place]:47 degQ Onset:512 | | | msQRSD Interval:94 msQT Interval:436 msQTcB:390 msQTcF:405 msQRS | | | Horizontal [place]:5 degQRS [place]:54 degI-40 Horizontal [place]:47 degI-40 | | | Front [place]:42 degT-40 Horizontal [place]:-24 degT-40 Front [place]:51 degT | | | Horizontal [place]:47 degT Wave [place]:54 degS-T Horizontal [place]:90 degS-T | | | Front [place]:-43 degSeverity:- OTHERWISE NORMAL ECG -INTERP:SINUS | | | BRADYCARDIAElectronically signed by: , 07-20-2016 21:27:53 | | |QT Interval:436 ms | | |QTcB:390 ms | | |QTcF:405 ms | | |QRS Horizontal [place]:5 deg | | |QRS [place]:54 deg | | |I-40 Horizontal [place]:47 deg | | |I-40 Front [place]:42 deg | | |T-40 Horizontal [place]:-24 deg | | |T-40 Front [place]:51 deg | | |T Horizontal [place]:47 deg | | |T Wave [place]:54 deg | | |S-T Horizontal [place]:90 deg | | |S-T Front [place]:-43 deg | | |Severity:- OTHERWISE NORMAL ECG - | | |INTERP:SINUS BRADYCARDIA | | |Electronically signed by: , 07-20-2016 21:27:53 | | + + + + + + + + | Performing | Address | City/State/Zipcode | Phone Number | | Organization | | | | + + + + + | [facility] | [address] | [place] [address] | [phone] | + + + + + Hepatic [...] + | VINCESANAZConnie AMEZQUITA | [address] | [place] [address] | | | [facility] | | | | | [...] + | [facility] | [address] | [place] [address] | | | [facility] | [...] + + | CHARLES AMEZQUITA | [address] | [place] [address] | | | [facility] | | | | | LABORATORY [...]
--- OUTSIDE RECORDS SUMMARY | ~2020-04-01 | XMS | Encounter Summary ---
Demographics + + + | Address | [address] | | | [place] [address] | + + + | Home Phone | | + + + | Preferred Language | Unknown | + + + | Marital Status | Single | + + + | Muslim Affiliation | Unknown | + + + | Race | Unknown | + + + | Ethnic Group | Unknown | + + + Author + + + | Author | [facility] | | | and [facility] | + + + | Organization | [facility] | | | [...] Team Providers + +------+ + | Care Lead Printer Name | Role | Phone | + +------+ + PCP | Unavailable | + +------+ + Encounter Details +--------+ + + + + | Date | Type | Department | Care Team | Description | +--------+ + + + + | 10/20/ | Hospital | [facility] | Daljit Bro | | | 2013 | Encounter | HOSPITAL LABORATORY | [address] | | | | | [address] | | | | | [place] | [place] | | | | | [address] | [phone] | | | | | [phone] | [phone] | | | | | | | [...]
--- OUTSIDE RECORDS SUMMARY | ~2020-04-01 | XMS | Encounter Summary ---
Demographics + + + | Address | [address] | | | [place] [address] | + + + | Home Phone [...] Team Providers + +------+ + | Care Shark Biologist Name | Role | Phone | + +------+ + PCP | Unavailable | + +------+ + Encounter Details +--------+ + + + + | Date | Type | Department | Care Team | Description | +--------+ + + + + | 10/02/ | Hospital | [facility] | Leonel Arechiga MD | | | 2015 | Encounter | HOSPITAL EMERGENCY | | | | | | CENTER [address] [place] [address] | | | | | | [facility] [place], [place] | | | | | | [address] | | | | | | [phone] | | | +--------+ + + + [...]
--- OUTSIDE RECORDS SUMMARY | ~2020-04-01 | XMS | Encounter Summary ---
Demographics + + + | Address | [address] | | | [place] [address] | + + + | Home Phone | | + + + | Preferred Language | Unknown | + + + | Marital Status | Single | + + + | Sikh Affiliation | Unknown | + + + | Race | Unknown | + + + | Ethnic Group | Unknown | + + + Author + + + | Author | [facility] | | | and [facility] | + + + | Organization | [...] Team Providers + +------+ + | Care Foot Piece Assembler Name | Role | Phone | + +------+ + | Love Prabhakar DO | PCP | | + +------+ + Reason for Visit +---------+--------+ + | Reason | Onset | Comments | | | Date | | +---------+--------+ + | Results | 08/13/ | Echocardiogram | | | 2016 | | +---------+--------+ + Encounter Details +--------+ + + + + | Date | Type | Department | Care Team | Description | +--------+ + + + + | 08/13/ | Telephone | [facility] | Tiyn Anand | Results | | 2017 | | Cardiology [facility] | Gil RN | (Echocardiogram) | | | | [address] | | | | | | [address] [place] | | | | | | [address] | | | | | | [phone] | | | +--------+ + + + [...] Encounter - Tiny Anand RN - 08/13/2017 9:00 AM PSTFormatting of this no te might be different from the original. Called patient with echo results per Kimmie Pickering PA-C, as indicated below: TINA Aiken RN Please set this pt of Amanda's up with PFTS/DLCO in [facility] INTERPRETATION SUMMARY: A complete two-dimensional transthoracic echocardiogram was performed (2D, M-mode, Doppler and color flow Doppler). Image quality was fair. 1. Normal LV cavity size and borderline concentric hypertrophy. Normal systolic function with EF 70%. 2. Minimal diastolic dysfunction. 3. Normal RV. Normal atria, small IVC. Normal aorta and pericardium. 4. Normal valves. Mild tricuspid regurgitation. Upper normal PA pressure estimated peak 31 mmHg. No obvious cardiac issue for the shortness of breath. Consider pulmonary issues. The diastolic dysfunction is only very mild. No structural issues to explain palpitations. Informed patient will fax PFT order to [facility]. H will contact patient to schedule testing. Instructions on PFT order request results cc: to DO. Nhung Kimball verbalized understanding and agreement. Confirmation of successful fax transmission of PFT order to [facility] [place]. documented in this encounter Plan of Treatment + +------+--------+ [...]
--- OUTSIDE RECORDS SUMMARY | ~2020-04-01 | XMS | Encounter Summary ---
Demographics + + + | Address | [address] | | | [place] [address] | + + + | Home Phone | | + + + | Preferred Language | Unknown | + + + | Marital Status | Single | + + + | Uatsdin Affiliation | Unknown | + + + | Race | Unknown | + + + | Ethnic Group | Unknown | + + + Author + + + | Author | [facility] | | | and [facility] | + + + | Organization [...] Providers + +------+ + | Care Funeral Service Practitioner/Embalmer Name | Role | Phone | + [...] | | | [address] | [place], [place] | | | | | [place], [place] | [address] | | | | | [address] | [phone] | | | | | [phone] | | | +--------+ + + + [...] EXTERNAL | | | Ratio | [facility] | | LAB | | | [...] + + + | Red Blood | 4.98 | 4.50 - 6.00 | EXTERNAL | | | Cells | | MIL/uL | LAB | | + + + + + + | White Blood | 8.7 | 4.5 - 11.0 K/uL [...]
--- OUTSIDE RECORDS SUMMARY | ~2020-04-01 | XMS | Encounter Summary ---
Demographics + + + | Address | [address] | | | [place] [address] | + + + | Home Phone [...] [facility] | | [facility] and [facility] | + + + | Organization [...] Team Providers + +------+ + | Care Medical Consultant Name | Role | Phone | + +------+ + | Love Prabhakar DO | PCP | | + +------+ + Reason for Visit +---------+--------+ + | Reason | Onset | Comments | | | Date | | +---------+--------+ + | Other | 08/29/ | | | | 2016 | | +---------+--------+ + | Testing | 08/30/ | | | | 2016 | | +---------+--------+ + Encounter Details +--------+ + + + + | Date | Type | Department | Care Team | Description | +--------+ + + + + | 08/29/ | Telephone | [facility] | [place], | Other; Testing | | 2017 | | [facility] | Gail Cordero MD [address] | | | | | [address] | [address] | | | | [address] [place] | [address] [place] | | | | | [address] | [address] | | | | | [phone] | | | +--------+ + + + [...] this encounter Miscellaneous Notes Telephone Encounter - Amara Castle RN - 08/30/2017 10:42 AM PSTColleen was called back today after a complete chart review was done. Instructed pt is not scheduled for either an angiogram or a stress test. Explained he had a normal echo and it was recommended he have PFT's with DLCO done in [place]. Orders were faxed on 08/13/17 and a confirmation received on fax. 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 S he asked that orders for PFT's be faxed to their lab fax at [phone]. This was done tod ay and confirmation sheet received.Electronically signed by Amara Castle RN at 10:45 AM PSTTelephone Encounter - Debi Means Mirta - 08/30/2017 10:27 AM PSTMARYCRUZ Akins from PCP Dr. Prabhakar' office calling for clarification on test requested. Mable states th ey did receive requested records as faxed yesterday and there is no note of other tests bein g requested. Mable notes, patient is stating he was called and told to have an echo, treadmill and ang iogram. She is asking for clarification as echo was just done. Mable can be reached at [phone] and a detailed message left with tape edge machine operator if s he is with a patient. She adds she will be in the office today until 4 pm.Electronically si gned by Debi Means at 08/30/2017 10:33 AM PSTTelephone Encounter - Melina Ballard RN - 08/29/2017 2:51 PM PSTCopies of the requested records faxed to number listed in enco unter. elephone Encaron jackson - Evelina Perez - 08/29/2017 11:10 AM PSTPatient was referred here by [facility] and doctor [facility]. Would like a copy of the appt. notes and echo results FAXed o yvonne to Dr. Prabhakar. FAX #[phone]. 1 1:14 AM PSTdocumented in this encounter Plan of Treatment Not on filedocumented as of this encounter Visit Diagnoses Not on filedocumented in this encounter"
== END 2020-04-01 11:50 | disposition home or self-care (01) ==
LOC: ED 11:01
DX: S60.450A Superficial foreign body of right index finger, initial encounter (principal); J44.9 Chronic obstructive pulmonary disease, unspecified; F17.200 Nicotine dependence, unspecified, uncomplicated; W45.8XXA Other foreign body or object entering through skin, initial encounter
CPT/HCPCS: 10120; 99283-25

== ENCOUNTER 2024-04-30 06:55 | Day surgery (SDC) | payer OTHER ==
[2024-04-27 08:29] VITALS: BP 149/75
[~2024-04-30] VITALS: Ht 175.3 cm; Wt 77.3 kg
[~2024-04-30 06:55] MED LIST changes: +ADULT ASPIRIN R81 MG PO; +BAYER CHEWABLE81 MG PO; +LIPITOR20 MG PO; +MIDAZOLAM HCL 5 MG/5 ML VIAL IV PRN; +MUCINEX1200 MG PO; +MUCINEX600 MG PO; +NITROSTAT0.4 MG SL; +NORVASC10 MG PO; +PROTONIX40 MG PO; +TRIAMTERENE-HC1 EAC3 PO; +fentaNYL citrate 100 MCG/2 ML VIAL IV PRN
[2024-04-30] MEDS ORDERED: LACTATED RINGER'S 1,000 ML IV SCH (07:00)
[2024-04-30] MEDS ORDERED: LIDOCAINE HCL 1% 5 ML SDV INJ ONE (07:00)
[2024-04-30] MEDS ORDERED: IBLOOD GLUCOSE TEST STRIP 1 EA TEST VI PRN (07:00)
[2024-04-30 07:08] VITALS: BP 164/81
[2024-04-30] MEDS ORDERED: LIDOCAINE HCL 2% 5 ML SDV ONE (08:11)
[2024-04-30] MEDS ORDERED: propofoL 200 MG/20 ML VIAL ONE (08:11)
[2024-04-30] MEDS ORDERED: GLYCOPYRROLATE 1 MG/5 ML MDV ONE (08:20)
[2024-04-30] MEDS ORDERED: PHENYLEPHRINE HCL 10 MG/ML VIAL ONE (08:28)
[2024-04-30] MEDS ORDERED: ASPIRIN 325 MG TAB ONE (09:28)
[2024-04-30 09:39] LABS: BASOPHILS 1.1 % (0-2); EOSINOPHILS 1.5 % (0-6); HEMATOCRIT 45.5 % (35.0-50.0); HEMOGLOBIN 15.3 g/dL (12.0-18.0); LYMPHOCYTES 19.1 % (24-44); MCH 30.5 (27-36); MCHC 33.6 g/dl (30-36); MCV 90.9 fl (81-99); MONOCYTES 6.7 % (0-12); NEUTROPHILS 71.6 % (39-80); PLATELET COUNT 208 K/uL (140-440); RDW 13.8 (10.5-15.0)
[2024-04-30] MEDS ORDERED: ASPIRIN 325 MG TAB PO ONE (09:45)
[2024-04-30 09:55] LABS: ALBUMIN 3.5 g/dL (3.4-5.0); ALBUMIN/GLOBULIN RATIO 1.06 (1.1-2.4); ANION GAP 13.2 (7-21); BILIRUBIN, TOTAL 0.7 ng/dL (0.2-1.0); BUN/CREATININE RATIO 11.45 (6.0-28.6); CALCIUM 9.4 mg/dL (8.5-10.1); CREATININE, SERUM 0.96 mg/dL (0.70-1.30); POTASSIUM 4.2 mmol/L (3.5-5.1); PROTEIN, TOTAL 6.8 g/dL (6.4-8.2)
--- NOTE | 2024-04-30 10:25 | OR ---
[facility] [address] [place], [place] [address] Signed DATE OF OPERATION: 04/30/2024 SURGEON: Toño Ramírez MD PREOPERATIVE DIAGNOSES: 1. Blood with bowel movements intermittently. 2. Daily aspirin. 3. Maternal 1st cousin with colon cancer due to [place]. POSTOPERATIVE DIAGNOSES: 1. Moderate internal hemorrhoids x3. 2. Minimal to moderate left-sided diverticulosis. PROCEDURE: Colonoscopy without biopsy. ESTIMATED BLOOD LOSS: None. INDICATIONS: Rodrigo is a 73-year-old gentleman, asked to see me for a followup colonoscopy. He noticed some blood with several of his bowel movements in the last few months. He went to the emergency room here at [facility] in September of 2023. He had brown stool and a little bit of blood on the digital rectal exam. His BUN was normal. His hemoglobin was also normal. The mean cell volume was normal as well. The ER doctor recommended he come see me for a colonoscopy. We received a referral from his [place] provider, Dr. Bingham. Rodrigo told me he really has no lower GI complaints. He thinks his maternal 1st cousin had colon cancer from [place]. Rodrigo said he has had one colonoscopy in 2010 at the age of 60 through the [facility] while living in [place], [place]. To his knowledge, that was negative. I gave him our brochure on colonoscopy. We reviewed the nature of the test. There is risk including, but not limited to gas bloating, crampy abdominal pain, bleeding, perforation requiring surgery, and missed diagnosis. We also reviewed the written instructions for the bowel prep line by line. We also went through his list of medications. We are going to have him hold the aspirin 3 days prior to the procedure. In addition, he needs monitored anesthesia care with propofol infusion due to his long history of smoking as well as his medical history including his coronary artery disease and his COPD, hypertension, and cough. In fact, we ordered a preoperative chest x-ray and it came back unchanged from prior chest x-rays. He had expressed understanding and wished to proceed. Electronically Signed By: TOÑO RAMÍREZ MD 04/30/24 1025 PATIENT NAME: RODRIGO INFANTE OPERATIVE REPORT DATE OF : 52 REPORT #: [id number] PHYSICIAN: TOÑO RAMÍREZ MD PCP: HIRAL BINGHAM MD REPORT IS CONFIDENTIAL AND NOT TO BE RELEASED WITHOUT AUTHORIZATION [facility] [address], [place] [address] Signed PROCEDURE IN DETAIL: Rodrigo was taken into our endoscopy suite and placed in the left lateral decubitus position. He was given monitored anesthesia care with propofol infusion per our nurse solutions architect consultant. A digital rectal exam was performed and this was unremarkable. He had very little if any in the way of any external hemorrhoids. He had good sphincter tone. There were no masses. The adult colonoscope was introduced and advanced all the way into the cecum under direct visualization of the camera without difficulty. His prep was quite good. We could easily see the appendiceal orifice and the ileocecal valve. The scope was then slowly withdrawn. We took pictures throughout for photodocumentation. He does have diverticula in the left and sigmoid colon. They are moderate in size, few to moderate in number and scattered about. The rectum was unremarkable. Upon retroflexion of the scope, he does have three classic moderate-sized internal hemorrhoid columns. I can see each one is a little bit irritated. I am sure these would bleed from time to time. After this, the gas was suctioned out and the colonoscope removed. Rodrigo tolerated the procedure quite well. RECOMMENDATIONS: Rodrigo is welcome to follow up in 10 years for repeat screening colonoscopy so long as his health holds up. He will receive a brochure on hemorrhoids at the time of discharge as well. He is welcome to add some fiber to his diet and certainly can use Balneol lotion around the anal skin which he can purchase online. Toño Ramírez MD [facility] /[id number] cc: MD Hiral Higginbotham MD Copies: TOÑO RAMÍREZ MD Electronically Signed By: TOÑO RAMÍREZ MD 04/30/24 1025 PATIENT NAME: RODRIGO INFANTE OPERATIVE REPORT DATE OF : 52 REPORT #: [id number] PHYSICIAN: TOOÑ RAMÍREZ MD PCP: HIRAL BINGHAM MD REPORT IS CONFIDENTIAL AND NOT TO BE RELEASED WITHOUT AUTHORIZATION [address] [address] Signed HIRAL BINGHAM MD ~ Electronically Signed By: TOÑO RAMÍREZ MD 04/30/24 1025 PATIENT NAME: RODRIGO INFANTE OPERATIVE REPORT DATE OF : 52 REPORT #: [id number] PHYSICIAN: TOÑO RAMÍREZ MD PCP: HIRAL BINGHAM MD REPORT IS CONFIDENTIAL AND NOT TO BE RELEASED WITHOUT AUTHORIZATION
[2024-04-30 11:59] VITALS: BP 183/105
--- NOTE | 2024-04-30 12:01 | NUR ---
04/30/24 1201 [address],Maria Del Rosario 8633 PT ARRIVED TO PACU ON 6L VIA MASK, PT WAKES EASILY AND DENIES CONCERNS. PT REORIENTED TO PACU AND EASILY FALLS BACK TO SLEEP WITH COUGHING OFF AND ON. 0849 O2 REMOVED AND PT ENCOURAGED TO REMAIN ON HIS SIDE AND PASS GAS AND EDUCATION GIVEN. PT RESTING AND DENIES CONCERNS.
--- NOTE | 2024-05-01 19:41 | EKG ---
[facility] [address] [place] [address] Signed Sinus bradycardia with 1st degree AV block Right bundle branch block Abnormal ECG When compared with ECG of 27-APR-2024 08:35, Vent. rate has increased BY 19 BPM Right bundle branch block is now present Confirmed by Naman Pantoja MD ([id number]) on 05/01/2024 7:41:32 PM Electronically Signed By: NAMAN PANTOJA MD 05/01/241940 PATIENT NAME: JASPER INFANTE Electrocardiogram DATE OF : 52 PHYSICIAN: NAMAN PANTOJA MD REPORT #: [id number] REPORT IS CONFIDENTIAL AND NOT TO BE RELEASED WITHOUT AUTHORIZATION
== END 2024-04-30 10:18 | disposition home or self-care (01) ==
LOC: DS 06:55
PROVIDERS: ATTEND Colon & Rectal Surgery
PROC: 0DJD8ZZ Inspection of Lower Intestinal Tract, Via Natural or Artificial Opening Endoscopic (ICD-10-PCS; principal; 2024-04-30 08:15)
DX: K64.8 Other hemorrhoids (principal); K64.4 Residual hemorrhoidal skin tags; K57.31 Diverticulosis of large intestine without perforation or abscess with bleeding; Z80.0 Family history of malignant neoplasm of digestive organs; R07.89 Other chest pain; I10 Essential (primary) hypertension; E78.5 Hyperlipidemia, unspecified; K21.9 Gastro-esophageal reflux disease without esophagitis; J44.9 Chronic obstructive pulmonary disease, unspecified; I25.10 Atherosclerotic heart disease of native coronary artery without angina pectoris; Z79.899 Other long term (current) drug therapy
CPT/HCPCS: 00811; 36415; 71045; 80053; 84484; 85025; J2001; J2371; J2704; J7121

== ENCOUNTER 2024-08-25 08:03 | Emergency (ER) | payer OTHER, MEDICARE ==
[~2024-08-25] VITALS: Ht 175.3 cm; Wt 79.4 kg
[~2024-08-25 08:03] MED LIST changes: -MIDAZOLAM HCL 5 MG/5 ML VIAL IV PRN; -fentaNYL citrate 100 MCG/2 ML VIAL IV PRN
[2024-08-25] MEDS ORDERED: ACETAMINOPHEN 500 MG TAB PO ONE (08:30)
[2024-08-25] MEDS ORDERED: KETOROLAC TROMETHAMINE 30 MG/ML VIAL IM ONE (08:30)
[2024-08-25] MEDS ORDERED: HYDROCODON-ACE1 EA10 PO (10:58)
[2024-08-25 11:11] VITALS: BP 146/76
== END 2024-08-25 11:12 | disposition home or self-care (01) ==
LOC: ED 08:03
DX: R07.89 Other chest pain (principal); J44.9 Chronic obstructive pulmonary disease, unspecified; F17.200 Nicotine dependence, unspecified, uncomplicated; I48.91 Unspecified atrial fibrillation; Z79.82 Long term (current) use of aspirin; Z79.899 Other long term (current) drug therapy
CPT/HCPCS: 71046; 96372; 99283-25; A9270; J1885

== ENCOUNTER 2025-01-09 07:00 | Emergency (ER) | payer OTHER ==
[~2025-01-09] VITALS: Ht 172.7 cm; Wt 76.4 kg
[~2025-01-09 07:00] MED LIST changes: +HYDROCODON-ACE1 EA10 PO; +LISINOPRIL20 MG PO
[2025-01-09] MEDS ORDERED: AMOXICILLIN500 MG PO (07:19)
[2025-01-09] MEDS ORDERED: AMOXICILLIN 500 MG CAP PO ONE (07:30)
[2025-01-09] MEDS ORDERED: HYDROCODONE/ACETA 5/325 TAB PO ONE (07:30)
[2025-01-09 07:37] VITALS: BP 181/85
[2025-01-11] MEDS ORDERED: MOTRIN IB200 MG PO (10:48)
== END 2025-01-09 07:35 | disposition home or self-care (01) ==
LOC: ED 07:00
DX: K08.89 Other specified disorders of teeth and supporting structures (principal); J44.9 Chronic obstructive pulmonary disease, unspecified; F17.200 Nicotine dependence, unspecified, uncomplicated; Z79.82 Long term (current) use of aspirin; Z79.899 Other long term (current) drug therapy
CPT/HCPCS: 99282

== ENCOUNTER 2025-06-11 11:17 | Emergency (ER) | payer OTHER, MEDICARE ==
[~2025-06-11] VITALS: Ht 172.7 cm; Wt 76.8 kg
[~2025-06-11 11:17] MED LIST changes: +AMOXICILLIN500 MG PO; +MOTRIN IB200 MG PO
[2025-06-11 13:02] VITALS: BP 170/74
== END 2025-06-11 13:03 | disposition home or self-care (01) ==
LOC: ED 11:17
DX: L72.3 Sebaceous cyst (principal); J44.9 Chronic obstructive pulmonary disease, unspecified; F17.200 Nicotine dependence, unspecified, uncomplicated; Z79.82 Long term (current) use of aspirin; Z79.899 Other long term (current) drug therapy
CPT/HCPCS: 10060; 99282-25

== ENCOUNTER 2025-08-18 11:29 | Emergency (ER) | payer OTHER, MEDICARE ==
[~2025-08-18] VITALS: Ht 172.7 cm; Wt 79.0 kg
[2025-08-18] MEDS ORDERED: LIPITOR20 MG PO (11:44)
[2025-08-18 12:14] VITALS: BP 167/78
== END 2025-08-18 12:15 | disposition home or self-care (01) ==
LOC: ED 11:29
DX: M71.9 Bursopathy, unspecified (principal); J44.9 Chronic obstructive pulmonary disease, unspecified; F17.200 Nicotine dependence, unspecified, uncomplicated
CPT/HCPCS: 99283